=== PATIENT | female | born 1935 | race Caucasian/White ===

== ENCOUNTER 2018-07-05 09:38 | Inpatient (IN) | payer OTHER ==
--- NOTE | 2018-07-05 16:10 | R.PREADM ---
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 Caesar Tena M.D. [facility]# [id number] [id number] NAME YRN TIRADO ADDRESS [address] [facility] [address] [id number] [id number] DATE OF 1935 AGE 82 SSN# [id number] GENDER female MARITAL STATUS RACE white ADMIT FROM 02 - [facility] PRE-HOSPITAL LIVING SETTING 01 - Home (private home/apt. board/care, assisted living, senior living, transitional living) HOME TYPE AND DETAILS Type of home: single family house # of steps to enter the residence: 0 # of steps within the residence: 0 # of levels in the residence: 1 PRE-HOSPITAL LIVING WITH Family/Relatives FAMILY SUPPORT Yes PRIMARY FAMILY CONTACT NAME Ron Tirado PRIMARY FAMILY CONTACT PHONE PHONE PRIMARY FAMILY CONTACT ON ADM.? no IS PRIMARY FAMILY CONTACT AUTH. REP.? no 1ST EMERGENCY CONTACT Ron Tirado 1ST CONTACT PHONE PHONE 1ST CONTACT ON ADM. no IS 1ST CONTACT AUTH. REP.? no PHONE 2ND CONTACT ON ADM.? no PATIENT EMPLOYMENT STATUS Retired (for age) PATIENT EMPLOYER No Employer PAYOR INFORMATION: 1ST PAYOR NAME MEDICARE 1ST PAYOR PHONE 1ST PAYOR INJURY/ILLNESS DUE TO ACCIDENT? No ANOTHER [employer] RESPONSIBLE? No PRIMARY REHAB/ACUTE DIAGNOSIS: CHF exacerbation ONSET DATE 06/30/2018 REHAB IMPAIRMENT CATEGORY (SUSHANT): 14 Cardiac does NOT meet 60% rule PRIMARY DIAGNOSIS-RELATED SURGERIES: No surgeries related to the primary diagnosis were performed. COMORBID REHAB/ACUTE DIAGNOSES: - Non-Tiered Dyspnea (R06.0) bilateral pleural effusion chest pain - N/A hypertension diabetes weakness INTERVENTIONS: - Hypertension Fluid management Medications VS - Diabetes BS's Education Glycohemoglobin Medications Podiatry RISK FOR COMPLICATIONS: - Hypertension CVA Hypotension PR TIA - Diabetes DM ulcers Infection Ketoacidosis PVD neuropathy SUMMARY OF ACUTE HOSPITALIZATION: Pt. is a 82 yo Right-handed white female. On 06/30/2018 she was admitted to [facility] with diagnosis CHF exacerbation. Her impairment category is Cardiac 09 - Cardiac Disorders (09). Pre-morbidly, Pt. was independent/mod-I in Communication, Social Cognition, Self-Care, Sphincter Cont rol, Transfers Control, and Locomotion; and she had good Sphincter Control. Currently, she has deficits of Balance, Endurance, Safety Awareness, Transfers Control, Locomotion, S ocial Cognition, and Self-Care. Pt. is now referred to [facility] for acute in-patient rehabilitation in order to maximize patient's functional independence in activities of daily living, strength, ROM, and mobi lity. Patient has realistic goal of being discharged at assistance level 6-Adithya to reside at Home with Fam cesar/Relatives. PAST MEDICAL HISTORY Dyspnea (R06.0) bilateral pleural effusion chest pain diabetes hypertension weakness UTI MEDICATION ALLERGIES: No Known Drug Allergies (NKDA) ENVIRONMENTAL ALLERGIES: - Substance Allergies None Known - Other Allergies None Known CODE STATUS: Full code WEIGHT/HEIGHT/BMI: WEIGHT 180 lbs HEIGHT 5' 6" BMI 29 DIET: - Diet Type Regular - Diet - Solid Texture Regular - Diet - Liquid Texture Regular - Tube Feed N/A REVIEW OF SYSTEMS: - Gen Alert and awake Lying in bed No apparent distress Oriented to: person, time, and place - Vital Signs Vital signs stable, afebrile - CVS RRR VITAL SIGNS Temperature: 98 F SBP/DBP: 111/54 Pulse: 18 Resp: 62 Vital signs stable, afebrile CURRENT SPHINCTER CONTROL: Pre-hospital bladder status: continent # of bladder accidents in the last 7 days prior to screenin Pre-hospital bowel status: continent # of bowel accidents in the last 7 days prior to screenin Last Bowel Movement Date: 07/05/2018 DETAILED CURRENT FUNCTIONAL STATUS: - Bladder accident frequency: Ind - No accidents in the past 7 days - Bowel accident frequency: Ind - No accidents in the past 7 days - Walking score based on distance walked: 1(<=50ft) FUNCTIONAL STATUS: - Self-Care A. Eating Ind Ind B. Grooming Ind Ind C. Bathing Ind Ind D. Dressing - Upper Ind Ind E. Dressing - Lower Ind modA F. Toileting Adithya modA - Sphincter Control G: Bladder control Ind Ind H: Bowel control Ind Ind - Transfers Control I. Bed/Chair/Wheelchair Adithya modA J. Toilet Adithya modA K. Tub/Shower Adithya modA - Locomotion L. Walk/Wheelchair (B) Adithya Dep M. Stairs Ind ADNO - Communication N. Comprehension (B) Adithya Adithya O. Expression (B) Adithya Adithya - Social Cognition P. Social Interaction Adithya Adithya Q. Problem Solving Adithya sup R. Memory sup sup - Endurance Poor - Balance Poor - Safety Awareness Poor CURRENT FUNC. DEFICITS: Balance, Endurance, Safety Awareness, Transfers Control, Locomotion, Social Cognition, and Self-Care THERAPY NOTES FROM ACUTE CARE: Attached. SPECIAL NEEDS: - Safety Concerns Skin breakdown precautions needed due to skin breakdown risk PATIENT NEEDS ACTIVE AND ONGOING THERAPEUTIC INTERVENTION OF MULTIPLE THERAPY DISCIPLINES, INCLUDING: - Occupational Therapy Evaluate and Treat. - Physical Therapy Evaluate and Treat. PATIENT NEEDS CLOSE MEDICAL SUPERVISION BY A REHABILITATION PHYSICIAN FOR: Bowel and Bladder Management Coordination of Treatment Team Diabetes Management Medical and Co-Morbidity Management Pain Management PATIENT REQUIRES 24X7 REHAB NURSING FOR MEDICAL AND FUNCTIONAL MGT. OF THE FOLLOWING DEFICITS: ADL's Ambulation Bowel and Bladder Management Cognition Communication Disease Management Medication Management Pain Management Patient/Family Education Providing Safe Environment Transfers PATIENT REQUIRES INTENSIVE, COORDINATED INTERDISCIPLINARY APPROACH TO REHAB: Arranging Home Equipment/Services Discharge Planning Family Intervention/Training Supervisor [employer]/Case Management PATIENT REHAB POTENTIAL: Expected level of measurable improvement will be of a practical value to patient's functional capacit y or adaptations to impairments Has a viable Discharge Plan Medically appropriate; condition is sufficiently stable to participate in intensive rehab program Patient is able and expected to receive 3 hours of individualized therapy daily on at least 5 of ever y 7 days Patient's prognosis for significant practical improvement within a reasonable period of time appears Good DISCHARGE PLAN: - Estimated Length of Stay (days) 10. - Consensus on plan Discharge plan has been discussed with primary caregiver. Patient/Family is in agreement with the jeff n. Primary caregiver is in agreement with the plan. - Patient/Family Goals Return home with assistance. - Planned Living Setting Upon Discharge Home, to live with Family/Relatives. RECOMMENDED CARE LEVEL: IRF RECOMMENDATION DETAILS: Recommended Admission to Comprehensive Rehabilitation Program to Increase Functional [place] SCREENER'S COMPLETENESS CONFIRMATION: - Screening Confirmation The patient data collection on this preadmission screening form is finished PHYSICIANS REVIEW AND ADMISSION DETERMINATION Admit - Based on my review of the Pre-Admission Screening results, in my medical judgment and experie nce, I concur with the findings and recommend admission to [facility], as this patient requires an IRF level of care. SIGNATURE PANEL: Clinical Liaison - [electronically] signed by Starr Leiva on 07/05/2018 at 15:22 (DRILLING SUPERVISOR) Clinical Liaison - [electronically] signed by Ban Sumner on 07/05/2018 at 15:46 (DRILLING SUPERVISOR) Physician Reviewer - [electronically] signed by Dr. Caesar Tena M.D. on 07/05/2018 at 16:08 (DRILLING SUPERVISOR )
--- OUTSIDE RECORDS SUMMARY | 2018-07-05 20:01 | XMS REPORT | Clinical Summary ---
:1935 Author Organization [facility] Address [address] [place] [address] Care Team Providers Name Role Phone Unavailable Primary Care Provider Unavailable Allergies Active Allergy Reactions Severity Noted Date Comments Sulfamethoxazole-Trimethopr Diarrhea, Nausea And Vomiting 06/28/2016 im Codeine Anxiety Medium 06/28/2016 Latex, Natural Rubber Rash Low 07/03/2016 Medications Medication Sig Dispensed Refills Start Date End Date Status sucralfate (CARAFATE) Take 1 g by mouth 4 0 Active 1 gram tablet (four) times daily. sotalol AF (BETAPACE Take 80 mg by mouth 0 Active AF) 80 MG tablet 2 (two) times daily. lisinopril Take 20 mg by mouth 0 Active (PRINIVIL,ZESTRIL) 20 daily. MG tablet glimepiride (AMARYL) Take 4 mg by mouth 0 Active 4 MG tablet 2 (two) times daily with breakfast and dinner. metFORMIN Take 500 mg by 0 Active (GLUCOPHAGE) 500 MG mouth 2 (two) times tablet daily with breakfast and dinner. Active Problems Problem Noted Date Orthostatic hypotension 07/06/2016 History of stroke 07/03/2016 Atrial fibrillation 07/03/2016 Sick sinus syndrome 07/03/2016 Falls 07/03/2016 Controlled type 2 diabetes mellitus with complication, without long-term 07/03 current use of insulin Chest pain 07/03/2016 Acute right MCA stroke 06/26/2016 Hyponatremia 06/26/2016 Hypocalcemia 06/26/2016 Received intravenous tissue plasminogen activator (tPA) in emergency 2016 department Pacemaker 06/26/2016 Hypertension 06/26/2016 Family History Medical History Relation Name Comments Heart disease Brother Stroke Brother Heart disease Father Hyperlipidemia Father Diabetes Mother Relation Name Status Comments Brother Father Mother Social History Tobacco Use Types Packs/Day Years Used Date Unknown If Ever Smoked Alcohol Use Drinks/Week oz/Week Comments No Sex Assigned at Date Recorded Not on file Job Start Date Occupation Industry Not on file Not on file Not on file Travel History Travel Start Travel End No recent travel history available. Last Filed Vital Signs Not on file Plan of Treatment Not on file Results Not on fileafter 07/04/2017 Insurance Payer Benefit Plan / Group Subscriber ID Type Phone Address MEDICARE MEDICARE A B xxxxxxxxxx Medicare MCR GENERIC MEDICARE xxxxxxxxxx Medigap SUPPLEMENT/INDIVIDUAL SUPPLEMENT Advance Directives For more information, please contact:[address] [phone] Code Status Date Activated Date Inactivated Comments Full Code 07/03/2016 2:25 PM 07/07/2016 6:09 AM This code status was determined by: Patient Full Code 06/26/2016 3:34 PM 06/29/2016 4:19 PM This code status was determined by: Patient
--- OUTSIDE RECORDS SUMMARY | 2018-07-05 20:01 | XMS REPORT ---
:1935 [facility] [address] [place] [address] [address]. [address] [place] [address] Care Team Providers Name Role Phone KELLEE LUA Primary Care Provider Unavailable DR CHENCHO KUMARI I Unavailable Unavailable KELLEE LUA Unavailable Unavailable Problems This patient has no known problems. Allergies, Adverse Reactions, Alerts This patient has no known allergies or adverse reactions. Medications This patient has no known medications. Encounters Start End Encounter Admission Attending Care Care Encounter Date/Time Date/Time Type Type Clinicians Facility Department ID 2018-03-23 2018-03-26 Outpatient E MARLENY KUMARI TELE [id number] 19:35:00 19:18:00 CHENCHO Results Test Description Test Time Test Comments Text Results Atomic Results Result Comments GLUCOMETER GLUCOSE- LAB USE ONLY 2018-03-26 16:28:00 Test Item Value Reference Range Comments GLUCOMETER (test code=GMG) 140 mg/dL 70-100 CLEANED METERMeter ID: [id number]: [id number] MENG RAMIREZ GLUCOMETER GLUCOSE- LAB USE [id number] 11:07:00 Test Item Value Reference Range Comments GLUCOMETER (test code=GMG) 241 mg/dL 70-100 CLEANED METERMeter ID: [id number]: [id number] ALIX RAMIREZVEZ CBC WITH [id number] 06:39:00 Test Item Value Reference Range Comments WBC (test code=WBC) 8.3 10\S\3/uL 4.5-11.0 RBC (test code=RBC) 3.33 10\S\6/uL 3.80-5.80 HGB (test code=HBG) 7.9 g/dL 12.0-15.5 HCT (test code=HCT) 24.7 % 35.0-44.0 MCV (test code=MCV) 74.2 fL 81.0-99.0 MCH (test code=MCH) 23.7 pg 27.0-31.0 MCHC (test code=MCHC) 32.0 g/dL 32.0-36.0 RDW (test code=RDW) 20.8 % 11.5-14.5 PLT (test code=PLT) 209 10\S\3/uL 130-400 MPV (test code=MPV) 10.4 fL 9.4-12.4 NEUTROP # (test code=NE#) 5.4 10\S\3/uL 1.6-8.0 LYMPH # (test code=LY#) 1.6 10\S\3/uL 1.1-3.5 MONOCYTE # (test code=MO#) 1.0 10\S\3/uL 0.0-1.1 EOSINOPH # (test code=EO#) 0.2 10\S\3/uL 0.0-0.7 BASOPHIL # (test code=BA#) 0.0 10\S\3/uL 0.0-0.3 IG # (test code=IG#) 0.04 10\S\3/uL 0.00-0.06 NRBC # (test code=NRBC#) 0.00 10\S\3/uL 0.00-0.01 NEUTROPH % (test code=NE%) 65.5 % 35.0-73.0 LYMPH % (test code=LY%) 19.4 % 20.0-55.0 MONO % (test code=MO%) 11.5 % 2.5-10.0 EOSINOPH % (test code=EO%) 2.7 % 0.0-5.0 BASOPHIL % (test code=BA%) 0.4 % 0.0-2.0 IG % (test code=IG%) 0.5 % 0.0-0.8 NRBC% (test code=NRBC%) 0.0 % 0.0-0.2 PLT EST (test code=PLTEST) ADEQUATE ADEQUATE PLT MORPH (test code=PLTMOR) NORMAL (1.5-3 um) NORMAL ANISO (test code=ANISO) 1+ NONE HYPOCHROM (test code=HYPOC) 1+ NONE ACANTHO (test code=ACAN) 2+ NONE COMPREHENSIVE METABOLIC [id number] 05:53:00 Test Item Value Reference Range Comments GLUCOSE (test code=06D) 111 mg/dL 75-100 SODIUM (test code=01A) 131 mmol/L 136-145 POTASSIUM (test code=01B) 5.1 mmol/L 3.6-5.1 CHLORIDE (test code=04A) 99 mmol/L 98-107 CO2 (test code=02A) 26 mmol/L 22-32 ANION GAP (test code=ANG) 11.1 mmol/L BUN (test code=05D) 29 mg/dL 7-18 CREATININE (test code=03E) 1.9 mg/dL 0.4-1.1 BUN/CREA (test code=BCR) 15 12-20 CALCIUM (test code=09D) 8.3 mg/dL 8.3-9.5 BILI TOTAL (test code=11A) 0.7 mg/dL 0.2-1.0 PROTEIN (test code=07D) 5.7 g/dL 6.4-8.2 ALBUMIN (test code=08D) 2.9 g/dL 3.5-4.8 GLOBULIN (test code=GLB) 2.8 g/dL 1.5-3.8 ALB/GLOB (test code=AGRR) 1.0 1.0-2.6 ALK PHOS (test code=35A) 72 IU/L 42-121 AST (test code=30A) 19 IU/L <=42 ALT (test code=31A) 22 IU/L <=78 GLUCOMETER GLUCOSE- LAB USE [id number] 05:31:00 Test Item Value Reference Range Comments GLUCOMETER (test code=GMG) 117 mg/dL 70-100 Meter ID: [id number]: [id number] ADRIANA GORDILLO GLUCOMETER GLUCOSE- LAB USE [id number] 16:13:00 Test Item Value Reference Range Comments GLUCOMETER (test code=GMG) 253 mg/dL 70-100 CLEANED METERMeter ID: [id number]: 9559 ALIX VÁSQUEZ U/S KIDNEY (RENAL)2018-03-25 14:49:30EXAMINATION: U/S KIDNEY (RENAL).LOCATION: S17.HISTORY: Z87.448, hematuria, severe anemia.COMPARISON:None.FINDINGS: Sonographic evaluation of the kidneys and bladder was performed utilizing grayscale, pulse Doppler and color flow imaging.The right kidney measures 9.1 cm and the left kidney measures 9.5cm. Theparenchymal echogenicity is within normal limits on both sides. There is nohydronephrosis. Nocalculus is identified.Bilateral ureteral jets are noted. Urinary bladder is underdistended , otherwiseunremarkable.IMPRESSION:No hydronephrosis.GLUCOMETER GLUCOSE- LAB USE [id number] 11:24:00 Test Item Value Reference Range Comments GLUCOMETER (test code=GMG) 211 mg/dL 70-100 Meter ID: [id number]: [id number] TERRY CRUMP CBC WITH [id number] 06:01:00 Test Item Value Reference Range Comments WBC (test code=WBC) 8.7 10\S\3/uL 4.5-11.0 RBC (test code=RBC) 3.86 10\S\6/uL 3.80-5.80 HGB (test code=HBG) 8.9 g/dL 12.0-15.5 HCT (test code=HCT) 29.1 % 35.0-44.0 MCV (test code=MCV) 75.4 fL 81.0-99.0 MCH (test code=MCH) 23.1 pg 27.0-31.0 MCHC (test code=MCHC) 30.6 g/dL 32.0-36.0 RDW (test code=RDW) 20.5 % 11.5-14.5 PLT (test code=PLT) 218 10\S\3/uL 130-400 MPV (test code=MPV) 10.1 fL 9.4-12.4 NEUTROP # (test code=NE#) 5.8 10\S\3/uL 1.6-8.0 LYMPH # (test code=LY#) 1.7 10\S\3/uL 1.1-3.5 MONOCYTE # (test code=MO#) 0.8 10\S\3/uL 0.0-1.1 EOSINOPH # (test code=EO#) 0.4 10\S\3/uL 0.0-0.7 BASOPHIL # (test code=BA#) 0.0 10\S\3/uL 0.0-0.3 IG # (test code=IG#) 0.03 10\S\3/uL 0.00-0.06 NRBC # (test code=NRBC#) 0.00 10\S\3/uL 0.00-0.01 NEUTROPH % (test code=NE%) 66.1 % 35.0-73.0 LYMPH % (test code=LY%) 19.6 % 20.0-55.0 MONO % (test code=MO%) 9.3 % 2.5-10.0 EOSINOPH % (test code=EO%) 4.2 % 0.0-5.0 BASOPHIL % (test code=BA%) 0.5 % 0.0-2.0 IG % (test code=IG%) 0.3 % 0.0-0.8 NRBC% (test code=NRBC%) 0.0 % 0.0-0.2 PLT EST (test code=PLTEST) ADEQUATE ADEQUATE PLT MORPH (test code=PLTMOR) NORMAL (1.5-3 um) NORMAL ANISO (test code=ANISO) 2+ NONE HYPOCHROM (test code=HYPOC) 1+ NONE ACANTHO (test code=ACAN) 1+ NONE COMPREHENSIVE METABOLIC [id number] 05:37:00 Test Item Value Reference Range Comments GLUCOSE (test code=06D) 62 mg/dL 75-100 SODIUM (test code=01A) 132 mmol/L 136-145 POTASSIUM (test code=01B) 4.9 mmol/L 3.6-5.1 CHLORIDE (test code=04A) 98 mmol/L 98-107 CO2 (test code=02A) 27 mmol/L 22-32 ANION GAP (test code=ANG) 11.9 mmol/L BUN (test code=05D) 30 mg/dL 7-18 CREATININE (test code=03E) 1.9 mg/dL 0.4-1.1 BUN/CREA (test code=BCR) 16 12-20 CALCIUM (test code=09D) 8.6 mg/dL 8.3-9.5 BILI TOTAL (test code=11A) 0.5 mg/dL 0.2-1.0 PROTEIN (test code=07D) 5.8 g/dL 6.4-8.2 ALBUMIN (test code=08D) 3.2 g/dL 3.5-4.8 GLOBULIN (test code=GLB) 2.6 g/dL 1.5-3.8 ALB/GLOB (test code=AGRR) 1.2 1.0-2.6 ALK PHOS (test code=35A) 71 IU/L 42-121 AST (test code=30A) 20 IU/L <=42 ALT (test code=31A) 22 IU/L <=78 IRON/TIBC/IRON [id number] 05:37:00 Test Item Value Reference Range Comments IRON (test code=46B) 29 ug/dL 50-170 TIBC (test code=79B) 330 ug/dL 250-400 FE% SAT (test code=ISAT) 8.8 % 15.0-50.0 GLUCOMETER GLUCOSE- LAB USE [id number] 05:08:00 Test Item Value Reference Range Comments GLUCOMETER (test code=GMG) 67 mg/dL 70-100 CLEANED METERMeter ID: [id number]: [address] [place] GLUCOMETER GLUCOSE- LAB USE [id number] 19:39:00 Test Item Value Reference Range Comments GLUCOMETER (test code=GMG) 123 mg/dL 70-100 CLEANED METERMeter ID: [id number]: 9250 [employer] GLUCOMETER GLUCOSE- LAB USE [id number] 15:27:00 Test Item Value Reference Range Comments GLUCOMETER (test code=GMG) 176 mg/dL 70-100 CLEANED METERMeter ID: [id number]: 9197 MENG RAMIREZ GLUCOMETER GLUCOSE- LAB USE [id number] 11:54:00 Test Item Value Reference Range Comments GLUCOMETER (test code=GMG) 73 mg/dL 70-100 CLEANED METERMeter ID: [id number]: 9197 MENG RAMIREZ CBC WITH [id number] 09:00:00 Test Item Value Reference Range Comments WBC (test code=WBC) 7.4 10\S\3/uL 4.5-11.0 RBC (test code=RBC) 3.55 10\S\6/uL 3.80-5.80 HGB (test code=HBG) 8.5 g/dL 12.0-15.5 HCT (test code=HCT) 27.0 % 35.0-44.0 MCV (test code=MCV) 76.1 fL 81.0-99.0 MCH (test code=MCH) 23.9 pg 27.0-31.0 MCHC (test code=MCHC) 31.5 g/dL 32.0-36.0 RDW (test code=RDW) 20.5 % 11.5-14.5 PLT (test code=PLT) 199 10\S\3/uL 130-400 MPV (test code=MPV) 10.2 fL 9.4-12.4 NEUTROP # (test code=NE#) 4.3 10\S\3/uL 1.6-8.0 LYMPH # (test code=LY#) 1.9 10\S\3/uL 1.1-3.5 MONOCYTE # (test code=MO#) 0.8 10\S\3/uL 0.0-1.1 EOSINOPH # (test code=EO#) 0.3 10\S\3/uL 0.0-0.7 BASOPHIL # (test code=BA#) 0.1 10\S\3/uL 0.0-0.3 IG # (test code=IG#) 0.05 10\S\3/uL 0.00-0.06 NRBC # (test code=NRBC#) 0.00 10\S\3/uL 0.00-0.01 NEUTROPH % (test code=NE%) 57.7 % 35.0-73.0 LYMPH % (test code=LY%) 26.0 % 20.0-55.0 MONO % (test code=MO%) 10.6 % 2.5-10.0 EOSINOPH % (test code=EO%) 4.2 % 0.0-5.0 BASOPHIL % (test code=BA%) 0.8 % 0.0-2.0 IG % (test code=IG%) 0.7 % 0.0-0.8 NRBC% (test code=NRBC%) 0.0 % 0.0-0.2 PLT EST (test code=PLTEST) ADEQUATE ADEQUATE PLT MORPH (test code=PLTMOR) NORMAL (1.5-3 um) NORMAL ANISO (test code=ANISO) 2+ NONE HYPOCHROM (test code=HYPOC) 1+ NONE MICROCYTIC (test code=MICRO) 1+ NONE TARGET (test code=TARG) 1+ NONE OVALOCYTES (test code=OVA) 1+ NONE ACANTHO (test code=ACAN) 1+ NONE BASIC METABOLIC [id number] 07:44:00 Test Item Value Reference Range Comments GLUCOSE (test code=06D) 69 mg/dL 75-100 SODIUM (test code=01A) 134 mmol/L 136-145 POTASSIUM (test code=01B) 5.2 mmol/L 3.6-5.1 CHLORIDE (test code=04A) 102 mmol/L 98-107 CO2 (test code=02A) 26 mmol/L 22-32 ANION GAP (test code=ANG) 11.2 mmol/L BUN (test code=05D) 31 mg/dL 7-18 CREATININE (test code=03E) 2.0 mg/dL 0.4-1.1 BUN/CREA (test code=BCR) 16 12-20 CALCIUM (test code=09D) 8.3 mg/dL 8.3-9.5 GLUCOMETER GLUCOSE- LAB USE [id number] 05:56:00 Test Item Value Reference Range Comments GLUCOMETER (test code=GMG) 153 mg/dL 70-100 CLEANED METERMeter ID: [id number]: [id number] SOLIS FERRARA CARDIAC [id number] 19:13:00 Test Item Value Reference Range Comments TROPONIN I (test code=A84) 0.018 ng/mL 0.000-0.045 CKMB (test code=A49) 1.2 ng/mL <=3.6 CPK (test code=32A) 33 IU/L 26-192 OCCULT [id number] 19:04:00 Test Item Value Reference Range Comments Direct Exam (test code=DE1) NEGATIVE FOR OCCULT BLOOD CBC WITH [id number] 17:58:00 Test Item Value Reference Range Comments WBC (test code=WBC) 13.8 10\S\3/uL 4.5-11.0 RBC (test code=RBC) 3.31 10\S\6/uL 3.80-5.80 HGB (test code=HBG) 7.5 g/dL 12.0-15.5 HCT (test code=HCT) 24.9 % 35.0-44.0 MCV (test code=MCV) 75.2 fL 81.0-99.0 MCH (test code=MCH) 22.7 pg 27.0-31.0 MCHC (test code=MCHC) 30.1 g/dL 32.0-36.0 RDW (test code=RDW) 20.3 % 11.5-14.5 PLT (test code=PLT) 238 10\S\3/uL 130-400 MPV (test code=MPV) 10.3 fL 9.4-12.4 NEUTROP # (test code=NE#) 10.7 10\S\3/uL 1.6-8.0 LYMPH # (test code=LY#) 1.9 10\S\3/uL 1.1-3.5 MONOCYTE # (test code=MO#) 1.0 10\S\3/uL 0.0-1.1 EOSINOPH # (test code=EO#) 0.2 10\S\3/uL 0.0-0.7 BASOPHIL # (test code=BA#) 0.0 10\S\3/uL 0.0-0.3 IG # (test code=IG#) 0.09 10\S\3/uL 0.00-0.06 NRBC # (test code=NRBC#) 0.00 10\S\3/uL 0.00-0.01 NEUTROPH % (test code=NE%) 77.1 % 35.0-73.0 LYMPH % (test code=LY%) 13.5 % 20.0-55.0 MONO % (test code=MO%) 7.0 % 2.5-10.0 EOSINOPH % (test code=EO%) 1.4 % 0.0-5.0 BASOPHIL % (test code=BA%) 0.3 % 0.0-2.0 IG % (test code=IG%) 0.7 % 0.0-0.8 NRBC% (test code=NRBC%) 0.0 % 0.0-0.2 PLT EST (test code=PLTEST) ADEQUATE ADEQUATE PLT MORPH (test code=PLTMOR) NORMAL (1.5-3 um) NORMAL ANISO (test code=ANISO) 1+ NONE POIK (test code=POIK) 2+ NONE BRAYDON (test code=BRAYDON) 1+ NONE ACANTHO (test code=ACAN) 1+ NONE SCHISTO (test code=BALBIR) 1+ NONE COMPREHENSIVE METABOLIC [id number] 17:54:00 Test Item Value Reference Range Comments GLUCOSE (test code=06D) 144 mg/dL 75-100 SODIUM (test code=01A) 134 mmol/L 136-145 POTASSIUM (test code=01B) 5.2 mmol/L 3.6-5.1 CHLORIDE (test code=04A) 102 mmol/L 98-107 CO2 (test code=02A) 25 mmol/L 22-32 ANION GAP (test code=ANG) 12.2 mmol/L BUN (test code=05D) 29 mg/dL 7-18 CREATININE (test code=03E) 1.9 mg/dL 0.4-1.1 BUN/CREA (test code=BCR) 15 12-20 CALCIUM (test code=09D) 8.0 mg/dL 8.3-9.5 BILI TOTAL (test code=11A) 0.2 mg/dL 0.2-1.0 PROTEIN (test code=07D) 5.9 g/dL 6.4-8.2 ALBUMIN (test code=08D) 3.1 g/dL 3.5-4.8 GLOBULIN (test code=GLB) 2.8 g/dL 1.5-3.8 ALB/GLOB (test code=AGRR) 1.1 1.0-2.6 ALK PHOS (test code=35A) 65 IU/L 42-121 AST (test code=30A) 20 IU/L <=42 ALT (test code=31A) 26 IU/L <=78 PRO TIME AND [id number] 17:49:00 Test Item Value Reference Range Comments PT (test code=TT) 16.5 s 9.8-13.6 INR (test code=INR) 1.4 INRH (test code=INRH) SUGGESTED THERAPEUTIC RANGE FOR INR: 2.5 - 3.5 For Patients with Prosthetic Valves or Patients with recurrent Thromboembolic Events 2.0 - 3.0 For Most Other Applications PTT (test code=PTT) 26.2 s 20.2-38.0 PTTH (test code=PTTH) To monitor the effectiveness of heparin, we offer the Anti-Xa (Heparin Assay). It can be used for either unfractionated or LMW Heparin. Order Code is ANTI-XA XR CHEST 1 VIEW [id number] 17:21:48LOCATION: B25INUOLWJ: 82-year-old female, pulmonary symptoms not otherwise specified.COMMENT:A frontal chest radiograph was obtained at the bedside at 5:09 p.m.The lungs are clear. Borderline left ventricular cardiac enlargement is noted.Also noted is a mildly uncoiled thoracic aorta. The baltazar and mediastinum areunremarkable. The skeleton and soft tissues are unremarkable.A bipolar left-sided cardiacpacemaker is present.IMPRESSION:There is no radiographic evidence of acute cardiopulmonary disease.XR SPINE THORACIC W/SWIM [id number] 15:45:50Xray thoracic and lumbar spineLocation Code: Q01Kxlodhudlc: None availableCLINICAL HISTORY: Fall.Findings: .Exam findings limited by backboard. No evidence of acute lumbar spinecompression fracture is demonstrated. Nearly nondiagnostic evaluation of thethoracic spine secondary to positioning and qualitative osteopenia as well aslimited evaluation of the thoracic spine secondary to overlapping bone.Multilevel degenerative changes are notedIMPRESSION:Exam findings limited by backboard. No evidence of acute lumbar spinecompression fracture is demonstrated. Nearly nondiagnostic evaluation of thethoracic spine secondary to positioning and qualitative osteopenia as well aslimited evaluation of the thoracic spine secondary to overlapping bone.XR SPINE LUMBAR [id number] 15:45:50Xray thoracic and lumbar spineLocation Code: D32Zejztivvdb: None availableCLINICAL HISTORY: Fall.Findings: .Exam findings limited by backboard. No evidence of acute lumbar spinecompression fracture is demonstrated. Nearly nondiagnostic evaluation of thethoracic spine secondary to positioning and qualitative osteopenia as well aslimited evaluation of the thoracic spine secondary to overlapping bone.Multilevel degenerative changes are notedIMPRESSION:Exam findings limited by backboard. No evidence of acute lumbar spinecompression fracture is demonstrated. Nearly nondiagnostic evaluation of thethoracic spine secondary to positioning and qualitative osteopenia as well aslimited evaluation of the thoracic spine secondary to overlapping bone.XR PELVIS AP 1 [id number] 15:33:26Pelvis one viewLocation: G4Hcgzncitpe: Fall.Comparison: None.Findings:No evidence of fracture. Hip joints, symphysis pubis, and sacroiliac joints areintact. Degenerative changes of lower lumbar spine. Bone island in the leftacetabular roof. Soft tissues unremarkable.Impression: No evidence of trauma.CT CERVICAL SPINE W/O [id number] 14:32:09CT cervical spine without contrastLocation a 1HISTORY : Injury.Technique: Axial images were obtained with sagittal and coronal reconstruction.Radiation dose reduction technique was utilized.Findings:Thebony cervical canal is intact with no evidence of cervical spine fracture. There is normal vertebralbody alignment and vertebral body height. Moderate to severe narrowing of the C6/7 disc space, with moderate anterior andposterior spondylosis. Remaining disc spaces are preserved.No soft tissue swelling is present. C2-3: Left paracentral 3.5 mm disc protrusion indents the ventral spinal cord.C6: Unremarkable.Moderate posterior spondylosis C6-7.IMPRESSION: 1. No evidence of skeletal trauma.2. C2-3 disc herniation of 3.5 mm. No evidence of traumaCT HEAD W/O [id number] 14:14:25Location code: L11CT Brain Without ContrastIndication: TraumaComparison: noneTechnical factors: Axial images were obtained from the base of the skull to thevertex. Sagittal and coronal reconstruction.This exam was performed according to our departmental dose-optimizationprogram, which includes automated exposure control, adjustment of the mA and/orkV according to patient size and/or use of iterative reconstruction technique.Findings: Ventricles and sulci are of normal caliber for patient age. Chronic lacunarinfarct in right basal ganglia. Right temporal lobe encephalomalacia.No hemorrhage, mass-effect, or abnormal extra-axial fluid collection. Noevidence of acute infarct.No abnormal enhancing lesion is seen.The calvarium is unremarkable.No confluent otomastoid disease. The orbits are normal in appearance. Visualized paranasal sinuses are clear.Impression:No evidence of acute pathology.Chronic lacunar infarct in right basal ganglia.Right temporal lobe encephalomalacia.[id number] 23:14:00 Test Item Value Reference Range Comments NT ProBnp (test code=PBNP) 2207 pg/mL 0-449 Lipid [id number] 23:14:00 Test Item Value Reference Range Comments Cholesterol (test 99 mg/dL 0-200 code=CHOL) Triglycerides (test 89 mg/dL 9-200 code=TRIG) HDL (test code=HDL) 47 mg/dL 50-60 Chol/HDL (test 2.1 Ratio 0.0-4.4 code=CHOLPHDL) LDL, Calculated (test 34 mg/dL 0-130 (NOTE)RISK OF HEART code=LDLC) DISEASEPublished by Samoan Heart AssociationAnalyte Optimal Boderline Increased RiskCHOL <200 200-239 >240TRIG <150 150-199 >200HDL Male: >60 <40HDL Female: >60 <50LDL <100 130-159 >160LDL NEAR OPTIMAL IS 100-129 VLDL (test code=VLDL) 18 mg/dL 5-40 LDL/HDL (test code=LDLPHDL) 1 Comprehensive Metabolic [id number] 23:14:00 Test Item Value Reference Range Comments Sodium (test code=NA) 132 mmol/L 135-145 Potassium (test code=K) 4.3 mmol/L 3.5-5.1 Chloride (test code=CL) 96 mmol/L 98-105 Carbon Dioxide (test 24 mmol/L 22-29 code=CO2) Glucose (test code=GLU) 152 mg/dL 70-115 Blood Urea Nitrogen (test 27 mg/dL 8-23 code=BUN) Creatinine (test 1.7 mg/dL 0.5-0.9 code=CREAT) Calcium (test code=CA) 8.9 mg/dL 8.3-10.5 Prot Total (test code=TP) 6.0 g/dL 6.4-8.3 Albumin (test code=ALB) 4.2 g/dL 3.5-5.2 A/G Ratio (test 2.3 Ratio code=AGRATIO) Globulin (test code=GLOB) 1.8 2.9-3.1 Bili Total (test 0.5 mg/dL 0.1-0.9 code=TBIL) Alk Phos (test 128 U/L 35-104 code=APHOS) AST (test code=AST) 32 U/L 1-32 ALT (test code=ALT) 37 U/L 1-33 BUN/Creatinine Ratio 15.9 (test code=BCRATIO) Anion Gap (test 12 mmol/L 7-16 code=AGAP) Estimated GFR (test 31 mL/min/1.73m2 eGFR (estimated Glomerular code=GFR) Filtration Rate) is an estimated value,calculated from the patient's serum creatinine using the MDRD equation.It is NOT the patient's actual GFR. The eGFR provides a more clinicallyuseful measure of kidney disease than serum creatinine alone.This calculation takes sex and race into account, if the informationis provided. If the race is not provided, and the patient isAfrican-Samoan, multiply by 1.212. If sex is not provided, and thepatient is female, multiply by 0.742. Results for patients <18 years ofage have not been validated by the MDRD study and should be interpretedwith caution.eGFR Result Interpretation:eGFR > or=60 is in the Normal RangeeGFR < 60 may mean kidney diseaseeGFR < 15 may mean kidney failureRanges recommended by the National Kidney Foundation,http://nkdep.nih .gov CBC with [id number] 22:11:00 Test Item Value Reference Range Comments WBC (test code=WBC) 8.0 K/cumm 4.4-10.5 RBC (test code=RBC) 3.10 M/cumm 3.75-5.20 Hemoglobin (test code=HGB) 9.0 gm/dL 12.2-14.8 Hematocrit (test code=HCT) 28.9 % 36.5-44.4 MCV (test code=MCV) 93.3 fL 80-100 MCH (test code=MCH) 29.1 pg 27.0-32.5 MCHC (test code=MCHC) 31.2 g/dL 32.0-37.5 RDW (test code=RDW) 12.1 % 11.5-14.5 Platelet Count (test code=PLTCT) 248 K/cumm 140-440 MPV (test code=MPV) 8.7 fL Diff Method (test code=DIFFM) Auto Neutrophil (test code=NEUT) 64.4 % 36-70 Lymphocyte (test code=LYMPH) 25.8 % 12-44 Monocyte (test code=MONO) 8.6 % 0-11 Eosinophil (test code=EOS) 0.8 % 0-7 Basophil (test code=BASO) 0.4 % 0-2 Neutro Abs (test code=ANEUT) 5.1 K/cumm 1.6-7.4 Lymph Abs (test code=ALYMPH) 2.0 K/cumm 0.5-4.6 [place] Abs (test code=AMONO) 0.7 K/cumm 0.0-1.2 Eos Abs (test code=AEOS) 0.07 K/cumm 0.00-0.74 Baso Abs (test code=ABASO) 0.0 K/cumm 0.00-0.21 Hypochromic (test code=HYPO) Slight
--- OUTSIDE RECORDS SUMMARY | 2018-07-05 20:01 | XMS REPORT | Clinical Summary ---
:1935 [facility] Address [address] [place] [address] Care Team Providers Name Role Phone Donavan Blackwood MD Primary Care Provider Allergies Not on File Medications Not on file Active Problems Not on file Social History Tobacco Use Types Packs/Day Years Used Date Never Assessed Sex Assigned at Date Recorded Not on file Job Start Date Occupation Industry Not on file Not on file Not on file Travel History Travel Start Travel End No recent travel history available. Last Filed Vital Signs Not on file Plan of Treatment Health Maintenance Due Date Last Done Comments SHINGLES VACCINES (1 of 2) 1985 PNEUMOCOCCAL POLYSACCHARIDE VACCINE AGE 65 AND OVER 2000 PNEUMOCOCCAL-13 2000 INFLUENZA VACCINE 01/16/2018 Results Not on fileafter 07/04/2017 Insurance Payer Benefit Plan / Group Subscriber ID Type Phone Address MEDICARE MEDICARE PART A AND B xxxxxxxxxx Medicare [place], [place] [employer] OF xxxxxxxxxx [employer] [place] Advance Directives Patient has advance care planning documents on file. For more information, please contact:[facility] [place] [address]
[2018-07-05] MEDS ORDERED: CEFDINIR 300 MG CAP PO ONE (23:00)
[2018-07-05] MEDS: METFORMIN HCL 500 MG TAB PO ONE ×2 (23:00)
[2018-07-05] MEDS: APIXABAN 5 MG TABLET PO ONE ×2 (23:00)
[2018-07-05] MEDS: SOTALOL HCL 80 MG TAB PO ONE ×2 (23:00)
[2018-07-06 00:18] LABS: Urine Appearance CLEAR; Urine Bilirubin NEGATIVE (NEG); Urine Blood NEGATIVE (NEG); Urine Color YELLOW; Urine Glucose NEGATIVE (NEG); Urine Protein NEGATIVE (NEG); Urine Urobilinogen 0.2 mg/dL (0.2-1.0)
[2018-07-06 01:33] LABS: Urine Bacteria <20 /HPF (<20); Urine Culture Reflex Order NOT NEEDED; Urine RBC NONE SEEN /HPF (NONE SEEN)
[2018-07-06] MEDS: SOTALOL HCL 80 MG TAB PO ONE (05:12)
[2018-07-06] MEDS: SOTALOL HCL 80 MG TAB PO SCH ×2 (05:14→17:28)
[2018-07-06] MEDS ORDERED: GLUCAGON 1 MG/VIAL IM PRN (05:18)
[2018-07-06] MEDS ORDERED: D50W 25 GM/50 ML SYRINGE IV PRN (05:18)
[2018-07-06] MEDS: PANTOPRAZOLE 40MG TABLET PO SCH (06:32)
[2018-07-06 07:07] LABS: Absolute Lymphocytes (CBC) 2.2 K/uL (0.7-4.9); Absolute Monocytes 0.9 K/uL (0.1-1.3); Absolute Neutrophil 3.3 K/uL (1.8-8.0); Basophils % 0.8 % (0-1.3); Eosinophils % 3.9 % (0-4.4); Hematocrit 30.1 % (36.0-45.0); Lymphocytes % 32.7 % (15.3-44.8); MPV 8.1 fL (7.6-11.3); Monocytes % 13.4 % (3.3-12.3); RBC Red Blood Cell Count 3.76 M/uL (3.86-4.86)
[2018-07-06] MEDS: INSULIN -REGULAR HUMAN 50 UNIT/0.5 ML ML SQ SCH ×4 (07:30→20:04)
[2018-07-06] MEDS ORDERED: MAGNESIUM OXIDE 400 MG TAB PO SCH (08:00)
[2018-07-06] MEDS: ASPIRIN 325 MG TAB PO SCH ×2 (08:00→08:39)
[2018-07-06] MEDS ORDERED: APIXABAN 5 MG TABLET PO SCH (08:00)
[2018-07-06] MEDS ORDERED: METFORMIN HCL 500 MG TAB PO SCH ×2 (08:00)
[2018-07-06] MEDS ORDERED: VALSARTAN 40 MG TAB PO SCH (08:00)
[2018-07-06] MEDS: AMLODIPINE 10 MG TAB PO SCH (08:00)
[2018-07-06] MEDS ORDERED: AMLODIPINE PO SCH (08:00)
[2018-07-06 08:36] LABS: Albumin 2.9 g/dL (3.4-5.0); Magnesium 2.2 mg/dL (1.8-2.4); Potassium 4.2 mmol/L (3.5-5.1); Prealbumin 13.4 mg/dL (20-40)
[2018-07-06] MEDS: SUCRALFATE 1 GM TABLET PO SCH ×3 (08:39→16:25)
[2018-07-06] MEDS: FUROSEMIDE 20 MG TABLET PO SCH ×2 (08:40→17:28)
[2018-07-06] MEDS: CETIRIZINE HCL 5 MG TABLET PO SCH (08:41)
[2018-07-06] MEDS: CEFDINIR 300 MG CAP PO SCH ×2 (11:57→20:01)
--- NOTE | 2018-07-06 16:02 | FAST ---
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 Caesar Tena M.D. ADMISSION DIAGNOSIS: - Cardiac 09 - Cardiac Disorders () CHF exacerbation. EATING: EATING - STEP 1: Does the patient require the assistance of a person or device, or need extra time when eating? Yes. EATING - STEP 2: Does the patient require the assistance of a helper? Yes. EATING - STEP 3: Does the patient perform half or more of the eating tasks? Yes. EATING - STEP 4: Does the patient need only supervision, cuing, coaxing OR help to apply an orthosis OR help to cut fo od, open containers, pour liquids, or butter bread? Yes. EATING - SCORE: 5-SUP GROOMING: Comb/brush hair Wash, rinse, and dry face Wash, rinse, and dry hands GROOMING - STEP 1: Does the patient require the assistance of a person or device, or need extra time when grooming? Yes. GROOMING - STEP 2: Does the patient require the assistance of a helper? No. The patient only requires an assistive devic e, OR takes more than reasonable time to groom, OR there is a concern for safety as the patient groom s GROOMING - SCORE: 6-YOEL BATHING: Activity did not occur on this shift BATHING - SCORE: 0-UNK DRESSING - UPPER BODY: Activity did not occur on this shift ARTICLES SCORE Total number of steps: 0 DRESSING - UPPER BODY - SCORE: 0-UNK DRESSING - LOWER BODY: Activity did not occur on this shift ARTICLES SCORE Total number of steps: 0 DRESSING - LOWER BODY - SCORE: 0-UNK TOILETING: TOILETING - STEP 1: Does the patient require the assistance of a person or device, or need extra time with toileting? Yes . TOILETING - STEP 2: Does the patient require the assistance of a helper? Yes. TOILETING - STEP 3: How much assistance does the patient require from the helper? Only supervision TOILETING - SCORE: 5-SUP BLADDER MANAGEMENT: BLADDER MANAGEMENT - STEP 1: Does the patient control the bladder completely and intentionally without equipment or devices or med ications, and is always continent? No. BLADDER MANAGEMENT - STEP 2: Does the patient require the assistance of a helper? Yes. BLADDER MANAGEMENT - STEP 3: How much assistance does the patient require from the helper? Only supervision, stand-by, cuing, or c oaxing BLADDER MANAGEMENT - SCORE: 5-SUP BLADDER MANAGEMENT - FREQUENCY OF ACCIDENTS: BLADDER MANAGEMENT(FA) - STEP 1: How many accidents has the patient had during the current shift? 0 BOWEL MANAGEMENT: Activity did not occur on this shift BOWEL MANAGEMENT - SCORE: 7-IND BOWEL MANAGEMENT - FREQUENCY OF ACCIDENTS: BOWEL MANAGEMENT(FA) - STEP 1: How many accidents has the patient had during the current shift? 0 TRANSFERS: BED, CHAIR, WHEELCHAIR: TRANSFERS: BED, CHAIR, WHEELCHAIR - STEP 1: Does the patient require assistance of a person or device, or need extra time with bed, chair, or whe elchair transfers? Yes. TRANSFERS: BED, CHAIR, WHEELCHAIR - STEP 2: Does the patient require the assistance of a helper? Yes. TRANSFERS: BED, CHAIR, WHEELCHAIR - STEP 3: How much assistance does the patient require from the helper? Only supervision TRANSFERS: BED, CHAIR, WHEELCHAIR - SCORE: 5-SUP TRANSFERS: TOILET: TRANSFERS: TOILET - STEP 1: Does the patient require the assistance of a person or device, or need extra time with toilet transfe rs? Yes. TRANSFERS: TOILET - STEP 2: Does the patient require the assistance of a helper? Yes. TRANSFERS: TOILET - STEP 3: How much assistance does the patient require from the helper? Patient performs half or more of the tr ansferring tasks TRANSFERS: TOILET - STEP 4: Does the patient need only incidental help such as contact guard or steadying during toilet transfer? Yes. TRANSFERS: TOILET - SCORE: 4-MIN TRANSFERS: SHOWER: Activity did not occur on this shift TRANSFERS: SHOWER - SCORE: 0-UNK TRANSFERS: TUB: Activity did not occur on this shift TRANSFERS: TUB - SCORE: 0-UNK LOCOMOTION: WALK: Activity did not occur on this shift LOCOMOTION: WALK - SCORE: 0-UNK LOCOMOTION: WHEELCHAIR: Activity did not occur on this shift LOCOMOTION: WHEELCHAIR - SCORE: 0-UNK COMPREHENSION: COMPREHENSION: TYPE: Both COMPREHENSION - STEP 1: Does the patient require help from a person or device, or need extra time to understand complex and a bstract ideas (such as current events, finances, discharge planning, medical issues, relationships, e tc)? No. COMPREHENSION - STEP 2: Does the patient need extra time, require an assistive device (such as glasses for visual comprehensi on or a hearing aid for auditory comprehension) or does s/he have mild difficulty understanding compl ex and abstract information? Yes. COMPREHENSION - SCORE: 6-YOEL EXPRESSION EXPRESSION: TYPE: Both EXPRESSION - STEP 1: Does the patient require help from a person or device, or need extra time expressing complex and abst ract ideas (such as current events, finances, discharge planning, medical issues, relationships, etc) ? Yes. EXPRESSION - STEP 2: Does the patient require help to express basic necessities or ideas (such as hunger, thirst, sleep, s afety, daily schedule, room location, or discomfort) half or more of the time? No. EXPRESSION - STEP 3: How often does the patient need help to express directions and conversation about basic needs? Less t [place] 10% of the time EXPRESSION - SCORE: 5-SUP SOCIAL INTERACTION: SOCIAL INTERACTION - STEP 1: Does the patient require a helper to interact with others in social and therapeutic situations? No. SOCIAL INTERACTION - STEP 2: Does the patient need extra time in social situations, OR does s/he interact with staff, other patien ts, and family members ONLY in structured environments, OR does s/he require medication for social in teraction? Yes, patient needs extra time SOCIAL INTERACTION - SCORE: 6-YOEL PROBLEM SOLVING: PROBLEM SOLVING - STEP 1: Does the patient need help from a person or device, or need extra time to solve complex problems such as managing a checking account or confronting interpersonal problems? Yes. PROBLEM SOLVING - STEP 2: Does the patient solve basic routine problems half or more of the time? Yes. PROBLEM SOLVING - STEP 3: How often does the patient need help to solve basic routine problems? Less than 10% of the time PROBLEM SOLVING - SCORE: 5-SUP MEMORY: MEMORY - STEP 1: Does the patient need help from a person or device, or need extra time to remember frequently encount ered people, daily routines, and executing requests? Yes. MEMORY - STEP 2: How often does the patient need help to remember frequently encountered people, daily routines, and e xecuting requests? Less than 10% of the time MEMORY - SCORE: 5-SUP SIGNATURE PANEL: The following modified sections: Eating - Score, Grooming - Score, Bathing - Score, Dressing - Upper Body - Score, Dressing - Lower Body - Score, Toileting - Score, Bladder Management - Score, Bowel Man agement - Score, Transfers: Bed, Chair, Wheelchair - Score, Transfers: Toilet - Score, Transfers: Eugenia wer - Score, Transfers: Tub - Score, Locomotion: Walk - Score, Locomotion: Wheelchair - Score, Compre hension - Score, Expression - Score, Social Interaction - Score, Problem Solving - Score, Memory - Sc ore were [electronically] signed by Sammi Rodriguez C.N.A. on Sat Jul 06 2018 16:02:03 GMT-0600 (Centra [facility] Standard Time)
--- NOTE | 2018-07-06 16:26 | FAST ---
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 Caesar Tena M.D. ADMISSION DIAGNOSIS: - Cardiac 09 - Cardiac Disorders () CHF exacerbation. EATING: EATING - STEP 1: Does the patient require the assistance of a person or device, or need extra time when eating? Yes. EATING - STEP 2: Does the patient require the assistance of a helper? No, patient only requires an assistive device, O R s/he takes more than reasonable time to eat, OR there is a safety concern, OR s/he requires modifie d food consistency EATING - SCORE: 6-YOEL GROOMING: Comb/brush hair Wash, rinse, and dry face Wash, rinse, and dry hands GROOMING - STEP 1: Does the patient require the assistance of a person or device, or need extra time when grooming? Yes. GROOMING - STEP 2: Does the patient require the assistance of a helper? Yes. GROOMING - STEP 3: How much assistance does the patient require from the helper? Only prior equipment preparation/set up from the helper GROOMING - SCORE: 5-SUP BATHING: Abdomen Buttocks Chest Left arm Left lower leg and foot Left upper leg Perineal area Right arm Right lower leg and foot Right upper leg BATHING - STEP 1: Does the patient require the assistance of a person or device, or need extra time when bathing? Yes. BATHING - STEP 2: Does the patient require the assistance of a helper? Yes. BATHING - STEP 3: How much assistance does the patient require from the helper? More than just incidental help BATHING - STEP 4: What percent of the body parts did the patient bathe WITHOUT the helper? Half or more of the body par ts BATHING - SCORE: 3-MOD DRESSING - UPPER BODY: Bra (three steps) Button down shirt or blouse - NOT tucked in (four steps) T-shirt/pullover shirt (four steps) ARTICLES SCORE Total number of steps: 11 DRESSING - UPPER BODY - STEP 1: Does the patient require help from a person or device, or need extra time when dressing above the [address]? Yes. DRESSING - UPPER BODY - STEP 2: Does the patient require the assistance of a helper? Yes. DRESSING - UPPER BODY - STEP 3: Does the helper touch the patient while dressing? Yes. DRESSING - UPPER BODY - STEP 4: How many of the total steps does the patient complete on his/her own? 9 DRESSING - UPPER BODY - SCORE: 4-MIN DRESSING - LOWER BODY: Elastic waist pants (three steps) Sock - Left foot (one step) Sock - Right foot (one step) Underwear (three steps) ARTICLES SCORE Total number of steps: 8 DRESSING - LOWER BODY - STEP 1: Does the patient require help from a person or device, or need extra time when dressing below the [address] st? Yes. DRESSING - LOWER BODY - STEP 2: Does the patient require the assistance of a helper? Yes. DRESSING - LOWER BODY - STEP 3: Does the helper touch the patient while dressing? Yes. DRESSING - LOWER BODY - STEP 4: How many of the total steps does the patient complete on his/her own? 6 DRESSING - LOWER BODY - SCORE: 4-MIN TOILETING: TOILETING - STEP 1: Does the patient require the assistance of a person or device, or need extra time with toileting? Yes . TOILETING - STEP 2: Does the patient require the assistance of a helper? Yes. TOILETING - STEP 3: How much assistance does the patient require from the helper? Hands-on assistance from the helper TOILETING - STEP 4: Of the 3 tasks: 1) Adjusting clothing prior to use, 2) Cleansing of perineal area, 3) Adjusting clot erika after use; How many tasks does the patient perform WITHOUT assistance of the helper? Three tasks with steadying assistance from the helper TOILETING - SCORE: 4-MIN BLADDER MANAGEMENT: Activity did not occur on this shift BLADDER MANAGEMENT - SCORE: 7-IND BOWEL MANAGEMENT: Activity did not occur on this shift BOWEL MANAGEMENT - SCORE: 7-IND TRANSFERS: BED, CHAIR, WHEELCHAIR: Activity did not occur on this shift TRANSFERS: BED, CHAIR, WHEELCHAIR - SCORE: 0-UNK TRANSFERS: TOILET: TRANSFERS: TOILET - STEP 1: Does the patient require the assistance of a person or device, or need extra time with toilet transfe rs? Yes. TRANSFERS: TOILET - STEP 2: Does the patient require the assistance of a helper? Yes. TRANSFERS: TOILET - STEP 3: How much assistance does the patient require from the helper? Patient performs half or more of the tr ansferring tasks TRANSFERS: TOILET - STEP 4: Does the patient need only incidental help such as contact guard or steadying during toilet transfer? Yes. TRANSFERS: TOILET - SCORE: 4-MIN TRANSFERS: SHOWER: Activity did not occur on this shift TRANSFERS: SHOWER - SCORE: 0-UNK TRANSFERS: TUB: TRANSFERS: TUB - STEP 1: Does the patient require the assistance of a person or device, or need extra time with tub transfers? Yes. TRANSFERS: TUB - STEP 2: Does the patient require the assistance of a helper? Yes. TRANSFERS: TUB - STEP 3: How much assistance does the patient require from the helper? Incidental help such as contact guardin g or steadying, OR help to lift one leg into the tub TRANSFERS: TUB - SCORE: 4-MIN LOCOMOTION: WALK: Activity did not occur on this shift LOCOMOTION: WALK - SCORE: 0-UNK LOCOMOTION: WHEELCHAIR: Activity did not occur on this shift LOCOMOTION: WHEELCHAIR - SCORE: 0-UNK LOCOMOTION: STAIRS: Activity did not occur on this shift LOCOMOTION: STAIRS - SCORE: 0-UNK COMPREHENSION: COMPREHENSION: TYPE: Both COMPREHENSION - STEP 1: Does the patient require help from a person or device, or need extra time to understand complex and a bstract ideas (such as current events, finances, discharge planning, medical issues, relationships, e tc)? Yes. COMPREHENSION - STEP 2: Does the patient require help to understand questions or statements about basic needs or ideas (such as hunger, thirst, sleep, safety, daily schedule, room location, or discomfort) half or more of the t aguilar? No. COMPREHENSION - STEP 3: How often does the patient need help to understand directions and conversation about basic needs? Les s than 10% of the time COMPREHENSION - SCORE: 5-SUP EXPRESSION EXPRESSION: TYPE: Vocal EXPRESSION - STEP 1: Does the patient require help from a person or device, or need extra time expressing complex and abst ract ideas (such as current events, finances, discharge planning, medical issues, relationships, etc) ? Yes. EXPRESSION - STEP 2: Does the patient require help to express basic necessities or ideas (such as hunger, thirst, sleep, s afety, daily schedule, room location, or discomfort) half or more of the time? No. EXPRESSION - STEP 3: How often does the patient need help to express directions and conversation about basic needs? Less t [place] 10% of the time EXPRESSION - SCORE: 5-SUP SOCIAL INTERACTION: SOCIAL INTERACTION - STEP 1: Does the patient require a helper to interact with others in social and therapeutic situations? No. SOCIAL INTERACTION - STEP 2: Does the patient need extra time in social situations, OR does s/he interact with staff, other patien ts, and family members ONLY in structured environments, OR does s/he require medication for social in teraction? No. SOCIAL INTERACTION - SCORE: 7-IND PROBLEM SOLVING: PROBLEM SOLVING - STEP 1: Does the patient need help from a person or device, or need extra time to solve complex problems such as managing a checking account or confronting interpersonal problems? Yes. PROBLEM SOLVING - STEP 2: Does the patient solve basic routine problems half or more of the time? Yes. PROBLEM SOLVING - STEP 3: How often does the patient need help to solve basic routine problems? Less than 10% of the time PROBLEM SOLVING - SCORE: 5-SUP MEMORY: MEMORY - STEP 1: Does the patient need help from a person or device, or need extra time to remember frequently encount ered people, daily routines, and executing requests? Yes. MEMORY - STEP 2: How often does the patient need help to remember frequently encountered people, daily routines, and e xecuting requests? Less than 10% of the time MEMORY - SCORE: 5-SUP SIGNATURE PANEL: The following modified sections: Eating - Score, Grooming - Score, Bathing - Score, Dressing - Upper Body - Score, Dressing - Lower Body - Score, Toileting - Score, Transfers: Bed, Chair, Wheelchair - S core, Transfers: Toilet - Score, Transfers: Shower - Score, Transfers: Tub - Score, Comprehension - S core, Expression - Score, Social Interaction - Score, Problem Solving - Score, Memory - Score were [e lectronically] signed by Sybil Virgen OT on Sat Jul 06 2018 16:25:04 GMT-0600 (Central Standard [place] me)
[2018-07-06] MEDS: glipiZIDE 5 MG TAB PO SCH (16:30)
--- NOTE | 2018-07-06 18:36 | FAST ---
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 Caesar Tena M.D. ADMISSION DIAGNOSIS: - Cardiac 09 - Cardiac Disorders (09) CHF exacerbation. EATING: Activity did not occur on this shift EATING - SCORE: 0-UNK GROOMING: Activity did not occur on this shift GROOMING - SCORE: 0-UNK BATHING: Activity did not occur on this shift BATHING - SCORE: 0-UNK DRESSING - UPPER BODY: Activity did not occur on this shift Patient is not dressing in public clothing ARTICLES SCORE Total number of steps: 0 DRESSING - UPPER BODY - SCORE: 0-UNK DRESSING - LOWER BODY: Activity did not occur on this shift Patient is not dressing in public clothing ARTICLES SCORE Total number of steps: 0 DRESSING - LOWER BODY - SCORE: 0-UNK TOILETING: Activity did not occur on this shift TOILETING - SCORE: 0-UNK BLADDER MANAGEMENT: Activity did not occur on this shift BLADDER MANAGEMENT - SCORE: 7-IND BOWEL MANAGEMENT: Activity did not occur on this shift BOWEL MANAGEMENT - SCORE: 7-IND TRANSFERS: BED, CHAIR, WHEELCHAIR: TRANSFERS: BED, CHAIR, WHEELCHAIR - STEP 1: Does the patient require assistance of a person or device, or need extra time with bed, chair, or whe elchair transfers? Yes. TRANSFERS: BED, CHAIR, WHEELCHAIR - STEP 2: Does the patient require the assistance of a helper? Yes. TRANSFERS: BED, CHAIR, WHEELCHAIR - STEP 3: How much assistance does the patient require from the helper? Lifting of the legs TRANSFERS: BED, CHAIR, WHEELCHAIR - STEP 4: How many legs does the patient require the helper to lift? one leg TRANSFERS: BED, CHAIR, WHEELCHAIR - SCORE: 4-MIN TRANSFERS: BED, CHAIR, WHEELCHAIR - COMMENTS: Requires Min Verbal cues due to decreased safety techniques TRANSFERS: TOILET: TRANSFERS: TOILET - STEP 1: Does the patient require the assistance of a person or device, or need extra time with toilet transfe rs? Yes. TRANSFERS: TOILET - STEP 2: Does the patient require the assistance of a helper? Yes. TRANSFERS: TOILET - STEP 3: How much assistance does the patient require from the helper? Patient performs half or more of the tr ansferring tasks TRANSFERS: TOILET - STEP 4: Does the patient need only incidental help such as contact guard or steadying during toilet transfer? Yes. TRANSFERS: TOILET - SCORE: 4-MIN TRANSFERS: SHOWER: Activity did not occur on this shift TRANSFERS: SHOWER - SCORE: 0-UNK TRANSFERS: TUB: Activity did not occur on this shift TRANSFERS: TUB - SCORE: 0-UNK LOCOMOTION: WALK: LOCOMOTION: WALK - STEP 1: Does the patient need help from a person or device, or need extra time to walk 150 feet? Yes. LOCOMOTION: WALK - STEP 2: How much assistance does the patient require to walk a minimum of 150 feet? More than incidental help LOCOMOTION: WALK - SCORE: 3-MOD LOCOMOTION: WHEELCHAIR: LOCOMOTION: WHEELCHAIR - STEP 1: Does the patient need help to go 150 feet in a wheelchair? Yes. LOCOMOTION: WHEELCHAIR - STEP 2: How much assistance does the patient need from the helper? Only supervision, cuing, or coaxing LOCOMOTION: WHEELCHAIR - SCORE: 5-SUP LOCOMOTION: STAIRS: LOCOMOTION: STAIRS - STEP 1: Does the patient need help to go up and down 12 to 14 stairs? Yes. LOCOMOTION: STAIRS - STEP 2: How much assistance does the patient need from the helper to go a minimum of 12 to 14 stairs? More th an incidental help LOCOMOTION: STAIRS - SCORE: 3-MOD COMPREHENSION: COMPREHENSION - SCORE: 0-UNK EXPRESSION EXPRESSION - SCORE: 0-UNK SOCIAL INTERACTION: SOCIAL INTERACTION - SCORE: 0-UNK PROBLEM SOLVING: PROBLEM SOLVING - SCORE: 0-UNK MEMORY: MEMORY - SCORE: 0-UNK SIGNATURE PANEL: The following modified sections: Transfers: Bed, Chair, Wheelchair - Score, Transfers: Bed, Chair, Wh eelchair - Comments:, Transfers: Toilet - Score, Locomotion: Walk - Score, Locomotion: Wheelchair - S core, Locomotion: Stairs - Score were [electronically] signed by Rocio Harrell on Sat Jul 06 2018 1 8:26:37 GMT-0600 (Central Standard Time)
[2018-07-06] MEDS ORDERED: ACETAMINOPHEN 500 MG TAB PO PRN (19:37)
--- NOTE | 2018-07-06 19:47 | PAPE ---
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 Caesar Tena M.D. ADMISSION DIAGNOSIS: CHF exacerbation ONSET DATE 06/30/2018 SECONDARY/COMORBID DIAGNOSES TIERED: - Non-Tiered Dyspnea (R06.0) bilateral pleural effusion chest pain - N/A hypertension diabetes weakness POST-ADMISSION FUNCTIONAL/MEDICAL STATUS: - Bladder Same accident frequency: Ind - No accidents in the past 7 days - Bowel Same accident frequency: Ind - No accidents in the past 7 days - Walking Same score based on distance walked: 1(<=50ft) STATUS CHANGE EVALUATION: No change in Functional or Medical Status is identified compared with Pre-Admission screening. PATIENT NEEDS CLOSE MEDICAL SUPERVISION BY A REHABILITATION PHYSICIAN FOR: Bowel and Bladder Management Coordination of Treatment Team Diabetes Management Medical and Co-Morbidity Management Pain Management PATIENT REQUIRES 24X7 REHAB NURSING FOR MEDICAL AND FUNCTIONAL MGT. OF THE FOLLOWING DEFICITS: ADL's Ambulation Bowel and Bladder Management Cognition Communication Disease Management Medication Management Pain Management Patient/Family Education Providing Safe Environment Transfers PATIENT REQUIRES INTENSIVE, COORDINATED INTERDISCIPLINARY APPROACH TO REHAB: Arranging Home Equipment/Services Discharge Planning Family Intervention/Training Certified Pharmacy Tech/Case Management LIST OF IDENTIFIED AND POTENTIAL PROBLEMS: Alteration in leisure activities Bladder, Incontinence Blood Pressure, Hypertension/hypotension Issues Bowel, Incontinence Diabetes, Hyperglycemia/hypoglycemia Issues Infection, Actual or Potential Mobility Impaired Pain, Alteration in Comfort Self Care Deficit Skin Integrity, Actual or Potential Urinary Tract Infection (UTI), Actual or Potential RISK FOR COMPLICATIONS - Hypertension CVA. Hypotension. CO. TIA. - Diabetes DM ulcers. Infection. Ketoacidosis. PVD neuropathy. INTERVENTIONS - Hypertension - Diabetes BS's. Education. Glycohemoglobin. Medications. Podiatry. PATIENT COULD BE AT RISK FOR COMPLICATIONS FROM ADVERSE MEDICAL CONDITIONS DUE TO HIS/HER COMORBIDITI ES AND THE RIGORS OF THE INTENSIVE REHABILLITATION PROGRAM. METHODS OR INTERVENTIONS TO AVOID COMPLIC ATIONS INCLUDE: - Infection Clinical staff to assess and manage the signs and symptoms of infection including fever, redness, war mth, etc. - Urinary Tract Infection - Falls Patient will be evaluated for Fall Precautions and will be placed on Fall Precautions as indicated pe r protocol. - Skin Breakdown Nursing will assess skin daily using assessment tool and will place on Skin Breakdown Precautions as indicated per protocol. - Pain Clinical staff may employ non-medication methods such as massage, distraction, decrease stimulus, etc . as needed. Clinical staff will assess patient's pain level every shift per protocol to assess and e nsure pain management effectiveness. Medications will be given and the pain level re-assessed. PRELIMINARY PLAN OF CARE: - Physical Therapy Patient needs Physical Therapy for a daily minimum of 1.5 hours at least 5 out of 7 days, to improve: Mobility, Strengthening, Transfers, Stretching, ROM, Endurance, Ability to manage stairs, Gait, and Balance. - Rehabilitation Nursing Patient requires 24x7 Rehabilitation Nursing for: Pain Issues, Identifying and preventing risk factor s, Monitoring and reporting current medical conditions, Assisting with ambulation and transfer, Ezio ting with all ADL-s, Teaching patients about disease process and medications, Family teaching, Provid ing safe environment, Bowel and Bladder Issues, Skin Integrity, and Medication Management. Patient needs Certified Pharmacy Tech and/or Case Management for: Discharge Planning, Arranging Home Equipmen t or Services, and Family Interventions. - Dietary and Nutrition Services Patient needs Dietary and Nutrition Services for: Adequate Nutrition, Nutritional Supplements, and Nu tritional Education. - Occupational Therapy Patient needs Occupational Therapy for a daily minimum of 1.5 hours at least 5 out of 7 days, to impr ove Activities of Daily Living, including: Eating, Grooming, Bathing, Dressing, Toileting, Toilet Tra nsfers, Community Reintegration, Higher functional activities, Adaptive Equipment, Splinting, Househo ld Tasks, and Other activities as determined. POTENTIAL FUNCTIONAL GOALS FOR PATIENT TO ACHIEVE BY DISCHARGE: - Safety Precaution Patient will remain free from falls or injury at time of discharge. - Bed Mobility Patient will perform bed mobility at 4-Silvana level of assistance. - Transfers Patient will complete transfers from bed to chair at 4-Silvana level of assistance. - Mobility Patient will ambulate 150 ft with 4-Silvana level of assistance with RW. PATIENT REHAB POTENTIAL Expected level of measurable improvement will be of a practical value to patient's functional capacit y or adaptations to impairments Has a viable Discharge Plan Medically appropriate; condition is sufficiently stable to participate in intensive rehab program Patient is able and expected to receive 3 hours of individualized therapy daily on at least 5 of ever y 7 days Patient's prognosis for significant practical improvement within a reasonable period of time appears Good DISCHARGE PLAN: - Estimated Length of Stay (days) 10. - Consensus on plan Discharge plan has been discussed with primary caregiver. Patient/Family is in agreement with the jeff n. Primary caregiver is in agreement with the plan. - Patient/Family Goals Return home with assistance. - Planned Living Setting Upon Discharge Home, to live with Family/Relatives. CONCLUSION ON REHABILITATION NECESSITY: I have evaluated patient's pre-admission functional status and, comparing it to the patient's post-ad mission functional status now, I conclude that the pre-admission assessment was accurate. Patient's c ondition on admission supports the medical necessity of admission to IRF. It is safe to proceed with patient's therapy program. SIGNATURE PANEL: (DEAF INTERPRETER)
--- NOTE | 2018-07-06 19:47 | R.HP ---
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 board/care, assisted living, alf, transitional living) PRE-HOSPITAL LIVING WITH Family/Relatives ENCOUNTER PHYSICIAN: Dr. Caesar Tena M.D. 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 SECONDARY/COMORBID DIAGNOSES (TIERED): - Non-Tiered Dyspnea (R06.0) bilateral pleural effusion chest pain - N/A hypertension diabetes weakness HISTORY OF PRESENT ILLNESS (HPI): Pt. is a 82 yo Right-handed white female. On 06/30/2018 she was admitted to [facility] with diagnosis CHF exacerbation. Her impairment category is Cardiac 09 - Cardiac Disorders (09). Pre-morbidly, Pt. was independent/mod-I in Communication, Social Cognition, Self-Care, Sphincter Cont rol, Transfers Control, and Locomotion; and she had good Sphincter Control. Currently, she has deficits of Balance, Endurance, Safety Awareness, Transfers Control, Locomotion, S ocial Cognition, and Self-Care. Pt. is now referred to [facility] for acute in-patient rehabilitation in order to maximize patient's functional independence in activities of daily living, strength, ROM, and mobi lity. Patient has realistic goal of being discharged at assistance level 6-Adithya to reside at Home with Fam cesar/Relatives. MEDICATION ALLERGIES: No Known Drug Allergies (NKDA) ENVIRONMENTAL ALLERGIES: - Substance Allergies None Known - Other Allergies None Known PAST MEDICAL HISTORY: Dyspnea (R06.0) bilateral pleural effusion chest pain diabetes hypertension weakness UTI FAMILY HISTORY: Family history is not contributory. SOCIAL HISTORY: - Home Living Family/Relatives REVIEW OF SYSTEMS: - Gen No Chills Fatigue No Fever - Eyes No Double Vision No itchiness - ENMT No Difficulty Swallowing - CVS Chest Discomfort No Chest Pain Fatigue No Weight Gain - Resp No Cough No Shortness of Breath - GI Continent No Abdominal Pain Constipation No Diarrhea - Continent No Kidney Pain No Painful Urination No Urinary Urgency - MSK No Joint Pain No Muscle Cramps Stiffness - Skin No Itching No Rash No Suspicious Lesions - Neuro Coordination Difficulty No Difficulty with Concentration No Memory Loss No Seizures Weakness - Psych No Anxiety Depression No HIV Exposure No Persistent Infections No Seasonal Allergies - Endo No Cold/Heat Intolerance No Excessive Hunger No Excessive Thirst No Excessive Urination PHYSICAL EXAM - Gen Alert and awake Lying in bed No apparent distress Oriented to: person, time, and place - Skin No breakdown No abnormalities - Eyes No abnormalities - ENMT No abnormalities - Neck No abnormalities - CVS RRR - Chest Mildly decreased breath sounds bilaterally. - Abd +bowel sounds - GI nondistended Deferred - No abnormalities - Ext Trace edema in right and left leg and foot. - MSK 4+/5 weakness in both lower extremities. - Neuro No focal deficits - Psych Mild depression. VITAL SIGNS Temperature: 98 F SBP/DBP: 111/54 Pulse: 18 Resp: 62 NURSING: - Shower allowing shower - Lab Results blood Sugar Check ACHS ACTIVITIES OOB only with supervision FUNCTIONAL STATUS: - Self-Care A. Eating Ind Ind B. Grooming Ind Ind C. Bathing Ind Ind D. Dressing - Upper Ind Ind E. Dressing - Lower Ind modA F. Toileting Adithya modA - Sphincter Control G: Bladder control Ind Ind H: Bowel control Ind Ind - Transfers Control I. Bed/Chair/Wheelchair Adithya modA J. Toilet Adithya modA K. Tub/Shower Adithya modA - Locomotion L. Walk/Wheelchair (B) Adithya Dep M. Stairs Ind ADNO - Communication N. Comprehension (B) Adithya Adithya O. Expression (B) Adithya Adithya - Social Cognition P. Social Interaction Adithya Adithya Q. Problem Solving Adithya sup R. Memory sup sup - Endurance Poor - Balance Poor - Safety Awareness Poor CURRENT FUNC. DEFICITS: Balance, Endurance, Safety Awareness, Transfers Control, Locomotion, Social Cognition, and Self-Care ASSESSMENT: Pt. is a 82 yo Right-handed white female.On 06/30/2018 she was admitted to [facility] with diagnosis CHF exacerbation.Her impairment category is Cardiac 09 - Cardiac Disorders (09).Pre- morbidly, Pt. was independent/mod-I in Communication, Social Cognition, Self-Care, Sphincter Control, Transfers Control, and Locomotion; and she had good Sphincter Control.Currently, she has deficits of Balance, Endurance, Safety Awareness, Transfers Control, Locomotion, Social Cognition, and Self-Care .Pt. is now referred to [facility] for acute in-patient rehabilitation in [facility] to maximize patient's functional independence in activities of daily living, strength, ROM, and mob ility.- Rehab Goal Patient has realistic goal of being discharged at assistance level 6-Adithya to reside at Home with Fam cesar/Relatives. REHAB PLAN: - Physical Therapy Gait dysfunction - to improve, our physical therapists will perform initial evaluation of pt's status upon admission and devise an individualized program for Gait Training, and Wheel Chair mobility Inability to transfer - to improve, our physical therapists will perform initial evaluation of pt's s tatus upon admission and devise an individualized program for Bed mobility Need for home safety evaluation - to improve, our physical therapists will perform initial evaluation of pt's status upon admission and devise an individualized program for Home Evaluation Need in caregiver upon discharge - to improve, our physical therapists will perform initial evaluatio n of pt's status upon admission and devise an individualized program for Caregiver Training New precaution - to improve, our physical therapists will perform initial evaluation of pt's status u trudy admission and devise an individualized program for Patient precaution education Edema - to improve, our physical therapists will perform initial evaluation of pt's status upon admi ssion and devise an individualized program for Elevation Training, and Lymphedema Therapy Pain - to improve, our physical therapists will perform initial evaluation of pt's status upon admiss ion and devise an individualized program for Modalities Poor balance - to improve, our physical therapists will perform initial evaluation of pt's status upo n admission and devise an individualized program for Balance Training Poor endurance - to improve, our physical therapists will perform initial evaluation of pt's status u trudy admission and devise an individualized program for Endurance Training Weakness - to improve, our physical therapists will perform initial evaluation of pt's status upon ad mission and devise an individualized program for Aquatic Therapy, Neuromuscular Reeducation, and Stre ngthening Achieving independence - to improve, our physical therapists will perform initial evaluation of pt's status upon admission and devise an individualized program for Community Reintegration Activities - Occupational Therapy ADL deficits - to improve, our occupation therapists will perform initial evaluation of pt's status u trudy admission and devise an individualized program for Bathing, Bed mobility, Community Reintegration , Cooking, Dressing, Eating, Fine Motor Skills, Grooming, Homemaking, Kitchen Mobility, Laundry, Danika ent Education, Safety Awareness, Splinting - Positioning, Transfers(Toilet, Tub, Shower), and Wheel C hair Management Cognitive deficits - to improve, our occupation therapists will perform initial evaluation of pt's st atus upon admission and devise an individualized program for Cognition - orientation Need for home health caregiver - to improve, our occupation therapists will perform initial evaluation of pt's s tatus upon admission and devise an individualized program for Caregiver Training Weakness - to improve, our occupation therapists will perform initial evaluation of pt's status upon admission and devise an individualized program for Aquatic Therapy, Balance, Endurance, UE ROM, and U E strengthening MEDICAL PLAN: - Diet Type Start Regular - Diet - Liquid Texture Start Regular - Tube Feed Start N/A - Lab Results blood Sugar Check ACHS - Diet - Solid Texture Regular - Shower shower DISCHARGE PLAN: - Estimated Length of Stay (days) 10. - Consensus on plan Discharge plan has been discussed with primary caregiver. Patient/Family is in agreement with the jeff n. Primary caregiver is in agreement with the plan. - Patient/Family Goals Return home with assistance. - Planned Living Setting Upon Discharge Home, to live with Family/Relatives. 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
[2018-07-06] MEDS: MONTELUKAST 10 MG TAB PO SCH (20:00)
[2018-07-06] MEDS: ATORVASTATIN 80 MG TAB PO SCH (20:00)
[2018-07-06] MEDS: CRANBERRY FRUIT EXTRACT 200 MG CAP PO SCH (20:00)
[2018-07-06] MEDS: APIXABAN 5 MG TABLET PO SCH (20:00)
[2018-07-06] MEDS: MAGNESIUM OXIDE 400 MG TAB PO SCH (20:00)
[2018-07-06] MEDS ORDERED: APIXABAN 2.5 MG TABLET PO SCH (20:00)
[2018-07-06] MEDS: PROMOD 30 ML DOSE PO SCH (20:02)
--- NOTE | 2018-07-07 00:28 | FAST ---
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 Caesar Tena M.D. ADMISSION DIAGNOSIS: - Cardiac 09 - Cardiac Disorders () CHF exacerbation. EATING: Activity did not occur on this shift EATING - SCORE: 0-UNK GROOMING: Comb/brush hair Oral care Wash, rinse, and dry face Wash, rinse, and dry hands GROOMING - STEP 1: Does the patient require the assistance of a person or device, or need extra time when grooming? Yes. GROOMING - STEP 2: Does the patient require the assistance of a helper? Yes. GROOMING - STEP 3: How much assistance does the patient require from the helper? Only prior equipment preparation/set up from the helper GROOMING - SCORE: 5-SUP BATHING: Activity did not occur on this shift BATHING - SCORE: 0-UNK DRESSING - UPPER BODY: Patient is not dressing in public clothing ARTICLES SCORE Total number of steps: 0 DRESSING - UPPER BODY - SCORE: 0-UNK DRESSING - LOWER BODY: Patient is not dressing in public clothing ARTICLES SCORE Total number of steps: 0 DRESSING - LOWER BODY - SCORE: 0-UNK TOILETING: TOILETING - STEP 1: Does the patient require the assistance of a person or device, or need extra time with toileting? Yes . TOILETING - STEP 2: Does the patient require the assistance of a helper? Yes. TOILETING - STEP 3: How much assistance does the patient require from the helper? Only supervision TOILETING - SCORE: 5-SUP BLADDER MANAGEMENT: BLADDER MANAGEMENT - STEP 1: Does the patient control the bladder completely and intentionally without equipment or devices or med ications, and is always continent? No. BLADDER MANAGEMENT - STEP 2: Does the patient require the assistance of a helper? Yes. BLADDER MANAGEMENT - STEP 3: How much assistance does the patient require from the helper? Only supervision, stand-by, cuing, or c oaxing BLADDER MANAGEMENT - SCORE: 5-SUP BOWEL MANAGEMENT: Activity did not occur on this shift BOWEL MANAGEMENT - SCORE: 7-IND TRANSFERS: BED, CHAIR, WHEELCHAIR: TRANSFERS: BED, CHAIR, WHEELCHAIR - STEP 1: Does the patient require assistance of a person or device, or need extra time with bed, chair, or whe elchair transfers? Yes. TRANSFERS: BED, CHAIR, WHEELCHAIR - STEP 2: Does the patient require the assistance of a helper? Yes. TRANSFERS: BED, CHAIR, WHEELCHAIR - STEP 3: How much assistance does the patient require from the helper? Steadying/guiding assistance TRANSFERS: BED, CHAIR, WHEELCHAIR - SCORE: 4-MIN TRANSFERS: TOILET: TRANSFERS: TOILET - STEP 1: Does the patient require the assistance of a person or device, or need extra time with toilet transfe rs? Yes. TRANSFERS: TOILET - STEP 2: Does the patient require the assistance of a helper? Yes. TRANSFERS: TOILET - STEP 3: How much assistance does the patient require from the helper? Only supervision, cuing, coaxing, OR he lp to set out transfer equipment or to lock brakes and/or lift foot rests TRANSFERS: TOILET - SCORE: 5-SUP TRANSFERS: SHOWER: Activity did not occur on this shift TRANSFERS: SHOWER - SCORE: 0-UNK TRANSFERS: TUB: Activity did not occur on this shift TRANSFERS: TUB - SCORE: 0-UNK LOCOMOTION: WALK: Activity did not occur on this shift LOCOMOTION: WALK - SCORE: 0-UNK LOCOMOTION: WHEELCHAIR: Activity did not occur on this shift LOCOMOTION: WHEELCHAIR - SCORE: 0-UNK COMPREHENSION: COMPREHENSION: TYPE: Both COMPREHENSION - STEP 1: Does the patient require help from a person or device, or need extra time to understand complex and a bstract ideas (such as current events, finances, discharge planning, medical issues, relationships, e tc)? No. COMPREHENSION - STEP 2: Does the patient need extra time, require an assistive device (such as glasses for visual comprehensi on or a hearing aid for auditory comprehension) or does s/he have mild difficulty understanding compl ex and abstract information? Yes. COMPREHENSION - SCORE: 6-YOEL EXPRESSION EXPRESSION: TYPE: Both EXPRESSION - STEP 1: Does the patient require help from a person or device, or need extra time expressing complex and abst ract ideas (such as current events, finances, discharge planning, medical issues, relationships, etc) ? No. EXPRESSION - STEP 2: Does the patient need extra time, require an assistive device (such as augmentive communication syste m or a communication board), OR does s/he have mild difficulty expressing complex and abstract ideas (including mild dysarthria or mild word-find problems)? No. EXPRESSION - SCORE: 7-IND SOCIAL INTERACTION: SOCIAL INTERACTION - STEP 1: Does the patient require a helper to interact with others in social and therapeutic situations? No. SOCIAL INTERACTION - STEP 2: Does the patient need extra time in social situations, OR does s/he interact with staff, other patien ts, and family members ONLY in structured environments, OR does s/he require medication for social in teraction? Yes, patient needs extra time SOCIAL INTERACTION - SCORE: 6-YOEL PROBLEM SOLVING: PROBLEM SOLVING - STEP 1: Does the patient need help from a person or device, or need extra time to solve complex problems such as managing a checking account or confronting interpersonal problems? Yes. PROBLEM SOLVING - STEP 2: Does the patient solve basic routine problems half or more of the time? Yes. PROBLEM SOLVING - STEP 3: How often does the patient need help to solve basic routine problems? Less than 10% of the time PROBLEM SOLVING - SCORE: 5-SUP MEMORY: MEMORY - STEP 1: Does the patient need help from a person or device, or need extra time to remember frequently encount ered people, daily routines, and executing requests? No. MEMORY - STEP 2: Does the patient have slight difficulty recognizing frequently encountered people, daily routines, or executing requests without the need for repetition or using self-initiated or environmental cues to remember? Yes. MEMORY - SCORE: 6-YOEL SIGNATURE PANEL: The following modified sections: Eating - Score, Grooming - Score, Dressing - Upper Body - Score, Lui ssing - Lower Body - Score, Toileting - Score, Bladder Management - Score, Bowel Management - Score, Transfers: Bed, Chair, Wheelchair - Score, Transfers: Toilet - Score, Transfers: Shower - Score, Sorenson sfers: Tub - Score, Locomotion: Walk - Score, Locomotion: Wheelchair - Score, Comprehension - Score, Expression - Score, Social Interaction - Score, Problem Solving - Score, Memory - Score were [electro nically] signed by Celia Garcia CNA on SunJul 07 2018 00:19:20 T-0600 (Central Standard Time)
[2018-07-07] MEDS: SOTALOL HCL 80 MG TAB PO SCH ×2 (05:19→17:00)
[2018-07-07] MEDS: PANTOPRAZOLE 40MG TABLET PO SCH (05:19)
[2018-07-07] MEDS ORDERED: PSYLLIUM 1 PKT PO PRN (05:45)
[2018-07-07] MEDS: SUCRALFATE 1 GM TABLET PO SCH ×3 (07:30→16:30)
[2018-07-07] MEDS: INSULIN -REGULAR HUMAN 50 UNIT/0.5 ML ML SQ SCH ×4 (07:30→21:00)
[2018-07-07] MEDS: AMLODIPINE 10 MG TAB PO SCH ×2 (08:00→11:22)
[2018-07-07] MEDS ORDERED: ASPIRIN 81 MG CHEWABLE TABLET PO SCH (08:00)
[2018-07-07] MEDS: MAGNESIUM OXIDE 400 MG TAB PO SCH ×2 (08:55→20:55)
[2018-07-07] MEDS: APIXABAN 5 MG TABLET PO SCH ×2 (08:55→20:55)
[2018-07-07] MEDS: CETIRIZINE HCL 5 MG TABLET PO SCH (08:55)
[2018-07-07] MEDS: CRANBERRY FRUIT EXTRACT 200 MG CAP PO SCH ×2 (08:55→20:55)
[2018-07-07] MEDS: FE SULF/FA/VIT B COMP & C TAB PO SCH (08:55)
[2018-07-07] MEDS: glipiZIDE 5 MG TAB PO SCH ×2 (08:56→17:00)
[2018-07-07] MEDS: FUROSEMIDE 20 MG TABLET PO SCH ×2 (08:56→17:01)
[2018-07-07] MEDS: VALSARTAN 80 MG TAB PO SCH (08:57)
[2018-07-07] MEDS: FERROUS SULFATE 325 MG TAB PO SCH (08:58)
[2018-07-07] MEDS: CEFDINIR 300 MG CAP PO SCH (08:58)
[2018-07-07] MEDS: PROMOD 30 ML DOSE PO SCH ×2 (08:59→20:55)
--- NOTE | 2018-07-07 18:08 | FAST ---
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 Caesar Tena M.D. ADMISSION DIAGNOSIS: - Cardiac 09 - Cardiac Disorders () CHF exacerbation. EATING: EATING - STEP 1: Does the patient require the assistance of a person or device, or need extra time when eating? Yes. EATING - STEP 2: Does the patient require the assistance of a helper? Yes. EATING - STEP 3: Does the patient perform half or more of the eating tasks? Yes. EATING - STEP 4: Does the patient need only supervision, cuing, coaxing OR help to apply an orthosis OR help to cut fo od, open containers, pour liquids, or butter bread? Yes. EATING - SCORE: 5-SUP GROOMING: Comb/brush hair Oral care Wash, rinse, and dry face Wash, rinse, and dry hands GROOMING - STEP 1: Does the patient require the assistance of a person or device, or need extra time when grooming? Yes. GROOMING - STEP 2: Does the patient require the assistance of a helper? No. The patient only requires an assistive devic e, OR takes more than reasonable time to groom, OR there is a concern for safety as the patient groom s GROOMING - SCORE: 6-YOEL BATHING: Activity did not occur on this shift BATHING - SCORE: 0-UNK DRESSING - UPPER BODY: Bra (three steps) T-shirt/pullover shirt (four steps) ARTICLES SCORE Total number of steps: 7 DRESSING - UPPER BODY - STEP 1: Does the patient require help from a person or device, or need extra time when dressing above the [address]? Yes. DRESSING - UPPER BODY - STEP 2: Does the patient require the assistance of a helper? Yes. DRESSING - UPPER BODY - STEP 3: Does the helper touch the patient while dressing? No. DRESSING - UPPER BODY - SCORE: 5-SUP DRESSING - LOWER BODY: Elastic waist pants (three steps) Slip-on shoe - Left foot (one step) Slip-on shoe - Right foot (one step) Sock - Left foot (one step) Underwear (three steps) ARTICLES SCORE Total number of steps: 9 DRESSING - LOWER BODY - STEP 1: Does the patient require help from a person or device, or need extra time when dressing below the [address]? Yes. DRESSING - LOWER BODY - STEP 2: Does the patient require the assistance of a helper? Yes. DRESSING - LOWER BODY - STEP 3: Does the helper touch the patient while dressing? No. DRESSING - LOWER BODY - SCORE: 5-SUP TOILETING: TOILETING - STEP 1: Does the patient require the assistance of a person or device, or need extra time with toileting? Yes . TOILETING - STEP 2: Does the patient require the assistance of a helper? Yes. TOILETING - STEP 3: How much assistance does the patient require from the helper? Only supervision TOILETING - SCORE: 5-SUP BLADDER MANAGEMENT: BLADDER MANAGEMENT - STEP 1: Does the patient control the bladder completely and intentionally without equipment or devices or med ications, and is always continent? No. BLADDER MANAGEMENT - STEP 2: Does the patient require the assistance of a helper? Yes. BLADDER MANAGEMENT - STEP 3: How much assistance does the patient require from the helper? Only supervision, stand-by, cuing, or c oaxing BLADDER MANAGEMENT - SCORE: 5-SUP BLADDER MANAGEMENT - FREQUENCY OF ACCIDENTS: BLADDER MANAGEMENT(FA) - STEP 1: How many accidents has the patient had during the current shift? 0 BOWEL MANAGEMENT: BOWEL MANAGEMENT - STEP 1: Does the patient control bowels completely and intentionally without equipment devices or medications AND is always continent? No. BOWEL MANAGEMENT - STEP 2: Does the patient require the assistance of a helper? No, patient requires medication for control such as stool softeners, suppositories, laxatives, enemas, or OTC medications BOWEL MANAGEMENT - SCORE: 6-YOEL BOWEL MANAGEMENT - FREQUENCY OF ACCIDENTS: BOWEL MANAGEMENT(FA) - STEP 1: How many accidents has the patient had during the current shift? 0 TRANSFERS: BED, CHAIR, WHEELCHAIR: TRANSFERS: BED, CHAIR, WHEELCHAIR - STEP 1: Does the patient require assistance of a person or device, or need extra time with bed, chair, or whe elchair transfers? Yes. TRANSFERS: BED, CHAIR, WHEELCHAIR - STEP 2: Does the patient require the assistance of a helper? Yes. TRANSFERS: BED, CHAIR, WHEELCHAIR - STEP 3: How much assistance does the patient require from the helper? Only supervision TRANSFERS: BED, CHAIR, WHEELCHAIR - SCORE: 5-SUP TRANSFERS: TOILET: TRANSFERS: TOILET - STEP 1: Does the patient require the assistance of a person or device, or need extra time with toilet transfe rs? Yes. TRANSFERS: TOILET - STEP 2: Does the patient require the assistance of a helper? Yes. TRANSFERS: TOILET - STEP 3: How much assistance does the patient require from the helper? Patient performs half or more of the tr ansferring tasks TRANSFERS: TOILET - STEP 4: Does the patient need only incidental help such as contact guard or steadying during toilet transfer? No. Patient needs more than incidental help TRANSFERS: TOILET - SCORE: 3-MOD TRANSFERS: SHOWER: Activity did not occur on this shift TRANSFERS: SHOWER - SCORE: 0-UNK TRANSFERS: TUB: Activity did not occur on this shift TRANSFERS: TUB - SCORE: 0-UNK LOCOMOTION: WALK: Activity did not occur on this shift LOCOMOTION: WALK - SCORE: 0-UNK LOCOMOTION: WHEELCHAIR: Activity did not occur on this shift LOCOMOTION: WHEELCHAIR - SCORE: 0-UNK COMPREHENSION: COMPREHENSION: TYPE: Both COMPREHENSION - STEP 1: Does the patient require help from a person or device, or need extra time to understand complex and a bstract ideas (such as current events, finances, discharge planning, medical issues, relationships, e tc)? No. COMPREHENSION - STEP 2: Does the patient need extra time, require an assistive device (such as glasses for visual comprehensi on or a hearing aid for auditory comprehension) or does s/he have mild difficulty understanding compl ex and abstract information? Yes. COMPREHENSION - SCORE: 6-YOEL EXPRESSION EXPRESSION: TYPE: Both EXPRESSION - STEP 1: Does the patient require help from a person or device, or need extra time expressing complex and abst ract ideas (such as current events, finances, discharge planning, medical issues, relationships, etc) ? Yes. EXPRESSION - STEP 2: Does the patient require help to express basic necessities or ideas (such as hunger, thirst, sleep, s afety, daily schedule, room location, or discomfort) half or more of the time? No. EXPRESSION - STEP 3: How often does the patient need help to express directions and conversation about basic needs? Less t [place] 10% of the time EXPRESSION - SCORE: 5-SUP SOCIAL INTERACTION: SOCIAL INTERACTION - STEP 1: Does the patient require a helper to interact with others in social and therapeutic situations? No. SOCIAL INTERACTION - STEP 2: Does the patient need extra time in social situations, OR does s/he interact with staff, other patien ts, and family members ONLY in structured environments, OR does s/he require medication for social in teraction? Yes, patient needs extra time SOCIAL INTERACTION - SCORE: 6-YOEL PROBLEM SOLVING: PROBLEM SOLVING - STEP 1: Does the patient need help from a person or device, or need extra time to solve complex problems such as managing a checking account or confronting interpersonal problems? Yes. PROBLEM SOLVING - STEP 2: Does the patient solve basic routine problems half or more of the time? Yes. PROBLEM SOLVING - STEP 3: How often does the patient need help to solve basic routine problems? Less than 10% of the time PROBLEM SOLVING - SCORE: 5-SUP MEMORY: MEMORY - STEP 1: Does the patient need help from a person or device, or need extra time to remember frequently encount ered people, daily routines, and executing requests? Yes. MEMORY - STEP 2: How often does the patient need help to remember frequently encountered people, daily routines, and e xecuting requests? Less than 10% of the time MEMORY - SCORE: 5-SUP SIGNATURE PANEL: The following modified sections: Eating - Score, Grooming - Score, Bathing - Score, Dressing - Upper Body - Score, Dressing - Lower Body - Score, Toileting - Score, Bladder Management - Score, Bowel Man agement - Score, Transfers: Bed, Chair, Wheelchair - Score, Transfers: Toilet - Score, Transfers: Eugenia wer - Score, Transfers: Tub - Score, Locomotion: Walk - Score, Locomotion: Wheelchair - Score, Compre hension - Score, Expression - Score, Social Interaction - Score, Problem Solving - Score, Memory - Sc ore were [electronically] signed by Sammi Rodriguez C.N.A. on SunJul 07 2018 17:51:24 GMT-0600 (Centra l Standard Time)
[2018-07-07] MEDS: MONTELUKAST 10 MG TAB PO SCH (20:55)
[2018-07-07] MEDS: DOCUSATE NA/SENNA CONC 1 TAB PO PRN (20:55)
[2018-07-07] MEDS: ATORVASTATIN 80 MG TAB PO SCH (20:55)
[2018-07-07] MEDS: LORAZEPAM 0.5 MG TABLET PO PRN (22:30)
--- NOTE | 2018-07-08 02:00 | FAST ---
SHIFT START DATE/TIME: 07/07/2018 19:00 (AGENTS' RECORDS CLERK) SHIFT END DATE/TIME: 07/08/2018 07:00 (AGENTS' RECORDS CLERK) NAME YRN BARBOSA DATE OF : 1935 DATE OF ADMISSION: 07/05/2018 19:58 (AGENTS' RECORDS CLERK) PHONE: AGE: 82 SSN# [id number] GENDER: Female ENCOUNTER PHYSICIAN: Dr. Caesar Tena M.D. ADMISSION DIAGNOSIS: - Cardiac 09 - Cardiac Disorders () CHF exacerbation. EATING: Activity did not occur on this shift EATING - SCORE: 0-UNK GROOMING: Oral care Wash, rinse, and dry face Wash, rinse, and dry hands GROOMING - STEP 1: Does the patient require the assistance of a person or device, or need extra time when grooming? Yes. GROOMING - STEP 2: Does the patient require the assistance of a helper? Yes. GROOMING - STEP 3: How much assistance does the patient require from the helper? Only prior equipment preparation/set up from the helper GROOMING - SCORE: 5-SUP BATHING: Activity did not occur on this shift BATHING - SCORE: 0-UNK DRESSING - UPPER BODY: Patient is not dressing in public clothing ARTICLES SCORE Total number of steps: 0 DRESSING - UPPER BODY - SCORE: 0-UNK DRESSING - LOWER BODY: Patient is not dressing in public clothing ARTICLES SCORE Total number of steps: 0 DRESSING - LOWER BODY - SCORE: 0-UNK TOILETING: TOILETING - STEP 1: Does the patient require the assistance of a person or device, or need extra time with toileting? Yes . TOILETING - STEP 2: Does the patient require the assistance of a helper? Yes. TOILETING - STEP 3: How much assistance does the patient require from the helper? Only supervision TOILETING - SCORE: 5-SUP BLADDER MANAGEMENT: BLADDER MANAGEMENT - STEP 1: Does the patient control the bladder completely and intentionally without equipment or devices or med ications, and is always continent? No. BLADDER MANAGEMENT - STEP 2: Does the patient require the assistance of a helper? Yes. BLADDER MANAGEMENT - STEP 3: How much assistance does the patient require from the helper? Only supervision, stand-by, cuing, or c oaxing BLADDER MANAGEMENT - SCORE: 5-SUP BOWEL MANAGEMENT: Activity did not occur on this shift BOWEL MANAGEMENT - SCORE: 7-IND TRANSFERS: BED, CHAIR, WHEELCHAIR: TRANSFERS: BED, CHAIR, WHEELCHAIR - STEP 1: Does the patient require assistance of a person or device, or need extra time with bed, chair, or whe elchair transfers? Yes. TRANSFERS: BED, CHAIR, WHEELCHAIR - STEP 2: Does the patient require the assistance of a helper? Yes. TRANSFERS: BED, CHAIR, WHEELCHAIR - STEP 3: How much assistance does the patient require from the helper? Steadying/guiding assistance TRANSFERS: BED, CHAIR, WHEELCHAIR - SCORE: 4-MIN TRANSFERS: TOILET: TRANSFERS: TOILET - STEP 1: Does the patient require the assistance of a person or device, or need extra time with toilet transfe rs? Yes. TRANSFERS: TOILET - STEP 2: Does the patient require the assistance of a helper? Yes. TRANSFERS: TOILET - STEP 3: How much assistance does the patient require from the helper? Only supervision, cuing, coaxing, OR he lp to set out transfer equipment or to lock brakes and/or lift foot rests TRANSFERS: TOILET - SCORE: 5-SUP TRANSFERS: SHOWER: Activity did not occur on this shift TRANSFERS: SHOWER - SCORE: 0-UNK TRANSFERS: TUB: Activity did not occur on this shift TRANSFERS: TUB - SCORE: 0-UNK LOCOMOTION: WALK: Activity did not occur on this shift LOCOMOTION: WALK - SCORE: 0-UNK LOCOMOTION: WHEELCHAIR: Activity did not occur on this shift LOCOMOTION: WHEELCHAIR - SCORE: 0-UNK COMPREHENSION: COMPREHENSION: TYPE: Both COMPREHENSION - STEP 1: Does the patient require help from a person or device, or need extra time to understand complex and a bstract ideas (such as current events, finances, discharge planning, medical issues, relationships, e tc)? Yes. COMPREHENSION - STEP 2: Does the patient require help to understand questions or statements about basic needs or ideas (such as hunger, thirst, sleep, safety, daily schedule, room location, or discomfort) half or more of the t aguilar? No. COMPREHENSION - STEP 3: How often does the patient need help to understand directions and conversation about basic needs? Les s than 10% of the time COMPREHENSION - SCORE: 5-SUP EXPRESSION EXPRESSION: TYPE: Both EXPRESSION - STEP 1: Does the patient require help from a person or device, or need extra time expressing complex and abst ract ideas (such as current events, finances, discharge planning, medical issues, relationships, etc) ? No. EXPRESSION - STEP 2: Does the patient need extra time, require an assistive device (such as augmentive communication syste m or a communication board), OR does s/he have mild difficulty expressing complex and abstract ideas (including mild dysarthria or mild word-find problems)? No. EXPRESSION - SCORE: 7-IND SOCIAL INTERACTION: SOCIAL INTERACTION - STEP 1: Does the patient require a helper to interact with others in social and therapeutic situations? No. SOCIAL INTERACTION - STEP 2: Does the patient need extra time in social situations, OR does s/he interact with staff, other patien ts, and family members ONLY in structured environments, OR does s/he require medication for social in teraction? Yes, patient needs extra time SOCIAL INTERACTION - SCORE: 6-YOEL PROBLEM SOLVING: PROBLEM SOLVING - STEP 1: Does the patient need help from a person or device, or need extra time to solve complex problems such as managing a checking account or confronting interpersonal problems? Yes. PROBLEM SOLVING - STEP 2: Does the patient solve basic routine problems half or more of the time? Yes. PROBLEM SOLVING - STEP 3: How often does the patient need help to solve basic routine problems? 10%-24% of the time PROBLEM SOLVING - SCORE: 4-MIN MEMORY: MEMORY - STEP 1: Does the patient need help from a person or device, or need extra time to remember frequently encount ered people, daily routines, and executing requests? No. MEMORY - STEP 2: Does the patient have slight difficulty recognizing frequently encountered people, daily routines, or executing requests without the need for repetition or using self-initiated or environmental cues to remember? Yes. MEMORY - SCORE: 6-YOEL SIGNATURE PANEL: The following modified sections: Eating - Score, Grooming - Score, Dressing - Upper Body - Score, Lui ssing - Lower Body - Score, Toileting - Score, Bladder Management - Score, Bowel Management - Score, Transfers: Bed, Chair, Wheelchair - Score, Transfers: Toilet - Score, Transfers: Shower - Score, Sorenson sfers: Tub - Score, Locomotion: Walk - Score, Locomotion: Wheelchair - Score, Comprehension - Score, Expression - Score, Social Interaction - Score, Problem Solving - Score, Memory - Score were [electro nically] signed by Celia Garcia CNA on SunJul 08 2018 01:48:46 GMT-0600 (Central Standard Time)
[2018-07-08] MEDS: SOTALOL HCL 80 MG TAB PO SCH ×2 (05:21→17:43)
[2018-07-08] MEDS: PANTOPRAZOLE 40MG TABLET PO SCH (06:30)
[2018-07-08] MEDS: INSULIN -REGULAR HUMAN 50 UNIT/0.5 ML ML SQ SCH ×4 (07:24→21:00)
[2018-07-08] MEDS: AMLODIPINE 10 MG TAB PO SCH (08:00)
[2018-07-08] MEDS: SUCRALFATE 1 GM TABLET PO SCH ×4 (08:30→16:44)
[2018-07-08] MEDS: CETIRIZINE HCL 5 MG TABLET PO SCH (08:41)
[2018-07-08] MEDS: MAGNESIUM OXIDE 400 MG TAB PO SCH ×2 (08:41→19:49)
[2018-07-08] MEDS: FE SULF/FA/VIT B COMP & C TAB PO SCH (08:41)
[2018-07-08] MEDS: CRANBERRY FRUIT EXTRACT 200 MG CAP PO SCH ×2 (08:42→19:48)
[2018-07-08] MEDS: glipiZIDE 5 MG TAB PO SCH ×2 (08:42→16:45)
[2018-07-08] MEDS: VALSARTAN 80 MG TAB PO SCH (08:42)
[2018-07-08] MEDS: FERROUS SULFATE 325 MG TAB PO SCH (08:42)
[2018-07-08] MEDS: APIXABAN 5 MG TABLET PO SCH ×2 (08:42→19:48)
[2018-07-08] MEDS: FUROSEMIDE 20 MG TABLET PO SCH ×2 (08:43→16:45)
[2018-07-08] MEDS: PROMOD 30 ML DOSE PO SCH ×2 (08:45→19:50)
--- NOTE | 2018-07-08 11:48 | EKG ---
Test Date: 2018-07-07 Test Time: 11:39:16 Operations Section Manager: SELIN MEASUREMENT RESULTS: Intervals: Rate: 60 ID: QRSD: [id number] QT: 558 QTc: 558 [place]: P: ID: [id number] T: 85 INTERPRETIVE STATEMENTS: AV sequential or dual chamber electronic pacemaker No previous ECG available for comparison Electronically Signed On 07-08-18 11:43:14 VOICE COACH by Warner Mcdermott
[2018-07-08] MEDS ORDERED: TRAMADOL HCL 50 MG TAB PO PRN (14:56)
--- NOTE | 2018-07-08 15:35 | FAST ---
SHIFT START DATE/TIME: 07/08/2018 07:00 (EDGE STRIPPER) SHIFT END DATE/TIME: 07/08/2018 19:00 (EDGE STRIPPER) NAME YRN BARBOSA DATE OF : 1935 DATE OF ADMISSION: 07/05/2018 19:58 (EDGE STRIPPER) PHONE: AGE: 82 SSN# [id number] GENDER: Female ENCOUNTER PHYSICIAN: Dr. Caesar Tena M.D. ADMISSION DIAGNOSIS: - Cardiac 09 - Cardiac Disorders () CHF exacerbation. EATING: EATING - STEP 1: Does the patient require the assistance of a person or device, or need extra time when eating? Yes. EATING - STEP 2: Does the patient require the assistance of a helper? Yes. EATING - STEP 3: Does the patient perform half or more of the eating tasks? Yes. EATING - STEP 4: Does the patient need only supervision, cuing, coaxing OR help to apply an orthosis OR help to cut fo od, open containers, pour liquids, or butter bread? Yes. EATING - SCORE: 5-SUP GROOMING: Comb/brush hair Oral care Wash, rinse, and dry face Wash, rinse, and dry hands GROOMING - STEP 1: Does the patient require the assistance of a person or device, or need extra time when grooming? Yes. GROOMING - STEP 2: Does the patient require the assistance of a helper? Yes. GROOMING - STEP 3: How much assistance does the patient require from the helper? Only prior equipment preparation/set up from the helper GROOMING - SCORE: 5-SUP TOILETING: TOILETING - STEP 1: Does the patient require the assistance of a person or device, or need extra time with toileting? Yes . TOILETING - STEP 2: Does the patient require the assistance of a helper? Yes. TOILETING - STEP 3: How much assistance does the patient require from the helper? Hands-on assistance from the helper TOILETING - STEP 4: Of the 3 tasks: 1) Adjusting clothing prior to use, 2) Cleansing of perineal area, 3) Adjusting clot erika after use; How many tasks does the patient perform WITHOUT assistance of the helper? Three tasks with steadying assistance from the helper TOILETING - SCORE: 4-MIN BLADDER MANAGEMENT: BLADDER MANAGEMENT - STEP 1: Does the patient control the bladder completely and intentionally without equipment or devices or med ications, and is always continent? No. BLADDER MANAGEMENT - STEP 2: Does the patient require the assistance of a helper? No, patient requires and independently uses an a ssistive device, such as a urinal, bedpan, bedside commode, catheter, absorbent pad, or collecting de vice BLADDER MANAGEMENT - SCORE: 6-YOEL BOWEL MANAGEMENT: Activity did not occur on this shift BOWEL MANAGEMENT - SCORE: 7-IND TRANSFERS: BED, CHAIR, WHEELCHAIR: TRANSFERS: BED, CHAIR, WHEELCHAIR - STEP 1: Does the patient require assistance of a person or device, or need extra time with bed, chair, or whe elchair transfers? Yes. TRANSFERS: BED, CHAIR, WHEELCHAIR - STEP 2: Does the patient require the assistance of a helper? Yes. TRANSFERS: BED, CHAIR, WHEELCHAIR - STEP 3: How much assistance does the patient require from the helper? Steadying/guiding assistance TRANSFERS: BED, CHAIR, WHEELCHAIR - SCORE: 4-MIN TRANSFERS: TOILET: TRANSFERS: TOILET - STEP 1: Does the patient require the assistance of a person or device, or need extra time with toilet transfe rs? Yes. TRANSFERS: TOILET - STEP 2: Does the patient require the assistance of a helper? Yes. TRANSFERS: TOILET - STEP 3: How much assistance does the patient require from the helper? Patient performs half or more of the tr ansferring tasks TRANSFERS: TOILET - STEP 4: Does the patient need only incidental help such as contact guard or steadying during toilet transfer? Yes. TRANSFERS: TOILET - SCORE: 4-MIN TRANSFERS: SHOWER: Activity did not occur on this shift TRANSFERS: SHOWER - SCORE: 0-UNK LOCOMOTION: WALK: Activity did not occur on this shift LOCOMOTION: WALK - SCORE: 0-UNK COMPREHENSION: COMPREHENSION: TYPE: Both COMPREHENSION - STEP 1: Does the patient require help from a person or device, or need extra time to understand complex and a bstract ideas (such as current events, finances, discharge planning, medical issues, relationships, e tc)? No. COMPREHENSION - STEP 2: Does the patient need extra time, require an assistive device (such as glasses for visual comprehensi on or a hearing aid for auditory comprehension) or does s/he have mild difficulty understanding compl ex and abstract information? Yes. COMPREHENSION - SCORE: 6-YOEL EXPRESSION EXPRESSION: TYPE: Both EXPRESSION - STEP 1: Does the patient require help from a person or device, or need extra time expressing complex and abst ract ideas (such as current events, finances, discharge planning, medical issues, relationships, etc) ? No. EXPRESSION - STEP 2: Does the patient need extra time, require an assistive device (such as augmentive communication syste m or a communication board), OR does s/he have mild difficulty expressing complex and abstract ideas (including mild dysarthria or mild word-find problems)? Yes. EXPRESSION - SCORE: 6-YOEL SOCIAL INTERACTION: SOCIAL INTERACTION - STEP 1: Does the patient require a helper to interact with others in social and therapeutic situations? No. SOCIAL INTERACTION - STEP 2: Does the patient need extra time in social situations, OR does s/he interact with staff, other patien ts, and family members ONLY in structured environments, OR does s/he require medication for social in teraction? Yes, patient needs extra time SOCIAL INTERACTION - SCORE: 6-YOEL PROBLEM SOLVING: PROBLEM SOLVING - STEP 1: Does the patient need help from a person or device, or need extra time to solve complex problems such as managing a checking account or confronting interpersonal problems? No. PROBLEM SOLVING - STEP 2: Does the patient require extra time to make decisions or solve problems, OR does s/he have slight dif ficulty reading, initiating, or self-correcting in unfamiliar situations? Yes, patient needs extra ti me. PROBLEM SOLVING - SCORE: 6-YOEL MEMORY: MEMORY - STEP 1: Does the patient need help from a person or device, or need extra time to remember frequently encount ered people, daily routines, and executing requests? No. MEMORY - STEP 2: Does the patient have slight difficulty recognizing frequently encountered people, daily routines, or executing requests without the need for repetition or using self-initiated or environmental cues to remember? Yes. MEMORY - SCORE: 6-YOEL SIGNATURE PANEL: The following modified sections: Eating - Score, Grooming - Score, Toileting - Score, Bladder Managem ent - Score, Bowel Management - Score, Transfers: Bed, Chair, Wheelchair - Score, Transfers: Toilet - Score, Transfers: Shower - Score, Locomotion: Walk - Score, Comprehension - Score, Expression - Scor e, Social Interaction - Score, Problem Solving - Score, Memory - Score were [electronically] signed Genna Rajan on SunJul 08 2018 15:34:54 GMT-0600 (Central Standard Time)
--- NOTE | 2018-07-08 16:53 | FAST ---
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 Caesar Tena M.D. ADMISSION DIAGNOSIS: - Cardiac 09 - Cardiac Disorders () CHF exacerbation. EATING: Activity did not occur on this shift EATING - SCORE: 0-UNK GROOMING: Activity did not occur on this shift GROOMING - SCORE: 0-UNK BATHING: Activity did not occur on this shift BATHING - SCORE: 0-UNK DRESSING - UPPER BODY: Activity did not occur on this shift Patient is not dressing in public clothing ARTICLES SCORE Total number of steps: 0 DRESSING - UPPER BODY - SCORE: 0-UNK DRESSING - LOWER BODY: Activity did not occur on this shift Patient is not dressing in public clothing ARTICLES SCORE Total number of steps: 0 DRESSING - LOWER BODY - SCORE: 0-UNK TOILETING: Activity did not occur on this shift TOILETING - SCORE: 0-UNK BLADDER MANAGEMENT: Activity did not occur on this shift BLADDER MANAGEMENT - SCORE: 7-IND BOWEL MANAGEMENT: Activity did not occur on this shift BOWEL MANAGEMENT - SCORE: 7-IND TRANSFERS: BED, CHAIR, WHEELCHAIR: TRANSFERS: BED, CHAIR, WHEELCHAIR - STEP 1: Does the patient require assistance of a person or device, or need extra time with bed, chair, or whe elchair transfers? Yes. TRANSFERS: BED, CHAIR, WHEELCHAIR - STEP 2: Does the patient require the assistance of a helper? Yes. TRANSFERS: BED, CHAIR, WHEELCHAIR - STEP 3: How much assistance does the patient require from the helper? Only supervision TRANSFERS: BED, CHAIR, WHEELCHAIR - SCORE: 5-SUP TRANSFERS: TOILET: Activity did not occur on this shift TRANSFERS: TOILET - SCORE: 0-UNK TRANSFERS: SHOWER: Activity did not occur on this shift TRANSFERS: SHOWER - SCORE: 0-UNK TRANSFERS: TUB: Activity did not occur on this shift TRANSFERS: TUB - SCORE: 0-UNK LOCOMOTION: WALK: LOCOMOTION: WALK - STEP 1: Does the patient need help from a person or device, or need extra time to walk 150 feet? Yes. LOCOMOTION: WALK - STEP 2: How much assistance does the patient require to walk a minimum of 150 feet? Only supervision, cuing, or coaxing LOCOMOTION: WALK - SCORE: 5-SUP LOCOMOTION: WHEELCHAIR: Activity did not occur on this shift LOCOMOTION: WHEELCHAIR - SCORE: 0-UNK LOCOMOTION: STAIRS: Activity did not occur on this shift LOCOMOTION: STAIRS - SCORE: 0-UNK COMPREHENSION: COMPREHENSION - SCORE: 0-UNK EXPRESSION EXPRESSION - SCORE: 0-UNK SOCIAL INTERACTION: SOCIAL INTERACTION - SCORE: 0-UNK PROBLEM SOLVING: PROBLEM SOLVING - SCORE: 0-UNK MEMORY: MEMORY - SCORE: 0-UNK SIGNATURE PANEL: The following modified sections: Transfers: Bed, Chair, Wheelchair - Score, Transfers: Toilet - Score , Locomotion: Walk - Score, Locomotion: Wheelchair - Score, Locomotion: Stairs - Score were [[email or web address] [email or web address]] signed by Christopher Bansal PT on SunJul 08 2018 16:52:34 GMT-0600 (Central Standard Time)
--- NOTE | 2018-07-08 17:27 | R.PN ---
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 Pt denied any Shortness of Breath. Ambulated 750' with contact guard assistance using a rollator. Hgb 9.9, glucose 107 to 245. VITAL SIGNS Temperature: 98 F SBP/DBP: 135/66 Pulse: 62 Resp: 14 MEDICATION ALLERGIES: No Known Drug Allergies (NKDA) ENVIRONMENTAL ALLERGIES: - Substance Allergies None Known - Other Allergies None Known NURSING: - Shower allowing shower - Lab Results blood Sugar Check ACHS ACTIVITIES OOB only with supervision THERAPIES: - Occupational Therapy Evaluate and Treat. - Physical Therapy Evaluate and Treat. PHYSICAL EXAM - Gen Alert and awake Lying in bed No apparent distress Oriented to: person, time, and place - Skin No breakdown No abnormalities - Eyes No abnormalities - ENMT No abnormalities - Neck No abnormalities - CVS RRR - Chest Mildly decreased breath sounds bilaterally. - Abd +bowel sounds - GI nondistended Deferred - No abnormalities - Ext Trace edema in right and left leg and foot. - MSK 4+/5 weakness in both lower extremities. - Neuro No focal deficits - Psych Mild depression. ASSESSMENT: Pt. is a 82 yo Right-handed white female.On 06/30/2018 she was admitted to [facility] with diagnosis CHF exacerbation.Her impairment category is Cardiac 09 - Cardiac Disorders (09).Pre- morbidly, Pt. was independent/mod-I in Communication, Social Cognition, Self-Care, Sphincter Control, Transfers Control, and Locomotion; and she had good Sphincter Control.Currently, she has deficits of Balance, Endurance, Safety Awareness, Transfers Control, Locomotion, Social Cognition, and Self-Care .Pt. is now referred to [facility] for acute in-patient rehabilitation in [place] to maximize patient's functional independence in activities of daily living, strength, ROM, and mob ility.- Rehab Goal Patient has realistic goal of being discharged at assistance level 6-Adithya to reside at Home with Fam cesar/Relatives. MDM/PLAN: - Physical Therapy Gait dysfunction - to improve, our physical therapists will perform initial evaluation of pt's statu s upon admission and devise an individualized program for Gait Training, and Wheel Chair mobility Inability to transfer - to improve, our physical therapists will perform initial evaluation of pt's status upon admission and devise an individualized program for Bed mobility Need for home safety evaluation - to improve, our physical therapists will perform initial evaluatio n of pt's status upon admission and devise an individualized program for Home Evaluation Need in caregiver upon discharge - to improve, our physical therapists will perform initial evaluati on of pt's status upon admission and devise an individualized program for Caregiver Training New precaution - to improve, our physical therapists will perform initial evaluation of pt's status upon admission and devise an individualized program for Patient precaution education Edema - to improve, our physical therapists will perform initial evaluation of pt's status upon admis bhavin and devise an individualized program for Elevation Training, and Lymphedema Therapy Pain - to improve, our physical therapists will perform initial evaluation of pt's status upon admis bhavin and devise an individualized program for Modalities Poor balance - to improve, our physical therapists will perform initial evaluation of pt's status up on admission and devise an individualized program for Balance Training Poor endurance - to improve, our physical therapists will perform initial evaluation of pt's status upon admission and devise an individualized program for Endurance Training Weakness - to improve, our physical therapists will perform initial evaluation of pt's status upon a dmission and devise an individualized program for Aquatic Therapy, Neuromuscular Reeducation, and Str engthening Achieving independence - to improve, our physical therapists will perform initial evaluation of pt's status upon admission and devise an individualized program for Community Reintegration Activities - Occupational Therapy ADL deficits - to improve, our occupation therapists will perform initial evaluation of pt's status upon admission and devise an individualized program for Bathing, Bed mobility, Community Reintegratio n, Cooking, Dressing, Eating, Fine Motor Skills, Grooming, Homemaking, Kitchen Mobility, Laundry, Pat ient Education, Safety Awareness, Splinting - Positioning, Transfers(Toilet, Tub, Shower), and Wheel Chair Management Cognitive deficits - to improve, our occupation therapists will perform initial evaluation of pt's s tatus upon admission and devise an individualized program for Cognition - orientation Need for cardiac care unit nurse - to improve, our occupation therapists will perform initial evaluation of pt's status upon admission and devise an individualized program for Caregiver Training Weakness - to improve, our occupation therapists will perform initial evaluation of pt's status upon admission and devise an individualized program for Aquatic Therapy, Balance, Endurance, UE ROM, and UE strengthening - Diet Type Continue Regular - Diet - Liquid Texture Continue Regular - Tube Feed Continue N/A - Lab Results blood Sugar Check ACHS - Diet - Solid Texture Continue Regular - Shower allowing shower FUNCTIONAL STATUS: UPDATED AT WEEKLY TEAM CONFERENCE - Bladder Same accident frequency: 7-Ind - No accidents in the past 7 days - Bowel Same accident frequency: 7-Ind - No accidents in the past 7 days - Walking Same score based on distance walked: 1(<=50ft) FUNCTIONAL STATUS: - Self-Care A. Eating Ind B. Grooming Ind C. Bathing Ind D. Dressing - Upper Ind E. Dressing - Lower modA F. Toileting modA - Sphincter Control G: Bladder control Ind H: Bowel control Ind - Transfers Control I. Bed/Chair/Wheelchair modA J. Toilet modA K. Tub/Shower modA - Locomotion L. Walk/Wheelchair (B) Dep M. Stairs ADNO - Communication N. Comprehension (B) Adithya O. Expression (B) Adithya - Social Cognition P. Social Interaction Adithya Q. Problem Solving sup R. Memory sup - Endurance Poor - Balance Poor - Safety Awareness Poor CURRENT FUNC. 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
--- NOTE | 2018-07-08 18:40 | FAST ---
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 Caesar Tena M.D. ADMISSION DIAGNOSIS: - Cardiac 09 - Cardiac Disorders () CHF exacerbation. EATING: EATING - STEP 1: Does the patient require the assistance of a person or device, or need extra time when eating? No. EATING - SCORE: 7-IND GROOMING: Comb/brush hair Oral care Wash, rinse, and dry hands GROOMING - STEP 1: Does the patient require the assistance of a person or device, or need extra time when grooming? No. GROOMING - SCORE: 7-IND BATHING: Abdomen Buttocks Chest Left arm Left lower leg and foot Left upper leg Perineal area Right arm Right lower leg and foot Right upper leg BATHING - STEP 1: Does the patient require the assistance of a person or device, or need extra time when bathing? Yes. BATHING - STEP 2: Does the patient require the assistance of a helper? Yes. BATHING - STEP 3: How much assistance does the patient require from the helper? Only incidental help such as placement of a wash cloth in his/her hand a few times as s/he bathes OR help to bathe just one or two areas of the body BATHING - SCORE: 4-MIN DRESSING - UPPER BODY: Bra (three steps) T-shirt/pullover shirt (four steps) ARTICLES SCORE Total number of steps: 7 DRESSING - UPPER BODY - STEP 1: Does the patient require help from a person or device, or need extra time when dressing above the [address]? Yes. DRESSING - UPPER BODY - STEP 2: Does the patient require the assistance of a helper? Yes. DRESSING - UPPER BODY - STEP 3: Does the helper touch the patient while dressing? Yes. DRESSING - UPPER BODY - STEP 4: How many of the total steps does the patient complete on his/her own? 6 DRESSING - UPPER BODY - SCORE: 4-MIN DRESSING - LOWER BODY: Elastic waist pants (three steps) Slip-on shoe - Left foot (one step) Slip-on shoe - Right foot (one step) Sock - Left foot (one step) Sock - Right foot (one step) Underwear (three steps) ARTICLES SCORE Total number of steps: 10 DRESSING - LOWER BODY - STEP 1: Does the patient require help from a person or device, or need extra time when dressing below the [address] st? Yes. DRESSING - LOWER BODY - STEP 2: Does the patient require the assistance of a helper? Yes. DRESSING - LOWER BODY - STEP 3: Does the helper touch the patient while dressing? No. DRESSING - LOWER BODY - SCORE: 5-SUP TOILETING: Activity did not occur on this shift TOILETING - SCORE: 0-UNK BLADDER MANAGEMENT: Activity did not occur on this shift BLADDER MANAGEMENT - SCORE: 7-IND BOWEL MANAGEMENT: Activity did not occur on this shift BOWEL MANAGEMENT - SCORE: 7-IND TRANSFERS: BED, CHAIR, WHEELCHAIR: Activity did not occur on this shift TRANSFERS: BED, CHAIR, WHEELCHAIR - SCORE: 0-UNK TRANSFERS: TOILET: Activity did not occur on this shift TRANSFERS: TOILET - SCORE: 0-UNK TRANSFERS: SHOWER: TRANSFERS: SHOWER - STEP 1: Does the patient require the assistance of a person or device, or need extra time with shower transfe rs? Yes. TRANSFERS: SHOWER - STEP 2: Does the patient require the assistance of a helper? Yes. TRANSFERS: SHOWER - STEP 3: How much assistance does the patient require from the helper? Only supervision, cuing, coaxing, or he lp to set out transfer equipment or to lock brakes and/or lift foot rests TRANSFERS: SHOWER - SCORE: 5-SUP TRANSFERS: TUB: Activity did not occur on this shift TRANSFERS: TUB - SCORE: 0-UNK LOCOMOTION: WALK: Activity did not occur on this shift LOCOMOTION: WALK - SCORE: 0-UNK LOCOMOTION: WHEELCHAIR: Activity did not occur on this shift LOCOMOTION: WHEELCHAIR - SCORE: 0-UNK LOCOMOTION: STAIRS: Activity did not occur on this shift LOCOMOTION: STAIRS - SCORE: 0-UNK COMPREHENSION: COMPREHENSION: TYPE: Both COMPREHENSION - STEP 1: Does the patient require help from a person or device, or need extra time to understand complex and a bstract ideas (such as current events, finances, discharge planning, medical issues, relationships, e tc)? No. COMPREHENSION - STEP 2: Does the patient need extra time, require an assistive device (such as glasses for visual comprehensi on or a hearing aid for auditory comprehension) or does s/he have mild difficulty understanding compl ex and abstract information? No. COMPREHENSION - SCORE: 7-IND EXPRESSION EXPRESSION: TYPE: Both EXPRESSION - STEP 1: Does the patient require help from a person or device, or need extra time expressing complex and abst ract ideas (such as current events, finances, discharge planning, medical issues, relationships, etc) ? No. EXPRESSION - STEP 2: Does the patient need extra time, require an assistive device (such as augmentive communication syste m or a communication board), OR does s/he have mild difficulty expressing complex and abstract ideas (including mild dysarthria or mild word-find problems)? Yes. EXPRESSION - SCORE: 6-YOEL SOCIAL INTERACTION: SOCIAL INTERACTION - STEP 1: Does the patient require a helper to interact with others in social and therapeutic situations? No. SOCIAL INTERACTION - STEP 2: Does the patient need extra time in social situations, OR does s/he interact with staff, other patien ts, and family members ONLY in structured environments, OR does s/he require medication for social in teraction? Yes, patient requires medication for social interaction SOCIAL INTERACTION - SCORE: 6-YOEL PROBLEM SOLVING: PROBLEM SOLVING - STEP 1: Does the patient need help from a person or device, or need extra time to solve complex problems such as managing a checking account or confronting interpersonal problems? Yes. PROBLEM SOLVING - STEP 2: Does the patient solve basic routine problems half or more of the time? Yes. PROBLEM SOLVING - STEP 3: How often does the patient need help to solve basic routine problems? Less than 10% of the time PROBLEM SOLVING - SCORE: 5-SUP MEMORY: MEMORY - STEP 1: Does the patient need help from a person or device, or need extra time to remember frequently encount ered people, daily routines, and executing requests? Yes. MEMORY - STEP 2: How often does the patient need help to remember frequently encountered people, daily routines, and e xecuting requests? Less than 10% of the time MEMORY - SCORE: 5-SUP SIGNATURE PANEL: The following modified sections: Eating - Score, Grooming - Score, Bathing - Score, Dressing - Upper Body - Score, Dressing - Lower Body - Score, Toileting - Score, Transfers: Bed, Chair, Wheelchair - S core, Transfers: Toilet - Score, Transfers: Tub - Score, Transfers: Shower - Score, Comprehension - S core, Expression - Score, Social Interaction - Score, Problem Solving - Score, Memory - Score were [e lectronically] signed by Jesica Mayberry OT on SunJul 08 2018 18:38:58 GMT-0600 (Central Standard T aguilar)
[2018-07-08] MEDS: HYDROCORTISONE 1 % CREAM 30GM TOP PRN (19:33)
[2018-07-08] MEDS: GABAPENTIN 100 MG CAP PO SCH (19:50)
[2018-07-08] MEDS: DOCUSATE NA/SENNA CONC 1 TAB PO PRN (19:50)
[2018-07-08] MEDS: MONTELUKAST 10 MG TAB PO SCH (19:59)
[2018-07-08] MEDS: ATORVASTATIN 80 MG TAB PO SCH (19:59)
[2018-07-08] MEDS: LORAZEPAM 0.5 MG TABLET PO PRN (21:17)
--- NOTE | 2018-07-09 00:47 | FAST ---
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 Caesar Tena M.D. ADMISSION DIAGNOSIS: - Cardiac 09 - Cardiac Disorders () CHF exacerbation. EATING: Activity did not occur on this shift EATING - SCORE: 0-UNK GROOMING: Activity did not occur on this shift GROOMING - SCORE: 0-UNK BATHING: Activity did not occur on this shift BATHING - SCORE: 0-UNK DRESSING - UPPER BODY: Activity did not occur on this shift ARTICLES SCORE Total number of steps: 0 DRESSING - UPPER BODY - SCORE: 0-UNK DRESSING - LOWER BODY: Activity did not occur on this shift ARTICLES SCORE Total number of steps: 0 DRESSING - LOWER BODY - SCORE: 0-UNK TOILETING: TOILETING - STEP 1: Does the patient require the assistance of a person or device, or need extra time with toileting? Yes . TOILETING - STEP 2: Does the patient require the assistance of a helper? Yes. TOILETING - STEP 3: How much assistance does the patient require from the helper? Only supervision TOILETING - SCORE: 5-SUP BLADDER MANAGEMENT: BLADDER MANAGEMENT - STEP 1: Does the patient control the bladder completely and intentionally without equipment or devices or med ications, and is always continent? Yes. BLADDER MANAGEMENT - SCORE: 7-IND BOWEL MANAGEMENT: Activity did not occur on this shift BOWEL MANAGEMENT - SCORE: 7-IND TRANSFERS: BED, CHAIR, WHEELCHAIR: TRANSFERS: BED, CHAIR, WHEELCHAIR - STEP 1: Does the patient require assistance of a person or device, or need extra time with bed, chair, or whe elchair transfers? Yes. TRANSFERS: BED, CHAIR, WHEELCHAIR - STEP 2: Does the patient require the assistance of a helper? Yes. TRANSFERS: BED, CHAIR, WHEELCHAIR - STEP 3: How much assistance does the patient require from the helper? Steadying/guiding assistance TRANSFERS: BED, CHAIR, WHEELCHAIR - SCORE: 4-MIN TRANSFERS: TOILET: TRANSFERS: TOILET - STEP 1: Does the patient require the assistance of a person or device, or need extra time with toilet transfe rs? Yes. TRANSFERS: TOILET - STEP 2: Does the patient require the assistance of a helper? Yes. TRANSFERS: TOILET - STEP 3: How much assistance does the patient require from the helper? Patient performs half or more of the tr ansferring tasks TRANSFERS: TOILET - STEP 4: Does the patient need only incidental help such as contact guard or steadying during toilet transfer? Yes. TRANSFERS: TOILET - SCORE: 4-MIN TRANSFERS: SHOWER: Activity did not occur on this shift TRANSFERS: SHOWER - SCORE: 0-UNK TRANSFERS: TUB: Activity did not occur on this shift TRANSFERS: TUB - SCORE: 0-UNK LOCOMOTION: WALK: Activity did not occur on this shift LOCOMOTION: WALK - SCORE: 0-UNK LOCOMOTION: WHEELCHAIR: Activity did not occur on this shift LOCOMOTION: WHEELCHAIR - SCORE: 0-UNK COMPREHENSION: COMPREHENSION: TYPE: Both COMPREHENSION - STEP 1: Does the patient require help from a person or device, or need extra time to understand complex and a bstract ideas (such as current events, finances, discharge planning, medical issues, relationships, e tc)? No. COMPREHENSION - STEP 2: Does the patient need extra time, require an assistive device (such as glasses for visual comprehensi on or a hearing aid for auditory comprehension) or does s/he have mild difficulty understanding compl ex and abstract information? Yes. COMPREHENSION - SCORE: 6-YOEL EXPRESSION EXPRESSION: TYPE: Both EXPRESSION - STEP 1: Does the patient require help from a person or device, or need extra time expressing complex and abst ract ideas (such as current events, finances, discharge planning, medical issues, relationships, etc) ? Yes. EXPRESSION - STEP 2: Does the patient require help to express basic necessities or ideas (such as hunger, thirst, sleep, s afety, daily schedule, room location, or discomfort) half or more of the time? No. EXPRESSION - STEP 3: How often does the patient need help to express directions and conversation about basic needs? 10-24% of the time EXPRESSION - SCORE: 4-MIN SOCIAL INTERACTION: SOCIAL INTERACTION - STEP 1: Does the patient require a helper to interact with others in social and therapeutic situations? No. SOCIAL INTERACTION - STEP 2: Does the patient need extra time in social situations, OR does s/he interact with staff, other patien ts, and family members ONLY in structured environments, OR does s/he require medication for social in teraction? Yes, patient requires medication for social interaction SOCIAL INTERACTION - SCORE: 6-YOEL PROBLEM SOLVING: PROBLEM SOLVING - STEP 1: Does the patient need help from a person or device, or need extra time to solve complex problems such as managing a checking account or confronting interpersonal problems? Yes. PROBLEM SOLVING - STEP 2: Does the patient solve basic routine problems half or more of the time? Yes. PROBLEM SOLVING - STEP 3: How often does the patient need help to solve basic routine problems? 10%-24% of the time PROBLEM SOLVING - SCORE: 4-MIN MEMORY: MEMORY - STEP 1: Does the patient need help from a person or device, or need extra time to remember frequently encount ered people, daily routines, and executing requests? No. MEMORY - STEP 2: Does the patient have slight difficulty recognizing frequently encountered people, daily routines, or executing requests without the need for repetition or using self-initiated or environmental cues to remember? Yes. MEMORY - SCORE: 6-YOEL SIGNATURE PANEL: The following modified sections: Eating - Score, Grooming - Score, Bathing - Score, Dressing - Upper Body - Score, Dressing - Lower Body - Score, Toileting - Score, Bladder Management - Score, Bowel Man agement - Score, Transfers: Bed, Chair, Wheelchair - Score, Transfers: Toilet - Score, Transfers: Eugenia wer - Score, Transfers: Tub - Score, Locomotion: Walk - Score, Locomotion: Wheelchair - Score, Compre hension - Score, Expression - Score, Social Interaction - Score, Problem Solving - Score, Memory - Sc ore were [electronically] signed by Angie De Leon CNA on SunJul 09 2018 00:46:18 T-0600 ([facility])
[2018-07-09] MEDS: SOTALOL HCL 80 MG TAB PO SCH ×2 (05:13→17:00)
[2018-07-09] MEDS: PANTOPRAZOLE 40MG TABLET PO SCH (06:28)
[2018-07-09] MEDS: SUCRALFATE 1 GM TABLET PO SCH ×4 (06:29→16:22)
[2018-07-09] MEDS: INSULIN -REGULAR HUMAN 50 UNIT/0.5 ML ML SQ SCH ×4 (07:30→21:00)
[2018-07-09] MEDS: AMLODIPINE 10 MG TAB PO SCH (08:00)
[2018-07-09] MEDS: VALSARTAN 80 MG TAB PO SCH (08:00)
[2018-07-09] MEDS: CRANBERRY FRUIT EXTRACT 200 MG CAP PO SCH ×2 (08:45→20:19)
[2018-07-09] MEDS: POLYETHYL GLY 3350 17 GM/DOSE PO PRN (08:45)
[2018-07-09] MEDS: MAGNESIUM OXIDE 400 MG TAB PO SCH ×2 (08:46→20:19)
[2018-07-09] MEDS: GABAPENTIN 100 MG CAP PO SCH ×2 (08:47→20:20)
[2018-07-09] MEDS: glipiZIDE 5 MG TAB PO SCH ×3 (08:47→18:02)
[2018-07-09] MEDS: FERROUS SULFATE 325 MG TAB PO SCH (08:48)
[2018-07-09] MEDS: CETIRIZINE HCL 5 MG TABLET PO SCH (08:48)
[2018-07-09] MEDS: FE SULF/FA/VIT B COMP & C TAB PO SCH (08:48)
[2018-07-09] MEDS: PROMOD 30 ML DOSE PO SCH ×2 (08:49→20:00)
[2018-07-09] MEDS: APIXABAN 5 MG TABLET PO SCH ×2 (08:49→20:19)
[2018-07-09] MEDS: FUROSEMIDE 20 MG TABLET PO SCH ×2 (08:49→16:23)
--- NOTE | 2018-07-09 10:28 | FAST ---
SHIFT START DATE/TIME: 07/09/2018 07:00 (TIN FLIPPER) SHIFT END DATE/TIME: 07/09/2018 19:00 (TIN FLIPPER) NAME YRN BARBOSA DATE OF : 1935 DATE OF ADMISSION: 07/05/2018 19:58 (TIN FLIPPER) PHONE: AGE: 82 SSN# [id number] GENDER: Female ENCOUNTER PHYSICIAN: Dr. Caesar Tena M.D. ADMISSION DIAGNOSIS: - Cardiac 09 - Cardiac Disorders () CHF exacerbation. EATING: EATING - STEP 1: Does the patient require the assistance of a person or device, or need extra time when eating? Yes. EATING - STEP 2: Does the patient require the assistance of a helper? Yes. EATING - STEP 3: Does the patient perform half or more of the eating tasks? Yes. EATING - STEP 4: Does the patient need only supervision, cuing, coaxing OR help to apply an orthosis OR help to cut fo od, open containers, pour liquids, or butter bread? Yes. EATING - SCORE: 5-SUP GROOMING: Comb/brush hair Oral care Wash, rinse, and dry face Wash, rinse, and dry hands GROOMING - STEP 1: Does the patient require the assistance of a person or device, or need extra time when grooming? Yes. GROOMING - STEP 2: Does the patient require the assistance of a helper? No. The patient only requires an assistive devic e, OR takes more than reasonable time to groom, OR there is a concern for safety as the patient groom s GROOMING - SCORE: 6-YOEL BATHING: Activity did not occur on this shift BATHING - SCORE: 0-UNK DRESSING - UPPER BODY: Patient is not dressing in public clothing ARTICLES SCORE Total number of steps: 0 DRESSING - UPPER BODY - SCORE: 0-UNK DRESSING - LOWER BODY: Patient is not dressing in public clothing ARTICLES SCORE Total number of steps: 0 DRESSING - LOWER BODY - SCORE: 0-UNK TOILETING: TOILETING - STEP 1: Does the patient require the assistance of a person or device, or need extra time with toileting? Yes . TOILETING - STEP 2: Does the patient require the assistance of a helper? Yes. TOILETING - STEP 3: How much assistance does the patient require from the helper? Only supervision TOILETING - SCORE: 5-SUP BLADDER MANAGEMENT: BLADDER MANAGEMENT - STEP 1: Does the patient control the bladder completely and intentionally without equipment or devices or med ications, and is always continent? No. BLADDER MANAGEMENT - STEP 2: Does the patient require the assistance of a helper? No, patient requires and independently uses an a ssistive device, such as a urinal, bedpan, bedside commode, catheter, absorbent pad, or collecting de vice BLADDER MANAGEMENT - SCORE: 6-YOEL BOWEL MANAGEMENT: Activity did not occur on this shift BOWEL MANAGEMENT - SCORE: 7-IND TRANSFERS: BED, CHAIR, WHEELCHAIR: TRANSFERS: BED, CHAIR, WHEELCHAIR - STEP 1: Does the patient require assistance of a person or device, or need extra time with bed, chair, or whe elchair transfers? Yes. TRANSFERS: BED, CHAIR, WHEELCHAIR - STEP 2: Does the patient require the assistance of a helper? Yes. TRANSFERS: BED, CHAIR, WHEELCHAIR - STEP 3: How much assistance does the patient require from the helper? Steadying/guiding assistance TRANSFERS: BED, CHAIR, WHEELCHAIR - SCORE: 4-MIN TRANSFERS: TOILET: TRANSFERS: TOILET - STEP 1: Does the patient require the assistance of a person or device, or need extra time with toilet transfe rs? Yes. TRANSFERS: TOILET - STEP 2: Does the patient require the assistance of a helper? Yes. TRANSFERS: TOILET - STEP 3: How much assistance does the patient require from the helper? Patient performs half or more of the tr ansferring tasks TRANSFERS: TOILET - STEP 4: Does the patient need only incidental help such as contact guard or steadying during toilet transfer? Yes. TRANSFERS: TOILET - SCORE: 4-MIN TRANSFERS: SHOWER: Activity did not occur on this shift TRANSFERS: SHOWER - SCORE: 0-UNK TRANSFERS: TUB: Activity did not occur on this shift TRANSFERS: TUB - SCORE: 0-UNK LOCOMOTION: WALK: Activity did not occur on this shift LOCOMOTION: WALK - SCORE: 0-UNK LOCOMOTION: WHEELCHAIR: Activity did not occur on this shift LOCOMOTION: WHEELCHAIR - SCORE: 0-UNK COMPREHENSION: COMPREHENSION: TYPE: Both COMPREHENSION - STEP 1: Does the patient require help from a person or device, or need extra time to understand complex and a bstract ideas (such as current events, finances, discharge planning, medical issues, relationships, e tc)? No. COMPREHENSION - STEP 2: Does the patient need extra time, require an assistive device (such as glasses for visual comprehensi on or a hearing aid for auditory comprehension) or does s/he have mild difficulty understanding compl ex and abstract information? Yes. COMPREHENSION - SCORE: 6-YOEL EXPRESSION EXPRESSION: TYPE: Both EXPRESSION - STEP 1: Does the patient require help from a person or device, or need extra time expressing complex and abst ract ideas (such as current events, finances, discharge planning, medical issues, relationships, etc) ? No. EXPRESSION - STEP 2: Does the patient need extra time, require an assistive device (such as augmentive communication syste m or a communication board), OR does s/he have mild difficulty expressing complex and abstract ideas (including mild dysarthria or mild word-find problems)? Yes. EXPRESSION - SCORE: 6-YOEL SOCIAL INTERACTION: SOCIAL INTERACTION - STEP 1: Does the patient require a helper to interact with others in social and therapeutic situations? No. SOCIAL INTERACTION - STEP 2: Does the patient need extra time in social situations, OR does s/he interact with staff, other patien ts, and family members ONLY in structured environments, OR does s/he require medication for social in teraction? Yes, patient needs extra time SOCIAL INTERACTION - SCORE: 6-YOEL PROBLEM SOLVING: PROBLEM SOLVING - STEP 1: Does the patient need help from a person or device, or need extra time to solve complex problems such as managing a checking account or confronting interpersonal problems? No. PROBLEM SOLVING - STEP 2: Does the patient require extra time to make decisions or solve problems, OR does s/he have slight dif ficulty reading, initiating, or self-correcting in unfamiliar situations? Yes, patient needs extra ti me. PROBLEM SOLVING - SCORE: 6-YOEL MEMORY: MEMORY - STEP 1: Does the patient need help from a person or device, or need extra time to remember frequently encount ered people, daily routines, and executing requests? No. MEMORY - STEP 2: Does the patient have slight difficulty recognizing frequently encountered people, daily routines, or executing requests without the need for repetition or using self-initiated or environmental cues to remember? Yes. MEMORY - SCORE: 6-YOEL SIGNATURE PANEL: The following modified sections: Eating - Score, Grooming - Score, Bathing - Score, Dressing - Upper Body - Score, Dressing - Lower Body - Score, Toileting - Score, Bladder Management - Score, Bowel Man agement - Score, Transfers: Bed, Chair, Wheelchair - Score, Transfers: Toilet - Score, Transfers: Eugenia wer - Score, Transfers: Tub - Score, Locomotion: Walk - Score, Locomotion: Wheelchair - Score, Compre hension - Score, Expression - Score, Social Interaction - Score, Problem Solving - Score, Memory - Sc ore were [electronically] signed by Kilo Rajan on SunJul 09 2018 10:28:18 GMT-0600 (Central Standard Time)
--- NOTE | 2018-07-09 14:28 | FAST ---
ENCOUNTER DATE AND TIME: 07/09/2018 08:00 (FOAM DISPENSER) NAME YRN BARBOSA DATE OF : 1935 DATE OF ADMISSION: 07/05/2018 19:58 (FOAM DISPENSER) PHONE: AGE: 82 SSN# [id number] GENDER: Female ENCOUNTER PHYSICIAN: Dr. Caesar Tena M.D. ADMISSION DIAGNOSIS: - Cardiac 09 - Cardiac Disorders () CHF exacerbation. EATING: Activity did not occur on this shift EATING - SCORE: 0-UNK GROOMING: Activity did not occur on this shift GROOMING - SCORE: 0-UNK BATHING: Activity did not occur on this shift BATHING - SCORE: 0-UNK DRESSING - UPPER BODY: Activity did not occur on this shift Patient is not dressing in public clothing ARTICLES SCORE Total number of steps: 0 DRESSING - UPPER BODY - SCORE: 0-UNK DRESSING - LOWER BODY: Activity did not occur on this shift Patient is not dressing in public clothing ARTICLES SCORE Total number of steps: 0 DRESSING - LOWER BODY - SCORE: 0-UNK TOILETING: Activity did not occur on this shift TOILETING - SCORE: 0-UNK BLADDER MANAGEMENT: Activity did not occur on this shift BLADDER MANAGEMENT - SCORE: 7-IND BOWEL MANAGEMENT: Activity did not occur on this shift BOWEL MANAGEMENT - SCORE: 7-IND TRANSFERS: BED, CHAIR, WHEELCHAIR: TRANSFERS: BED, CHAIR, WHEELCHAIR - STEP 1: Does the patient require assistance of a person or device, or need extra time with bed, chair, or whe elchair transfers? Yes. TRANSFERS: BED, CHAIR, WHEELCHAIR - STEP 2: Does the patient require the assistance of a helper? Yes. TRANSFERS: BED, CHAIR, WHEELCHAIR - STEP 3: How much assistance does the patient require from the helper? Steadying/guiding assistance TRANSFERS: BED, CHAIR, WHEELCHAIR - SCORE: 4-MIN TRANSFERS: TOILET: Activity did not occur on this shift TRANSFERS: TOILET - SCORE: 0-UNK TRANSFERS: SHOWER: Activity did not occur on this shift TRANSFERS: SHOWER - SCORE: 0-UNK TRANSFERS: TUB: Activity did not occur on this shift TRANSFERS: TUB - SCORE: 0-UNK LOCOMOTION: WALK: LOCOMOTION: WALK - STEP 1: Does the patient need help from a person or device, or need extra time to walk 150 feet? Yes. LOCOMOTION: WALK - STEP 2: How much assistance does the patient require to walk a minimum of 150 feet? Only incidental help such as contact guarding or steadying LOCOMOTION: WALK - SCORE: 4-MIN LOCOMOTION: WHEELCHAIR: Activity did not occur on this shift LOCOMOTION: WHEELCHAIR - SCORE: 0-UNK LOCOMOTION: STAIRS: LOCOMOTION: STAIRS - STEP 1: Does the patient need help to go up and down 12 to 14 stairs? Yes. LOCOMOTION: STAIRS - STEP 2: How much assistance does the patient need from the helper to go a minimum of 12 to 14 stairs? Only umanzor pervision, cuing, or coaxing LOCOMOTION: STAIRS - SCORE: 5-SUP COMPREHENSION: COMPREHENSION - SCORE: 0-UNK EXPRESSION EXPRESSION - SCORE: 0-UNK SOCIAL INTERACTION: SOCIAL INTERACTION - SCORE: 0-UNK PROBLEM SOLVING: PROBLEM SOLVING - SCORE: 0-UNK MEMORY: MEMORY - SCORE: 0-UNK SIGNATURE PANEL: The following modified sections: Transfers: Bed, Chair, Wheelchair - Score, Transfers: Toilet - Score , Locomotion: Walk - Score, Locomotion: Wheelchair - Score, Locomotion: Stairs - Score were [electron john] signed by Christopher Bansal PT on SunJul 09 2018 14:27:30 GMT-0600 (Central Standard Time)
--- NOTE | 2018-07-09 17:38 | R.PN ---
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 Pt denied any Shortness of Breath. Ambulated 850' with contact guard assistance using a rollator. Hgb 9.9, glucose 107 to 321. She does not want insulin. Will increase glipizide to 10 mg bid. VITAL SIGNS Temperature: 98.6 F SBP/DBP: 110/58 Pulse: 60 Resp: 16 MEDICATION ALLERGIES: No Known Drug Allergies (NKDA) ENVIRONMENTAL ALLERGIES: - Substance Allergies None Known - Other Allergies None Known NURSING: - Shower allowing shower - Lab Results blood Sugar Check ACHS ACTIVITIES OOB only with supervision THERAPIES: - Occupational Therapy Evaluate and Treat. - Physical Therapy Evaluate and Treat. PHYSICAL EXAM - Gen Alert and awake Lying in bed No apparent distress Oriented to: person, time, and place - Skin No breakdown No abnormalities - Eyes No abnormalities - ENMT No abnormalities - Neck No abnormalities - CVS RRR - Chest Mildly decreased breath sounds bilaterally. - Abd +bowel sounds - GI nondistended Deferred - No abnormalities - Ext Trace edema in right and left leg and foot. - MSK 4+/5 weakness in both lower extremities. - Neuro No focal deficits - Psych Mild depression. ASSESSMENT: Pt. is a 82 yo Right-handed white female.On 06/30/2018 she was admitted to [facility] with diagnosis CHF exacerbation.Her impairment category is Cardiac 09 - Cardiac Disorders (09).Pre- morbidly, Pt. was independent/mod-I in Communication, Social Cognition, Self-Care, Sphincter Control, Transfers Control, and Locomotion; and she had good Sphincter Control.Currently, she has deficits of Balance, Endurance, Safety Awareness, Transfers Control, Locomotion, Social Cognition, and Self-Care .Pt. is now referred to [facility] for acute in-patient rehabilitation in [facility] to maximize patient's functional independence in activities of daily living, strength, ROM, and mob ility.- Rehab Goal Patient has realistic goal of being discharged at assistance level 6-Adithya to reside at Home with Fam cesar/Relatives. MDM/PLAN: - Physical Therapy Gait dysfunction - to improve, our physical therapists will perform initial evaluation of pt's statu s upon admission and devise an individualized program for Gait Training, and Wheel Chair mobility Inability to transfer - to improve, our physical therapists will perform initial evaluation of pt's status upon admission and devise an individualized program for Bed mobility Need for home safety evaluation - to improve, our physical therapists will perform initial evaluatio n of pt's status upon admission and devise an individualized program for Home Evaluation Need in caregiver upon discharge - to improve, our physical therapists will perform initial evaluati on of pt's status upon admission and devise an individualized program for Caregiver Training New precaution - to improve, our physical therapists will perform initial evaluation of pt's status upon admission and devise an individualized program for Patient precaution education Edema - to improve, our physical therapists will perform initial evaluation of pt's status upon admi ssion and devise an individualized program for Elevation Training, and Lymphedema Therapy Pain - to improve, our physical therapists will perform initial evaluation of pt's status upon admis bhavin and devise an individualized program for Modalities Poor balance - to improve, our physical therapists will perform initial evaluation of pt's status up on admission and devise an individualized program for Balance Training Poor endurance - to improve, our physical therapists will perform initial evaluation of pt's status upon admission and devise an individualized program for Endurance Training Weakness - to improve, our physical therapists will perform initial evaluation of pt's status upon a dmission and devise an individualized program for Aquatic Therapy, Neuromuscular Reeducation, and Str engthening Achieving independence - to improve, our physical therapists will perform initial evaluation of pt's status upon admission and devise an individualized program for Community Reintegration Activities - Occupational Therapy ADL deficits - to improve, our occupation therapists will perform initial evaluation of pt's status upon admission and devise an individualized program for Bathing, Bed mobility, Community Reintegratio n, Cooking, Dressing, Eating, Fine Motor Skills, Grooming, Homemaking, Kitchen Mobility, Laundry, Pat ient Education, Safety Awareness, Splinting - Positioning, Transfers(Toilet, Tub, Shower), and Wheel Chair Management Cognitive deficits - to improve, our occupation therapists will perform initial evaluation of pt's s tatus upon admission and devise an individualized program for Cognition - orientation Need for wound care center consultant - to improve, our occupation therapists will perform initial evaluation of pt's status upon admission and devise an individualized program for Caregiver Training Weakness - to improve, our occupation therapists will perform initial evaluation of pt's status upon admission and devise an individualized program for Aquatic Therapy, Balance, Endurance, UE ROM, and UE strengthening - Diet Type Continue Regular - Diet - Liquid Texture Continue Regular - Tube Feed Continue N/A - Lab Results blood Sugar Check ACHS - Diet - Solid Texture Continue Regular - Shower allowing shower FUNCTIONAL STATUS: UPDATED AT WEEKLY TEAM CONFERENCE - Bladder Same accident frequency: 7-Ind - No accidents in the past 7 days - Bowel Same accident frequency: 7-Ind - No accidents in the past 7 days - Walking Same score based on distance walked: 1(<=50ft) FUNCTIONAL STATUS: - Self-Care A. Eating Ind B. Grooming Ind C. Bathing Ind D. Dressing - Upper Ind E. Dressing - Lower modA F. Toileting modA - Sphincter Control G: Bladder control Ind H: Bowel control Ind - Transfers Control I. Bed/Chair/Wheelchair modA J. Toilet modA K. Tub/Shower modA - Locomotion L. Walk/Wheelchair (B) Dep M. Stairs ADNO - Communication N. Comprehension (B) Adithya O. Expression (B) Adithya - Social Cognition P. Social Interaction Adithya Q. Problem Solving sup R. Memory sup - Endurance Poor - Balance Poor - Safety Awareness Poor CURRENT FUNC. 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
[2018-07-09] MEDS: LORAZEPAM 0.5 MG TABLET PO PRN (20:19)
[2018-07-09] MEDS: ATORVASTATIN 80 MG TAB PO SCH (20:19)
[2018-07-09] MEDS: PSYLLIUM FIBER PO SCH (20:19)
[2018-07-09] MEDS: MONTELUKAST 10 MG TAB PO SCH (20:20)
--- NOTE | 2018-07-10 01:41 | FAST ---
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 Caesar Tena M.D. ADMISSION DIAGNOSIS: - Cardiac 09 - Cardiac Disorders () CHF exacerbation. EATING: Activity did not occur on this shift EATING - SCORE: 0-UNK GROOMING: Activity did not occur on this shift GROOMING - SCORE: 0-UNK BATHING: Activity did not occur on this shift BATHING - SCORE: 0-UNK DRESSING - UPPER BODY: Activity did not occur on this shift ARTICLES SCORE Total number of steps: 0 DRESSING - UPPER BODY - SCORE: 0-UNK DRESSING - LOWER BODY: Activity did not occur on this shift ARTICLES SCORE Total number of steps: 0 DRESSING - LOWER BODY - SCORE: 0-UNK TOILETING: TOILETING - STEP 1: Does the patient require the assistance of a person or device, or need extra time with toileting? Yes . TOILETING - STEP 2: Does the patient require the assistance of a helper? Yes. TOILETING - STEP 3: How much assistance does the patient require from the helper? Hands-on assistance from the helper TOILETING - STEP 4: Of the 3 tasks: 1) Adjusting clothing prior to use, 2) Cleansing of perineal area, 3) Adjusting clot erika after use; How many tasks does the patient perform WITHOUT assistance of the helper? Three tasks with steadying assistance from the helper TOILETING - SCORE: 4-MIN BLADDER MANAGEMENT: BLADDER MANAGEMENT - STEP 1: Does the patient control the bladder completely and intentionally without equipment or devices or med ications, and is always continent? No. BLADDER MANAGEMENT - STEP 2: Does the patient require the assistance of a helper? Yes. BLADDER MANAGEMENT - STEP 3: How much assistance does the patient require from the helper? Patient requires contact assistance fro m the helper BLADDER MANAGEMENT - STEP 4: How much contact assistance does the patient require from the helper? Patient requires minimal assist ance to maintain an external device - by positioning, and the patient performs 75% or more of bladder management tasks, while the helper provides less than 25% of the assistance to position patient on / off bedpan BLADDER MANAGEMENT - SCORE: 4-MIN BOWEL MANAGEMENT: Activity did not occur on this shift BOWEL MANAGEMENT - SCORE: 7-IND TRANSFERS: BED, CHAIR, WHEELCHAIR: TRANSFERS: BED, CHAIR, WHEELCHAIR - STEP 1: Does the patient require assistance of a person or device, or need extra time with bed, chair, or whe elchair transfers? Yes. TRANSFERS: BED, CHAIR, WHEELCHAIR - STEP 2: Does the patient require the assistance of a helper? Yes. TRANSFERS: BED, CHAIR, WHEELCHAIR - STEP 3: How much assistance does the patient require from the helper? Steadying/guiding assistance TRANSFERS: BED, CHAIR, WHEELCHAIR - SCORE: 4-MIN TRANSFERS: TOILET: TRANSFERS: TOILET - STEP 1: Does the patient require the assistance of a person or device, or need extra time with toilet transfe rs? Yes. TRANSFERS: TOILET - STEP 2: Does the patient require the assistance of a helper? Yes. TRANSFERS: TOILET - STEP 3: How much assistance does the patient require from the helper? Patient performs half or more of the tr ansferring tasks TRANSFERS: TOILET - STEP 4: Does the patient need only incidental help such as contact guard or steadying during toilet transfer? Yes. TRANSFERS: TOILET - SCORE: 4-MIN TRANSFERS: SHOWER: Activity did not occur on this shift TRANSFERS: SHOWER - SCORE: 0-UNK TRANSFERS: TUB: Activity did not occur on this shift TRANSFERS: TUB - SCORE: 0-UNK LOCOMOTION: WALK: Activity did not occur on this shift LOCOMOTION: WALK - SCORE: 0-UNK LOCOMOTION: WHEELCHAIR: Activity did not occur on this shift LOCOMOTION: WHEELCHAIR - SCORE: 0-UNK COMPREHENSION: COMPREHENSION: TYPE: Both COMPREHENSION - STEP 1: Does the patient require help from a person or device, or need extra time to understand complex and a bstract ideas (such as current events, finances, discharge planning, medical issues, relationships, e tc)? No. COMPREHENSION - STEP 2: Does the patient need extra time, require an assistive device (such as glasses for visual comprehensi on or a hearing aid for auditory comprehension) or does s/he have mild difficulty understanding compl ex and abstract information? Yes. COMPREHENSION - SCORE: 6-YOEL EXPRESSION EXPRESSION: TYPE: Both EXPRESSION - STEP 1: Does the patient require help from a person or device, or need extra time expressing complex and abst ract ideas (such as current events, finances, discharge planning, medical issues, relationships, etc) ? No. EXPRESSION - STEP 2: Does the patient need extra time, require an assistive device (such as augmentive communication syste m or a communication board), OR does s/he have mild difficulty expressing complex and abstract ideas (including mild dysarthria or mild word-find problems)? No. EXPRESSION - SCORE: 7-IND SOCIAL INTERACTION: SOCIAL INTERACTION - STEP 1: Does the patient require a helper to interact with others in social and therapeutic situations? No. SOCIAL INTERACTION - STEP 2: Does the patient need extra time in social situations, OR does s/he interact with staff, other patien ts, and family members ONLY in structured environments, OR does s/he require medication for social in teraction? Yes, patient requires medication for social interaction SOCIAL INTERACTION - SCORE: 6-YOEL PROBLEM SOLVING: PROBLEM SOLVING - STEP 1: Does the patient need help from a person or device, or need extra time to solve complex problems such as managing a checking account or confronting interpersonal problems? No. PROBLEM SOLVING - STEP 2: Does the patient require extra time to make decisions or solve problems, OR does s/he have slight dif ficulty reading, initiating, or self-correcting in unfamiliar situations? No. PROBLEM SOLVING - SCORE: 7-IND MEMORY: MEMORY - STEP 1: Does the patient need help from a person or device, or need extra time to remember frequently encount ered people, daily routines, and executing requests? No. MEMORY - STEP 2: Does the patient have slight difficulty recognizing frequently encountered people, daily routines, or executing requests without the need for repetition or using self-initiated or environmental cues to remember? No. MEMORY - SCORE: 7-IND SIGNATURE PANEL: The following modified sections: Eating - Score, Grooming - Score, Bathing - Score, Dressing - Upper Body - Score, Dressing - Lower Body - Score, Toileting - Score, Bladder Management - Score, Bowel Man agement - Score, Transfers: Bed, Chair, Wheelchair - Score, Transfers: Toilet - Score, Transfers: Eugenia wer - Score, Transfers: Tub - Score, Locomotion: Walk - Score, Locomotion: Wheelchair - Score, Compre hension - Score, Expression - Score, Problem Solving - Score, Memory - Score, Social Interaction - Sc ore were [electronically] signed by Angie De Leon CNA on SunJul 10 2018 01:40:24 T-0600 ([facility] [place])
[2018-07-10] MEDS: SOTALOL HCL 80 MG TAB PO SCH ×2 (05:20→17:14)
[2018-07-10] MEDS: SUCRALFATE 1 GM TABLET PO SCH ×3 (07:30→16:30)
[2018-07-10] MEDS: INSULIN -REGULAR HUMAN 50 UNIT/0.5 ML ML SQ SCH ×4 (07:30→21:00)
[2018-07-10] MEDS: VALSARTAN 80 MG TAB PO SCH (08:00)
[2018-07-10] MEDS: AMLODIPINE 10 MG TAB PO SCH (08:00)
[2018-07-10] MEDS: FE SULF/FA/VIT B COMP & C TAB PO SCH (08:34)
[2018-07-10] MEDS: CETIRIZINE HCL 5 MG TABLET PO SCH (08:34)
[2018-07-10] MEDS: FERROUS SULFATE 325 MG TAB PO SCH (08:34)
[2018-07-10] MEDS: CRANBERRY FRUIT EXTRACT 200 MG CAP PO SCH ×2 (08:34→21:12)
[2018-07-10] MEDS: MAGNESIUM OXIDE 400 MG TAB PO SCH ×2 (08:34→21:11)
[2018-07-10] MEDS: GABAPENTIN 100 MG CAP PO SCH ×2 (08:37→21:12)
[2018-07-10] MEDS: glipiZIDE 5 MG TAB PO SCH ×2 (08:37→17:14)
[2018-07-10] MEDS: APIXABAN 5 MG TABLET PO SCH ×2 (08:37→21:12)
[2018-07-10] MEDS: FUROSEMIDE 20 MG TABLET PO SCH ×2 (08:37→17:14)
[2018-07-10] MEDS: PSYLLIUM FIBER PO SCH ×2 (08:38→20:00)
[2018-07-10] MEDS: PROMOD 30 ML DOSE PO SCH ×2 (08:38→21:16)
[2018-07-10] MEDS: PANTOPRAZOLE 40MG TABLET PO SCH (08:41)
--- NOTE | 2018-07-10 15:58 | FAST ---
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 Caesar Tena M.D. ADMISSION DIAGNOSIS: - Cardiac 09 - Cardiac Disorders () CHF exacerbation. EATING: Activity did not occur on this shift EATING - SCORE: 0-UNK GROOMING: Comb/brush hair Wash, rinse, and dry face Wash, rinse, and dry hands GROOMING - STEP 1: Does the patient require the assistance of a person or device, or need extra time when grooming? No. GROOMING - SCORE: 7-IND BATHING: Abdomen Buttocks Chest Left arm Left lower leg and foot Left upper leg Perineal area Right arm Right lower leg and foot Right upper leg BATHING - STEP 1: Does the patient require the assistance of a person or device, or need extra time when bathing? Yes. BATHING - STEP 2: Does the patient require the assistance of a helper? Yes. BATHING - STEP 3: How much assistance does the patient require from the helper? Only incidental help such as placement of a wash cloth in his/her hand a few times as s/he bathes OR help to bathe just one or two areas of the body BATHING - SCORE: 4-MIN DRESSING - UPPER BODY: Bra (three steps) T-shirt/pullover shirt (four steps) ARTICLES SCORE Total number of steps: 7 DRESSING - UPPER BODY - STEP 1: Does the patient require help from a person or device, or need extra time when dressing above the [address]? Yes. DRESSING - UPPER BODY - STEP 2: Does the patient require the assistance of a helper? Yes. DRESSING - UPPER BODY - STEP 3: Does the helper touch the patient while dressing? Yes. DRESSING - UPPER BODY - STEP 4: How many of the total steps does the patient complete on his/her own? 6 DRESSING - UPPER BODY - SCORE: 4-MIN DRESSING - LOWER BODY: Elastic waist pants (three steps) Sock - Left foot (one step) Sock - Right foot (one step) Underwear (three steps) ARTICLES SCORE Total number of steps: 8 DRESSING - LOWER BODY - STEP 1: Does the patient require help from a person or device, or need extra time when dressing below the [address] st? Yes. DRESSING - LOWER BODY - STEP 2: Does the patient require the assistance of a helper? Yes. DRESSING - LOWER BODY - STEP 3: Does the helper touch the patient while dressing? Yes. DRESSING - LOWER BODY - STEP 4: How many of the total steps does the patient complete on his/her own? 8 DRESSING - LOWER BODY - SCORE: 4-MIN TOILETING: Activity did not occur on this shift TOILETING - SCORE: 0-UNK BLADDER MANAGEMENT: Activity did not occur on this shift BLADDER MANAGEMENT - SCORE: 7-IND BOWEL MANAGEMENT: Activity did not occur on this shift BOWEL MANAGEMENT - SCORE: 7-IND TRANSFERS: BED, CHAIR, WHEELCHAIR: Activity did not occur on this shift TRANSFERS: BED, CHAIR, WHEELCHAIR - SCORE: 0-UNK TRANSFERS: TOILET: Activity did not occur on this shift TRANSFERS: TOILET - SCORE: 0-UNK TRANSFERS: SHOWER: TRANSFERS: SHOWER - STEP 1: Does the patient require the assistance of a person or device, or need extra time with shower transfe rs? Yes. TRANSFERS: SHOWER - STEP 2: Does the patient require the assistance of a helper? Yes. TRANSFERS: SHOWER - STEP 3: How much assistance does the patient require from the helper? Only supervision, cuing, coaxing, or he lp to set out transfer equipment or to lock brakes and/or lift foot rests TRANSFERS: SHOWER - SCORE: 5-SUP TRANSFERS: TUB: Activity did not occur on this shift TRANSFERS: TUB - SCORE: 0-UNK LOCOMOTION: WALK: Activity did not occur on this shift LOCOMOTION: WALK - SCORE: 0-UNK LOCOMOTION: WHEELCHAIR: Activity did not occur on this shift LOCOMOTION: WHEELCHAIR - SCORE: 0-UNK LOCOMOTION: STAIRS: Activity did not occur on this shift LOCOMOTION: STAIRS - SCORE: 0-UNK COMPREHENSION: COMPREHENSION: TYPE: Visual COMPREHENSION - STEP 1: Does the patient require help from a person or device, or need extra time to understand complex and a bstract ideas (such as current events, finances, discharge planning, medical issues, relationships, e tc)? No. COMPREHENSION - STEP 2: Does the patient need extra time, require an assistive device (such as glasses for visual comprehensi on or a hearing aid for auditory comprehension) or does s/he have mild difficulty understanding compl ex and abstract information? Yes. COMPREHENSION - SCORE: 6-YOEL EXPRESSION EXPRESSION: TYPE: Non-Vocal EXPRESSION - STEP 1: Does the patient require help from a person or device, or need extra time expressing complex and abst ract ideas (such as current events, finances, discharge planning, medical issues, relationships, etc) ? No. EXPRESSION - STEP 2: Does the patient need extra time, require an assistive device (such as augmentive communication syste m or a communication board), OR does s/he have mild difficulty expressing complex and abstract ideas (including mild dysarthria or mild word-find problems)? No. EXPRESSION - SCORE: 7-IND SOCIAL INTERACTION: SOCIAL INTERACTION - STEP 1: Does the patient require a helper to interact with others in social and therapeutic situations? No. SOCIAL INTERACTION - STEP 2: Does the patient need extra time in social situations, OR does s/he interact with staff, other patien ts, and family members ONLY in structured environments, OR does s/he require medication for social in teraction? Yes, patient requires medication for social interaction SOCIAL INTERACTION - SCORE: 6-YOEL PROBLEM SOLVING: PROBLEM SOLVING - STEP 1: Does the patient need help from a person or device, or need extra time to solve complex problems such as managing a checking account or confronting interpersonal problems? No. PROBLEM SOLVING - STEP 2: Does the patient require extra time to make decisions or solve problems, OR does s/he have slight dif ficulty reading, initiating, or self-correcting in unfamiliar situations? No. PROBLEM SOLVING - SCORE: 7-IND MEMORY: MEMORY - STEP 1: Does the patient need help from a person or device, or need extra time to remember frequently encount ered people, daily routines, and executing requests? No. MEMORY - STEP 2: Does the patient have slight difficulty recognizing frequently encountered people, daily routines, or executing requests without the need for repetition or using self-initiated or environmental cues to remember? No. MEMORY - SCORE: 7-IND SIGNATURE PANEL: The following modified sections: Eating - Score, Grooming - Score, Bathing - Score, Dressing - Upper Body - Score, Dressing - Lower Body - Score, Toileting - Score, Transfers: Bed, Chair, Wheelchair - S core, Transfers: Toilet - Score, Transfers: Shower - Score, Transfers: Tub - Score, Comprehension - S core, Expression - Score, Social Interaction - Score, Problem Solving - Score, Memory - Score were [e lectronically] signed by GARCÍA Portillo on SunJul 10 2018 15:57:26 [facility]-0600 ([address] [facility])
--- NOTE | 2018-07-10 16:48 | FAST ---
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 Caesar Tena M.D. ADMISSION DIAGNOSIS: - Cardiac 09 - Cardiac Disorders () CHF exacerbation. EATING: EATING - STEP 1: Does the patient require the assistance of a person or device, or need extra time when eating? Yes. EATING - STEP 2: Does the patient require the assistance of a helper? Yes. EATING - STEP 3: Does the patient perform half or more of the eating tasks? Yes. EATING - STEP 4: Does the patient need only supervision, cuing, coaxing OR help to apply an orthosis OR help to cut fo od, open containers, pour liquids, or butter bread? Yes. EATING - SCORE: 5-SUP GROOMING: Comb/brush hair Wash, rinse, and dry face Wash, rinse, and dry hands GROOMING - STEP 1: Does the patient require the assistance of a person or device, or need extra time when grooming? Yes. GROOMING - STEP 2: Does the patient require the assistance of a helper? No. The patient only requires an assistive devic e, OR takes more than reasonable time to groom, OR there is a concern for safety as the patient groom s GROOMING - SCORE: 6-YOEL BATHING: Activity did not occur on this shift BATHING - SCORE: 0-UNK DRESSING - UPPER BODY: ARTICLES SCORE Total number of steps: 0 DRESSING - UPPER BODY - STEP 1: Does the patient require help from a person or device, or need extra time when dressing above the [address] st? Yes. DRESSING - UPPER BODY - STEP 2: Does the patient require the assistance of a helper? Yes. DRESSING - UPPER BODY - STEP 3: Does the helper touch the patient while dressing? No. DRESSING - UPPER BODY - SCORE: 5-SUP DRESSING - LOWER BODY: ARTICLES SCORE Total number of steps: 0 DRESSING - LOWER BODY - STEP 1: Does the patient require help from a person or device, or need extra time when dressing below the [address] st? Yes. DRESSING - LOWER BODY - STEP 2: Does the patient require the assistance of a helper? Yes. DRESSING - LOWER BODY - STEP 3: Does the helper touch the patient while dressing? No. DRESSING - LOWER BODY - SCORE: 5-SUP TOILETING: TOILETING - STEP 1: Does the patient require the assistance of a person or device, or need extra time with toileting? Yes . TOILETING - STEP 2: Does the patient require the assistance of a helper? Yes. TOILETING - STEP 3: How much assistance does the patient require from the helper? Only supervision TOILETING - SCORE: 5-SUP BLADDER MANAGEMENT: BLADDER MANAGEMENT - STEP 1: Does the patient control the bladder completely and intentionally without equipment or devices or med ications, and is always continent? No. BLADDER MANAGEMENT - STEP 2: Does the patient require the assistance of a helper? No, patient only requires extra time BLADDER MANAGEMENT - SCORE: 6-YOEL BLADDER MANAGEMENT - FREQUENCY OF ACCIDENTS: BLADDER MANAGEMENT(FA) - STEP 1: How many accidents has the patient had during the current shift? 0 BOWEL MANAGEMENT: Activity did not occur on this shift BOWEL MANAGEMENT - SCORE: 7-IND BOWEL MANAGEMENT - FREQUENCY OF ACCIDENTS: BOWEL MANAGEMENT(FA) - STEP 1: How many accidents has the patient had during the current shift? 0 TRANSFERS: BED, CHAIR, WHEELCHAIR: TRANSFERS: BED, CHAIR, WHEELCHAIR - STEP 1: Does the patient require assistance of a person or device, or need extra time with bed, chair, or whe elchair transfers? Yes. TRANSFERS: BED, CHAIR, WHEELCHAIR - STEP 2: Does the patient require the assistance of a helper? Yes. TRANSFERS: BED, CHAIR, WHEELCHAIR - STEP 3: How much assistance does the patient require from the helper? Only supervision TRANSFERS: BED, CHAIR, WHEELCHAIR - SCORE: 5-SUP TRANSFERS: TOILET: TRANSFERS: TOILET - STEP 1: Does the patient require the assistance of a person or device, or need extra time with toilet transfe rs? Yes. TRANSFERS: TOILET - STEP 2: Does the patient require the assistance of a helper? Yes. TRANSFERS: TOILET - STEP 3: How much assistance does the patient require from the helper? Patient performs half or more of the tr ansferring tasks TRANSFERS: TOILET - STEP 4: Does the patient need only incidental help such as contact guard or steadying during toilet transfer? Yes. TRANSFERS: TOILET - SCORE: 4-MIN TRANSFERS: SHOWER: Activity did not occur on this shift TRANSFERS: SHOWER - SCORE: 0-UNK TRANSFERS: TUB: Activity did not occur on this shift TRANSFERS: TUB - SCORE: 0-UNK LOCOMOTION: WALK: Activity did not occur on this shift LOCOMOTION: WALK - SCORE: 0-UNK LOCOMOTION: WHEELCHAIR: Activity did not occur on this shift LOCOMOTION: WHEELCHAIR - SCORE: 0-UNK COMPREHENSION: COMPREHENSION: TYPE: Both COMPREHENSION - STEP 1: Does the patient require help from a person or device, or need extra time to understand complex and a bstract ideas (such as current events, finances, discharge planning, medical issues, relationships, e tc)? No. COMPREHENSION - STEP 2: Does the patient need extra time, require an assistive device (such as glasses for visual comprehensi on or a hearing aid for auditory comprehension) or does s/he have mild difficulty understanding compl ex and abstract information? Yes. COMPREHENSION - SCORE: 6-YOEL EXPRESSION EXPRESSION: TYPE: Both EXPRESSION - STEP 1: Does the patient require help from a person or device, or need extra time expressing complex and abst ract ideas (such as current events, finances, discharge planning, medical issues, relationships, etc) ? Yes. EXPRESSION - STEP 2: Does the patient require help to express basic necessities or ideas (such as hunger, thirst, sleep, s afety, daily schedule, room location, or discomfort) half or more of the time? No. EXPRESSION - STEP 3: How often does the patient need help to express directions and conversation about basic needs? Less t [place] 10% of the time EXPRESSION - SCORE: 5-SUP SOCIAL INTERACTION: SOCIAL INTERACTION - STEP 1: Does the patient require a helper to interact with others in social and therapeutic situations? Yes. SOCIAL INTERACTION - STEP 2: Does the patient interact appropriately half or more of the time? Yes. SOCIAL INTERACTION - STEP 3: How often does the patient need help to interact appropriately? Less than 10% of the time SOCIAL INTERACTION - SCORE: 5-SUP PROBLEM SOLVING: PROBLEM SOLVING - STEP 1: Does the patient need help from a person or device, or need extra time to solve complex problems such as managing a checking account or confronting interpersonal problems? Yes. PROBLEM SOLVING - STEP 2: Does the patient solve basic routine problems half or more of the time? Yes. PROBLEM SOLVING - STEP 3: How often does the patient need help to solve basic routine problems? Less than 10% of the time PROBLEM SOLVING - SCORE: 5-SUP MEMORY: MEMORY - STEP 1: Does the patient need help from a person or device, or need extra time to remember frequently encount ered people, daily routines, and executing requests? Yes. MEMORY - STEP 2: How often does the patient need help to remember frequently encountered people, daily routines, and e xecuting requests? Less than 10% of the time MEMORY - SCORE: 5-SUP SIGNATURE PANEL: The following modified sections: Eating - Score, Grooming - Score, Bathing - Score, Dressing - Upper Body - Score, Dressing - Lower Body - Score, Toileting - Score, Bladder Management - Score, Bowel Man agement - Score, Transfers: Bed, Chair, Wheelchair - Score, Transfers: Toilet - Score, Transfers: Eugenia wer - Score, Transfers: Tub - Score, Locomotion: Walk - Score, Locomotion: Wheelchair - Score, Compre hension - Score, Expression - Score, Social Interaction - Score, Problem Solving - Score, Memory - Sc ore were [electronically] signed by Sammi Rodriguez C.N.A. on SunJul 10 2018 16:46:46 GMT-0600 ([facility] Standard Time)
--- NOTE | 2018-07-10 18:38 | R.PN ---
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 Pt denied any Shortness of Breath. Ambulated 1250' with standby assistance using a rollator. Up and down 15 steps with standby assistanc e. Glucose 105 to 225. She is taking glipizide 10 mg bid and now Januvia 225 mg daily. Her creatinine is 1.9 so metformin was discontinued. Hgb 9.9, glucose 107 to 321. She does not want insulin. Will increase glipizide to 10 mg bid. VITAL SIGNS Temperature: 98.6 F SBP/DBP: 119/61 Pulse: 60 Resp: 16 MEDICATION ALLERGIES: No Known Drug Allergies (NKDA) ENVIRONMENTAL ALLERGIES: - Substance Allergies None Known - Other Allergies None Known NURSING: - Shower allowing shower - Lab Results blood Sugar Check ACHS ACTIVITIES OOB only with supervision THERAPIES: - Occupational Therapy Evaluate and Treat. - Physical Therapy Evaluate and Treat. PHYSICAL EXAM - Gen Alert and awake Lying in bed No apparent distress Oriented to: person, time, and place - Skin No breakdown No abnormalities - Eyes No abnormalities - ENMT No abnormalities - Neck No abnormalities - CVS RRR - Chest Mildly decreased breath sounds bilaterally. - Abd +bowel sounds - GI nondistended Deferred - No abnormalities - Ext Trace edema in right and left leg and foot. - MSK 4+/5 weakness in both lower extremities. - Neuro No focal deficits - Psych Mild depression. ASSESSMENT: Pt. is a 82 yo Right-handed white female.On 06/30/2018 she was admitted to [facility] with diagnosis CHF exacerbation.Her impairment category is Cardiac 09 - Cardiac Disorders (09).Pre- morbidly, Pt. was independent/mod-I in Communication, Social Cognition, Self-Care, Sphincter Control, Transfers Control, and Locomotion; and she had good Sphincter Control.Currently, she has deficits of Balance, Endurance, Safety Awareness, Transfers Control, Locomotion, Social Cognition, and Self-Care .Pt. is now referred to [facility] for acute in-patient rehabilitation in [place] to maximize patient's functional independence in activities of daily living, strength, ROM, and mob ility.- Rehab Goal Patient has realistic goal of being discharged at assistance level 6-Aidthya to reside at Home with Fam cesar/Relatives. MDM/PLAN: - Physical Therapy Gait dysfunction - to improve, our physical therapists will perform initial evaluation of pt's statu s upon admission and devise an individualized program for Gait Training, and Wheel Chair mobility Inability to transfer - to improve, our physical therapists will perform initial evaluation of pt's status upon admission and devise an individualized program for Bed mobility Need for home safety evaluation - to improve, our physical therapists will perform initial evaluatio n of pt's status upon admission and devise an individualized program for Home Evaluation Need in caregiver upon discharge - to improve, our physical therapists will perform initial evaluati on of pt's status upon admission and devise an individualized program for Caregiver Training New precaution - to improve, our physical therapists will perform initial evaluation of pt's status upon admission and devise an individualized program for Patient precaution education Edema - to improve, our physical therapists will perform initial evaluation of pt's status upon admi ssion and devise an individualized program for Elevation Training, and Lymphedema Therapy Pain - to improve, our physical therapists will perform initial evaluation of pt's status upon admis bhavin and devise an individualized program for Modalities Poor balance - to improve, our physical therapists will perform initial evaluation of pt's status up on admission and devise an individualized program for Balance Training Poor endurance - to improve, our physical therapists will perform initial evaluation of pt's status upon admission and devise an individualized program for Endurance Training Weakness - to improve, our physical therapists will perform initial evaluation of pt's status upon a dmission and devise an individualized program for Aquatic Therapy, Neuromuscular Reeducation, and Str engthening Achieving independence - to improve, our physical therapists will perform initial evaluation of pt's status upon admission and devise an individualized program for Community Reintegration Activities - Occupational Therapy ADL deficits - to improve, our occupation therapists will perform initial evaluation of pt's status upon admission and devise an individualized program for Bathing, Bed mobility, Community Reintegratio n, Cooking, Dressing, Eating, Fine Motor Skills, Grooming, Homemaking, Kitchen Mobility, Laundry, Pat ient Education, Safety Awareness, Splinting - Positioning, Transfers(Toilet, Tub, Shower), and Wheel Chair Management Cognitive deficits - to improve, our occupation therapists will perform initial evaluation of pt's s tatus upon admission and devise an individualized program for Cognition - orientation Need for director critical care - to improve, our occupation therapists will perform initial evaluation of pt's status upon admission and devise an individualized program for Caregiver Training Weakness - to improve, our occupation therapists will perform initial evaluation of pt's status upon admission and devise an individualized program for Aquatic Therapy, Balance, Endurance, UE ROM, and UE strengthening - Diet Type Continue Regular - Diet - Liquid Texture Continue Regular - Tube Feed Continue N/A - Lab Results blood Sugar Check ACHS - Diet - Solid Texture Continue Regular - Shower allowing shower FUNCTIONAL STATUS: UPDATED AT WEEKLY TEAM CONFERENCE - Bladder Same accident frequency: 7-Ind - No accidents in the past 7 days - Bowel Same accident frequency: 7-Ind - No accidents in the past 7 days - Walking Same score based on distance walked: 1(<=50ft) FUNCTIONAL STATUS: - Self-Care A. Eating Ind B. Grooming Ind C. Bathing Ind D. Dressing - Upper Ind E. Dressing - Lower modA F. Toileting modA - Sphincter Control G: Bladder control Ind H: Bowel control Ind - Transfers Control I. Bed/Chair/Wheelchair modA J. Toilet modA K. Tub/Shower modA - Locomotion L. Walk/Wheelchair (B) Dep M. Stairs ADNO - Communication N. Comprehension (B) Adithya O. Expression (B) Adithya - Social Cognition P. Social Interaction Adithya Q. Problem Solving sup R. Memory sup - Endurance Poor - Balance Poor - Safety Awareness Poor CURRENT FUNC. DEFICITS: Balance, Endurance, Safety Awareness, Transfers Control, Locomotion, Social Cognition, and Self-Care SIGNATURE PANEL: (PALAEONTOLOGIST)
[2018-07-10] MEDS: POLYETHYL GLY 3350 17 GM/DOSE PO PRN (21:11)
[2018-07-10] MEDS: ATORVASTATIN 80 MG TAB PO SCH (21:11)
[2018-07-10] MEDS: HYDROCORTISONE 1 % CREAM 30GM TOP PRN (21:12)
[2018-07-10] MEDS: MONTELUKAST 10 MG TAB PO SCH (21:18)
--- NOTE | 2018-07-11 01:04 | FAST ---
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 Caesar Tena M.D. ADMISSION DIAGNOSIS: - Cardiac 09 - Cardiac Disorders () CHF exacerbation. EATING: Activity did not occur on this shift EATING - SCORE: 0-UNK GROOMING: Oral care Wash, rinse, and dry hands GROOMING - STEP 1: Does the patient require the assistance of a person or device, or need extra time when grooming? Yes. GROOMING - STEP 2: Does the patient require the assistance of a helper? Yes. GROOMING - STEP 3: How much assistance does the patient require from the helper? Only prior equipment preparation/set up from the helper GROOMING - SCORE: 5-SUP BATHING: Activity did not occur on this shift BATHING - SCORE: 0-UNK DRESSING - UPPER BODY: Patient is not dressing in public clothing ARTICLES SCORE Total number of steps: 0 DRESSING - UPPER BODY - SCORE: 0-UNK DRESSING - LOWER BODY: Patient is not dressing in public clothing ARTICLES SCORE Total number of steps: 0 DRESSING - LOWER BODY - SCORE: 0-UNK TOILETING: TOILETING - STEP 1: Does the patient require the assistance of a person or device, or need extra time with toileting? Yes . TOILETING - STEP 2: Does the patient require the assistance of a helper? Yes. TOILETING - STEP 3: How much assistance does the patient require from the helper? Only supervision TOILETING - SCORE: 5-SUP BLADDER MANAGEMENT: BLADDER MANAGEMENT - STEP 1: Does the patient control the bladder completely and intentionally without equipment or devices or med ications, and is always continent? No. BLADDER MANAGEMENT - STEP 2: Does the patient require the assistance of a helper? Yes. BLADDER MANAGEMENT - STEP 3: How much assistance does the patient require from the helper? Only supervision, stand-by, cuing, or c oaxing BLADDER MANAGEMENT - SCORE: 5-SUP BOWEL MANAGEMENT: Activity did not occur on this shift BOWEL MANAGEMENT - SCORE: 7-IND TRANSFERS: BED, CHAIR, WHEELCHAIR: TRANSFERS: BED, CHAIR, WHEELCHAIR - STEP 1: Does the patient require assistance of a person or device, or need extra time with bed, chair, or whe elchair transfers? Yes. TRANSFERS: BED, CHAIR, WHEELCHAIR - STEP 2: Does the patient require the assistance of a helper? Yes. TRANSFERS: BED, CHAIR, WHEELCHAIR - STEP 3: How much assistance does the patient require from the helper? Steadying/guiding assistance TRANSFERS: BED, CHAIR, WHEELCHAIR - SCORE: 4-MIN TRANSFERS: TOILET: TRANSFERS: TOILET - STEP 1: Does the patient require the assistance of a person or device, or need extra time with toilet transfe rs? Yes. TRANSFERS: TOILET - STEP 2: Does the patient require the assistance of a helper? Yes. TRANSFERS: TOILET - STEP 3: How much assistance does the patient require from the helper? Only supervision, cuing, coaxing, OR he lp to set out transfer equipment or to lock brakes and/or lift foot rests TRANSFERS: TOILET - SCORE: 5-SUP TRANSFERS: SHOWER: Activity did not occur on this shift TRANSFERS: SHOWER - SCORE: 0-UNK TRANSFERS: TUB: Activity did not occur on this shift TRANSFERS: TUB - SCORE: 0-UNK LOCOMOTION: WALK: Activity did not occur on this shift LOCOMOTION: WALK - SCORE: 0-UNK LOCOMOTION: WHEELCHAIR: Activity did not occur on this shift LOCOMOTION: WHEELCHAIR - SCORE: 0-UNK COMPREHENSION: COMPREHENSION: TYPE: Both COMPREHENSION - STEP 1: Does the patient require help from a person or device, or need extra time to understand complex and a bstract ideas (such as current events, finances, discharge planning, medical issues, relationships, e tc)? Yes. COMPREHENSION - STEP 2: Does the patient require help to understand questions or statements about basic needs or ideas (such as hunger, thirst, sleep, safety, daily schedule, room location, or discomfort) half or more of the t aguilar? No. COMPREHENSION - STEP 3: How often does the patient need help to understand directions and conversation about basic needs? Les s than 10% of the time COMPREHENSION - SCORE: 5-SUP EXPRESSION EXPRESSION: TYPE: Both EXPRESSION - STEP 1: Does the patient require help from a person or device, or need extra time expressing complex and abst ract ideas (such as current events, finances, discharge planning, medical issues, relationships, etc) ? No. EXPRESSION - STEP 2: Does the patient need extra time, require an assistive device (such as augmentive communication syste m or a communication board), OR does s/he have mild difficulty expressing complex and abstract ideas (including mild dysarthria or mild word-find problems)? Yes. EXPRESSION - SCORE: 6-YOEL SOCIAL INTERACTION: SOCIAL INTERACTION - STEP 1: Does the patient require a helper to interact with others in social and therapeutic situations? No. SOCIAL INTERACTION - STEP 2: Does the patient need extra time in social situations, OR does s/he interact with staff, other patien ts, and family members ONLY in structured environments, OR does s/he require medication for social in teraction? Yes, patient needs extra time SOCIAL INTERACTION - SCORE: 6-YOEL PROBLEM SOLVING: PROBLEM SOLVING - STEP 1: Does the patient need help from a person or device, or need extra time to solve complex problems such as managing a checking account or confronting interpersonal problems? Yes. PROBLEM SOLVING - STEP 2: Does the patient solve basic routine problems half or more of the time? Yes. PROBLEM SOLVING - STEP 3: How often does the patient need help to solve basic routine problems? 10%-24% of the time PROBLEM SOLVING - SCORE: 4-MIN MEMORY: MEMORY - STEP 1: Does the patient need help from a person or device, or need extra time to remember frequently encount ered people, daily routines, and executing requests? No. MEMORY - STEP 2: Does the patient have slight difficulty recognizing frequently encountered people, daily routines, or executing requests without the need for repetition or using self-initiated or environmental cues to remember? Yes. MEMORY - SCORE: 6-YOEL SIGNATURE PANEL: The following modified sections: Eating - Score, Grooming - Score, Dressing - Upper Body - Score, Lui ssing - Lower Body - Score, Toileting - Score, Bladder Management - Score, Bowel Management - Score, Transfers: Bed, Chair, Wheelchair - Score, Transfers: Toilet - Score, Transfers: Shower - Score, Sorenson sfers: Tub - Score, Locomotion: Walk - Score, Locomotion: Wheelchair - Score, Comprehension - Score, Expression - Score, Social Interaction - Score, Problem Solving - Score, Memory - Score were [electro nically] signed by Celia Garcia CNA on SunJul 11 2018 01:02:51 GMT-0600 (Central Standard Time)
[2018-07-11] MEDS: PANTOPRAZOLE 40MG TABLET PO SCH (05:11)
[2018-07-11] MEDS: SOTALOL HCL 80 MG TAB PO SCH ×2 (05:11→17:20)
[2018-07-11 06:15] LABS: Absolute Lymphocytes (CBC) 2.3 K/uL (0.7-4.9); Absolute Monocytes 0.9 K/uL (0.1-1.3); Absolute Neutrophil 2.1 K/uL (1.8-8.0); Eosinophils % 3.1 % (0-4.4); Lymphocytes % 41.6 % (15.3-44.8); MPV 8.3 fL (7.6-11.3); Monocytes % 16.3 % (3.3-12.3); RBC Red Blood Cell Count 3.31 M/uL (3.86-4.86)
[2018-07-11 06:38] LABS: Albumin 2.8 g/dL (3.4-5.0); Potassium 4.2 mmol/L (3.5-5.1); Prealbumin 15.5 mg/dL (20-40)
[2018-07-11] MEDS: INSULIN -REGULAR HUMAN 50 UNIT/0.5 ML ML SQ SCH ×4 (07:30→21:00)
[2018-07-11] MEDS: SUCRALFATE 1 GM TABLET PO SCH ×3 (07:30→16:30)
[2018-07-11 07:52] LABS: Anisocytosis 2+; Blood Morphology Comment NOTED (NOT SEEN); Burr Cells 2+; Elliptocytes 1+; Platelet Estimate ADEQ; Poikilocytosis 2+; Urine White Blood Cell Casts OK
[2018-07-11] MEDS: VALSARTAN 80 MG TAB PO SCH (08:00)
[2018-07-11] MEDS: AMLODIPINE 10 MG TAB PO SCH (08:00)
[2018-07-11] MEDS: FE SULF/FA/VIT B COMP & C TAB PO SCH (08:00)
[2018-07-11] MEDS: CRANBERRY FRUIT EXTRACT 200 MG CAP PO SCH ×2 (08:00→21:07)
[2018-07-11] MEDS: MAGNESIUM OXIDE 400 MG TAB PO SCH ×2 (08:51→21:07)
[2018-07-11] MEDS: CETIRIZINE HCL 5 MG TABLET PO SCH (08:51)
[2018-07-11] MEDS: SITAGLIPTIN PHOS 100 MG TAB PO SCH (08:52)
[2018-07-11] MEDS: FUROSEMIDE 20 MG TABLET PO SCH ×2 (08:52→17:20)
[2018-07-11] MEDS: APIXABAN 5 MG TABLET PO SCH ×2 (08:53→21:08)
[2018-07-11] MEDS: GABAPENTIN 100 MG CAP PO SCH ×2 (08:53→21:07)
[2018-07-11] MEDS: FERROUS SULFATE 325 MG TAB PO SCH (08:53)
[2018-07-11] MEDS: glipiZIDE 5 MG TAB PO SCH ×2 (08:53→17:20)
[2018-07-11] MEDS: PROMOD 30 ML DOSE PO SCH ×2 (08:54→20:00)
[2018-07-11] MEDS ORDERED: BISACODYL 10 MG RECTAL SUPP PR PRN (09:03)
[2018-07-11] MEDS: PSYLLIUM FIBER PO SCH ×2 (10:31→21:08)
--- NOTE | 2018-07-11 13:22 | FAST ---
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 Caesar Tena M.D. ADMISSION DIAGNOSIS: - Cardiac 09 - Cardiac Disorders () CHF exacerbation. EATING: Activity did not occur on this shift EATING - SCORE: 0-UNK GROOMING: Activity did not occur on this shift GROOMING - SCORE: 0-UNK BATHING: Activity did not occur on this shift BATHING - SCORE: 0-UNK DRESSING - UPPER BODY: Activity did not occur on this shift Patient is not dressing in public clothing ARTICLES SCORE Total number of steps: 0 DRESSING - UPPER BODY - SCORE: 0-UNK DRESSING - LOWER BODY: Activity did not occur on this shift Patient is not dressing in public clothing ARTICLES SCORE Total number of steps: 0 DRESSING - LOWER BODY - SCORE: 0-UNK TOILETING: Activity did not occur on this shift TOILETING - SCORE: 0-UNK BLADDER MANAGEMENT: Activity did not occur on this shift BLADDER MANAGEMENT - SCORE: 7-IND BOWEL MANAGEMENT: Activity did not occur on this shift BOWEL MANAGEMENT - SCORE: 7-IND TRANSFERS: BED, CHAIR, WHEELCHAIR: TRANSFERS: BED, CHAIR, WHEELCHAIR - STEP 1: Does the patient require assistance of a person or device, or need extra time with bed, chair, or whe elchair transfers? Yes. TRANSFERS: BED, CHAIR, WHEELCHAIR - STEP 2: Does the patient require the assistance of a helper? Yes. TRANSFERS: BED, CHAIR, WHEELCHAIR - STEP 3: How much assistance does the patient require from the helper? Only supervision TRANSFERS: BED, CHAIR, WHEELCHAIR - SCORE: 5-SUP TRANSFERS: TOILET: Activity did not occur on this shift TRANSFERS: TOILET - SCORE: 0-UNK TRANSFERS: SHOWER: Activity did not occur on this shift TRANSFERS: SHOWER - SCORE: 0-UNK TRANSFERS: TUB: Activity did not occur on this shift TRANSFERS: TUB - SCORE: 0-UNK LOCOMOTION: WALK: LOCOMOTION: WALK - STEP 1: Does the patient need help from a person or device, or need extra time to walk 150 feet? Yes. LOCOMOTION: WALK - STEP 2: How much assistance does the patient require to walk a minimum of 150 feet? Only supervision, cuing, or coaxing LOCOMOTION: WALK - SCORE: 5-SUP LOCOMOTION: WHEELCHAIR: Activity did not occur on this shift LOCOMOTION: WHEELCHAIR - SCORE: 0-UNK LOCOMOTION: STAIRS: LOCOMOTION: STAIRS - STEP 1: Does the patient need help to go up and down 12 to 14 stairs? Yes. LOCOMOTION: STAIRS - STEP 2: How much assistance does the patient need from the helper to go a minimum of 12 to 14 stairs? Only umanzor pervision, cuing, or coaxing LOCOMOTION: STAIRS - SCORE: 5-SUP COMPREHENSION: COMPREHENSION - SCORE: 0-UNK EXPRESSION EXPRESSION - SCORE: 0-UNK SOCIAL INTERACTION: SOCIAL INTERACTION - SCORE: 0-UNK PROBLEM SOLVING: PROBLEM SOLVING - SCORE: 0-UNK MEMORY: MEMORY - SCORE: 0-UNK SIGNATURE PANEL: The following modified sections: Transfers: Bed, Chair, Wheelchair - Score, Transfers: Toilet - Score , Locomotion: Walk - Score, Locomotion: Wheelchair - Score, Locomotion: Stairs - Score were [kenney [email or web address]] signed by Christopher Bansal PT on SunJul 11 2018 13:21:33 GMT-0600 (Central Standard Time)
--- NOTE | 2018-07-11 13:23 | FAST ---
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 Caesar Tena M.D. ADMISSION DIAGNOSIS: - Cardiac 09 - Cardiac Disorders () CHF exacerbation. EATING: Activity did not occur on this shift EATING - SCORE: 0-UNK GROOMING: Activity did not occur on this shift GROOMING - SCORE: 0-UNK BATHING: Activity did not occur on this shift BATHING - SCORE: 0-UNK DRESSING - UPPER BODY: Activity did not occur on this shift Patient is not dressing in public clothing ARTICLES SCORE Total number of steps: 0 DRESSING - UPPER BODY - SCORE: 0-UNK DRESSING - LOWER BODY: Activity did not occur on this shift Patient is not dressing in public clothing ARTICLES SCORE Total number of steps: 0 DRESSING - LOWER BODY - SCORE: 0-UNK TOILETING: Activity did not occur on this shift TOILETING - SCORE: 0-UNK BLADDER MANAGEMENT: Activity did not occur on this shift BLADDER MANAGEMENT - SCORE: 7-IND BOWEL MANAGEMENT: Activity did not occur on this shift BOWEL MANAGEMENT - SCORE: 7-IND TRANSFERS: BED, CHAIR, WHEELCHAIR: TRANSFERS: BED, CHAIR, WHEELCHAIR - STEP 1: Does the patient require assistance of a person or device, or need extra time with bed, chair, or whe elchair transfers? Yes. TRANSFERS: BED, CHAIR, WHEELCHAIR - STEP 2: Does the patient require the assistance of a helper? Yes. TRANSFERS: BED, CHAIR, WHEELCHAIR - STEP 3: How much assistance does the patient require from the helper? Only supervision TRANSFERS: BED, CHAIR, WHEELCHAIR - SCORE: 5-SUP TRANSFERS: TOILET: Activity did not occur on this shift TRANSFERS: TOILET - SCORE: 0-UNK TRANSFERS: SHOWER: Activity did not occur on this shift TRANSFERS: SHOWER - SCORE: 0-UNK TRANSFERS: TUB: Activity did not occur on this shift TRANSFERS: TUB - SCORE: 0-UNK LOCOMOTION: WALK: LOCOMOTION: WALK - STEP 1: Does the patient need help from a person or device, or need extra time to walk 150 feet? Yes. LOCOMOTION: WALK - STEP 2: How much assistance does the patient require to walk a minimum of 150 feet? Only supervision, cuing, or coaxing LOCOMOTION: WALK - SCORE: 5-SUP LOCOMOTION: WHEELCHAIR: Activity did not occur on this shift LOCOMOTION: WHEELCHAIR - SCORE: 0-UNK LOCOMOTION: STAIRS: Activity did not occur on this shift LOCOMOTION: STAIRS - SCORE: 0-UNK COMPREHENSION: COMPREHENSION - SCORE: 0-UNK EXPRESSION EXPRESSION - SCORE: 0-UNK SOCIAL INTERACTION: SOCIAL INTERACTION - SCORE: 0-UNK PROBLEM SOLVING: PROBLEM SOLVING - SCORE: 0-UNK MEMORY: MEMORY - SCORE: 0-UNK SIGNATURE PANEL: The following modified sections: Transfers: Bed, Chair, Wheelchair - Score, Transfers: Toilet - Score , Locomotion: Walk - Score, Locomotion: Wheelchair - Score, Locomotion: Stairs - Score were [electron john] signed by Christopher Bansal PT on SunJul 11 2018 13:22:46 GMT-0600 (Central Standard Time)
--- NOTE | 2018-07-11 15:51 | FAST ---
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 Caesar Tena M.D. ADMISSION DIAGNOSIS: - Cardiac 09 - Cardiac Disorders () CHF exacerbation. EATING: Activity did not occur on this shift EATING - SCORE: 0-UNK GROOMING: Wash, rinse, and dry hands GROOMING - STEP 1: Does the patient require the assistance of a person or device, or need extra time when grooming? No. GROOMING - SCORE: 7-IND BATHING: Activity did not occur on this shift BATHING - SCORE: 0-UNK DRESSING - UPPER BODY: Activity did not occur on this shift ARTICLES SCORE Total number of steps: 0 DRESSING - UPPER BODY - SCORE: 0-UNK DRESSING - LOWER BODY: Activity did not occur on this shift ARTICLES SCORE Total number of steps: 0 DRESSING - LOWER BODY - SCORE: 0-UNK TOILETING: TOILETING - STEP 1: Does the patient require the assistance of a person or device, or need extra time with toileting? Yes . TOILETING - STEP 2: Does the patient require the assistance of a helper? Yes. TOILETING - STEP 3: How much assistance does the patient require from the helper? Only supervision TOILETING - SCORE: 5-SUP BLADDER MANAGEMENT: Activity did not occur on this shift BLADDER MANAGEMENT - SCORE: 7-IND BOWEL MANAGEMENT: Activity did not occur on this shift BOWEL MANAGEMENT - SCORE: 7-IND TRANSFERS: BED, CHAIR, WHEELCHAIR: Activity did not occur on this shift TRANSFERS: BED, CHAIR, WHEELCHAIR - SCORE: 0-UNK TRANSFERS: TOILET: TRANSFERS: TOILET - STEP 1: Does the patient require the assistance of a person or device, or need extra time with toilet transfe rs? Yes. TRANSFERS: TOILET - STEP 2: Does the patient require the assistance of a helper? Yes. TRANSFERS: TOILET - STEP 3: How much assistance does the patient require from the helper? Only supervision, cuing, coaxing, OR he lp to set out transfer equipment or to lock brakes and/or lift foot rests TRANSFERS: TOILET - SCORE: 5-SUP TRANSFERS: SHOWER: Activity did not occur on this shift TRANSFERS: SHOWER - SCORE: 0-UNK TRANSFERS: TUB: Activity did not occur on this shift TRANSFERS: TUB - SCORE: 0-UNK LOCOMOTION: WALK: Activity did not occur on this shift LOCOMOTION: WALK - SCORE: 0-UNK LOCOMOTION: WHEELCHAIR: Activity did not occur on this shift LOCOMOTION: WHEELCHAIR - SCORE: 0-UNK LOCOMOTION: STAIRS: Activity did not occur on this shift LOCOMOTION: STAIRS - SCORE: 0-UNK COMPREHENSION: COMPREHENSION: TYPE: Visual COMPREHENSION - STEP 1: Does the patient require help from a person or device, or need extra time to understand complex and a bstract ideas (such as current events, finances, discharge planning, medical issues, relationships, e tc)? No. COMPREHENSION - STEP 2: Does the patient need extra time, require an assistive device (such as glasses for visual comprehensi on or a hearing aid for auditory comprehension) or does s/he have mild difficulty understanding compl ex and abstract information? Yes. COMPREHENSION - SCORE: 6-YOEL EXPRESSION EXPRESSION: TYPE: Non-Vocal EXPRESSION - STEP 1: Does the patient require help from a person or device, or need extra time expressing complex and abst ract ideas (such as current events, finances, discharge planning, medical issues, relationships, etc) ? No. EXPRESSION - STEP 2: Does the patient need extra time, require an assistive device (such as augmentive communication syste m or a communication board), OR does s/he have mild difficulty expressing complex and abstract ideas (including mild dysarthria or mild word-find problems)? No. EXPRESSION - SCORE: 7-IND SOCIAL INTERACTION: SOCIAL INTERACTION - STEP 1: Does the patient require a helper to interact with others in social and therapeutic situations? No. SOCIAL INTERACTION - STEP 2: Does the patient need extra time in social situations, OR does s/he interact with staff, other patien ts, and family members ONLY in structured environments, OR does s/he require medication for social in teraction? Yes, patient requires medication for social interaction SOCIAL INTERACTION - SCORE: 6-YOEL PROBLEM SOLVING: PROBLEM SOLVING - STEP 1: Does the patient need help from a person or device, or need extra time to solve complex problems such as managing a checking account or confronting interpersonal problems? No. PROBLEM SOLVING - STEP 2: Does the patient require extra time to make decisions or solve problems, OR does s/he have slight dif ficulty reading, initiating, or self-correcting in unfamiliar situations? No. PROBLEM SOLVING - SCORE: 7-IND MEMORY: MEMORY - STEP 1: Does the patient need help from a person or device, or need extra time to remember frequently encount ered people, daily routines, and executing requests? No. MEMORY - STEP 2: Does the patient have slight difficulty recognizing frequently encountered people, daily routines, or executing requests without the need for repetition or using self-initiated or environmental cues to remember? No. MEMORY - SCORE: 7-IND SIGNATURE PANEL: The following modified sections: Eating - Score, Grooming - Score, Bathing - Score, Dressing - Upper Body - Score, Dressing - Lower Body - Score, Toileting - Score, Transfers: Bed, Chair, Wheelchair - S core, Transfers: Toilet - Score, Transfers: Shower - Score, Transfers: Tub - Score, Comprehension - S core, Expression - Score, Social Interaction - Score, Problem Solving - Score, Memory - Score were [e lectronically] signed by GARCÍA Portillo on SunJul 11 2018 15:50:27 T-0600 ([place] Time)
--- NOTE | 2018-07-11 16:01 | FAST ---
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 Caesar Tena M.D. ADMISSION DIAGNOSIS: - Cardiac 09 - Cardiac Disorders () CHF exacerbation. EATING: EATING - STEP 1: Does the patient require the assistance of a person or device, or need extra time when eating? Yes. EATING - STEP 2: Does the patient require the assistance of a helper? Yes. EATING - STEP 3: Does the patient perform half or more of the eating tasks? Yes. EATING - STEP 4: Does the patient need only supervision, cuing, coaxing OR help to apply an orthosis OR help to cut fo od, open containers, pour liquids, or butter bread? Yes. EATING - SCORE: 5-SUP GROOMING: Comb/brush hair Oral care Wash, rinse, and dry face Wash, rinse, and dry hands GROOMING - STEP 1: Does the patient require the assistance of a person or device, or need extra time when grooming? Yes. GROOMING - STEP 2: Does the patient require the assistance of a helper? No. The patient only requires an assistive devic e, OR takes more than reasonable time to groom, OR there is a concern for safety as the patient groom s GROOMING - SCORE: 6-YOEL BATHING: Activity did not occur on this shift BATHING - SCORE: 0-UNK DRESSING - UPPER BODY: T-shirt/pullover shirt (four steps) ARTICLES SCORE Total number of steps: 4 DRESSING - UPPER BODY - STEP 1: Does the patient require help from a person or device, or need extra time when dressing above the [address]? Yes. DRESSING - UPPER BODY - STEP 2: Does the patient require the assistance of a helper? No. Patient only requires an assistive device, s uch as a button hook, velcro, or manager talent management. OR s/he takes more than reasonable time as s/he dresses the upper body. OR there is a concern for safety when s/he dresses the upper body DRESSING - UPPER BODY - SCORE: 6-YOEL DRESSING - LOWER BODY: ARTICLES SCORE Total number of steps: 0 DRESSING - LOWER BODY - STEP 1: Does the patient require help from a person or device, or need extra time when dressing below the [address]? Yes. DRESSING - LOWER BODY - STEP 2: Does the patient require the assistance of a helper? No. Patient requires an assistive device such as a manager talent management. OR s/he takes more than reasonable time as s/he dresses the lower body, OR there is a con cern for safety when s/he dresses the lower body DRESSING - LOWER BODY - SCORE: 6-YOEL TOILETING: TOILETING - STEP 1: Does the patient require the assistance of a person or device, or need extra time with toileting? Yes . TOILETING - STEP 2: Does the patient require the assistance of a helper? Yes. TOILETING - STEP 3: How much assistance does the patient require from the helper? Only supervision TOILETING - SCORE: 5-SUP BLADDER MANAGEMENT: BLADDER MANAGEMENT - STEP 1: Does the patient control the bladder completely and intentionally without equipment or devices or med ications, and is always continent? No. BLADDER MANAGEMENT - STEP 2: Does the patient require the assistance of a helper? Yes. BLADDER MANAGEMENT - STEP 3: How much assistance does the patient require from the helper? Only supervision, stand-by, cuing, or c oaxing BLADDER MANAGEMENT - SCORE: 5-SUP BLADDER MANAGEMENT - FREQUENCY OF ACCIDENTS: BLADDER MANAGEMENT(FA) - STEP 1: How many accidents has the patient had during the current shift? 0 BOWEL MANAGEMENT: BOWEL MANAGEMENT - STEP 1: Does the patient control bowels completely and intentionally without equipment devices or medications AND is always continent? No. BOWEL MANAGEMENT - STEP 2: Does the patient require the assistance of a helper? No, patient requires medication for control such as stool softeners, suppositories, laxatives, enemas, or OTC medications BOWEL MANAGEMENT - SCORE: 6-YOEL BOWEL MANAGEMENT - FREQUENCY OF ACCIDENTS: BOWEL MANAGEMENT(FA) - STEP 1: How many accidents has the patient had during the current shift? 0 TRANSFERS: BED, CHAIR, WHEELCHAIR: TRANSFERS: BED, CHAIR, WHEELCHAIR - STEP 1: Does the patient require assistance of a person or device, or need extra time with bed, chair, or whe elchair transfers? Yes. TRANSFERS: BED, CHAIR, WHEELCHAIR - STEP 2: Does the patient require the assistance of a helper? Yes. TRANSFERS: BED, CHAIR, WHEELCHAIR - STEP 3: How much assistance does the patient require from the helper? Only supervision TRANSFERS: BED, CHAIR, WHEELCHAIR - SCORE: 5-SUP TRANSFERS: TOILET: TRANSFERS: TOILET - STEP 1: Does the patient require the assistance of a person or device, or need extra time with toilet transfe rs? Yes. TRANSFERS: TOILET - STEP 2: Does the patient require the assistance of a helper? Yes. TRANSFERS: TOILET - STEP 3: How much assistance does the patient require from the helper? Patient performs half or more of the tr ansferring tasks TRANSFERS: TOILET - STEP 4: Does the patient need only incidental help such as contact guard or steadying during toilet transfer? Yes. TRANSFERS: TOILET - SCORE: 4-MIN TRANSFERS: SHOWER: Activity did not occur on this shift TRANSFERS: SHOWER - SCORE: 0-UNK TRANSFERS: TUB: Activity did not occur on this shift TRANSFERS: TUB - SCORE: 0-UNK LOCOMOTION: WALK: Activity did not occur on this shift LOCOMOTION: WALK - SCORE: 0-UNK LOCOMOTION: WHEELCHAIR: Activity did not occur on this shift LOCOMOTION: WHEELCHAIR - SCORE: 0-UNK COMPREHENSION: COMPREHENSION: TYPE: Both COMPREHENSION - STEP 1: Does the patient require help from a person or device, or need extra time to understand complex and a bstract ideas (such as current events, finances, discharge planning, medical issues, relationships, e tc)? No. COMPREHENSION - STEP 2: Does the patient need extra time, require an assistive device (such as glasses for visual comprehensi on or a hearing aid for auditory comprehension) or does s/he have mild difficulty understanding compl ex and abstract information? Yes. COMPREHENSION - SCORE: 6-YOEL EXPRESSION EXPRESSION: TYPE: Both EXPRESSION - STEP 1: Does the patient require help from a person or device, or need extra time expressing complex and abst ract ideas (such as current events, finances, discharge planning, medical issues, relationships, etc) ? Yes. EXPRESSION - STEP 2: Does the patient require help to express basic necessities or ideas (such as hunger, thirst, sleep, s afety, daily schedule, room location, or discomfort) half or more of the time? No. EXPRESSION - STEP 3: How often does the patient need help to express directions and conversation about basic needs? Less t [place] 10% of the time EXPRESSION - SCORE: 5-SUP SOCIAL INTERACTION: SOCIAL INTERACTION - STEP 1: Does the patient require a helper to interact with others in social and therapeutic situations? No. SOCIAL INTERACTION - STEP 2: Does the patient need extra time in social situations, OR does s/he interact with staff, other patien ts, and family members ONLY in structured environments, OR does s/he require medication for social in teraction? Yes, patient needs extra time SOCIAL INTERACTION - SCORE: 6-YOEL PROBLEM SOLVING: PROBLEM SOLVING - STEP 1: Does the patient need help from a person or device, or need extra time to solve complex problems such as managing a checking account or confronting interpersonal problems? Yes. PROBLEM SOLVING - STEP 2: Does the patient solve basic routine problems half or more of the time? Yes. PROBLEM SOLVING - STEP 3: How often does the patient need help to solve basic routine problems? Less than 10% of the time PROBLEM SOLVING - SCORE: 5-SUP MEMORY: MEMORY - STEP 1: Does the patient need help from a person or device, or need extra time to remember frequently encount ered people, daily routines, and executing requests? Yes. MEMORY - STEP 2: How often does the patient need help to remember frequently encountered people, daily routines, and e xecuting requests? Less than 10% of the time MEMORY - SCORE: 5-SUP SIGNATURE PANEL: The following modified sections: Eating - Score, Grooming - Score, Bathing - Score, Dressing - Upper Body - Score, Dressing - Lower Body - Score, Toileting - Score, Bladder Management - Score, Bowel Man agement - Score, Transfers: Bed, Chair, Wheelchair - Score, Transfers: Toilet - Score, Transfers: Eugenia wer - Score, Transfers: Tub - Score, Locomotion: Walk - Score, Locomotion: Wheelchair - Score, Compre hension - Score, Expression - Score, Social Interaction - Score, Problem Solving - Score, Memory - Sc ore were [electronically] signed by Ronald StackNNolan on SunJul 11 2018 16:00:46 GMT-0600 (Cent[place] Standard Time)
--- NOTE | 2018-07-11 18:58 | R.PN ---
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 Pt denied any Shortness of Breath. Ambulated 1250' with standby assistance using a rollator. Up and down 15 steps with standby assistanc e. Hgb 8.7, down one unit from 5 days ago, glucose 85 to 186. She does not want insulin. Glipizide 10 mg bid and januvia 25 mg daily. VITAL SIGNS Temperature: 98.6 F SBP/DBP: 112/68 Pulse: 60 Resp: 16 MEDICATION ALLERGIES: No Known Drug Allergies (NKDA) ENVIRONMENTAL ALLERGIES: - Substance Allergies None Known - Other Allergies None Known NURSING: - Shower allowing shower - Lab Results blood Sugar Check ACHS ACTIVITIES OOB only with supervision THERAPIES: - Occupational Therapy Evaluate and Treat. - Physical Therapy Evaluate and Treat. PHYSICAL EXAM - Gen Alert and awake Lying in bed No apparent distress Oriented to: person, time, and place - Skin No breakdown No abnormalities - Eyes No abnormalities - ENMT No abnormalities - Neck No abnormalities - CVS RRR - Chest Mildly decreased breath sounds bilaterally. - Abd +bowel sounds - GI nondistended Deferred - No abnormalities - Ext Trace edema in right and left leg and foot. - MSK 4+/5 weakness in both lower extremities. - Neuro No focal deficits - Psych Mild depression. ASSESSMENT: Pt. is a 82 yo Right-handed white female.On 06/30/2018 she was admitted to [facility] with diagnosis CHF exacerbation.Her impairment category is Cardiac 09 - Cardiac Disorders (09).Pre- morbidly, Pt. was independent/mod-I in Communication, Social Cognition, Self-Care, Sphincter Control, Transfers Control, and Locomotion; and she had good Sphincter Control.Currently, she has deficits of Balance, Endurance, Safety Awareness, Transfers Control, Locomotion, Social Cognition, and Self-Care .Pt. is now referred to [facility] for acute in-patient rehabilitation in [facility] to maximize patient's functional independence in activities of daily living, strength, ROM, and mob ility.- Rehab Goal Patient has realistic goal of being discharged at assistance level 6-Adithya to reside at Home with Fam cesar/Relatives. MDM/PLAN: - Physical Therapy Gait dysfunction - to improve, our physical therapists will perform initial evaluation of pt's statu s upon admission and devise an individualized program for Gait Training, and Wheel Chair mobility Inability to transfer - to improve, our physical therapists will perform initial evaluation of pt's status upon admission and devise an individualized program for Bed mobility Need for home safety evaluation - to improve, our physical therapists will perform initial evaluatio n of pt's status upon admission and devise an individualized program for Home Evaluation Need in caregiver upon discharge - to improve, our physical therapists will perform initial evaluati on of pt's status upon admission and devise an individualized program for Caregiver Training New precaution - to improve, our physical therapists will perform initial evaluation of pt's status upon admission and devise an individualized program for Patient precaution education Edema - to improve, our physical therapists will perform initial evaluation of pt's status upon admi ssion and devise an individualized program for Elevation Training, and Lymphedema Therapy Pain - to improve, our physical therapists will perform initial evaluation of pt's status upon admis bhavin and devise an individualized program for Modalities Poor balance - to improve, our physical therapists will perform initial evaluation of pt's status up on admission and devise an individualized program for Balance Training Poor endurance - to improve, our physical therapists will perform initial evaluation of pt's status upon admission and devise an individualized program for Endurance Training Weakness - to improve, our physical therapists will perform initial evaluation of pt's status upon a dmission and devise an individualized program for Aquatic Therapy, Neuromuscular Reeducation, and Str engthening Achieving independence - to improve, our physical therapists will perform initial evaluation of pt's status upon admission and devise an individualized program for Community Reintegration Activities - Occupational Therapy ADL deficits - to improve, our occupation therapists will perform initial evaluation of pt's status upon admission and devise an individualized program for Bathing, Bed mobility, Community Reintegratio n, Cooking, Dressing, Eating, Fine Motor Skills, Grooming, Homemaking, Kitchen Mobility, Laundry, Pat ient Education, Safety Awareness, Splinting - Positioning, Transfers(Toilet, Tub, Shower), and Wheel Chair Management Cognitive deficits - to improve, our occupation therapists will perform initial evaluation of pt's s tatus upon admission and devise an individualized program for Cognition - orientation Need for nurse wound care - to improve, our occupation therapists will perform initial evaluation of pt's status upon admission and devise an individualized program for Caregiver Training Weakness - to improve, our occupation therapists will perform initial evaluation of pt's status upon admission and devise an individualized program for Aquatic Therapy, Balance, Endurance, UE ROM, and UE strengthening - Diet Type Continue Regular - Diet - Liquid Texture Continue Regular - Tube Feed Continue N/A - Lab Results blood Sugar Check ACHS - Diet - Solid Texture Continue Regular - Shower allowing shower FUNCTIONAL STATUS: UPDATED AT WEEKLY TEAM CONFERENCE - Bladder Same accident frequency: 7-Ind - No accidents in the past 7 days - Bowel Same accident frequency: 7-Ind - No accidents in the past 7 days - Walking Same score based on distance walked: 1(<=50ft) FUNCTIONAL STATUS: - Self-Care A. Eating Ind B. Grooming Ind C. Bathing Ind D. Dressing - Upper Ind E. Dressing - Lower modA F. Toileting modA - Sphincter Control G: Bladder control Ind H: Bowel control Ind - Transfers Control I. Bed/Chair/Wheelchair modA J. Toilet modA K. Tub/Shower modA - Locomotion L. Walk/Wheelchair (B) Dep M. Stairs ADNO - Communication N. Comprehension (B) Adithya O. Expression (B) Adithya - Social Cognition P. Social Interaction Adithya Q. Problem Solving sup R. Memory sup - Endurance Poor - Balance Poor - Safety Awareness Poor CURRENT FUNC. 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
[2018-07-11] MEDS: ATORVASTATIN 80 MG TAB PO SCH (21:07)
[2018-07-11] MEDS: DOCUSATE NA/SENNA CONC 1 TAB PO SCH (21:07)
[2018-07-11] MEDS: MONTELUKAST 10 MG TAB PO SCH (21:08)
--- NOTE | 2018-07-12 01:07 | FAST ---
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 Caesar Tena M.D. ADMISSION DIAGNOSIS: - Cardiac 09 - Cardiac Disorders () CHF exacerbation. EATING: Activity did not occur on this shift EATING - SCORE: 0-UNK GROOMING: Oral care Wash, rinse, and dry hands GROOMING - STEP 1: Does the patient require the assistance of a person or device, or need extra time when grooming? Yes. GROOMING - STEP 2: Does the patient require the assistance of a helper? Yes. GROOMING - STEP 3: How much assistance does the patient require from the helper? Only prior equipment preparation/set up from the helper GROOMING - SCORE: 5-SUP BATHING: Activity did not occur on this shift BATHING - SCORE: 0-UNK DRESSING - UPPER BODY: Patient is not dressing in public clothing ARTICLES SCORE Total number of steps: 0 DRESSING - UPPER BODY - SCORE: 0-UNK DRESSING - LOWER BODY: Patient is not dressing in public clothing ARTICLES SCORE Total number of steps: 0 DRESSING - LOWER BODY - SCORE: 0-UNK TOILETING: TOILETING - STEP 1: Does the patient require the assistance of a person or device, or need extra time with toileting? Yes . TOILETING - STEP 2: Does the patient require the assistance of a helper? Yes. TOILETING - STEP 3: How much assistance does the patient require from the helper? Only supervision TOILETING - SCORE: 5-SUP BLADDER MANAGEMENT: BLADDER MANAGEMENT - STEP 1: Does the patient control the bladder completely and intentionally without equipment or devices or med ications, and is always continent? No. BLADDER MANAGEMENT - STEP 2: Does the patient require the assistance of a helper? No, patient only requires extra time BLADDER MANAGEMENT - SCORE: 6-YOEL BOWEL MANAGEMENT: Activity did not occur on this shift BOWEL MANAGEMENT - SCORE: 7-IND TRANSFERS: BED, CHAIR, WHEELCHAIR: TRANSFERS: BED, CHAIR, WHEELCHAIR - STEP 1: Does the patient require assistance of a person or device, or need extra time with bed, chair, or whe elchair transfers? Yes. TRANSFERS: BED, CHAIR, WHEELCHAIR - STEP 2: Does the patient require the assistance of a helper? Yes. TRANSFERS: BED, CHAIR, WHEELCHAIR - STEP 3: How much assistance does the patient require from the helper? Steadying/guiding assistance TRANSFERS: BED, CHAIR, WHEELCHAIR - SCORE: 4-MIN TRANSFERS: TOILET: TRANSFERS: TOILET - STEP 1: Does the patient require the assistance of a person or device, or need extra time with toilet transfe rs? Yes. TRANSFERS: TOILET - STEP 2: Does the patient require the assistance of a helper? Yes. TRANSFERS: TOILET - STEP 3: How much assistance does the patient require from the helper? Only supervision, cuing, coaxing, OR he lp to set out transfer equipment or to lock brakes and/or lift foot rests TRANSFERS: TOILET - SCORE: 5-SUP TRANSFERS: SHOWER: Activity did not occur on this shift TRANSFERS: SHOWER - SCORE: 0-UNK TRANSFERS: TUB: Activity did not occur on this shift TRANSFERS: TUB - SCORE: 0-UNK LOCOMOTION: WALK: Activity did not occur on this shift LOCOMOTION: WALK - SCORE: 0-UNK LOCOMOTION: WHEELCHAIR: Activity did not occur on this shift LOCOMOTION: WHEELCHAIR - SCORE: 0-UNK COMPREHENSION: COMPREHENSION: TYPE: Both COMPREHENSION - STEP 1: Does the patient require help from a person or device, or need extra time to understand complex and a bstract ideas (such as current events, finances, discharge planning, medical issues, relationships, e tc)? No. COMPREHENSION - STEP 2: Does the patient need extra time, require an assistive device (such as glasses for visual comprehensi on or a hearing aid for auditory comprehension) or does s/he have mild difficulty understanding compl ex and abstract information? Yes. COMPREHENSION - SCORE: 6-YOEL EXPRESSION EXPRESSION: TYPE: Both EXPRESSION - STEP 1: Does the patient require help from a person or device, or need extra time expressing complex and abst ract ideas (such as current events, finances, discharge planning, medical issues, relationships, etc) ? No. EXPRESSION - STEP 2: Does the patient need extra time, require an assistive device (such as augmentive communication syste m or a communication board), OR does s/he have mild difficulty expressing complex and abstract ideas (including mild dysarthria or mild word-find problems)? Yes. EXPRESSION - SCORE: 6-YOEL SOCIAL INTERACTION: SOCIAL INTERACTION - STEP 1: Does the patient require a helper to interact with others in social and therapeutic situations? No. SOCIAL INTERACTION - STEP 2: Does the patient need extra time in social situations, OR does s/he interact with staff, other patien ts, and family members ONLY in structured environments, OR does s/he require medication for social in teraction? Yes, patient needs extra time SOCIAL INTERACTION - SCORE: 6-YOEL PROBLEM SOLVING: PROBLEM SOLVING - STEP 1: Does the patient need help from a person or device, or need extra time to solve complex problems such as managing a checking account or confronting interpersonal problems? Yes. PROBLEM SOLVING - STEP 2: Does the patient solve basic routine problems half or more of the time? Yes. PROBLEM SOLVING - STEP 3: How often does the patient need help to solve basic routine problems? 10%-24% of the time PROBLEM SOLVING - SCORE: 4-MIN MEMORY: MEMORY - STEP 1: Does the patient need help from a person or device, or need extra time to remember frequently encount ered people, daily routines, and executing requests? No. MEMORY - STEP 2: Does the patient have slight difficulty recognizing frequently encountered people, daily routines, or executing requests without the need for repetition or using self-initiated or environmental cues to remember? Yes. MEMORY - SCORE: 6-YOEL SIGNATURE PANEL: The following modified sections: Eating - Score, Grooming - Score, Dressing - Upper Body - Score, Lui ssing - Lower Body - Score, Toileting - Score, Bladder Management - Score, Bowel Management - Score, Transfers: Bed, Chair, Wheelchair - Score, Transfers: Toilet - Score, Transfers: Shower - Score, Sorenson sfers: Tub - Score, Locomotion: Walk - Score, Locomotion: Wheelchair - Score, Comprehension - Score, Expression - Score, Social Interaction - Score, Problem Solving - Score, Memory - Score were [electro nically] signed by Celia Garcia CNA on SunJul 12 2018 01:06:54 GMT-0600 (Central Standard Time)
[2018-07-12] MEDS: PANTOPRAZOLE 40MG TABLET PO SCH (04:51)
[2018-07-12] MEDS: SOTALOL HCL 80 MG TAB PO SCH ×2 (04:51→17:21)
[2018-07-12] MEDS: INSULIN -REGULAR HUMAN 50 UNIT/0.5 ML ML SQ SCH ×4 (07:30→20:53)
[2018-07-12] MEDS: AMLODIPINE 10 MG TAB PO SCH (08:00)
[2018-07-12] MEDS: PSYLLIUM FIBER PO SCH ×2 (08:00→20:52)
[2018-07-12] MEDS: PROMOD 30 ML DOSE PO SCH ×2 (08:00→20:00)
[2018-07-12] MEDS: VALSARTAN 80 MG TAB PO SCH (08:00)
[2018-07-12] MEDS: CETIRIZINE HCL 5 MG TABLET PO SCH (08:09)
[2018-07-12] MEDS: SITAGLIPTIN PHOS 100 MG TAB PO SCH (08:09)
[2018-07-12] MEDS: GABAPENTIN 100 MG CAP PO SCH ×2 (08:10→20:52)
[2018-07-12] MEDS: APIXABAN 5 MG TABLET PO SCH ×2 (08:11→20:52)
[2018-07-12] MEDS: CRANBERRY FRUIT EXTRACT 200 MG CAP PO SCH ×2 (08:11→20:52)
[2018-07-12] MEDS: MAGNESIUM OXIDE 400 MG TAB PO SCH ×2 (08:11→20:51)
[2018-07-12] MEDS: FE SULF/FA/VIT B COMP & C TAB PO SCH (08:11)
[2018-07-12] MEDS: FERROUS SULFATE 325 MG TAB PO SCH (08:11)
[2018-07-12] MEDS: glipiZIDE 5 MG TAB PO SCH ×2 (08:11→17:21)
[2018-07-12] MEDS: SUCRALFATE 1 GM TABLET PO SCH ×3 (08:11→17:21)
[2018-07-12] MEDS: FUROSEMIDE 20 MG TABLET PO SCH ×2 (09:00→17:21)
--- NOTE | 2018-07-12 12:33 | FAST ---
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 Caesar Tena M.D. ADMISSION DIAGNOSIS: - Cardiac 09 - Cardiac Disorders () CHF exacerbation. EATING: Activity did not occur on this shift EATING - SCORE: 0-UNK GROOMING: Comb/brush hair Wash, rinse, and dry face Wash, rinse, and dry hands GROOMING - STEP 1: Does the patient require the assistance of a person or device, or need extra time when grooming? No. GROOMING - SCORE: 7-IND BATHING: Abdomen Buttocks Chest Left arm Left lower leg and foot Left upper leg Perineal area Right arm Right lower leg and foot Right upper leg BATHING - STEP 1: Does the patient require the assistance of a person or device, or need extra time when bathing? Yes. BATHING - STEP 2: Does the patient require the assistance of a helper? No. The patient only requires an assistive devic e such as a bath subhash, OR the patient takes more than reasonable time to bathe, OR there is a concern for safety such as regulating water temperature as the patient bathes. BATHING - SCORE: 6-YOEL DRESSING - UPPER BODY: T-shirt/pullover shirt (four steps) ARTICLES SCORE Total number of steps: 4 DRESSING - UPPER BODY - STEP 1: Does the patient require help from a person or device, or need extra time when dressing above the [address]? No. DRESSING - UPPER BODY - SCORE: 7-IND DRESSING - LOWER BODY: Elastic waist pants (three steps) Sock - Left foot (one step) Sock - Right foot (one step) Underwear (three steps) ARTICLES SCORE Total number of steps: 8 DRESSING - LOWER BODY - STEP 1: Does the patient require help from a person or device, or need extra time when dressing below the [address]? Yes. DRESSING - LOWER BODY - STEP 2: Does the patient require the assistance of a helper? No. Patient requires an assistive device such as a mixer operator. OR s/he takes more than reasonable time as s/he dresses the lower body, OR there is a con cern for safety when s/he dresses the lower body DRESSING - LOWER BODY - SCORE: 6-YOEL TOILETING: Activity did not occur on this shift TOILETING - SCORE: 0-UNK BLADDER MANAGEMENT: Activity did not occur on this shift BLADDER MANAGEMENT - SCORE: 7-IND BOWEL MANAGEMENT: Activity did not occur on this shift BOWEL MANAGEMENT - SCORE: 7-IND TRANSFERS: BED, CHAIR, WHEELCHAIR: Activity did not occur on this shift TRANSFERS: BED, CHAIR, WHEELCHAIR - SCORE: 0-UNK TRANSFERS: TOILET: Activity did not occur on this shift TRANSFERS: TOILET - SCORE: 0-UNK TRANSFERS: SHOWER: TRANSFERS: SHOWER - STEP 1: Does the patient require the assistance of a person or device, or need extra time with shower transfe rs? Yes. TRANSFERS: SHOWER - STEP 2: Does the patient require the assistance of a helper? No. The patient only uses an assistive device, t akes more than reasonable time, OR there is a concern for safety when s/he performs transfers. TRANSFERS: SHOWER - SCORE: 6-YOEL TRANSFERS: TUB: Activity did not occur on this shift TRANSFERS: TUB - SCORE: 0-UNK LOCOMOTION: WALK: Activity did not occur on this shift LOCOMOTION: WALK - SCORE: 0-UNK LOCOMOTION: WHEELCHAIR: Activity did not occur on this shift LOCOMOTION: WHEELCHAIR - SCORE: 0-UNK LOCOMOTION: STAIRS: Activity did not occur on this shift LOCOMOTION: STAIRS - SCORE: 0-UNK COMPREHENSION: COMPREHENSION: TYPE: Visual COMPREHENSION - STEP 1: Does the patient require help from a person or device, or need extra time to understand complex and a bstract ideas (such as current events, finances, discharge planning, medical issues, relationships, e tc)? No. COMPREHENSION - STEP 2: Does the patient need extra time, require an assistive device (such as glasses for visual comprehensi on or a hearing aid for auditory comprehension) or does s/he have mild difficulty understanding compl ex and abstract information? Yes. COMPREHENSION - SCORE: 6-YOEL EXPRESSION EXPRESSION: TYPE: Non-Vocal EXPRESSION - STEP 1: Does the patient require help from a person or device, or need extra time expressing complex and abst ract ideas (such as current events, finances, discharge planning, medical issues, relationships, etc) ? No. EXPRESSION - STEP 2: Does the patient need extra time, require an assistive device (such as augmentive communication syste m or a communication board), OR does s/he have mild difficulty expressing complex and abstract ideas (including mild dysarthria or mild word-find problems)? No. EXPRESSION - SCORE: 7-IND SOCIAL INTERACTION: SOCIAL INTERACTION - STEP 1: Does the patient require a helper to interact with others in social and therapeutic situations? No. SOCIAL INTERACTION - STEP 2: Does the patient need extra time in social situations, OR does s/he interact with staff, other patien ts, and family members ONLY in structured environments, OR does s/he require medication for social in teraction? Yes, patient requires medication for social interaction SOCIAL INTERACTION - SCORE: 6-YOEL PROBLEM SOLVING: PROBLEM SOLVING - STEP 1: Does the patient need help from a person or device, or need extra time to solve complex problems such as managing a checking account or confronting interpersonal problems? No. PROBLEM SOLVING - STEP 2: Does the patient require extra time to make decisions or solve problems, OR does s/he have slight dif ficulty reading, initiating, or self-correcting in unfamiliar situations? No. PROBLEM SOLVING - SCORE: 7-IND MEMORY: MEMORY - STEP 1: Does the patient need help from a person or device, or need extra time to remember frequently encount ered people, daily routines, and executing requests? No. MEMORY - STEP 2: Does the patient have slight difficulty recognizing frequently encountered people, daily routines, or executing requests without the need for repetition or using self-initiated or environmental cues to remember? No. MEMORY - SCORE: 7-IND SIGNATURE PANEL: The following modified sections: Eating - Score, Grooming - Score, Bathing - Score, Dressing - Upper Body - Score, Dressing - Lower Body - Score, Toileting - Score, Transfers: Bed, Chair, Wheelchair - S core, Transfers: Toilet - Score, Transfers: Shower - Score, Transfers: Tub - Score, Comprehension - S core, Expression - Score, Social Interaction - Score, Problem Solving - Score, Memory - Score were [e lectronically] signed by GARCÍA Portillo on SunJul 12 2018 12:32:40 T-0600 ([address] Time)
--- NOTE | 2018-07-12 13:53 | P.RH.PN ---
Estimated Length of Stay: 10 Expected Discharge Date: 07/14/18 Discharge Disposition Plan: Home Family Support: Yes Penitentiary Goal: Mobility, Transfers, Self Care Vital Signs: Last Vital Signs Temp 97.6 F 07/12/18 06:30 Pulse 60 07/12/18 09:00 Resp 16 07/12/18 06:30 BP 111/53 L 07/12/18 09:00 Pulse Ox 92 07/12/18 06:30 Laboratory: Laboratory Last Values WBC 5.6 K/uL (4.3-10.9) D 07/11/18 05:45 RBC 3.31 M/uL (3.86-4.86) L 07/11/18 05:45 Hgb 8.7 g/dL (12.0-15.0) L 07/11/18 05:45 Hct 27.0 % (36.0-45.0) L 07/11/18 05:45 MCV 81.6 fL (80-100) 07/11/18 05:45 MCH 26.3 pg (27.0-35.0) L 07/11/18 05:45 MCHC 32.3 g/dL (32.0-36.0) 07/11/18 05:45 RDW 16.5 % (12.1-15.2) H 07/11/18 05:45 Plt Count 232 K/uL (152-406) D 07/11/18 05:45 MPV 8.3 fL (7.6-11.3) 07/11/18 05:45 Neutrophils % 38.0 % (41.7-73.7) L 07/11/18 05:45 Lymphocytes % 41.6 % (15.3-44.8) 07/11/18 05:45 Monocytes % 16.3 % (3.3-12.3) H 07/11/18 05:45 Eosinophils % 3.1 % (0-4.4) 07/11/18 05:45 Basophils % 1.0 % (0-1.3) 07/11/18 05:45 Absolute Neutrophils 2.1 K/uL (1.8-8.0) 07/11/18 05:45 Absolute Lymphocytes 2.3 K/uL (0.7-4.9) 07/11/18 05:45 Absolute Monocytes 0.9 K/uL (0.1-1.3) 07/11/18 05:45 Absolute Eosinophils 0.2 K/uL (0-0.5) 07/11/18 05:45 Absolute Basophils 0.1 K/uL (0-0.5) 07/11/18 05:45 Poikilocytosis 2+ 07/11/18 05:45 Anisocytosis 2+ 07/11/18 05:45 [place] Cells 2+ 07/11/18 05:45 Elliptocytes 1+ 07/11/18 05:45 Morphology Comment Noted (NOT SEEN) 07/11/18 05:45 Sodium 139 mmol/L (136-145) 07/11/18 05:45 Potassium 4.2 mmol/L (3.5-5.1) 07/11/18 05:45 Chloride 102 mmol/L (98-107) 07/11/18 05:45 Carbon Dioxide 32 mmol/L (21-32) 07/11/18 05:45 BUN 26 mg/dL (7-18) H 07/11/18 05:45 Creatinine 1.37 mg/dL (0.55-1.3) H 07/11/18 05:45 Estimated GFR 37 mL/min (=/>90) L 07/11/18 05:45 Glucose 85 mg/dL (74-106) 07/11/18 05:45 POC Glucose 158 mg/dl (65-120) H 07/12/18 12:06 Calcium 8.2 mg/dL (8.5-10.1) L 07/11/18 05:45 Magnesium 2.2 mg/dL (1.8-2.4) 07/06/18 06:39 Albumin 2.8 g/dL (3.4-5.0) L 07/11/18 05:45 Prealbumin 15.5 mg/dL (20-40) L 07/11/18 05:45 Urine Color Yellow 07/05/18 22:00 Urine Appearance Clear 07/05/18 22:00 Urine pH 7.0 (5.0-7.0) 07/05/18 22:00 Ur Specific [place] 1.010 (1.005-1.030) 07/05/18 22:00 Urine Ketones Negative (NEG) 07/05/18 22:00 Urine Blood Negative (NEG) 07/05/18 22:00 Urine Nitrite Negative (NEG) 07/05/18 22:00 Urine Bilirubin Negative (NEG) 07/05/18 22:00 Urine Urobilinogen 0.2 mg/dL (0.2-1.0) 07/05/18 22:00 Ur Leukocyte Esterase 2+ (NEG) H 07/05/18 22:00 Urine RBC None seen /HPF (NONE SEEN) 07/05/18 22:00 Urine WBC 20-50 /HPF (<5) H 07/05/18 22:00 Ur Squamous Epith Cells <5 /HPF (NONE SEEN) 07/05/18 22:00 Urine Bacteria <20 /HPF (<20) 07/05/18 22:00 Urine Culture Reflexed Not needed 07/05/18 22:00 Urine Glucose Negative (NEG) 07/05/18 22:00 Urine Total Protein Negative (NEG) 07/05/18 22:00 Weight: 161 lb 2 oz Wound Present: No Closed Surgical Incision Present: No Negative Pressure Wound Therapy Present: No Physician Update: He blood sugars are mildly better. She is at modified independence with gait. She will be discharged home on the . Medical Issues: DVT Prophylaxis - Eliquis 5mg BID Pain Issues: Tramadol 50mg Q6H PRN Comment: Pt C/O of some rash on skin Functional Improvement: pt has demonstrated progress throughout the duration of therapy. pt is self limiting and at times, creates her own unsafe scenarios. pt is able to safely ambulate and transfer without the need for physical assist. If someone is near by, pt will at times pretend to experience difficulties or be lower level thatn she truly is. Functional Improvement Occupational Therapy: pt can benifit with further therapy to address pt's overall safety and weakness for adl tasks and for safety and energy conservation techniques for all adl tasks. cont with the POC and the goals by the supervising OTR.pt has a caregiver that assists her with bathing and dressing tasks. 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 Please see the Rehabilitation Signature page for all necessary signatures.
[2018-07-12] MEDS: DOCUSATE NA/SENNA CONC 1 TAB PO SCH (20:52)
[2018-07-12] MEDS: MONTELUKAST 10 MG TAB PO SCH (20:52)
[2018-07-12] MEDS: ATORVASTATIN 80 MG TAB PO SCH (20:52)
--- NOTE | 2018-07-13 02:13 | FAST ---
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 Caesar Tena M.D. ADMISSION DIAGNOSIS: - Cardiac 09 - Cardiac Disorders () CHF exacerbation. EATING: Activity did not occur on this shift EATING - SCORE: 0-UNK GROOMING: Oral care Wash, rinse, and dry face Wash, rinse, and dry hands GROOMING - STEP 1: Does the patient require the assistance of a person or device, or need extra time when grooming? Yes. GROOMING - STEP 2: Does the patient require the assistance of a helper? Yes. GROOMING - STEP 3: How much assistance does the patient require from the helper? Only prior equipment preparation/set up from the helper GROOMING - SCORE: 5-SUP BATHING: Activity did not occur on this shift BATHING - SCORE: 0-UNK DRESSING - UPPER BODY: Patient is not dressing in public clothing ARTICLES SCORE Total number of steps: 0 DRESSING - UPPER BODY - SCORE: 0-UNK DRESSING - LOWER BODY: Patient is not dressing in public clothing ARTICLES SCORE Total number of steps: 0 DRESSING - LOWER BODY - SCORE: 0-UNK TOILETING: TOILETING - STEP 1: Does the patient require the assistance of a person or device, or need extra time with toileting? Yes . TOILETING - STEP 2: Does the patient require the assistance of a helper? Yes. TOILETING - STEP 3: How much assistance does the patient require from the helper? Only supervision TOILETING - SCORE: 5-SUP BLADDER MANAGEMENT: BLADDER MANAGEMENT - STEP 1: Does the patient control the bladder completely and intentionally without equipment or devices or med ications, and is always continent? No. BLADDER MANAGEMENT - STEP 2: Does the patient require the assistance of a helper? Yes. BLADDER MANAGEMENT - STEP 3: How much assistance does the patient require from the helper? Only supervision, stand-by, cuing, or c oaxing BLADDER MANAGEMENT - SCORE: 5-SUP BOWEL MANAGEMENT: Activity did not occur on this shift BOWEL MANAGEMENT - SCORE: 7-IND TRANSFERS: BED, CHAIR, WHEELCHAIR: TRANSFERS: BED, CHAIR, WHEELCHAIR - STEP 1: Does the patient require assistance of a person or device, or need extra time with bed, chair, or whe elchair transfers? Yes. TRANSFERS: BED, CHAIR, WHEELCHAIR - STEP 2: Does the patient require the assistance of a helper? Yes. TRANSFERS: BED, CHAIR, WHEELCHAIR - STEP 3: How much assistance does the patient require from the helper? Only supervision TRANSFERS: BED, CHAIR, WHEELCHAIR - SCORE: 5-SUP TRANSFERS: TOILET: TRANSFERS: TOILET - STEP 1: Does the patient require the assistance of a person or device, or need extra time with toilet transfe rs? Yes. TRANSFERS: TOILET - STEP 2: Does the patient require the assistance of a helper? Yes. TRANSFERS: TOILET - STEP 3: How much assistance does the patient require from the helper? Only supervision, cuing, coaxing, OR he lp to set out transfer equipment or to lock brakes and/or lift foot rests TRANSFERS: TOILET - SCORE: 5-SUP TRANSFERS: SHOWER: Activity did not occur on this shift TRANSFERS: SHOWER - SCORE: 0-UNK TRANSFERS: TUB: Activity did not occur on this shift TRANSFERS: TUB - SCORE: 0-UNK LOCOMOTION: WALK: Activity did not occur on this shift LOCOMOTION: WALK - SCORE: 0-UNK LOCOMOTION: WHEELCHAIR: Activity did not occur on this shift LOCOMOTION: WHEELCHAIR - SCORE: 0-UNK COMPREHENSION: COMPREHENSION: TYPE: Both COMPREHENSION - STEP 1: Does the patient require help from a person or device, or need extra time to understand complex and a bstract ideas (such as current events, finances, discharge planning, medical issues, relationships, e tc)? No. COMPREHENSION - STEP 2: Does the patient need extra time, require an assistive device (such as glasses for visual comprehensi on or a hearing aid for auditory comprehension) or does s/he have mild difficulty understanding compl ex and abstract information? Yes. COMPREHENSION - SCORE: 6-YOEL EXPRESSION EXPRESSION: TYPE: Both EXPRESSION - STEP 1: Does the patient require help from a person or device, or need extra time expressing complex and abst ract ideas (such as current events, finances, discharge planning, medical issues, relationships, etc) ? No. EXPRESSION - STEP 2: Does the patient need extra time, require an assistive device (such as augmentive communication syste m or a communication board), OR does s/he have mild difficulty expressing complex and abstract ideas (including mild dysarthria or mild word-find problems)? Yes. EXPRESSION - SCORE: 6-YOEL SOCIAL INTERACTION: SOCIAL INTERACTION - STEP 1: Does the patient require a helper to interact with others in social and therapeutic situations? No. SOCIAL INTERACTION - STEP 2: Does the patient need extra time in social situations, OR does s/he interact with staff, other patien ts, and family members ONLY in structured environments, OR does s/he require medication for social in teraction? Yes, patient needs extra time SOCIAL INTERACTION - SCORE: 6-YOEL PROBLEM SOLVING: PROBLEM SOLVING - STEP 1: Does the patient need help from a person or device, or need extra time to solve complex problems such as managing a checking account or confronting interpersonal problems? No. PROBLEM SOLVING - STEP 2: Does the patient require extra time to make decisions or solve problems, OR does s/he have slight dif ficulty reading, initiating, or self-correcting in unfamiliar situations? Yes, patient needs extra ti me. PROBLEM SOLVING - SCORE: 6-YOEL MEMORY: MEMORY - STEP 1: Does the patient need help from a person or device, or need extra time to remember frequently encount ered people, daily routines, and executing requests? No. MEMORY - STEP 2: Does the patient have slight difficulty recognizing frequently encountered people, daily routines, or executing requests without the need for repetition or using self-initiated or environmental cues to remember? Yes. MEMORY - SCORE: 6-YOEL
[2018-07-13 05:39] VITALS: BMI 25.9
[2018-07-13] MEDS: PANTOPRAZOLE 40MG TABLET PO SCH (05:48)
[2018-07-13] MEDS: SOTALOL HCL 80 MG TAB PO SCH ×2 (05:49→17:27)
[2018-07-13] MEDS: SUCRALFATE 1 GM TABLET PO SCH ×3 (07:30→16:30)
[2018-07-13] MEDS: INSULIN -REGULAR HUMAN 50 UNIT/0.5 ML ML SQ SCH ×4 (07:30→20:08)
[2018-07-13] MEDS: PROMOD 30 ML DOSE PO SCH ×3 (08:00→20:01)
[2018-07-13] MEDS: VALSARTAN 80 MG TAB PO SCH (08:00)
[2018-07-13] MEDS: AMLODIPINE 10 MG TAB PO SCH (08:00)
[2018-07-13] MEDS: MAGNESIUM OXIDE 400 MG TAB PO SCH ×2 (08:30→20:00)
[2018-07-13] MEDS: CETIRIZINE HCL 5 MG TABLET PO SCH (08:30)
[2018-07-13] MEDS: glipiZIDE 5 MG TAB PO SCH ×2 (08:30→17:27)
[2018-07-13] MEDS: CRANBERRY FRUIT EXTRACT 200 MG CAP PO SCH ×2 (08:31→20:01)
[2018-07-13] MEDS: GABAPENTIN 100 MG CAP PO SCH ×2 (08:31→20:01)
[2018-07-13] MEDS: SITAGLIPTIN PHOS 100 MG TAB PO SCH (08:32)
[2018-07-13] MEDS: FUROSEMIDE 20 MG TABLET PO SCH ×2 (08:33→17:27)
[2018-07-13] MEDS: FERROUS SULFATE 325 MG TAB PO SCH (08:33)
[2018-07-13] MEDS: FE SULF/FA/VIT B COMP & C TAB PO SCH (08:34)
[2018-07-13] MEDS: APIXABAN 5 MG TABLET PO SCH ×2 (08:35→20:01)
[2018-07-13] MEDS: PSYLLIUM FIBER PO SCH ×2 (08:36→20:00)
[2018-07-13] MEDS: ATORVASTATIN 80 MG TAB PO SCH (20:00)
[2018-07-13] MEDS: MONTELUKAST 10 MG TAB PO SCH (20:00)
[2018-07-13] MEDS: LORAZEPAM 0.5 MG TABLET PO PRN (20:01)
[2018-07-13] MEDS: DOCUSATE NA/SENNA CONC 1 TAB PO SCH (20:01)
--- NOTE | 2018-07-14 00:30 | FAST ---
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 Caesar Tena M.D. ADMISSION DIAGNOSIS: - Cardiac 09 - Cardiac Disorders () CHF exacerbation. EATING: Activity did not occur on this shift EATING - SCORE: 0-UNK GROOMING: Activity did not occur on this shift GROOMING - SCORE: 0-UNK BATHING: Activity did not occur on this shift BATHING - SCORE: 0-UNK DRESSING - UPPER BODY: Activity did not occur on this shift ARTICLES SCORE Total number of steps: 0 DRESSING - UPPER BODY - SCORE: 0-UNK DRESSING - LOWER BODY: Activity did not occur on this shift ARTICLES SCORE Total number of steps: 0 DRESSING - LOWER BODY - SCORE: 0-UNK TOILETING: TOILETING - STEP 1: Does the patient require the assistance of a person or device, or need extra time with toileting? Yes . TOILETING - STEP 2: Does the patient require the assistance of a helper? Yes. TOILETING - STEP 3: How much assistance does the patient require from the helper? Only supervision TOILETING - SCORE: 5-SUP BLADDER MANAGEMENT: BLADDER MANAGEMENT - STEP 1: Does the patient control the bladder completely and intentionally without equipment or devices or med ications, and is always continent? Yes. BLADDER MANAGEMENT - SCORE: 7-IND BOWEL MANAGEMENT: Activity did not occur on this shift BOWEL MANAGEMENT - SCORE: 7-IND TRANSFERS: BED, CHAIR, WHEELCHAIR: TRANSFERS: BED, CHAIR, WHEELCHAIR - STEP 1: Does the patient require assistance of a person or device, or need extra time with bed, chair, or whe elchair transfers? Yes. TRANSFERS: BED, CHAIR, WHEELCHAIR - STEP 2: Does the patient require the assistance of a helper? Yes. TRANSFERS: BED, CHAIR, WHEELCHAIR - STEP 3: How much assistance does the patient require from the helper? Only supervision TRANSFERS: BED, CHAIR, WHEELCHAIR - SCORE: 5-SUP TRANSFERS: TOILET: TRANSFERS: TOILET - STEP 1: Does the patient require the assistance of a person or device, or need extra time with toilet transfe rs? Yes. TRANSFERS: TOILET - STEP 2: Does the patient require the assistance of a helper? Yes. TRANSFERS: TOILET - STEP 3: How much assistance does the patient require from the helper? Patient performs half or more of the tr ansferring tasks TRANSFERS: TOILET - STEP 4: Does the patient need only incidental help such as contact guard or steadying during toilet transfer? Yes. TRANSFERS: TOILET - SCORE: 4-MIN TRANSFERS: SHOWER: Activity did not occur on this shift TRANSFERS: SHOWER - SCORE: 0-UNK TRANSFERS: TUB: Activity did not occur on this shift TRANSFERS: TUB - SCORE: 0-UNK LOCOMOTION: WALK: Activity did not occur on this shift LOCOMOTION: WALK - SCORE: 0-UNK LOCOMOTION: WHEELCHAIR: Activity did not occur on this shift LOCOMOTION: WHEELCHAIR - SCORE: 0-UNK COMPREHENSION: COMPREHENSION: TYPE: Both COMPREHENSION - STEP 1: Does the patient require help from a person or device, or need extra time to understand complex and a bstract ideas (such as current events, finances, discharge planning, medical issues, relationships, e tc)? No. COMPREHENSION - STEP 2: Does the patient need extra time, require an assistive device (such as glasses for visual comprehensi on or a hearing aid for auditory comprehension) or does s/he have mild difficulty understanding compl ex and abstract information? Yes. COMPREHENSION - SCORE: 6-YOEL EXPRESSION EXPRESSION: TYPE: Both EXPRESSION - STEP 1: Does the patient require help from a person or device, or need extra time expressing complex and abst ract ideas (such as current events, finances, discharge planning, medical issues, relationships, etc) ? No. EXPRESSION - STEP 2: Does the patient need extra time, require an assistive device (such as augmentive communication syste m or a communication board), OR does s/he have mild difficulty expressing complex and abstract ideas (including mild dysarthria or mild word-find problems)? No. EXPRESSION - SCORE: 7-IND SOCIAL INTERACTION: SOCIAL INTERACTION - STEP 1: Does the patient require a helper to interact with others in social and therapeutic situations? No. SOCIAL INTERACTION - STEP 2: Does the patient need extra time in social situations, OR does s/he interact with staff, other patien ts, and family members ONLY in structured environments, OR does s/he require medication for social in teraction? Yes, patient requires medication for social interaction SOCIAL INTERACTION - SCORE: 6-YOEL PROBLEM SOLVING: PROBLEM SOLVING - STEP 1: Does the patient need help from a person or device, or need extra time to solve complex problems such as managing a checking account or confronting interpersonal problems? No. PROBLEM SOLVING - STEP 2: Does the patient require extra time to make decisions or solve problems, OR does s/he have slight dif ficulty reading, initiating, or self-correcting in unfamiliar situations? Yes, patient needs extra ti me. PROBLEM SOLVING - SCORE: 6-YOEL MEMORY: MEMORY - STEP 1: Does the patient need help from a person or device, or need extra time to remember frequently encount ered people, daily routines, and executing requests? No. MEMORY - STEP 2: Does the patient have slight difficulty recognizing frequently encountered people, daily routines, or executing requests without the need for repetition or using self-initiated or environmental cues to remember? No. MEMORY - SCORE: 7-IND SIGNATURE PANEL: The following modified sections: Eating - Score, Grooming - Score, Bathing - Score, Dressing - Upper Body - Score, Dressing - Lower Body - Score, Bowel Management - Score, Transfers: Bed, Chair, Wheelch air - Score, Transfers: Toilet - Score, Transfers: Shower - Score, Transfers: Tub - Score, Locomotion : Walk - Score, Locomotion: Wheelchair - Score, Social Interaction - Score, Toileting - Score, Bladde r Management - Score, Transfers: Bed, Chair, Wheelchair - Score, Memory - Score, Problem Solving - Sc ore, Expression - Score, Comprehension - Score were [electronically] signed by Angie De Leon CNA on Maldonado n Jul 14 2018 00:27:25 GMT-0600 (Central Standard Time)
[2018-07-14] MEDS: SOTALOL HCL 80 MG TAB PO SCH (05:08)
[2018-07-14] MEDS: PANTOPRAZOLE 40MG TABLET PO SCH (06:30)
[2018-07-14 07:15] VITALS: BP 103/51; TEMP 97.6
[2018-07-14] MEDS: INSULIN -REGULAR HUMAN 50 UNIT/0.5 ML ML SQ SCH ×2 (07:30→11:30)
[2018-07-14] MEDS: SUCRALFATE 1 GM TABLET PO SCH ×3 (07:30→11:35)
[2018-07-14] MEDS: VALSARTAN 80 MG TAB PO SCH (08:00)
[2018-07-14] MEDS: AMLODIPINE 10 MG TAB PO SCH (08:00)
[2018-07-14] MEDS: PROMOD 30 ML DOSE PO SCH (08:00)
[2018-07-14] MEDS: SITAGLIPTIN PHOS 100 MG TAB PO SCH (08:48)
[2018-07-14] MEDS: CRANBERRY FRUIT EXTRACT 200 MG CAP PO SCH (08:48)
[2018-07-14] MEDS: FERROUS SULFATE 325 MG TAB PO SCH (08:48)
[2018-07-14] MEDS: FE SULF/FA/VIT B COMP & C TAB PO SCH (08:48)
[2018-07-14] MEDS: glipiZIDE 5 MG TAB PO SCH (08:49)
[2018-07-14] MEDS: CETIRIZINE HCL 5 MG TABLET PO SCH (08:50)
[2018-07-14] MEDS: APIXABAN 5 MG TABLET PO SCH (08:50)
[2018-07-14] MEDS: MAGNESIUM OXIDE 400 MG TAB PO SCH (08:50)
[2018-07-14] MEDS: GABAPENTIN 100 MG CAP PO SCH (08:51)
[2018-07-14] MEDS: PSYLLIUM FIBER PO SCH (08:52)
[2018-07-14] MEDS: FUROSEMIDE 20 MG TABLET PO SCH (09:00)
--- NOTE | 2018-07-14 14:50 | FAST ---
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 Caesar Tena M.D. ADMISSION DIAGNOSIS: - Cardiac 09 - Cardiac Disorders () CHF exacerbation. EATING: EATING - STEP 1: Does the patient require the assistance of a person or device, or need extra time when eating? Yes. EATING - STEP 2: Does the patient require the assistance of a helper? No, patient only requires an assistive device, O R s/he takes more than reasonable time to eat, OR there is a safety concern, OR s/he requires modifie d food consistency EATING - SCORE: 6-YOEL GROOMING: Comb/brush hair Wash, rinse, and dry face Wash, rinse, and dry hands GROOMING - STEP 1: Does the patient require the assistance of a person or device, or need extra time when grooming? Yes. GROOMING - STEP 2: Does the patient require the assistance of a helper? No. The patient only requires an assistive devic e, OR takes more than reasonable time to groom, OR there is a concern for safety as the patient groom s GROOMING - SCORE: 6-YOEL BATHING: Activity did not occur on this shift BATHING - SCORE: 0-UNK DRESSING - UPPER BODY: Sweater (four steps) T-shirt/pullover shirt (four steps) ARTICLES SCORE Total number of steps: 8 DRESSING - UPPER BODY - STEP 1: Does the patient require help from a person or device, or need extra time when dressing above the [address]? Yes. DRESSING - UPPER BODY - STEP 2: Does the patient require the assistance of a helper? No. Patient only requires an assistive device, s uch as a button hook, velcro, or supervisor taping. OR s/he takes more than reasonable time as s/he dresses the upper body. OR there is a concern for safety when s/he dresses the upper body DRESSING - UPPER BODY - SCORE: 6-YOEL DRESSING - LOWER BODY: Elastic waist pants (three steps) Slip-on shoe - Left foot (one step) Slip-on shoe - Right foot (one step) Underwear (three steps) ARTICLES SCORE Total number of steps: 8 DRESSING - LOWER BODY - STEP 1: Does the patient require help from a person or device, or need extra time when dressing below the [address]? Yes. DRESSING - LOWER BODY - STEP 2: Does the patient require the assistance of a helper? No. Patient requires an assistive device such as a supervisor taping. OR s/he takes more than reasonable time as s/he dresses the lower body, OR there is a con cern for safety when s/he dresses the lower body DRESSING - LOWER BODY - SCORE: 6-YOEL TOILETING: TOILETING - STEP 1: Does the patient require the assistance of a person or device, or need extra time with toileting? No. TOILETING - SCORE: 7-IND BLADDER MANAGEMENT: BLADDER MANAGEMENT - STEP 1: Does the patient control the bladder completely and intentionally without equipment or devices or med ications, and is always continent? No. BLADDER MANAGEMENT - STEP 2: Does the patient require the assistance of a helper? No, patient only requires extra time BLADDER MANAGEMENT - SCORE: 6-YOEL BLADDER MANAGEMENT - FREQUENCY OF ACCIDENTS: BLADDER MANAGEMENT(FA) - STEP 1: How many accidents has the patient had during the current shift? 0 BOWEL MANAGEMENT: Activity did not occur on this shift BOWEL MANAGEMENT - SCORE: 7-IND BOWEL MANAGEMENT - FREQUENCY OF ACCIDENTS: BOWEL MANAGEMENT(FA) - STEP 1: How many accidents has the patient had during the current shift? 0 TRANSFERS: BED, CHAIR, WHEELCHAIR: TRANSFERS: BED, CHAIR, WHEELCHAIR - STEP 1: Does the patient require assistance of a person or device, or need extra time with bed, chair, or whe elchair transfers? No. TRANSFERS: BED, CHAIR, WHEELCHAIR - SCORE: 7-IND TRANSFERS: TOILET: TRANSFERS: TOILET - STEP 1: Does the patient require the assistance of a person or device, or need extra time with toilet transfe rs? No. TRANSFERS: TOILET - SCORE: 7-IND TRANSFERS: SHOWER: Activity did not occur on this shift TRANSFERS: SHOWER - SCORE: 0-UNK TRANSFERS: TUB: Activity did not occur on this shift TRANSFERS: TUB - SCORE: 0-UNK LOCOMOTION: WALK: Activity did not occur on this shift LOCOMOTION: WALK - SCORE: 0-UNK LOCOMOTION: WHEELCHAIR: Activity did not occur on this shift LOCOMOTION: WHEELCHAIR - SCORE: 0-UNK COMPREHENSION: COMPREHENSION: TYPE: Both COMPREHENSION - STEP 1: Does the patient require help from a person or device, or need extra time to understand complex and a bstract ideas (such as current events, finances, discharge planning, medical issues, relationships, e tc)? No. COMPREHENSION - STEP 2: Does the patient need extra time, require an assistive device (such as glasses for visual comprehensi on or a hearing aid for auditory comprehension) or does s/he have mild difficulty understanding compl ex and abstract information? Yes. COMPREHENSION - SCORE: 6-YOEL EXPRESSION EXPRESSION: TYPE: Both EXPRESSION - STEP 1: Does the patient require help from a person or device, or need extra time expressing complex and abst ract ideas (such as current events, finances, discharge planning, medical issues, relationships, etc) ? Yes. EXPRESSION - STEP 2: Does the patient require help to express basic necessities or ideas (such as hunger, thirst, sleep, s afety, daily schedule, room location, or discomfort) half or more of the time? No. EXPRESSION - STEP 3: How often does the patient need help to express directions and conversation about basic needs? Less t [place] 10% of the time EXPRESSION - SCORE: 5-SUP SOCIAL INTERACTION: SOCIAL INTERACTION - STEP 1: Does the patient require a helper to interact with others in social and therapeutic situations? No. SOCIAL INTERACTION - STEP 2: Does the patient need extra time in social situations, OR does s/he interact with staff, other patien ts, and family members ONLY in structured environments, OR does s/he require medication for social in teraction? No. SOCIAL INTERACTION - SCORE: 7-IND PROBLEM SOLVING: PROBLEM SOLVING - STEP 1: Does the patient need help from a person or device, or need extra time to solve complex problems such as managing a checking account or confronting interpersonal problems? Yes. PROBLEM SOLVING - STEP 2: Does the patient solve basic routine problems half or more of the time? Yes. PROBLEM SOLVING - STEP 3: How often does the patient need help to solve basic routine problems? Less than 10% of the time PROBLEM SOLVING - SCORE: 5-SUP MEMORY: MEMORY - STEP 1: Does the patient need help from a person or device, or need extra time to remember frequently encount ered people, daily routines, and executing requests? No. MEMORY - STEP 2: Does the patient have slight difficulty recognizing frequently encountered people, daily routines, or executing requests without the need for repetition or using self-initiated or environmental cues to remember? No. MEMORY - SCORE: 7-IND SIGNATURE PANEL: The following modified sections: Eating - Score, Grooming - Score, Bathing - Score, Dressing - Upper Body - Score, Dressing - Lower Body - Score, Toileting - Score, Bladder Management - Score, Bowel Man agement - Score, Transfers: Bed, Chair, Wheelchair - Score, Transfers: Toilet - Score, Transfers: Eugenia wer - Score, Transfers: Tub - Score, Locomotion: Walk - Score, Locomotion: Wheelchair - Score, Compre hension - Score, Expression - Score, Social Interaction - Score, Memory - Score, Problem Solving - Sc ore were [electronically] signed by Sammi Rodriguez C.N.A. on SunJul 14 2018 14:50:00 GMT-0600 (Centra [place] Standard Time)
--- NOTE | 2018-07-15 15:53 | FAST ---
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 Caesar Tena M.D. ADMISSION DIAGNOSIS: - Cardiac 09 - Cardiac Disorders () CHF exacerbation. EATING: Activity did not occur on this shift EATING - SCORE: 0-UNK GROOMING: Activity did not occur on this shift GROOMING - SCORE: 0-UNK BATHING: Activity did not occur on this shift BATHING - SCORE: 0-UNK DRESSING - UPPER BODY: Activity did not occur on this shift Patient is not dressing in public clothing ARTICLES SCORE Total number of steps: 0 DRESSING - UPPER BODY - SCORE: 0-UNK DRESSING - LOWER BODY: Activity did not occur on this shift Patient is not dressing in public clothing ARTICLES SCORE Total number of steps: 0 DRESSING - LOWER BODY - SCORE: 0-UNK TOILETING: Activity did not occur on this shift TOILETING - SCORE: 0-UNK BLADDER MANAGEMENT: Activity did not occur on this shift BLADDER MANAGEMENT - SCORE: 7-IND BOWEL MANAGEMENT: Activity did not occur on this shift BOWEL MANAGEMENT - SCORE: 7-IND TRANSFERS: BED, CHAIR, WHEELCHAIR: TRANSFERS: BED, CHAIR, WHEELCHAIR - STEP 1: Does the patient require assistance of a person or device, or need extra time with bed, chair, or whe elchair transfers? Yes. TRANSFERS: BED, CHAIR, WHEELCHAIR - STEP 2: Does the patient require the assistance of a helper? No. Patient only requires an assistive device fo r bed, chair, wheelchair transfers such as a sliding board, grab bar, or brace, OR s/he takes more th an reasonable time, OR there is a safety concern when s/he performs the transfers TRANSFERS: BED, CHAIR, WHEELCHAIR - SCORE: 6-YOEL TRANSFERS: TOILET: Activity did not occur on this shift TRANSFERS: TOILET - SCORE: 0-UNK TRANSFERS: SHOWER: Activity did not occur on this shift TRANSFERS: SHOWER - SCORE: 0-UNK TRANSFERS: TUB: Activity did not occur on this shift TRANSFERS: TUB - SCORE: 0-UNK LOCOMOTION: WALK: LOCOMOTION: WALK - STEP 1: Does the patient need help from a person or device, or need extra time to walk 150 feet? No. LOCOMOTION: WALK - STEP 2: Does the patient need an assistive device (such as an orthosis, prosthesis, crutches, or walker) to g o 150 feet, OR does s/he take more than reasonable time, OR is there a concern for safety? Yes, the p atient needs an assistive device LOCOMOTION: WALK - SCORE: 6-YOEL LOCOMOTION: WHEELCHAIR: Activity did not occur on this shift LOCOMOTION: WHEELCHAIR - SCORE: 0-UNK LOCOMOTION: STAIRS: LOCOMOTION: STAIRS - STEP 1: Does the patient need help to go up and down 12 to 14 stairs? No. LOCOMOTION: STAIRS - STEP 2: Does the patient require an assistive device - such as handrails or cane - to go up and down one flig ht of stairs, OR does s/he take more than reasonable time, OR is there a concern for safety? Yes, the patient requires an assistive device LOCOMOTION: STAIRS - SCORE: 6-YOEL COMPREHENSION: COMPREHENSION - SCORE: 0-UNK EXPRESSION EXPRESSION - SCORE: 0-UNK SOCIAL INTERACTION: SOCIAL INTERACTION - SCORE: 0-UNK PROBLEM SOLVING: PROBLEM SOLVING - SCORE: 0-UNK MEMORY: MEMORY - SCORE: 0-UNK SIGNATURE PANEL: The following modified sections: Transfers: Bed, Chair, Wheelchair - Score, Transfers: Toilet - Score , Locomotion: Walk - Score, Locomotion: Wheelchair - Score, Locomotion: Stairs - Score were [electron [email or web address]] signed by Bryce Hill PTA on SunJul 15 2018 15:53:11 GMT-0600 (Central Standard Time)
--- NOTE | 2018-07-16 16:52 | R.DS ---
FACILITY [facility] MR# [id number] NAME YRN BARBOSA ADDRESS [address] [place] [address] [address] [id number] PHONE DATE OF 1935 AGE 82 SSN# [id number] GENDER Female DEXTERITY Right-handed MARITAL STATUS RACE White ENCOUNTER PHYSICIAN Dr. Caesar Tena M.D. REFERRING DOCTOR Lior Gonzalez REFERRING FACILITY [facility] DISCHARGE DIAGNOSIS: - Cardiac 09 - Cardiac Disorders (09) CHF exacerbation. DISCHARGE COMORBIDITIES: - Non-Tiered Dyspnea (R06.0) bilateral pleural effusion chest pain - N/A hypertension diabetes weakness DATE OF ADMISSION 07/05/2018 19:58 ([employer]) MEDICATION ALLERGIES: No Known Drug Allergies (NKDA) ENVIRONMENTAL ALLERGIES: - Substance Allergies None Known - Other Allergies None Known NURSING: - Shower allowing shower - Lab Results blood Sugar Check ACHS ACTIVITIES OOB only with supervision THERAPIES: - Occupational Therapy Evaluate and Treat - Physical Therapy Evaluate and Treat HISTORY OF PRESENT ILLNESS: Pt. is a 82 yo Right-handed white female.On 06/30/2018 she was admitted to [facility] with diagnosis CHF exacerbation.Her impairment category is Cardiac 09 - Cardiac Disorders ().Pre- morbidly, Pt. was independent/mod-I in Communication, Social Cognition, Self-Care, Sphincter Control, Transfers Control, and Locomotion; and she had good Sphincter Control.Currently, she has deficits of Balance, Endurance, Safety Awareness, Transfers Control, Locomotion, Social Cognition, and Self-Care .Pt. is now referred to [facility] for acute in-patient rehabilitation in r to maximize patient's functional independence in activities of daily living, strength, ROM, and mob ility.- Rehab Goal Patient has realistic goal of being discharged at assistance level 6-Adithya to reside at Home with Fam cesar/Relatives. HOSPITAL COURSE: DIET TYPE: On 07/05/2018 Pt was upgraded to Regular Diet Type. DIET - LIQUID TEXTURE: On 07/05/2018 Pt was upgraded to Regular Diet - Liquid Texture. DIET - SOLID TEXTURE: On 07/05/2018 Pt was upgraded to Regular Diet - Solid Texture. TUBE FEED: On 07/05/2018 Pt was changed to N/A Tube Feed. DISCHARGE PHYSICAL EXAM - Gen Alert and awake Lying in bed No apparent distress Oriented to: person, time, and place - Skin No breakdown No abnormalities - Eyes No abnormalities - ENMT No abnormalities - Neck No abnormalities - CVS RRR - Chest Mildly decreased breath sounds bilaterally. - Abd +bowel sounds - GI nondistended Deferred - No abnormalities - Ext Trace edema in right and left leg and foot. - MSK 4+/5 weakness in both lower extremities. - Neuro No focal deficits - Psych Mild depression. FUNCTIONAL STATUS: - Self-Care A. Eating 7-Ind 7-Ind B. Grooming 7-Ind 7-Ind C. Bathing 7-Ind 7-Ind D. Dressing - Upper 7-Ind 7-Ind E. Dressing - Lower 3-modA 6-Adithya F. Toileting 3-modA 6-Adithya - Sphincter Control G: Bladder control 7-Ind 7-Ind H: Bowel control 7-Ind 7-Ind - Transfers Control I. Bed/Chair/Wheelchair 3-modA 6-Adithya J. Toilet 3-modA 6-Adithya K. Tub/Shower 3-modA 6-Adithya - Locomotion L. Walk/Wheelchair (B) 1-Dep 6-Adithya M. Stairs 0-ADNO 6-Adithya - Communication N. Comprehension (B) 6-Adithya 6-Adithya O. Expression (B) 6-Adithya 6-Adithya - Social Cognition P. Social Interaction 6-Adithya 6-Adithya Q. Problem Solving 5-sup 5-sup R. Memory 5-sup 5-sup - Endurance Poor - Balance Poor - Safety Awareness Poor DISCHARGE INSTRUCTIONS: - N/A Eliquis 5 mg twice daily. DISCHARGE PLAN, FOLLOW UP CARE PROVISIONS: - Estimated Length of Stay (days) 10. - Consensus on plan Discharge plan has been discussed with primary caregiver. Patient/Family is in agreement with the jeff n. Primary caregiver is in agreement with the plan. - Patient/Family Goals Return home with assistance. - Planned Living Setting Upon Discharge Home, to live with Family/Relatives. SIGNATURE PANEL: ([employer])
== END 2018-07-14 13:00 | disposition home health service (06) | DRG 948 ==
LOC: 5TH 19:58
PROVIDERS: ADMIT Psychiatry & Neurology Neurology with Special Qualifications in Child Neurology; ATTEND Psychiatry & Neurology Neurology with Special Qualifications in Child Neurology
DX: R53.81 Other malaise (principal); I50.9 Heart failure, unspecified; I10 Essential (primary) hypertension; E11.9 Type 2 diabetes mellitus without complications
CPT/HCPCS: 36415; 80048; 81001; 82040; 82962; 83735; 84134; 85025; 87086; 87088; 93005; 97110; 97112; 97116; 97150; 97163; 97167; 97530; 97535

== ENCOUNTER 2021-05-17 10:37 | Inpatient (IN) | payer OTHER ==
--- NOTE | 2021-05-18 13:10 | R.PREADM ---
PRE-ADMISSION SCREENING FORM SCREENING DATE AND TIME 05/16/2021 13:55 (SPECIALIZED LANGUAGE INSTRUCTOR) ANTICIPATED REHAB ADMISSION DATE 05/18/2021 REFERRING FACILITY [facility] REFERRAL DATE AND TIME 05/13/2021 13:55 (SPECIALIZED LANGUAGE INSTRUCTOR) REFERRAL OFFICE PHONE [phone] REFERRAL ROOM# [id number] ACUTE ADMIT DATE 05/18/2021 Previous Rehabilitation(s): No. ACUTE BUS PERSON/DC SPANISH LITERATURE PROFESSOR LIZ LEE ATTENDING PHYSICIAN REFERRING PHYSICIAN REHAB FACILITY [facility] CLINICAL LIAISON Lc Evans PHYSICIAN REVIEWER Dr. Caesar Tena M.D. MR# [id number] NAME CLARICE TIRADO ADDRESS [address] [place] [address] [address] [place] [address] PHONE [facility] [id number] DATE OF 1935 AGE 85 SSN# [id number] GENDER female MARITAL STATUS ADMIT FROM 02 - [facility] PRE-HOSPITAL LIVING SETTING 01 - Home (private home/apt. board/care, assisted living, half-way, transitional living) HOME TYPE AND DETAILS Type of home: single family house # of steps to enter the residence: 0 # of steps within the residence: 0 # of levels in the residence: 1 PRE-HOSPITAL LIVING WITH Family/Relatives FAMILY SUPPORT Yes PRIMARY FAMILY CONTACT NAME SIENNA TIRADO PRIMARY FAMILY CONTACT PHONE PRIMARY FAMILY CONTACT RELATIONSHIP Son PHONE PRIMARY FAMILY CONTACT ON ADM.? no IS PRIMARY FAMILY CONTACT AUTH. REP.? no 1ST EMERGENCY CONTACT SIENNA TIRADO 1ST CONTACT PHONE 1ST CONTACT RELATIONSHIP Son PHONE 1ST CONTACT ON ADM. no IS 1ST CONTACT AUTH. REP.? no PHONE 2ND CONTACT ON ADM.? no PATIENT EMPLOYMENT STATUS Retired (for age) PATIENT EMPLOYER No Employer PAYOR INFORMATION: 1ST PAYOR NAME MEDICARE 1ST PAYOR PHONE 1ST PAYOR INJURY/ILLNESS DUE TO ACCIDENT? No ANOTHER LIBERTARIAN RESPONSIBLE? No PRIMARY REHAB/ACUTE DIAGNOSIS: CHF exacerbation ONSET DATE 04/28/2021 REHAB IMPAIRMENT CATEGORY (SUSHANT): 14 Cardiac does NOT meet 60% rule PRIMARY DIAGNOSIS-RELATED SURGERIES: ultrasound-guided thoracentesis for left pleaural effusion 05/12/2021 COMORBID REHAB/ACUTE DIAGNOSES: - Tier 3 Pneumonia, unspecified organism (J18.9) Acute kidney failure, unspecified (N17.9) INTERVENTIONS: - PNA Continue antibiotics as ordered by MD, per MD note on 05/12/2021 - Poor p.o intake Encourage balanced diet and rehabilitative assistance - Volume overload Thoracentesis performed with 750 ml taken out. Continue to monitor for increased volume. Per MD note on 05/12/2021 - Low BP Continue to monitor and administer meds as ordered by MD. - Hyperkalemia Monitor diet to assist with keeping potassium in good range. Per MD note on 05/12/2021 - Hypercalcemia Replace vitamin D with ergocalciferol, per MD note on 05/12/2021 - Ischemic heart disease Monitor troponin levels, per MD note on 05/12/2021 - Impaired Fasting Glucose Monitor blood sugar Monitor diet as per POC RISK FOR COMPLICATIONS: - CARDIC AFIB CHF WEAKNESS - UTI Monitor for frequency, burning, discomfort, or incontinence Patient has been temporarily taken off of diuretics per MD note on 05/12/2021. Monitor for any signs and symptoms of UTI. - CVA Monitor signs and symptoms of stroke - DVT BERTHA hose; sequential compression device as needed/prescribed - Skin Breakdown Nursing will assess skin daily using assessment tool and will place on Skin Breakdown Precautions as Indicated per protocol - Pain Clinical staff will assess patient's pain level every shift per protocol to monitor for pain manageme nt effectiveness Medications will be given and the pain level reassessed. Clinical Staff may employ other methods such as: massage, distraction, decrease stimulus, etc. as needed Educate patient on pain management strategies - Falls Educated pt on fall prevention strategies to reduce/eliminate fall risk Patient will be evaluated for Fall Precautions and will be placed on Fall Precautions as indicated pe r protocol. - Impaired Safety Educate patient on safety hazards Educate patient on safety awareness strategies. - Limb Ischemia Assess circulation each shift Report any changes to MD - Respiratory Monitor O2 sats. Pt on 3L O2. SUMMARY OF ACUTE HOSPITALIZATION: Pt. is a 85 yo Right-handed WF. On 04/28/2021 she was admitted to [facility] with diagnosis CHF exacerbation. Her impairment category is Cardiac 09 - Cardiac Disorders (). Pre-morbidly, Pt. was independent/mod-I in Locomotion, Social Cognition, Safety Awareness, Balance, T ransfers Control, Sphincter Control, Self-Care, Communication, and Endurance; and she had good Locomo tion, Safety Awareness, Social Cognition, Balance, Transfers Control, Sphincter Control, Self-Care, C ommunication, and Endurance. Currently, she has deficits of Locomotion, Safety Awareness, Balance, Transfers Control, Self-Care, E ndurance, and Communication. Pt. is now referred to [facility] for acute in-patient rehabilitation in order to maximize patient's functional independence in activities of daily living, strength, ROM, and mobi lity. Patient has realistic goal of being discharged at assistance level mod assist to independent to resid e at Home with Family/Relatives. Ms. Clarice Tirado is an 85 yo white female that lives in a single level home with family - per PT eval. Ms. Tirado presented to [facility] by her son secondary to failure to thrive, dehydration, and SOB on 05/12/2021. Ms. Tirado is currently on 3L O2. Per Dr. Mcdonald's dicta tion note, Ms. Tirado was evaluated in the ER and was found to have congestive heart failure, in A Fib, and evidence of bilateral pleural effusions, worse on the right. In addition, Ms. Tirado has n ot been eating or drinking much and is very weak. Ms. Tirado's x-ray demonstrated potential infiltr ate consistent with pneumonia on the bibasilar areas, per dictation. Dr. Ventura's dictation note report s patient demonstrates some aphasia but is still able to answer questions. Ms. Tirado was found to have pneumonia and volume overload. An ultrasound-guided thoracentesis was performed on 05/14/2021 f or left pleural effusion. Ms. Bourne blood pressure has been running in the low 100 and mid [address] Ventura's dictation on 05/12/2021, Ms. Tirado is currently off of Lasix, diuretics. Ms. Warren reports having been independent with all task with use of RW prior to hospitalization with all tasks. Ms. Tirado requires intense acute inpatient rehab approach to wean off of O2, increase safe ty awareness, maximize independence with tasks, reduce caregiver burden, strengthen UB/LB, increase s afety/independence with functional mobility/transfers, increase cardiovascular endurance, and reduce fall risk. Ms. Tirado is currently working with PT. Per PT eval/note, Ms. Tirado demonstrates def icits in endurance, decreased strength, pain, poor balance, poor trunk control, decreased ambulation, and decreased functional mobility. Per PT, patient presents with significant weakness. Ms. Tirado requires acute inpatient rehab for a safe discharge and reduce the risk for complications at home as she recovers from her current chief complaints and acute diagnosis. With an interdisciplinary approac h by acute IRF, pt. demonstrates great potential and motivation to get stronger, safer, and more inde pendent to return to [facility]. Pt demonstrates a strong need for an intensive team: rehab doctor, nurse, social welfare research worker, and therapist to meet functional and medical goals. It is reasonable and necessary for the patient to come to acute IRF to safely dc. Pt is medically stable but in need of 24 hour nursing , doctor supervision, and oversight while receiving active and ongoing intensive (OT/PT/ST). The elena ent is reasonably expected to participate in 3 hours of therapy a day/15 hours a week. COVID-19 scree kiet performed. Patient denies a new onset of fever, cough, difficulty breathing, sore throat, body a ches and non-allergy nasal congestion in the past 24 hours. Patient denies travel outside of [place] in the past 14 days. Patient denies any contact with someone who has a confirmed diagnosis of or is und er investigation for COVID-19 in the past 14 days. Patient has been tested negative for COVID- 19. PAST MEDICAL HISTORY L pleural effusion per operation dictation on 05/12/2021 Acute Renal Failure Atrial Fibrillation Dehydration Pneumonia Hyperkalemia Atrial Flutter Diabetes Mellitus HTN CHF CAD Depression Stroke x 3 TIA UTI R foot fracture DVT thyroid nodules R foot stress fracture - date not provided non-malignant breast biopsy PMH gathered by MD notes and pt's chart PAST SURGICAL HISTORY: Appendectomy - date not provided Cholestectomy - date not provided Hysterectomy - date not provided Pacemaker - date not provided Thoracentesis - 05/12/2015 Information gathered by patient's chart MEDICATION ALLERGIES: CODEINE Sulfamethoxazole w/ trimethoprim ENVIRONMENTAL ALLERGIES: None Known - Substance Allergies None Known - Other Allergies Adhesives Latex CODE STATUS: Full code WEIGHT/HEIGHT/BMI: WEIGHT 178 HEIGHT 5' 11" BMI 24.8 DIET: - Diet Type Diet not specified in chart - Diet - Solid Texture Regular - Diet - Liquid Texture Regular - Tube Feed N/A pain reported in pt's chart, however, pain scale and location not provided REVIEW OF SYSTEMS: - Gen Alert and awake Lying in bed No apparent distress Oriented to: person, time, and place - Vital Signs Temperature: 98.6 F SBP/DBP: 120/64 Pulse: 94 Resp: 18 Vital signs stable, afebrile - CVS RRR VITAL SIGNS Temperature: 98.6 F location not specified in pt's chart SBP/DBP: 120/64 Pulse: 94 Resp: 18 Vital signs stable, afebrile Vitals recorded by nursing 05/13/2021 at 07:49 MEDICATIONS/TREATMENT: Other- See attached MAR (Medication Administration Record). CURRENT SPHINCTER CONTROL: Pre-hospital bladder status: unspecified # of bladder accidents in the last 7 days prior to screenin Pre-hospital bowel status: unspecified # of bowel accidents in the last 7 days prior to screenin Last Bowel Movement Date: 05/16/2021 CURRENT LOCOMOTION STATUS: distance walked 0 feet per PT eval 05/12/2021 and CARBURIZING FURNACE OPERATOR treatment note 05/15/2021 DETAILED CURRENT FUNCTIONAL STATUS: - Bladder accident frequency: 7-Ind - No accidents in the past 7 days - Bowel accident frequency: 7-Ind - No accidents in the past 7 days - Walking score based on distance walked: 0(N/A) - Wheelchair score based on distance traveled: 0(N/A) QI SCORES: - Self-Care A. Eating 05-Setup or clean-up assistance B. Oral hygiene 04-Supervision or touching assistance C. Toileting hygiene 03-Partial/moderate assistance E. Shower/bathe self 02-Substantial/maximal assistance F. Upper body dressing 03-Partial/moderate assistance G. Lower body dressing 03-Partial/moderate assistance H. Putting on/taking off footwear 02-Substantial/maximal assistance - Mobility A. Roll left and right 03-Partial/moderate assistance B. Sit to lying 03-Partial/moderate assistance C. Lying to sitting on side of bed 02-Substantial/maximal assistance D. Sit to stand 02-Substantial/maximal assistance E. Chair/fse-jn-huoci transfer 88-Not attempted due to medical condition or safety concerns F. Toilet transfer 88-Not attempted due to medical condition or safety concerns G. Car transfer 88-Not attempted due to medical condition or safety concerns I. Walk 10 feet 88-Not attempted due to medical condition or safety concerns J. Walk 50 feet with two turns 88-Not attempted due to medical condition or safety concerns K. Walk 150 feet 88-Not attempted due to medical condition or safety concerns L. Walking 10 feet on uneven surfaces 88-Not attempted due to medical condition or safety concerns M. 1 step (curb) 88-Not attempted due to medical condition or safety concerns N. 4 steps 88-Not attempted due to medical condition or safety concerns O. 12 steps 88-Not attempted due to medical condition or safety concerns P. Picking up object 88-Not attempted due to medical condition or safety concerns R. Wheel 50 feet with two turns S. Wheel 150 feet - Bladder and Bowel Bladder continence Bowel continence - Endurance Fair - Balance Fair - Safety Awareness Fair CURRENT FUNC. DEFICITS: Self-Care, Mobility, Endurance, Balance, and Safety Awareness CURRENT / PREVIOUS ASSISTIVE DEVICES: Oxygen Rolling Walker 3L O2 per patient's chart HISTORY OF FALLS. HAS THE PATIENT HAD TWO OR MORE FALLS IN THE PAST YEAR OR ANY FALL WITH INJURY IN T HE PAST YEAR?: Unknown PRIOR SURGERY. DID THE PATIENT HAVE MAJOR SURGERY DURING THE 100 DAYS PRIOR TO ADMISSION?: Unknown THERAPY NOTES FROM ACUTE CARE: Attached. SPECIAL NEEDS: - Safety Concerns Skin breakdown precautions needed due to skin breakdown risk PRECAUTIONS: - Safety Fall risk assist with xfers/STS PATIENT NEEDS ACTIVE AND ONGOING THERAPEUTIC INTERVENTION OF MULTIPLE THERAPY DISCIPLINES, INCLUDING: - Dietary and Nutrition Adequate Nutrition. Nutritional Education. Nutritional Supplements. - Occupational Therapy Cognitive Retraining. Visual Perceptual Training. Evaluate and Treat. Safety Awareness. UE Strengthen ing. Adaptive Equipment. ADL Training. Community Reintegration. Household Tasks. Transfer Training. P atient/Family Education. UE ROM. - Speech Therapy Cognitive Training. Expressive Language Skills. Memory Strategies. Receptive Language Skills. Speech Intelligibility Training. - Physical Therapy Balance Training. Gait Training. Evaluate and Treat. LE Strengthening. Mobility Training. Transfer Tr eligio. Patient/Family Education. LE ROM. Safety Awareness. Medical Equipment Assessment and Evaluati on. PATIENT NEEDS CLOSE MEDICAL SUPERVISION BY A REHABILITATION PHYSICIAN FOR: Coordination of Treatment Team Medical and Co-Morbidity Management Pain Management medication management Respiratory/Airway Management DVT Management Diabetes Management PATIENT REQUIRES 24X7 REHAB NURSING FOR MEDICAL AND FUNCTIONAL MGT. OF THE FOLLOWING DEFICITS: Patient/Family Education Providing Safe Environment Skin Integrity Transfers Ambulation Respiratory/Airway Management Disease Management Medication Management ADL's PATIENT REQUIRES INTENSIVE, COORDINATED INTERDISCIPLINARY APPROACH TO REHAB: Arranging Home Equipment/Services Discharge Planning Family Intervention/Training Manager User Experience/Case Management PATIENT REHAB POTENTIAL: Breanna TIRADO is able and expected to receive 3 hours of individualized therapy daily on at least 5 of every 7 days Breanna Benjamin prognosis for significant practical improvement within a reasonable period of time appe ars Good Expected level of measurable improvement will be of a practical value to Breanna Benjamin functional cap acity or adaptations to impairments Has a viable Discharge Plan Medically appropriate; condition is sufficiently stable to participate in intensive rehab program DISCHARGE PLAN: - Estimated Length of Stay (days) 10. - Consensus on plan Discharge plan has been discussed with primary caregiver. Patient/Family is in agreement with the jeff n. Primary caregiver is in agreement with the plan. - Patient/Family Goals Return home independently. - Planned Living Setting Upon Discharge Home, to live with Family/Relatives. Transitional Living. RECOMMENDED CARE LEVEL: IRF RECOMMENDATION DETAILS: Recommended Admission to Comprehensive Rehabilitation Program to Increase Functional [place] SCREENER'S COMPLETENESS CONFIRMATION: - Screening Confirmation The patient data collection on this preadmission screening form is finished PHYSICIANS REVIEW AND ADMISSION DETERMINATION Admit - Based on my review of the Pre-Admission Screening results, in my medical judgment and experie nce, I concur with the findings and recommend admission to [facility], as this patient requires an IRF level of care. SIGNATURE PANEL: Photographic Spotter - [electronically] signed by Lc Evans on 05/18/2021 at 11:32 (SPECIALIZED LANGUAGE INSTRUCTOR) Photographic Spotter - [electronically] signed by Christopher Bansal PT on 05/18/2021 at 12:22 (SPECIALIZED LANGUAGE INSTRUCTOR) Physician Reviewer - [electronically] signed by Dr. Caesar Tena M.D. on 05/18/2021 at 13:09 (SPECIALIZED LANGUAGE INSTRUCTOR )
--- OUTSIDE RECORDS SUMMARY | 2021-05-18 18:59 | XMS REPORT | Continuity of Care Document ---
:1935 Author Organization [facility] t Address [address] [place] [address] Care Team Providers Name Role Phone CHANELL Primary Care Physician Unavailable IHDE_G Attending Clinician Unavailable Marbin BERG, Mark Attending Clinician DR Avani KUMARI Attending Clinician Unavailable CHANELL Attending Clinician Unavailable IHDE_G Admitting Clinician Unavailable Marbin BERG, Mark Admitting Clinician DR Avani KUMARI Admitting Clinician Unavailable CHANELL Admitting Clinician Unavailable Payers Payer Name Policy Type Policy Number Effective Date Expiration Date S ource MEDICARE [place]: [id number] 2000 [employer] 00:00:00 [facility]LY [facility] [id number] INSURANCE CO (MEDICARE SUPPLEMENT) FORMERLY [facility] [id number] INSURANCE (MEDICARE SUPPLEMENT) Problems This patient has no known problems. Allergies, Adverse Reactions, Alerts Allergy Allergy Status Severity Reaction(s) Onset Inactive Treating Comm ents Source Name Type Date Date Clinician Codeine Propensi Active Hallucinatio U nivers ty to ns 24 ity of adverse 00:00: [place] reaction Medical s Branch Latex Propensi Active Rash 2018- Univers ty to 12-09 ity of adverse 00:00: [place] reaction Medical s Branch Penicill Propensi Active Unknown - Uni vers ins ty to See comments 12-09 ity of adverse 00:00: [place] reaction Medical s Branch Sulfamet Propensi Active Nausea Univer s hoxazole ty to and/or 06-28 ity of adverse Vomiting 00:00: [place] reaction 00 Medical s Branch Codeine Allergy Active [place] [facility] Latex Allergy Active [place] [facility] Social History Social Habit Start Date Stop Date Quantity Comments Source History [facility] [place] Alcohol Binge Medical Bra [facility] Sex Assigned At [facility] Medical Branch Alcohol intake [facility] Medical Branch [facility] [place] Alcohol Std Drinks Medica l Branch History [facility] 2018-12-09 2018-12-09 1 [facility] [place] Alcohol Frequency 00:00:00 00:00:00 Medical Branch Smoking Status Start Date Stop Date Source Never smoker [facility] Medical Branch Medications Ordered Filled Start Stop Current Ordering Indication Dosage Frequency Signature Comments Components Source Medication Medication Date Date Medication? Clinician (SIG) Name Name Magnesium Yes 500mg Take 500 Uni vers Oxide 500 7-30 mg by ity of mg Tab 18:14: mouth [place] 28 daily. Medical Branch Magnesium Yes 300mg Take 300 Uni vers Oxide-Mg AA 7-30 mg by ity of Chelate 18:14: mouth [place] (MAGNESIUM) 28 every Medical 300 mg Cap evening. Branc h ferrous Yes 325mg Take 325 Unive rs sulfate 325 7-30 mg by ity of mg (65 mg 18:14: mouth [place] iron) 28 every Medical tablet evening. Branch pantoprazol Yes 40mg Take 40 mg Univers e 40 mg EC 7-30 by mouth 2 ity of tablet 18:14: (two) [place] 28 times Medical daily. Branch levocetiriz Yes 5mg Take 5 mg U nivers ine (XYZAL) 7-30 by mouth 2 it y of 5 mg tablet 18:14: (two) [place] 28 times Medical daily. Branch LUTEIN ORAL Yes 1{tbl} Take 1 Un jennifer 7-30 tablet by ity of 18:14: mouth [place] 28 every Medical evening. Branch vitamin e Yes 100U Take 100 Univ ers 100 unit 7-30 Units by ity of capsule 18:14: mouth [place] 28 daily. Medical Branch Lactobacill 2018- Yes 1{tbl} Take 1 Un jennifer us 7-30 tablet by ity of acidophilus 18:14: mouth [place] (ACIDOPHILU 28 daily. Medica l S ORAL) Branch Biotin Yes 1{capsu Take 1 Univer s 2,500 mcg 7-30 le} capsule by ity of Cap 18:14: mouth [place] 28 daily. Medical Branch Amlodipine- Yes 1{tbl} Take 1 Un jennifer Olmesartan 7-30 tablet by ity of 10-40 mg 18:14: mouth [place] per tablet 28 daily. Medical Indication Branch s: PT TOOK 1/2 PILL THIS AM apixaban Yes 5mg Take 5 mg Univ ers (ELIQUIS) 5 7-30 by mouth 2 it y of mg tablet 18:14: (two) [place] 28 times Medical daily. Branch atorvastati Yes 80mg Take 80 mg Univers n 80 mg 7-30 by mouth ity of tablet 18:14: daily. [place] 28 Medical Branch sotalol 80 0 Yes 80mg Take 80 mg U nivers mg tablet 7-30 by mouth ity of 18:14: every 12 [place] 28 (twelve) Medical hours. Branch glipiZIDE Yes 20mg Take 20 mg Un jennifer 10 mg 7-30 by mouth 2 ity of tablet 18:14: (two) [place] 28 times Medical daily. Branch furosemide Yes 20mg Take 20 mg U nivers 20 mg 7-30 by mouth ity of tablet 18:14: every [place] 28 morning Medical and Branch evening. mydriatic 2019- No .5mL 0.5 mL, Univ ers #[id number] 01-01 Right Eye, ity of ophthalmic 14:00: 13:44 ONCE, 1 [place] as solution 00 :00 dose, Sun Medica l 0.5 mL 01/01/19 at [facility] syringe 0900, Routine, DSU Pre-op water for 2019-0 Yes PRN, Univers irrigation 01-01 Starting ity o f irrigation 13:59: [place] solution 01/01/19 at Medic al 0859, [place] Until Discontinu ed, Routine, Intra-op sodium 2019-0 Yes PRN, Univers chloride 01-01 Starting ity of (NS) 13:59: [facility] injection 01/01/19 at [facility] 0859, [place] Until Discontinu ed, Routine, Intra-op neomycin-po 0 Yes PRN, [facility] s lymyxin-dex 01-01 Starting ity of amethasone 13:59: Sun [place] (MAXITROL) 01/01/19 at [facility] ical 3.5 0859, [place] mg/g-10,000 Until unit/g-0.1 Discontinu % ed, ophthalmic Routine, ointment Intra-op lidocaine-e 0 Yes PRN, Univer s pinephrine 01-01 Starting ity o f (XYLOCAINE 13:58: [place] W/EPINEPHRI 01/01/19 at [place] [facility] [place]) 2 0858, [place] %-1:200,000 Until injection Discontinu ed, Routine, Intra-op Hyaluronida Yes [facility]N, [facility], Human 01-01 Starting ity of Recomb. 13:57: [place] (HYLENEX) 01/01/19 at [facility] injection 0857, [place] Until Discontinu ed, Routine, Intra-op gentamicin 2018-0 Yes PRN, Univers injection 01-01 Starting ity of 13:57: [facility] [place] 01/01/19 at Medical 0857, [place] Until Discontinu ed, DMITRI, Intra-op EPINEPHrine 2018-0 Yes PRN, [facility] s 1:1,000 (1 01-01 Starting ity o f mg/mL) 13:56: [place] (ADRENALIN) 01/01/19 at [place] [facility] injection 0856, [place] Until Discontinu ed, Routine, Intra-op DUOVISC 2018-0 Yes PRN, [facility] (DUOVISC 01-01 Starting ity of VISCO 13:56: Sun [place] ELASTIC) 3 00 01/01/19 at [facility] ica %-4 %(0.5 0856, Branch mL) 1 % Until (0.55 mL) Discontinu intraocular ed, injection Routine, Intra-op dexamethaso Yes PRN, Univer s ne 01-01 Starting ity of (DECADRON 13:56: [place] PHOSPHATE) 00 01/01/19 at [facility] ical injection 0856, [place] Until Discontinu ed, Routine, Intra-op ceFAZolin Yes PRN, Univers (ANCEF) 01-01 Starting ity of injection 13:56: [place] 00 01/01/19 at Medical 0856, [place] Until Discontinu ed, DMITRI, Intra-op carbachol Yes PRN, Univers (MIOSTAT) 01-01 Starting ity of 0.01 % 13:55: [place] intraocular 00 01/01/19 at [place] [facility] [place] 0855, Branch Until Discontinu ed, Routine, Intra-op bupivacaine Yes PRN, Univer s (preserv 01-01 Starting ity of free) 13:55: [place] (SENSORCAIN 01/01/19 at [place] d[facility] E MPF) 0.75 08, Branch % (7.5 Until mg/mL) Discontinu injection ed, Routine, Intra-op balanced Yes PRN, [facility] salt irrig 01-01 Starting ity o f soln comb1 13:54: [place] (BSS PLUS) 01/01/19 at [facility] ophthalmic 0854, Branch solution Until 500 mL bag Discontinu ed, Routine, Intra-op NaCl 0.9% Yes 500mL at 42 Univer s (NS) IV 7-17 mL/hr, IV ity of infusion 13:30: [place] 500 mL 00 [facility] Medical , Starting Branch Sun01/01/19 at 0830, Until Discontinu ed, Routine, DSU Pre-op montelukast Yes 10mg Take 10 mg Univers 10 mg 8-30 by mouth ity of tablet 00:00: daily. [address] Branch amlodipine amlodipine No amlodipine [place] 10 10 10 da mg-olmesart mg-olmesart mg-olmesar Medical an 40 mg an 40 mg rachel 40 mg Gr oup tablet tablet tablet atorvastati atorvastati No atorvastat [place] n 80 mg n 80 mg in 80 mg da tablet tablet tablet Medical Group biotin biotin No biotin [place] [facility] Eliquis 5 Eliquis 5 No 1 BID Eliquis 5 [place] mg tablet mg tablet mg tablet da Take 1 Take 1 Take 1 Medical tablet tablet tablet Group twice a day twice a day twice a by oral by oral day by route. route. oral route. ferrous ferrous No ferrous [place] sulfate 325 sulfate 325 sulfate da mg in the mg in the 325 mg in Medical evening evening the Group evening furosemide furosemide No furosemide [place] 20 mg 20 mg 20 mg da tablet tablet tablet Medical Group glipizide 5 glipizide 5 No glipizide [place] mg tablet mg tablet 5 mg da tablet Medical Group magnesium magnesium No magnesium [place] 500 mg 500 mg 500 mg da tablet Take tablet Take tablet Medical by oral by oral Take by Group route. route. oral route. montelukast montelukast No montelukas [place] 10 mg 10 mg t 10 mg da tablet tablet tablet Medical Group pantoprazol pantoprazol No pantoprazo [place] e 40 mg e 40 mg le 40 mg da tablet,aolnso tablet,alonso tablet,del Medical yed release yed release ayed G roup release sotalol 80 sotalol 80 No sotalol 80 [place] mg tablet mg tablet mg tablet da Medical Group sucralfate sucralfate No sucralfate [place] 1 gram 1 gram 1 gram da tablet tablet tablet Medical Group Vital Signs Vital Name Observation Time Observation Value Comments Source Systolic blood 2019-01-01 13:25:00 117 mm[Hg] [facility] Diastolic blood 2019-01-01 13:25:00 54 mm[Hg] [facility] of pressure [facility] Heart rate 2019-01-01 13:25:00 70 /min [facility] Body temperature 2019-01-01 13:25:00 36.67 Samantha [facility] Respiratory rate 2019-01-01 13:25:00 15 /min [facility] Oxygen saturation in 2019-01-01 13:25:00 97 /min [facility] blood by [facility] Pulse oximetry Branch Body height 2018-12-30 20:00:00 180.3 cm [facility] Body weight 2018-12-30 20:00:00 75.297 kg [facility] BMI 2018-12-30 20:00:00 23.15 kg/m2 [facility] BP Diastolic 2018-11-21 00:00:00 58 mm[Hg] [facility] Height 2018-11-21 00:00:00 71 [facility]in_i[facility] BMI (Body Mass 2018-11-21 00:00:00 22.7 kg/m2 [facility] Medical Index) Group BP Systolic 2018-11-21 00:00:00 128 mm[Hg] [facility] Body Weight 2018-11-21 00:00:00 163 [lb_av] [facility] Group Procedures Procedure Date / Time Performing Source Performed Clinician PHACOEMULSIFICATION OF 2019-01-01 Truong Zazueta [facility] CATARACT WITH INTRAOCULAR 14:43:00 Ally obrien [facility] LENS IMPLANT POCT GLUCOSE(AGE >30DAYS) 2019-01-01 Moises Hernandez [facility] 13:31:00 [facility] POCT GLUCOSE (AUTOMATED) 2019-01-01 Doctor Unassigned, [facility] 13:20:00 [place] [facility] Encounters Start End Encounter Admission Attending Care Care Encounter Source Date/Time Date/Time Type Type Clinicians Facility Department ID 2020-05-05 2020-05-05 [place] [id number] [place] 02:31:00 02:31:00 1118 da Medical Group 2019-01-01 2019-01-01 [facility] [id number] Univers 08:24:36 10:49:00 Encounter Truong Hall [id number] [facility] [id number] Jerome xavier Surgical [id number] Med [facility] 071 Branch 2018-11-21 2018-11-21 Jalil MMG [place] - [id number] M [place] 00:00:00 00:00:00 Javan Posey MD: Medical Medica [address], [place] [address] , Ph. [phone] 2018-09-12 2018-09-12 Mahesh FABIAN [place] - [id number] [facility] 00:00:00 00:00:00 Discovery anamika Barbosa MD: [address] [facility] [address], [place] [address] , Ph. 2018-03-23 2018-03-26 Outpatient Larisa KUMARI [facility] TELE [id number] 19:35:00 19:18:00 [facility] Results Test Description Test Time Test Comments Results Result Comments Source Lipid Panel 2019-03-12 21:11:09 Test Item Value Reference Range Interpretation Comme nts Cholesterol Total (test code = 116 mg/dL 0-200 RISK OF HEART DISEASEPublished by Cholesterol Total) [place] [employer] Analyte Optimal Border line Increased RiskCHOL <200 200-239 >240TRIG <150 150-199 >2 00HDL Male >60 <40HDL Female >60 <50LDL <100 130-159 >160LDL Near optimal is 100-129 Triglycerides (test code = 71 mg/dL 9-200 Triglycerides) HDL (test code = HDL) 46 mg/dL 50-60 L LDL (test code = LDL) 56 mg/dL 0-130 The eq uation being used in this calculation is LDL = (Chol - HDL) - (Trig / 5) VLDL (test code = VLDL) 14 mg/dL 5-40 The equation being used in this calculation is VLDL = Trig / 5 Chol/HDL (test code = Chol/HDL) 2.5 ratio 0.0-4.4 LDL/HDL Ratio (test code = 1 N T he equation being used in this LDL/HDL Ratio) calculation i s LDL/HDL Ratio=LDL Calc/HDL Chol Comprehensive Metabolic [id number] 21:11:08 Test Item Value Reference Range Interpretation Comments Sodium Level (test code = Sodium 141.0 mmol/L 135.0-145.0 Level) Potassium Level (test code = 4.4 mmol/L 3.5-5.1 Potassium Level) Chloride Level (test code = 100 mmol/L 98-105 Chloride Level) CO2 (test code = CO2) 31 mmol/L 22-29 H Anion Gap (test code = Anion 10 mmol/L 7-16 Gap) BUN (test code = BUN) 35.50 mg/dL 8.00-23.00 H Creatinine Level (test code = 1.70 mg/dL 0.50-0.90 H Creatinine Level) BUN/Creat Ratio (test code = 21 N BUN/Creat Ratio) Glucose Level (test code = 80 mg/dL 70-115 Glucose Level) Calcium Level (test code = 9.3 mg/dL 8.3-10.5 Calcium Level) Alk Phos (test code = Alk Phos) 132 U/L 35-104 H Bilirubin Total (test code = 0.4 mg/dL 0.1-0.9 Bilirubin Total) Albumin Level (test code = 3.9 g/dL 3.5-5.2 Albumin Level) Protein Total (test code = 6.7 g/dL 6.4-8.3 Protein Total) ALT (test code = ALT) 13 U/L 1-33 AST (test code = AST) 21 U/L 1-32 Globulin (test code = Globulin) 2.8 g/dL 2.9-3.1 L A/G Ratio (test code = A/G 1.4 ratio N Ratio) Comprehensive Metabolic [id number] 21:11:08 Test Item Value Reference Range Interpretation Comments Sodium Level (test 141.0 mmol/L 135.0-145.0 code = Sodium Level) Potassium Level 4.4 mmol/L 3.5-5.1 (test code = Potassium Level) Chloride Level (test 100 mmol/L 98-105 code = Chloride Level) CO2 (test code = 31 mmol/L 22-29 H CO2) Anion Gap (test code 10 mmol/L 7-16 = Anion Gap) BUN (test code = 35.50 mg/dL 8.00-23.00 H BUN) Creatinine Level 1.70 mg/dL 0.50-0.90 H (test code = Creatinine Level) BUN/Creat Ratio 21 N (test code = BUN/Creat Ratio) Glucose Level (test 80 mg/dL 70-115 code = Glucose Level) Calcium Level (test 9.3 mg/dL 8.3-10.5 code = Calcium Level) Alk Phos (test code 132 U/L 35-104 H = Alk Phos) Bilirubin Total 0.4 mg/dL 0.1-0.9 (test code = Bilirubin Total) Albumin Level (test 3.9 g/dL 3.5-5.2 code = Albumin Level) Protein Total (test 6.7 g/dL 6.4-8.3 code = Protein Total) ALT (test code = 13 U/L 1-33 ALT) AST (test code = 21 U/L 1-32 AST) Globulin (test code 2.8 g/dL 2.9-3.1 L = Globulin) A/G Ratio (test code 1.4 ratio N = A/G Ratio) eGFR AA (test code = 35 mL/min/1.73 N eGFR (estimated eGFR AA) m2 Glomerular Filtration Rate ) is an estimated va lue, calculated from the patient's serum creatinine usin g the MDRD equation. It is NOT the patient 's actual GFR. The eGFR provides a more clinically usef ul measure of kidn ey disease than se rum creatinine alone.This calculation sushila es sex and race in to account, if the information is provided. If th e race is not provided, and t he patient is -Ashley n, multiply by 1.2 12. If sex is not provided, and t he patient is fema le, multiply by 0.7 42. Results for pat ients <18 years of ag e have not been validated by e MDRD study and should be interpreted wit h caution. eGFR R esult Interpretation: eGFR > or = 60 is in the Normal RangeeGF R < 60 may mean kid yin diseaseeGFR < 1 5 may mean kidney failure Rang es recommended by the National Kidney Foundation, http://nkdep.ni h.gov Comprehensive Metabolic [id number] 21:11:08 Test Item Value Reference Range Interpretation Comments Sodium Level (test 141.0 mmol/L 135.0-145.0 code = Sodium Level) Potassium Level 4.4 mmol/L 3.5-5.1 (test code = Potassium Level) Chloride Level (test 100 mmol/L 98-105 code = Chloride Level) CO2 (test code = 31 mmol/L 22-29 H CO2) Anion Gap (test code 10 mmol/L 7-16 = Anion Gap) BUN (test code = 35.50 mg/dL 8.00-23.00 H BUN) Creatinine Level 1.70 mg/dL 0.50-0.90 H (test code = Creatinine Level) BUN/Creat Ratio 21 N (test code = BUN/Creat Ratio) Glucose Level (test 80 mg/dL 70-115 code = Glucose Level) Calcium Level (test 9.3 mg/dL 8.3-10.5 code = Calcium Level) Alk Phos (test code 132 U/L 35-104 H = Alk Phos) Bilirubin Total 0.4 mg/dL 0.1-0.9 (test code = Bilirubin Total) Albumin Level (test 3.9 g/dL 3.5-5.2 code = Albumin Level) Protein Total (test 6.7 g/dL 6.4-8.3 code = Protein Total) ALT (test code = 13 U/L 1-33 ALT) AST (test code = 21 U/L 1-32 AST) Globulin (test code 2.8 g/dL 2.9-3.1 L = Globulin) A/G Ratio (test code 1.4 ratio N = A/G Ratio) eGFR AA (test code = 35 mL/min/1.73 N eGFR (estimated eGFR AA) m2 Glomerular Filtration Rate ) is an estimated va lue, calculated from the patient's serum creatinine usin g the MDRD equation. It is NOT the patient 's actual GFR. The eGFR provides a more clinically usef ul measure of kidn ey disease than se rum creatinine alone.This calculation sushila es sex and race in to account, if the information is provided. If th e race is not provided, and t he patient is -Ashley n, multiply by 1.2 12. If sex is not provided, and t he patient is fema le, multiply by 0.7 42. Results for pat ients <18 years of ag e have not been validated by th e MDRD study and should be interpreted wit h caution. eGFR R esult Interpretation: eGFR > or = 60 is in the Normal RangeeGF R < 60 may mean kid yin diseaseeGFR < 1 5 may mean kidney failure Rang es recommended by the National Kidney Foundation, http://nkdep.ni h.gov eGFR Non-AA (test 28.70 N eGFR (katty mated code = eGFR Non-AA) mL/min/1.73 m2 Glomer ular Filtration Rate ) is an estimated va lue, calculated from the patient's serum creatinine usin g the MDRD equation. It is NOT the patient 's actual GFR. The eGFR provides a more clinically usef ul measure of kidn ey disease than se rum creatinine alone.This calculation sushila es sex and race in to account, if the information is provided. If th e race is not provided, and t he patient is -Ashley n, multiply by 1.2 12. If sex is not provided, and t he patient is fema le, multiply by 0.7 42. Results for pat ients <18 years of ag e have not been validated by th e MDRD study and should be interpreted wit h caution. eGFR R esult Interpretation: eGFR > or = 60 is in the Normal RangeeGF R < 60 may mean kid yin diseaseeGFR < 1 5 may mean kidney failure Rang es recommended by the National Kidney Foundation, http://nkdep.ni h.gov Pro B Natriuretic [id number] 21:08:06 Test Item Value Reference Range Interpretation Comments NT-proBNP (test code = NT-proBNP) 2935 pg/mL 0-449 H IG [id number] 21:04:53 Test Item Value Reference Range Interpretation Comments IG (test code = IG) 0.1 % 0.0-5.0 IG Abs (test code = IG Abs) 0 x10 N Complete Blood Count with [id number] 21:04:52 Test Item Value Reference Range Interpretation Comments WBC (test code = WBC) 7.5 x10 4.4-10.5 RBC (test code = RBC) 3.84 x10 3.75-5.20 Hgb (test code = Hgb) 12.5 g/dL 12.2-14.8 MCV (test code = MCV) 101.00 fL 80.00-100.00 H Hct (test code = Hct) 38.8 % 36.5-44.4 MCHC (test code = 32.20 g/dL 32.00-37.50 MCHC) RDW CV (test code = 13.6 % 11.5-14.5 RDW CV) MCH (test code = MCH) 32.6 pg 27.0-32.5 H Platelets (test code = 241.0 x10 140.0-440.0 Platelets) MPV (test code = MPV) 11.1 fL N Slide Review (test Auto Auto Result cr eated by code = Slide Review) GL_SJM_ SLIDE_REV_AUTO nRBC (test code = 0 N nRBC) NRBC Abs (test code = 0.00 x10 N NRBC Abs) IPF (test code = IPF) 0 % N Automated [id number] 21:04:52 Test Item Value Reference Range Interpretation Comments Neutro Auto (test code = Neutro 59.7 % 36.0-70.0 Auto) Lymph Auto (test code = Lymph Auto) 20.1 % 12.0-44.0 Edmunds Auto (test code = Edmunds Auto) 10.4 % 0.0-11.0 Eos, Auto (test code = Eos, Auto) 8.9 % 0.0-7.0 H Basophil Auto (test code = Basophil 0.8 % 0.0-2.0 Auto) Neutro Absolute (test code = Neutro 4.5 x10 1.6-7.4 Absolute) Lymph Absolute (test code = Lymph 1.51 x10 .50-4.60 Absolute) Edmunds Absolute (test code = Edmunds .78 x10 .00-1.20 Absolute) Eos Absolute (test code = Eos 0.67 x10 0.00-0.74 Absolute) Baso Absolute (test code = Baso 0.06 x10 0.00-0.21 Absolute) POCT GLUCOSE (AUTOMATED)2019-01-03 21:19:00 Test Item Value Reference Range Interpretation Comments POCT GLU (test code = 0408424097) 125 mg/dL 70-110 H Lab Interpretation (test code = Abnormal 32766-1) [facility] [place] [facility] [id number] 13:31:00 Test Item Value Reference Range Interpretation Comments POCT Glu (age>30days) (test code = 120 mg/dL 70-110 A 3342) Lab Interpretation (test code = Abnormal 08339-0) [facility] [place] [facility] LAB USE [id number] 16:28:00 Test Item Value Reference Range Interpretation Comments GLUCOMETER (test code 140 mg/dL 70-100 H CLEANE D METERMeter ID: = GMG) [id number] tor: [id number] MENG RAMIREZ GLUCOMETER GLUCOSE- LAB USE [id number] 11:07:00 Test Item Value Reference Range Interpretation Comments GLUCOMETER (test code 241 mg/dL 70-100 H CLEANE D METERMeter ID: = GMG) [id number] tor: 9559 ALIX LEYVA EZ CBC WITH [id number] 06:39:00 Test Item Value Reference Range Interpretation Comments WBC (test code = WBC) 8.3 10\S\3/uL 4.5-11.0 RBC (test code = RBC) 3.33 10\S\6/uL 3.80-5.80 L HGB (test code = HBG) 7.9 g/dL 12.0-15.5 L HCT (test code = HCT) 24.7 % 35.0-44.0 LL MCV (test code = MCV) 74.2 fL 81.0-99.0 L MCH (test code = MCH) 23.7 pg 27.0-31.0 L MCHC (test code = MCHC) 32.0 g/dL 32.0-36.0 RDW (test code = RDW) 20.8 % 11.5-14.5 H PLT (test code = PLT) 209 10\S\3/uL 130-400 MPV (test code = MPV) 10.4 fL 9.4-12.4 NEUTROP # (test code = NE#) 5.4 10\S\3/uL 1.6-8.0 LYMPH # (test code = LY#) 1.6 10\S\3/uL 1.1-3.5 MONOCYTE # (test code = 1.0 10\S\3/uL 0.0-1.1 MO#) EOSINOPH # (test code = 0.2 10\S\3/uL 0.0-0.7 EO#) BASOPHIL # (test code = 0.0 10\S\3/uL 0.0-0.3 BA#) IG # (test code = IG#) 0.04 10\S\3/uL 0.00-0.06 NRBC # (test code = NRBC#) 0.00 10\S\3/uL 0.00-0.01 NEUTROPH % (test code = 65.5 % 35.0-73.0 NE%) LYMPH % (test code = LY%) 19.4 % 20.0-55.0 L MONO % (test code = MO%) 11.5 % 2.5-10.0 H EOSINOPH % (test code = 2.7 % 0.0-5.0 EO%) BASOPHIL % (test code = 0.4 % 0.0-2.0 BA%) IG % (test code = IG%) 0.5 % 0.0-0.8 NRBC% (test code = NRBC%) 0.0 % 0.0-0.2 PLT EST (test code = ADEQUATE ADEQUATE PLTEST) PLT MORPH (test code = NORMAL (1.5-3 um) NORMAL PLTMOR) ANISO (test code = ANISO) 1+ NONE A HYPOCHROM (test code = 1+ NONE A HYPOC) ACANTHO (test code = ACAN) 2+ NONE A COMPREHENSIVE METABOLIC [id number] 05:53:00 Test Item Value Reference Range Interpretation Comments GLUCOSE (test code = 06D) 111 mg/dL 75-100 H SODIUM (test code = 01A) 131 mmol/L 136-145 L POTASSIUM (test code = 01B) 5.1 mmol/L 3.6-5.1 CHLORIDE (test code = 04A) 99 mmol/L 98-107 CO2 (test code = 02A) 26 mmol/L 22-32 ANION GAP (test code = ANG) 11.1 mmol/L BUN (test code = 05D) 29 mg/dL 7-18 H CREATININE (test code = 03E) 1.9 mg/dL 0.4-1.1 H BUN/CREA (test code = BCR) 15 12-20 CALCIUM (test code = 09D) 8.3 mg/dL 8.3-9.5 BILI TOTAL (test code = 11A) 0.7 mg/dL 0.2-1.0 PROTEIN (test code = 07D) 5.7 g/dL 6.4-8.2 L ALBUMIN (test code = 08D) 2.9 g/dL 3.5-4.8 L GLOBULIN (test code = GLB) 2.8 g/dL 1.5-3.8 ALB/GLOB (test code = AGRR) 1.0 1.0-2.6 ALK PHOS (test code = 35A) 72 IU/L 42-121 AST (test code = 30A) 19 IU/L <=42 ALT (test code = 31A) 22 IU/L <=78 GLUCOMETER GLUCOSE- LAB USE [id number] 05:31:00 Test Item Value Reference Range Interpretation Comments GLUCOMETER (test code = 117 mg/dL 70-100 H Mete r ID: GMG) [id number] tor: 9358 ADRIANA IBARRA GLUCOMETER GLUCOSE- LAB USE [id number] 16:13:00 Test Item Value Reference Range Interpretation Comments GLUCOMETER (test code 253 mg/dL 70-100 H CLEANE D METERMeter ID: = GMG) [id number] tor: 9559 ALIX LEYVA EZ U/S KIDNEY (RENAL)2018-03-25 14:49:30EXAMINATION: U/S KIDNEY (RENAL).LOCATION: S17.HISTORY: Z87.448, hematuria, severe anemia.COMPARISON: None.FINDINGS:Sonographic evaluation of the kidneys and bladder was performed utilizing grayscale, pulse Doppler and color flow imaging.The right kidney measures 9.1 cm and the left kidney measures 9.5cm. Theparenchymal echogenicity is within normal limits on both sides. There is nohydronephrosis. Nocalculus is identified.Bilateral ureteral jets are noted. Urinary bladder is underdistended, otherwiseunremarkable.IMPRESSION:No hydronephrosis.GLUCOMETER GLUCOSE- LAB USE [id number] 11:24:00 Test Item Value Reference Range Interpretation Comments GLUCOMETER (test code = 211 mg/dL 70-100 H Mete r ID: GMG) [id number] tor: 9208 TERRY CRUMP CBC WITH [id number] 06:01:00 Test Item Value Reference Range Interpretation Comments WBC (test code = WBC) 8.7 10\S\3/uL 4.5-11.0 RBC (test code = RBC) 3.86 10\S\6/uL 3.80-5.80 HGB (test code = HBG) 8.9 g/dL 12.0-15.5 L HCT (test code = HCT) 29.1 % 35.0-44.0 L MCV (test code = MCV) 75.4 fL 81.0-99.0 L MCH (test code = MCH) 23.1 pg 27.0-31.0 L MCHC (test code = MCHC) 30.6 g/dL 32.0-36.0 L RDW (test code = RDW) 20.5 % 11.5-14.5 H PLT (test code = PLT) 218 10\S\3/uL 130-400 MPV (test code = MPV) 10.1 fL 9.4-12.4 NEUTROP # (test code = NE#) 5.8 10\S\3/uL 1.6-8.0 LYMPH # (test code = LY#) 1.7 10\S\3/uL 1.1-3.5 MONOCYTE # (test code = 0.8 10\S\3/uL 0.0-1.1 MO#) EOSINOPH # (test code = 0.4 10\S\3/uL 0.0-0.7 EO#) BASOPHIL # (test code = 0.0 10\S\3/uL 0.0-0.3 BA#) IG # (test code = IG#) 0.03 10\S\3/uL 0.00-0.06 NRBC # (test code = NRBC#) 0.00 10\S\3/uL 0.00-0.01 NEUTROPH % (test code = 66.1 % 35.0-73.0 NE%) LYMPH % (test code = LY%) 19.6 % 20.0-55.0 L MONO % (test code = MO%) 9.3 % 2.5-10.0 EOSINOPH % (test code = 4.2 % 0.0-5.0 EO%) BASOPHIL % (test code = 0.5 % 0.0-2.0 BA%) IG % (test code = IG%) 0.3 % 0.0-0.8 NRBC% (test code = NRBC%) 0.0 % 0.0-0.2 PLT EST (test code = ADEQUATE ADEQUATE PLTEST) PLT MORPH (test code = NORMAL (1.5-3 um) NORMAL PLTMOR) ANISO (test code = ANISO) 2+ NONE A HYPOCHROM (test code = 1+ NONE A HYPOC) ACANTHO (test code = ACAN) 1+ NONE A COMPREHENSIVE METABOLIC [id number] 05:37:00 Test Item Value Reference Range Interpretation Comments GLUCOSE (test code = 06D) 62 mg/dL 75-100 L SODIUM (test code = 01A) 132 mmol/L 136-145 L POTASSIUM (test code = 01B) 4.9 mmol/L 3.6-5.1 CHLORIDE (test code = 04A) 98 mmol/L 98-107 CO2 (test code = 02A) 27 mmol/L 22-32 ANION GAP (test code = ANG) 11.9 mmol/L BUN (test code = 05D) 30 mg/dL 7-18 H CREATININE (test code = 03E) 1.9 mg/dL 0.4-1.1 H BUN/CREA (test code = BCR) 16 12-20 CALCIUM (test code = 09D) 8.6 mg/dL 8.3-9.5 BILI TOTAL (test code = 11A) 0.5 mg/dL 0.2-1.0 PROTEIN (test code = 07D) 5.8 g/dL 6.4-8.2 L ALBUMIN (test code = 08D) 3.2 g/dL 3.5-4.8 L GLOBULIN (test code = GLB) 2.6 g/dL 1.5-3.8 ALB/GLOB (test code = AGRR) 1.2 1.0-2.6 ALK PHOS (test code = 35A) 71 IU/L 42-121 AST (test code = 30A) 20 IU/L <=42 ALT (test code = 31A) 22 IU/L <=78 IRON/TIBC/IRON [id number] 05:37:00 Test Item Value Reference Range Interpretation Comments IRON (test code = 46B) 29 ug/dL 50-170 L TIBC (test code = 79B) 330 ug/dL 250-400 FE% SAT (test code = ISAT) 8.8 % 15.0-50.0 L GLUCOMETER GLUCOSE- LAB USE [id number] 05:08:00 Test Item Value Reference Range Interpretation Comments GLUCOMETER (test code = 67 mg/dL 70-100 L MIRIAN CASILLAS METERMeter ID: GMG) [id number] tor: 9250 TAYO BAU MICHAEL GLUCOMETER GLUCOSE- LAB USE [id number] 19:39:00 Test Item Value Reference Range Interpretation Comments GLUCOMETER (test code 123 mg/dL 70-100 H CLEANE D METERMeter ID: = GMG) [id number] tor: 9250 TAYO BAU MICHAEL GLUCOMETER GLUCOSE- LAB USE [id number] 15:27:00 Test Item Value Reference Range Interpretation Comments GLUCOMETER (test code 176 mg/dL 70-100 H CLEANE D METERMeter ID: = GMG) [id number] tor: 9197 MENG RAMIREZ GLUCOMETER GLUCOSE- LAB USE [id number] 11:54:00 Test Item Value Reference Range Interpretation Comments GLUCOMETER (test code = 73 mg/dL 70-100 MIRIAN SONJA METERMeter ID: GMG) [id number] tor: 9197 MENG RAMIREZ CBC WITH [id number] 09:00:00 Test Item Value Reference Range Interpretation Comments WBC (test code = WBC) 7.4 10\S\3/uL 4.5-11.0 RBC (test code = RBC) 3.55 10\S\6/uL 3.80-5.80 L HGB (test code = HBG) 8.5 g/dL 12.0-15.5 L HCT (test code = HCT) 27.0 % 35.0-44.0 L MCV (test code = MCV) 76.1 fL 81.0-99.0 L MCH (test code = MCH) 23.9 pg 27.0-31.0 L MCHC (test code = MCHC) 31.5 g/dL 32.0-36.0 L RDW (test code = RDW) 20.5 % 11.5-14.5 H PLT (test code = PLT) 199 10\S\3/uL 130-400 MPV (test code = MPV) 10.2 fL 9.4-12.4 NEUTROP # (test code = NE#) 4.3 10\S\3/uL 1.6-8.0 LYMPH # (test code = LY#) 1.9 10\S\3/uL 1.1-3.5 MONOCYTE # (test code = 0.8 10\S\3/uL 0.0-1.1 MO#) EOSINOPH # (test code = 0.3 10\S\3/uL 0.0-0.7 EO#) BASOPHIL # (test code = 0.1 10\S\3/uL 0.0-0.3 BA#) IG # (test code = IG#) 0.05 10\S\3/uL 0.00-0.06 NRBC # (test code = NRBC#) 0.00 10\S\3/uL 0.00-0.01 NEUTROPH % (test code = 57.7 % 35.0-73.0 NE%) LYMPH % (test code = LY%) 26.0 % 20.0-55.0 MONO % (test code = MO%) 10.6 % 2.5-10.0 H EOSINOPH % (test code = 4.2 % 0.0-5.0 EO%) BASOPHIL % (test code = 0.8 % 0.0-2.0 BA%) IG % (test code = IG%) 0.7 % 0.0-0.8 NRBC% (test code = NRBC%) 0.0 % 0.0-0.2 PLT EST (test code = ADEQUATE ADEQUATE PLTEST) PLT MORPH (test code = NORMAL (1.5-3 um) NORMAL PLTMOR) ANISO (test code = ANISO) 2+ NONE A HYPOCHROM (test code = 1+ NONE A HYPOC) MICROCYTIC (test code = 1+ NONE A MICRO) TARGET (test code = TARG) 1+ NONE A OVALOCYTES (test code = 1+ NONE A OVA) ACANTHO (test code = ACAN) 1+ NONE A BASIC METABOLIC [id number] 07:44:00 Test Item Value Reference Range Interpretation Comments GLUCOSE (test code = 06D) 69 mg/dL 75-100 L SODIUM (test code = 01A) 134 mmol/L 136-145 L POTASSIUM (test code = 01B) 5.2 mmol/L 3.6-5.1 H CHLORIDE (test code = 04A) 102 mmol/L 98-107 CO2 (test code = 02A) 26 mmol/L 22-32 ANION GAP (test code = ANG) 11.2 mmol/L BUN (test code = 05D) 31 mg/dL 7-18 H CREATININE (test code = 03E) 2.0 mg/dL 0.4-1.1 H BUN/CREA (test code = BCR) 16 12-20 CALCIUM (test code = 09D) 8.3 mg/dL 8.3-9.5 GLUCOMETER GLUCOSE- LAB USE [id number] 05:56:00 Test Item Value Reference Range Interpretation Comments GLUCOMETER (test code 153 mg/dL 70-100 H CLEANE D METERMeter ID: = GMG) [id number] tor: 5169 SOLIS IQBAL RAKESH CARDIAC [id number] 19:13:00 Test Item Value Reference Range Interpretation Comments TROPONIN I (test code = A84) 0.018 ng/mL 0.000-0.045 CKMB (test code = A49) 1.2 ng/mL <=3.6 CPK (test code = 32A) 33 IU/L 26-192 OCCULT [id number] 19:04:00 Test Item Value Reference Range Interpretation Comments Direct Exam (test code NEGATIVE FOR OCCULT = DE1) BLOOD CBC WITH [id number] 17:58:00 Test Item Value Reference Range Interpretation Comments WBC (test code = WBC) 13.8 10\S\3/uL 4.5-11.0 H RBC (test code = RBC) 3.31 10\S\6/uL 3.80-5.80 L HGB (test code = HBG) 7.5 g/dL 12.0-15.5 L HCT (test code = HCT) 24.9 % 35.0-44.0 LL MCV (test code = MCV) 75.2 fL 81.0-99.0 L MCH (test code = MCH) 22.7 pg 27.0-31.0 L MCHC (test code = MCHC) 30.1 g/dL 32.0-36.0 L RDW (test code = RDW) 20.3 % 11.5-14.5 H PLT (test code = PLT) 238 10\S\3/uL 130-400 MPV (test code = MPV) 10.3 fL 9.4-12.4 NEUTROP # (test code = NE#) 10.7 10\S\3/uL 1.6-8.0 H LYMPH # (test code = LY#) 1.9 10\S\3/uL 1.1-3.5 MONOCYTE # (test code = 1.0 10\S\3/uL 0.0-1.1 MO#) EOSINOPH # (test code = 0.2 10\S\3/uL 0.0-0.7 EO#) BASOPHIL # (test code = 0.0 10\S\3/uL 0.0-0.3 BA#) IG # (test code = IG#) 0.09 10\S\3/uL 0.00-0.06 H NRBC # (test code = NRBC#) 0.00 10\S\3/uL 0.00-0.01 NEUTROPH % (test code = 77.1 % 35.0-73.0 H NE%) LYMPH % (test code = LY%) 13.5 % 20.0-55.0 L MONO % (test code = MO%) 7.0 % 2.5-10.0 EOSINOPH % (test code = 1.4 % 0.0-5.0 EO%) BASOPHIL % (test code = 0.3 % 0.0-2.0 BA%) IG % (test code = IG%) 0.7 % 0.0-0.8 NRBC% (test code = NRBC%) 0.0 % 0.0-0.2 PLT EST (test code = ADEQUATE ADEQUATE PLTEST) PLT MORPH (test code = NORMAL (1.5-3 um) NORMAL PLTMOR) ANISO (test code = ANISO) 1+ NONE A POIK (test code = POIK) 2+ NONE A BRAYDON (test code = BRAYDON) 1+ NONE A ACANTHO (test code = ACAN) 1+ NONE A SCHISTO (test code = BALBIR) 1+ NONE A COMPREHENSIVE METABOLIC [id number] 17:54:00 Test Item Value Reference Range Interpretation Comments GLUCOSE (test code = 06D) 144 mg/dL 75-100 H SODIUM (test code = 01A) 134 mmol/L 136-145 L POTASSIUM (test code = 01B) 5.2 mmol/L 3.6-5.1 H CHLORIDE (test code = 04A) 102 mmol/L 98-107 CO2 (test code = 02A) 25 mmol/L 22-32 ANION GAP (test code = ANG) 12.2 mmol/L BUN (test code = 05D) 29 mg/dL 7-18 H CREATININE (test code = 03E) 1.9 mg/dL 0.4-1.1 H BUN/CREA (test code = BCR) 15 12-20 CALCIUM (test code = 09D) 8.0 mg/dL 8.3-9.5 L BILI TOTAL (test code = 11A) 0.2 mg/dL 0.2-1.0 PROTEIN (test code = 07D) 5.9 g/dL 6.4-8.2 L ALBUMIN (test code = 08D) 3.1 g/dL 3.5-4.8 L GLOBULIN (test code = GLB) 2.8 g/dL 1.5-3.8 ALB/GLOB (test code = AGRR) 1.1 1.0-2.6 ALK PHOS (test code = 35A) 65 IU/L 42-121 AST (test code = 30A) 20 IU/L <=42 ALT (test code = 31A) 26 IU/L <=78 PRO TIME AND [id number] 17:49:00 Test Item Value Reference Range Interpretation Comments PT (test code = 16.5 s 9.8-13.6 H TT) INR (test code = 1.4 INR) INRH (test code = SUGGESTED INRH) THERAPEUTIC RANGE FOR INR: 2.5 - 3.5 For Patients with Prosthetic Valves or Patients with recurrent Thromboembolic Events 2.0 - 3.0 For Most Other Applications PTT (test code = 26.2 s 20.2-38.0 PTT) PTTH (test code = To monitor the PTTH) effectiveness of heparin, we offer the Anti-Xa (Heparin Assay). It can be used for either unfractionated or LMW Heparin. Order Code is ANTI-XA XR CHEST 1 VIEW [id number] 17:21:48LOCATION: A38EFAFCLO: 82-year-old female, pulmonary symptoms not otherwise specified.COMMENT:A frontal chest radiograph was obtained at the bedside at 5:09 p.m.The lungs are clear. Borderline left ventricular cardiac enlargement is noted.Also noted is a mildly uncoiled thoracic aorta. The baltazar and mediastinum areunremarkable. The skeleton and soft tissues are unremarkable.A bipolar left-sided cardiacpacemaker is present.IMPRESSION:There is no radiographic evidence of acute cardiopulmonary disease.XR SPINE THORACIC W/SWIM [id number] 15:45:50Xray thoracic and lumbar spineLocation Code: L15Dyjgguxujr: None availableCLINICAL HISTORY: Fall.Find ings: .Exam findings limited by backboard. No evidence of acute lumbar spinecompression fracture is demonstrated. Nearly nondiagnostic evaluation of thethoracic spine secondary to positioning and qualitative osteopenia as well aslimited evaluation of the thoracic spine secondary to overlapping bone.Mul tilevel degenerative changes are notedIMPRESSION:Exam findings limited by backboard. No evidence of acute lumbar spinecompression fracture is demonstrated. Nearly nondiagnostic evaluation of thethoracic spine secondary to positioning and qualitative osteopenia as well aslimited evaluation of the thoracic spine secondary to overlapping bone.XR SPINE LUMBAR [id number] 15:45:50Xray thoracic and lumbar spineLocation Code: W45Bvarabkbbm: None availableCLINICAL HISTORY: Fall.Findings: .Exam findings limited [...] secondary to overlapping bone.XR PELVIS AP 1 [id number] 15:33:26Pelvis one viewLocation: A0Pdxavlcckr: Fall.Comparison: None.Findings:No evidence of fracture. Hip joints, symphysis pubis, and sacroiliac joints areintact. Degenerative changes of lower lumbar spine. Bone island in the leftacetabular roof. Soft tissues unremarkable.Impression: No evidence of trauma.CT CERVICAL SPINE W/O CONTRAST 2018-03-23 14:32:09CT cervical spine without contrastLocation a 1HISTORY: Injury.Technique: Axial images were obtained with sagittal [...] mm. No evidence of traumaCT HEAD W/O [id number] 14:14:25Location code: L11CT Brain Without ContrastIndication: TraumaComparison: noneTechnical factors: Axial images were obtained from the base of the skull to thevertex. 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.[id number] 23:14:00 Test Item Value Reference Range Interpretation Comments NT ProBnp (test code = PBNP) 2207 pg/mL 0-449 H Lipid [id number] 23:14:00 Test Item Value Reference Range Interpretation Comments Cholesterol (test 99 mg/dL 0-200 N code = CHOL) Triglycerides (test 89 mg/dL 9-200 N code = TRIG) HDL (test code = 47 mg/dL 50-60 L HDL) Chol/HDL (test code 2.1 Ratio 0.0-4.4 N = CHOLPHDL) LDL, Calculated 34 mg/dL 0-130 N (NOTE)RISK O F HEART (test code = LDLC) DISEASEPu blished by [place] Heart AssociationAnal yte Optim al Boderline Increased RiskC HOL <200 200-239 >240TRI G <150 150-199 >200HDL Male: >60 <40HDL Female: >60 <50 LDL < 100 130-15 9 >160 LDL NEAR OPTIMAL IS 100- 129 VLDL (test code = 18 mg/dL 5-40 N VLDL) LDL/HDL (test code = 1 LDLPHDL) Comprehensive Metabolic [id number] 23:14:00 Test Item Value Reference Range Interpretation Comments Sodium (test code = 132 mmol/L 135-145 L NA) Potassium (test 4.3 mmol/L 3.5-5.1 N code = K) Chloride (test code 96 mmol/L 98-105 L = CL) Carbon Dioxide 24 mmol/L 22-29 N (test code = CO2) Glucose (test code 152 mg/dL 70-115 H = GLU) Blood Urea Nitrogen 27 mg/dL 8-23 H (test code = BUN) Creatinine (test 1.7 mg/dL 0.5-0.9 H code = CREAT) Calcium (test code 8.9 mg/dL 8.3-10.5 N = CA) Prot Total (test 6.0 g/dL 6.4-8.3 L code = TP) Albumin (test code 4.2 g/dL 3.5-5.2 N = ALB) A/G Ratio (test 2.3 Ratio code = AGRATIO) Globulin (test code 1.8 2.9-3.1 L = GLOB) Bili Total (test 0.5 mg/dL 0.1-0.9 N code = TBIL) Alk Phos (test code 128 U/L 35-104 H = APHOS) AST (test code = 32 U/L 1-32 N AST) ALT (test code = 37 U/L 1-33 H ALT) BUN/Creatinine 15.9 Ratio (test code = BCRATIO) Anion Gap (test 12 mmol/L 7-16 N code = AGAP) Estimated GFR (test 31 eGFR (es timated code = GFR) mL/min/1.73m2 Glomerular Walter tration Rate) is an est imated value,calculate d from the patient's s murtaza creatinine usin g the MDRD equation.I t is NOT the patient 's actual GFR. The eGFR provides a more clinicallyusefu l measure of kidn ey disease than se rum creatinine alone.This calculation sushila es sex and race into account, if the informationis provided. If th e race is not provided , and the patient isAfrican-Ameri can, multiply by 1.2 12. If sex is not prov ided, and thepatient is female, multipl y by 0.742. Results for patients <18 ye ars ofage have not been validated by th e MDRD study and ab d be interpretedwith caution.eGFR Re sult Interpretation: eGFR > or = 60 is in t he Normal RangeeGF R < 60 may mean kidney diseaseeGFR < 1 5 may mean kidney failureRange s recommended by the National Kidney Foundation,http ://nkd ep.nih.gov CBC with [id number] 22:11:00 Test Item Value Reference Range Interpretation Comments WBC (test code = WBC) 8.0 K/cumm 4.4-10.5 N RBC (test code = RBC) 3.10 M/cumm 3.75-5.20 L Hemoglobin (test code = HGB) 9.0 gm/dL 12.2-14.8 L Hematocrit (test code = HCT) 28.9 % 36.5-44.4 L MCV (test code = MCV) 93.3 fL 80-100 N MCH (test code = MCH) 29.1 pg 27.0-32.5 N MCHC (test code = MCHC) 31.2 g/dL 32.0-37.5 L RDW (test code = RDW) 12.1 % 11.5-14.5 N Platelet Count (test code = 248 K/cumm 140-440 N PLTCT) MPV (test code = MPV) 8.7 fL Diff Method (test code = DIFFM) Auto Neutrophil (test code = NEUT) 64.4 % 36-70 N Lymphocyte (test code = LYMPH) 25.8 % 12-44 N Monocyte (test code = MONO) 8.6 % 0-11 N Eosinophil (test code = EOS) 0.8 % 0-7 N Basophil (test code = BASO) 0.4 % 0-2 N Neutro Abs (test code = ANEUT) 5.1 K/cumm 1.6-7.4 N Lymph Abs (test code = ALYMPH) 2.0 K/cumm 0.5-4.6 N Edmunds Abs (test code = AMONO) 0.7 K/cumm 0.0-1.2 N Eos Abs (test code = AEOS) 0.07 K/cumm 0.00-0.74 N Baso Abs (test code = ABASO) 0.0 K/cumm 0.00-0.21 N Hypochromic (test code = HYPO) Slight
[2021-05-18] MEDS ORDERED: DOCUSATE NA 100 MG CAP PO SCH (21:51)
[2021-05-18] MEDS: SOTALOL HCL 80 MG TAB PO SCH (21:57)
[2021-05-18] MEDS ORDERED: MELATONIN 3 MG TABLET PO PRN (22:14)
[2021-05-18] MEDS ORDERED: ACETAMINOPHEN 500 MG TAB PO PRN (22:17)
[2021-05-18] MEDS: LACTOBACILLUS/ACIDOPHILUS TAB PO SCH (22:53)
[2021-05-18] MEDS: AMOX/K CLAV 500 MG TAB PO SCH (22:53)
[2021-05-18] MEDS: ATORVASTATIN 80 MG TAB PO SCH (22:53)
[2021-05-18] MEDS: FERROUS SULFATE 325 MG TAB PO SCH (22:54)
[2021-05-18] MEDS: INSULIN -REGULAR HUMAN 50 UNIT/0.5 ML ML SQ SCH (22:54)
[2021-05-18] MEDS: APIXABAN 5 MG TABLET PO SCH (22:54)
[2021-05-18] MEDS: MONTELUKAST 10 MG TAB PO SCH (22:55)
[2021-05-19] MEDS: SOTALOL HCL 80 MG TAB PO SCH ×2 (05:01→17:08)
[2021-05-19 05:32] LABS: Albumin 1.9 g/dL (3.4-5.0); Potassium 3.6 mmol/L (3.5-5.1); Prealbumin 5.6 mg/dL (20-40)
[2021-05-19 05:37] LABS: Absolute Lymphocytes (CBC) 0.9 K/uL (0.7-4.9); Basophils % 0.5 % (0-1.3); Hematocrit 30.7 % (36.0-45.0); Lymphocytes % 11.1 % (15.3-44.8); MPV 8.4 fL (7.6-11.3); RBC Red Blood Cell Count 3.53 M/uL (3.86-4.86)
[2021-05-19] MEDS: INSULIN -REGULAR HUMAN 50 UNIT/0.5 ML ML SQ SCH ×4 (07:30→21:00)
[2021-05-19] MEDS: SUCRALFATE 1 GM TABLET PO SCH ×4 (08:43→20:59)
[2021-05-19] MEDS: PANTOPRAZOLE 40MG TABLET PO SCH ×2 (08:44→20:59)
[2021-05-19] MEDS: APIXABAN 5 MG TABLET PO SCH ×2 (08:44→20:58)
[2021-05-19] MEDS: MAGNESIUM OXIDE 400 MG TAB PO SCH (08:47)
[2021-05-19] MEDS: AMOX/K CLAV 500 MG TAB PO SCH ×2 (08:47→20:58)
--- NOTE | 2021-05-19 14:10 | R.HP ---
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 board/care, assisted living, residential, transitional living) PRE-HOSPITAL LIVING WITH Family/Relatives ENCOUNTER PHYSICIAN: Dr. Caesar Tena M.D. 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 is a 85 yo Right-handed WF. On 04/28/2021 she was admitted to [facility] with diagnosis CHF exacerbation. Her impairment category is Cardiac 09 - Cardiac Disorders (09). Pre-morbidly, Pt. was independent/mod-I in Locomotion, Social Cognition, Safety Awareness, Balance, T ransfers Control, Sphincter Control, Self-Care, Communication, and Endurance; and she had good Locomo tion, Safety Awareness, Social Cognition, Balance, Transfers Control, Sphincter Control, Self-Care, C ommunication, and Endurance. Currently, she has deficits of Locomotion, Safety Awareness, Balance, Transfers Control, Self-Care, E ndurance, and Communication. Pt. is now referred to [facility] for acute in-patient rehabilitation in order to maximize patient's functional independence in activities of daily living, strength, ROM, and mobi lity. Patient has realistic goal of being discharged at assistance level mod assist to independent to resid e at Home with Family/Relatives. Ms. Clarice Tirado is an 85 yo white female that lives in a single level home with family - per PT eval. Ms. Tirado presented to [facility] by her son secondary to failure to thrive, dehydration, and SOB on 05/12/2021. Ms. Tirado is currently on 3L O2. Per Dr. Mcdonald's dicta tion note, Ms. Tirado was evaluated in the ER and was found to have congestive heart failure, in A Fib, and evidence of bilateral pleural effusions, worse on the right. In addition, Ms. Tirado has n ot been eating or drinking much and is very weak. Ms. Tirado's x-ray demonstrated potential infiltr ate consistent with pneumonia on the bibasilar areas, per dictation. Dr. Ventura's dictation note report s patient demonstrates some aphasia but is still able to answer questions. Ms. Tirado was found to have pneumonia and volume overload. An ultrasound-guided thoracentesis was performed on 05/14/2021 f or left pleural effusion. Ms. Bourne blood pressure has been running in the low 100 and mid [address] Ventura's dictation on 05/12/2021, Ms. Tirado is currently off of Lasix, diuretics. Ms. Warren reports having been independent with all task with use of RW prior to hospitalization with all tasks. Ms. Tirado requires intense acute inpatient rehab approach to wean off of O2, increase safe ty awareness, maximize independence with tasks, reduce caregiver burden, strengthen UB/LB, increase s afety/independence with functional mobility/transfers, increase cardiovascular endurance, and reduce fall risk. Ms. Tirado is currently working with PT. Per PT eval/note, Ms. Tirado demonstrates def icits in endurance, decreased strength, pain, poor balance, poor trunk control, decreased ambulation, and decreased functional mobility. Per PT, patient presents with significant weakness. Ms. Tirado requires acute inpatient rehab for a safe discharge and reduce the risk for complications at home as she recovers from her current chief complaints and acute diagnosis. With an interdisciplinary approac h by acute IRF, pt. demonstrates great potential and motivation to get stronger, safer, and more inde pendent to return to [place]. Pt demonstrates a strong need for an intensive team: rehab doctor, nurse, geriatric social worker, and therapist to meet functional and medical goals. It is reasonable and necessary for the patient to come to acute IRF to safely dc. Pt is medically stable but in need of 24 hour nursing , doctor supervision, and oversight while receiving active and ongoing intensive (OT/PT/ST). The danika ent is reasonably expected to participate in 3 hours of therapy a day/15 hours a week. COVID-19 scree kiet performed. Patient denies a new onset of fever, cough, difficulty breathing, sore throat, body a ches and non-allergy nasal congestion in the past 24 hours. Patient denies travel outside of [place] in the past 14 days. Patient denies any contact with someone who has a confirmed diagnosis of or is und er investigation for COVID-19 in the past 14 days. Patient has been tested negative for COVID- 19. MEDICATION ALLERGIES: CODEINE Sulfamethoxazole w/ trimethoprim ENVIRONMENTAL ALLERGIES: None Known - Substance Allergies None Known - Other Allergies Adhesives Latex PAST MEDICAL HISTORY: L pleural effusion per operation dictation on 05/12/2021 Acute Renal Failure Atrial Fibrillation Dehydration Pneumonia Hyperkalemia Atrial Flutter Diabetes Mellitus HTN CHF CAD Depression Stroke x 3 TIA UTI R foot fracture DVT thyroid nodules R foot stress fracture - date not provided non-malignant breast biopsy PMH gathered by MD notes and pt's chart PAST SURGICAL HISTORY: Appendectomy - date not provided Cholestectomy - date not provided Hysterectomy - date not provided Pacemaker - date not provided Thoracentesis - 05/12/2015 Information gathered by patient's chart SOCIAL HISTORY: - Home Living Family/Relatives REVIEW OF SYSTEMS: - Gen No Chills Fatigue No Fever - Eyes No Double Vision No itchiness - ENMT Difficulty Swallowing - CVS No Chest Discomfort No Chest Pain Fatigue No Weight Gain - Resp No Cough Shortness of Breath - GI Continent No Abdominal Pain Constipation No Diarrhea - Continent No Kidney Pain No Painful Urination No Urinary Urgency - MSK Joint Pain Muscle Cramps Stiffness - Skin No Itching No Rash No Suspicious Lesions - Neuro Coordination Difficulty No Difficulty with Concentration No Memory Loss No Seizures No Weakness - Psych No Anxiety No Depression No HIV Exposure No Persistent Infections No Seasonal Allergies - Endo No Cold/Heat Intolerance No Excessive Hunger No Excessive Thirst No Excessive Urination PHYSICAL EXAM - Gen Alert and awake Lying in bed No apparent distress Oriented to: person, time, and place - Skin Stage 2 sacral ulcer No abnormalities - Eyes No abnormalities - ENMT No abnormalities - Neck No abnormalities - CVS RRR - Chest Mildly decreased breath sounds bilaterally. - Resp No wheezing - Abd Soft - GI Non distended Deferred - No abnormalities - Ext Mild bilateral lower extremity edema. - MSK 4+/5 weakness in both lower extremities. - Neuro No focal deficits - Psych No abnormalities VITAL SIGNS Temperature: 97.9 F SBP/DBP: 114/62 Pulse: 814 Resp: 16 NURSING: - Shower allowing shower PRECAUTIONS: - Safety Fall risk assist with xfers/STS ACTIVITIES OOB only with supervision QI SCORES: - Self-Care A. Eating 05-Setup or clean-up assistance B. Oral hygiene 04-Supervision or touching assistance C. Toileting hygiene 03-Partial/moderate assistance E. Shower/bathe self 02-Substantial/maximal assistance F. Upper body dressing 03-Partial/moderate assistance G. Lower body dressing 03-Partial/moderate assistance H. Putting on/taking off footwear 02-Substantial/maximal assistance - Mobility A. Roll left and right 03-Partial/moderate assistance B. Sit to lying 03-Partial/moderate assistance C. Lying to sitting on side of bed 02-Substantial/maximal assistance D. Sit to stand 02-Substantial/maximal assistance E. Chair/[id number] transfer 88-Not attempted due to medical condition or safety concerns F. Toilet transfer 88-Not attempted due to medical condition or safety concerns G. Car transfer 88-Not attempted due to medical condition or safety concerns I. Walk 10 feet 88-Not attempted due to medical condition or safety concerns J. Walk 50 feet with two turns 88-Not attempted due to medical condition or safety concerns K. Walk 150 feet 88-Not attempted due to medical condition or safety concerns L. Walking 10 feet on uneven surfaces 88-Not attempted due to medical condition or safety concerns M. 1 step (curb) 88-Not attempted due to medical condition or safety concerns N. 4 steps 88-Not attempted due to medical condition or safety concerns O. 12 steps 88-Not attempted due to medical condition or safety concerns P. Picking up object 88-Not attempted due to medical condition or safety concerns R. Wheel 50 feet with two turns S. Wheel 150 feet - Bladder and Bowel Bladder continence Bowel continence - Endurance Fair - Balance Fair - Safety Awareness Fair CURRENT FUNC. DEFICITS: Self-Care, Mobility, Endurance, Balance, and Safety Awareness MEDICATIONS: - Other See attached MAR (Medication Administration Record) ASSESSMENT: Pt. is a 85 yo Right-handed WF.On 04/28/2021 she was admitted to [facility] with diagnosis CH F exacerbation.Her impairment category is Cardiac 09 - Cardiac Disorders (09).Pre-morbidly, Pt. was independent/mod-I in Locomotion, Social Cognition, Safety Awareness, Balance, Transfers Control, Sphi ncter Control, Self-Care, Communication, and Endurance; and she had good Locomotion, Safety Awareness , Social Cognition, Balance, Transfers Control, Sphincter Control, Self-Care, Communication, and Endu stevie.Currently, she has deficits of Locomotion, Safety Awareness, Balance, Transfers Control, Self-C are, Endurance, and Communication.Pt. is now referred to [facility] for acute in-patient rehabilitation in order to maximize patient's functional independence in activities of lynette ly living, strength, ROM, and mobility.- Rehab Goal Patient has realistic goal of being discharged at assistance level mod assist to independent to resid e at Home with Family/Relatives. Ms. Clarice Tirado is an 85 yo white female that lives in a single level home with family - per PT eval. Ms. Tirado presented to [facility] by her son secondary to failure to thrive, dehydration, and SOB on 05/12/2021. Ms. Tirado is currently on 3L O2. Per Dr. Mcdonald's dicta tion note, Ms. Tirado was evaluated in the ER and was found to have congestive heart failure, in A Fib, and evidence of bilateral pleural effusions, worse on the right. In addition, Ms. Tirado has n ot been eating or drinking much and is very weak. Ms. Tirado's x-ray demonstrated potential infiltr ate consistent with pneumonia on the bibasilar areas, per dictation. Dr. Ventura's dictation note report s patient demonstrates some aphasia but is still able to answer questions. Ms. Tirado was found to have pneumonia and volume overload. An ultrasound-guided thoracentesis was performed on 05/14/2021 f or left pleural effusion. Ms. Bourne blood pressure has been running in the low 100 and mid [address] Ventura's dictation on 05/12/2021, Ms. Tirado is currently off of Lasix, diuretics. Ms. Warren reports having been independent with all task with use of RW prior to hospitalization with all tasks. Ms. Tirado requires intense acute inpatient rehab approach to wean off of O2, increase safe ty awareness, maximize independence with tasks, reduce caregiver burden, strengthen UB/LB, increase s afety/independence with functional mobility/transfers, increase cardiovascular endurance, and reduce fall risk. Ms. Tirado is currently working with PT. Per PT eval/note, Ms. Tirado demonstrates def icits in endurance, decreased strength, pain, poor balance, poor trunk control, decreased ambulation, and decreased functional mobility. Per PT, patient presents with significant weakness. Ms. Tirado requires acute inpatient rehab for a safe discharge and reduce the risk for complications at home as she recovers from her current chief complaints and acute diagnosis. With an interdisciplinary approac h by acute IRF, pt. demonstrates great potential and motivation to get stronger, safer, and more inde pendent to return to [place]. Pt demonstrates a strong need for an intensive team: rehab doctor, nurse, geriatric social worker, and therapist to meet functional and medical goals. It is reasonable and necessary for the patient to come to acute IRF to safely dc. Pt is medically stable but in need of 24 hour nursing , doctor supervision, and oversight while receiving active and ongoing intensive (OT/PT/ST). The danika ent is reasonably expected to participate in 3 hours of therapy a day/15 hours a week. COVID-19 scree kiet performed. Patient denies a new onset of fever, cough, difficulty breathing, sore throat, body a ches and non-allergy nasal congestion in the past 24 hours. Patient denies travel outside of [place] in the past 14 days. Patient denies any contact with someone who has a confirmed diagnosis of or is und er investigation for COVID-19 in the past 14 days. Patient has been tested negative for COVID- 19.VICKEY AB PLAN: - Physical Therapy Gait dysfunction - to improve, our physical therapists will perform initial evaluation of pt's status upon admission and devise an individualized program for Gait Training, and Wheel Chair mobility Inability to transfer - to improve, our physical therapists will perform initial evaluation of pt's s tatus upon admission and devise an individualized program for Bed mobility Need for home safety evaluation - to improve, our physical therapists will perform initial evaluation of pt's status upon admission and devise an individualized program for Home Evaluation Need in caregiver upon discharge - to improve, our physical therapists will perform initial evaluatio n of pt's status upon admission and devise an individualized program for Caregiver Training New precaution - to improve, our physical therapists will perform initial evaluation of pt's status u trudy admission and devise an individualized program for Patient precaution education Edema - to improve, our physical therapists will perform initial evaluation of pt's status upon admi ssion and devise an individualized program for Elevation Training, and Lymphedema Therapy Poor balance - to improve, our physical therapists will perform initial evaluation of pt's status upo n admission and devise an individualized program for Balance Training Poor endurance - to improve, our physical therapists will perform initial evaluation of pt's status u trudy admission and devise an individualized program for Endurance Training Weakness - to improve, our physical therapists will perform initial evaluation of pt's status upon ad mission and devise an individualized program for Aquatic Therapy, Neuromuscular Reeducation, and Stre ngthening Achieving independence - to improve, our physical therapists will perform initial evaluation of pt's status upon admission and devise an individualized program for Community Reintegration Activities - Occupational Therapy ADL deficits - to improve, our occupation therapists will perform initial evaluation of pt's status u trudy admission and devise an individualized program for Bathing, Bed mobility, Community Reintegration , Cooking, Dressing, Eating, Fine Motor Skills, Grooming, Homemaking, Kitchen Mobility, Laundry, Danika ent Education, Safety Awareness, Splinting - Positioning, Transfers(Toilet, Tub, Shower), and Wheel C hair Management Need for palliative care coordinator - to improve, our occupation therapists will perform initial evaluation of pt's s tatus upon admission and devise an individualized program for Caregiver Training Weakness - to improve, our occupation therapists will perform initial evaluation of pt's status upon admission and devise an individualized program for Aquatic Therapy, Balance, Endurance, UE ROM, and U E strengthening MEDICAL PLAN: - Diet Type Start Diet not specified in chart - Diet - Liquid Texture Start Regular - Tube Feed Start N/A - Other See attached MAR (Medication Administration Record) - Diet - Solid Texture Regular - Shower shower - Safety Fall risk assist with xfers/STS DISCHARGE PLAN: - Estimated Length of Stay (days) 10. - Consensus on plan Discharge plan has been discussed with primary caregiver. Patient/Family is in agreement with the jeff n. Primary caregiver is in agreement with the plan. - Patient/Family Goals Return home independently. - Planned Living Setting Upon Discharge Home, to live with Family/Relatives. Transitional Living. 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
--- NOTE | 2021-05-19 14:11 | PAPE ---
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 Caesar Tena M.D. ADMISSION DIAGNOSIS: CHF exacerbation ONSET DATE 04/28/2021 SECONDARY/COMORBID DIAGNOSES TIERED: - Tier 3 Pneumonia, unspecified organism (J18.9) Acute kidney failure, unspecified (N17.9) POST-ADMISSION FUNCTIONAL/MEDICAL STATUS: - Bladder Same accident frequency: 7-Ind - No accidents in the past 7 days - Bowel Same accident frequency: 7-Ind - No accidents in the past 7 days - Walking Same score based on distance walked: 0(N/A) - Wheelchair Same score based on distance traveled: 0(N/A) STATUS CHANGE EVALUATION: No change in Functional or Medical Status is identified compared with Pre-Admission screening. PATIENT NEEDS CLOSE MEDICAL SUPERVISION BY A REHABILITATION PHYSICIAN FOR: Coordination of Treatment Team Medical and Co-Morbidity Management Pain Management medication management Respiratory/Airway Management DVT Management Diabetes Management PATIENT REQUIRES 24X7 REHAB NURSING FOR MEDICAL AND FUNCTIONAL MGT. OF THE FOLLOWING DEFICITS: Patient/Family Education Providing Safe Environment Skin Integrity Transfers Ambulation Respiratory/Airway Management Disease Management Medication Management ADL's PATIENT REQUIRES INTENSIVE, COORDINATED INTERDISCIPLINARY APPROACH TO REHAB: Arranging Home Equipment/Services Discharge Planning Family Intervention/Training Hand Ironer/Case Management LIST OF IDENTIFIED AND POTENTIAL PROBLEMS: Alteration in leisure activities Bladder, Incontinence Bowel, Incontinence Infection, Actual or Potential Mobility Impaired Pain, Alteration in Comfort Self Care Deficit Skin Integrity, Actual or Potential Urinary Tract Infection (UTI), Actual or Potential RISK FOR COMPLICATIONS - CARDIC AFIB. CHF. WEAKNESS. - UTI Monitor for frequency, burning, discomfort, or incontinence. Patient has been temporarily taken off o f diuretics per MD note on 05/12/2021. Monitor for any signs and symptoms of UTI. - CVA Monitor signs and symptoms of stroke. - DVT BERTHA hose; sequential compression device as needed/prescribed. - Skin Breakdown Nursing will assess skin daily using assessment tool and will place on Skin Breakdown Precautions as Indicated per protocol. - Pain Clinical staff will assess patient's pain level every shift per protocol to monitor for pain manageme nt effectiveness. Medications will be given and the pain level reassessed. Clinical Staff may employ other methods such as: massage, distraction, decrease stimulus, etc. as needed. Educate patient on pa in management strategies. - Falls Educated pt on fall prevention strategies to reduce/eliminate fall risk. Patient will be evaluated fo r Fall Precautions and will be placed on Fall Precautions as indicated per protocol. - Impaired Safety Educate patient on safety hazards. Educate patient on safety awareness strategies. - Limb Ischemia Assess circulation each shift. Report any changes to MD. - Respiratory Monitor O2 sats. Pt on 3L O2. INTERVENTIONS - PNA Continue antibiotics as ordered by MD, per MD note on 05/12/2021. - Poor p.o intake Encourage balanced diet and rehabilitative assistance. - Volume overload Thoracentesis performed with 750 ml taken out. Continue to monitor for increased volume. Per MD note on 05/12/2021. - Low BP Continue to monitor and administer meds as ordered by MD. - Hyperkalemia Monitor diet to assist with keeping potassium in good range. Per MD note on 05/12/2021. - Hypercalcemia Replace vitamin D with ergocalciferol, per MD note on 05/12/2021. - Ischemic heart disease Monitor troponin levels, per MD note on 05/12/2021. - Impaired Fasting Glucose Monitor blood sugar. Monitor diet as per POC. PATIENT COULD BE AT RISK FOR COMPLICATIONS FROM ADVERSE MEDICAL CONDITIONS DUE TO HIS/HER COMORBIDITI ES AND THE RIGORS OF THE INTENSIVE REHABILLITATION PROGRAM. METHODS OR INTERVENTIONS TO AVOID COMPLIC ATIONS INCLUDE: - Deep Vein Thrombosis (DVT) Prophylaxis therapy for prevention . Sequential Compression Device (SCD). JAMILAH Barajas. - Infection Clinical staff to assess and manage the signs and symptoms of infection including fever, redness, war mth, etc. - Urinary Tract Infection - Falls Patient will be evaluated for Fall Precautions and will be placed on Fall Precautions as indicated pe r protocol. - Skin Breakdown Nursing will assess skin daily using assessment tool and will place on Skin Breakdown Precautions as indicated per protocol. - Pain Clinical staff may employ non-medication methods such as massage, distraction, decrease stimulus, etc . as needed. Clinical staff will assess patient's pain level every shift per protocol to assess and e nsure pain management effectiveness. Medications will be given and the pain level re-assessed. PRELIMINARY PLAN OF CARE: - Physical Therapy Patient needs Physical Therapy for a daily minimum of 1.5 hours at least 5 out of 7 days, to improve: Mobility, Strengthening, Transfers, Stretching, ROM, Endurance, Ability to manage stairs, Gait, and Balance. - Speech Therapy Patient needs Speech Therapy for a daily minimum of 0.5 hours at least 5 out of 7 days, to improve: S wallowing, Cognition, Language Skills, and Compensatory Strategies. - Rehabilitation Nursing Patient requires 24x7 Rehabilitation Nursing for: Pain Issues, Identifying and preventing risk factor s, Monitoring and reporting current medical conditions, Assisting with ambulation and transfer, Ezio ting with all ADL-s, Teaching patients about disease process and medications, Family teaching, Provid ing safe environment, Bowel and Bladder Issues, Skin Integrity, and Medication Management. Patient needs Hand Ironer and/or Case Management for: Discharge Planning, Arranging Home Equipmen t or Services, and Family Interventions. - Dietary and Nutrition Services Patient needs Dietary and Nutrition Services for: Adequate Nutrition, Nutritional Supplements, and Nu tritional Education. - Occupational Therapy Patient needs Occupational Therapy for a daily minimum of 1.5 hours at least 5 out of 7 days, to impr ove Activities of Daily Living, including: Eating, Grooming, Bathing, Dressing, Toileting, Toilet Tra nsfers, Community Reintegration, Higher functional activities, Adaptive Equipment, Splinting, Househo ld Tasks, and Other activities as determined. QI SCORES: - Self-Care A. Eating 05-Setup or clean-up assistance B. Oral hygiene 04-Supervision or touching assistance C. Toileting hygiene 03-Partial/moderate assistance E. Shower/bathe self 02-Substantial/maximal assistance F. Upper body dressing 03-Partial/moderate assistance G. Lower body dressing 03-Partial/moderate assistance H. Putting on/taking off footwear 02-Substantial/maximal assistance - Mobility A. Roll left and right 03-Partial/moderate assistance B. Sit to lying 03-Partial/moderate assistance C. Lying to sitting on side of bed 02-Substantial/maximal assistance D. Sit to stand 02-Substantial/maximal assistance E. Chair/hbq-tp-[id number] transfer 88-Not attempted due to medical condition or safety concerns F. Toilet transfer 88-Not attempted due to medical condition or safety concerns G. Car transfer 88-Not attempted due to medical condition or safety concerns I. Walk 10 feet 88-Not attempted due to medical condition or safety concerns J. Walk 50 feet with two turns 88-Not attempted due to medical condition or safety concerns K. Walk 150 feet 88-Not attempted due to medical condition or safety concerns L. Walking 10 feet on uneven surfaces 88-Not attempted due to medical condition or safety concerns M. 1 step (curb) 88-Not attempted due to medical condition or safety concerns N. 4 steps 88-Not attempted due to medical condition or safety concerns O. 12 steps 88-Not attempted due to medical condition or safety concerns P. Picking up object 88-Not attempted due to medical condition or safety concerns R. Wheel 50 feet with two turns S. Wheel 150 feet - Bladder and Bowel Bladder continence Bowel continence - Endurance Fair - Balance Fair - Safety Awareness Fair POTENTIAL FUNCTIONAL GOALS FOR PATIENT TO ACHIEVE BY DISCHARGE: - Safety Precaution Patient will remain free from falls or injury at time of discharge. - Bed Mobility Patient will perform bed mobility at 4-Silvana level of assistance. - Transfers Patient will complete transfers from bed to chair at 4-Silvana level of assistance. - Mobility Patient will ambulate 150 ft with 4-Silvana level of assistance with RW. PATIENT REHAB POTENTIAL Breanna BARBOSA is able and expected to receive 3 hours of individualized therapy daily on at least 5 of every 7 days Breanna BARBOSA's prognosis for significant practical improvement within a reasonable period of time appe ars Good Expected level of measurable improvement will be of a practical value to Breanna BARBOSA's functional cap acity or adaptations to impairments Has a viable Discharge Plan Medically appropriate; condition is sufficiently stable to participate in intensive rehab program DISCHARGE PLAN: - Estimated Length of Stay (days) 10. - Consensus on plan Discharge plan has been discussed with primary caregiver. Patient/Family is in agreement with the jeff n. Primary caregiver is in agreement with the plan. - Patient/Family Goals Return home independently. - Planned Living Setting Upon Discharge Home, to live with Family/Relatives. Transitional Living. CONCLUSION ON REHABILITATION NECESSITY: I have evaluated patient's pre-admission functional status and, comparing it to the patient's post-ad mission functional status now, I conclude that the pre-admission assessment was accurate. Patient's c ondition on admission supports the medical necessity of admission to IR[facility]. It is safe to proceed with patient's therapy program. SIGNATURE PANEL: (CLAIM CLERK)
[2021-05-19] MEDS ORDERED: DOCUSATE NA 100 MG CAP PO PRN (16:28)
[2021-05-19] MEDS: JUVEN PACKET PO SCH (20:59)
[2021-05-19] MEDS: ATORVASTATIN 80 MG TAB PO SCH (20:59)
[2021-05-19] MEDS: LACTOBACILLUS/ACIDOPHILUS TAB PO SCH (20:59)
[2021-05-19] MEDS: MONTELUKAST 10 MG TAB PO SCH (20:59)
[2021-05-19] MEDS: DOCUSATE NA/SENNA CONC 1 TAB PO SCH ×2 (21:00)
[2021-05-19] MEDS: LUTEIN 10 MG PO SCH (21:00)
[2021-05-19] MEDS: FERROUS SULFATE 325 MG TAB PO SCH (21:00)
[2021-05-19] MEDS ORDERED: VITAMIN E 400 IU CAP PO SCH (21:00)
[2021-05-20] MEDS: SOTALOL HCL 80 MG TAB PO SCH ×2 (05:06→17:08)
[2021-05-20] MEDS: SUCRALFATE 1 GM TABLET PO SCH ×5 (07:13→20:28)
[2021-05-20] MEDS: INSULIN -REGULAR HUMAN 50 UNIT/0.5 ML ML SQ SCH ×4 (07:18→20:18)
[2021-05-20] MEDS: JUVEN PACKET PO SCH ×2 (07:23→19:49)
[2021-05-20] MEDS: PANTOPRAZOLE 40MG TABLET PO SCH ×3 (07:57→20:16)
[2021-05-20] MEDS: APIXABAN 5 MG TABLET PO SCH ×2 (07:57→20:17)
[2021-05-20] MEDS: MAGNESIUM OXIDE 400 MG TAB PO SCH (07:57)
[2021-05-20] MEDS: AMOX/K CLAV 500 MG TAB PO SCH ×2 (07:57→20:17)
[2021-05-20] MEDS: FE SULF/FA/VIT B COMP & C TAB PO SCH (07:58)
--- NOTE | 2021-05-20 10:03 | P.RH.PN ---
Estimated Length of Stay: 15 Expected Discharge Date: 06/02/21 Discharge Disposition Plan: Home Family Support: Yes Fpc Goal: Mobility, Transfers, Self Care Vital Signs: Last Vital Signs Temp 97.1 F 05/20/21 07:32 Pulse 119 H 05/20/21 07:32 Resp 18 05/20/21 07:32 BP 93/46 L 05/20/21 07:32 Pulse Ox 90 L 05/20/21 07:32 Laboratory: Laboratory Last Values WBC 7.80 K/uL (4.3-10.9) 05/19/21 04:44 RBC 3.53 M/uL (3.86-4.86) L 05/19/21 04:44 Hgb 9.9 g/dL (12.0-15.0) L 05/19/21 04:44 Hct 30.7 % (36.0-45.0) L 05/19/21 04:44 MCV 87.0 fL (80-100) D 05/19/21 04:44 MCH 28.2 pg (27.0-35.0) 05/19/21 04:44 MCHC 32.4 g/dL (32.0-36.0) 05/19/21 04:44 RDW 17.7 % (12.1-15.2) H 05/19/21 04:44 Plt Count 180 K/uL (152-406) 05/19/21 04:44 MPV 8.4 fL (7.6-11.3) 05/19/21 04:44 Neutrophils % 73.9 % (41.7-73.7) H 05/19/21 04:44 Lymphocytes % 11.1 % (15.3-44.8) L 05/19/21 04:44 Monocytes % 13.0 % (3.3-12.3) H 05/19/21 04:44 Eosinophils % 1.5 % (0-4.4) 05/19/21 04:44 Basophils % 0.5 % (0-1.3) 05/19/21 04:44 Absolute Neutrophils 5.7 K/uL (1.8-8.0) 05/19/21 04:44 Absolute Lymphocytes 0.9 K/uL (0.7-4.9) 05/19/21 04:44 Absolute Monocytes 1.0 K/uL (0.1-1.3) 05/19/21 04:44 Absolute Eosinophils 0.1 K/uL (0-0.5) 05/19/21 04:44 Absolute Basophils 0.0 K/uL (0-0.5) 05/19/21 04:44 Sodium 137 mmol/L (136-145) 05/19/21 04:44 Potassium 3.6 mmol/L (3.5-5.1) 05/19/21 04:44 Chloride 94 mmol/L (98-107) L 05/19/21 04:44 Carbon Dioxide 38 mmol/L (21-32) H 05/19/21 04:44 BUN 22 mg/dL (7-18) H 05/19/21 04:44 Creatinine 1.06 mg/dL (0.55-1.3) 05/19/21 04:44 Estimated GFR 49 mL/min (=/>90) L 05/19/21 04:44 Glucose 125 mg/dL (74-106) H 05/19/21 04:44 POC Glucose 150 mg/dL (65-120) H 05/20/21 07:12 Calcium 8.2 mg/dL (8.5-10.1) L 05/19/21 04:44 Magnesium 2.0 mg/dL (1.8-2.4) 05/19/21 04:44 Albumin 1.9 g/dL (3.4-5.0) L 05/19/21 04:44 Prealbumin 5.6 mg/dL (20-40) L 05/19/21 04:44 SARS-CoV-2 Rap RNA(RT-PCR) Negative (NEGATIVE) 05/18/21 20:37 Weight: 169 lb 4.8 oz Wound Present: Yes Closed Surgical Incision Present: No Negative Pressure Wound Therapy Present: No Physician Update: She is not participating with therapy. She is refusing to get out of bed after 30 minutes of trying by the occupational therapist. She is telling therapist she does not want to be touched. She may have to be discharged to a SNF due to lack of participation. Summary: Patient's care plan and mcc goals have been reviewed and revised as necessary. Please see the Rehabilitation Signature page for all necessary signatures.
[2021-05-20] MEDS ORDERED: FLEET ENEMA ADULT PR PRN (12:30)
[2021-05-20] MEDS ORDERED: BISACODYL 10 MG RECTAL SUPP PR PRN (12:30)
[2021-05-20] MEDS: DOCUSATE NA/SENNA CONC 1 TAB PO SCH ×2 (20:16→20:29)
[2021-05-20] MEDS: MONTELUKAST 10 MG TAB PO SCH ×2 (20:16→20:30)
[2021-05-20] MEDS: ATORVASTATIN 80 MG TAB PO SCH (20:17)
[2021-05-20] MEDS: LACTOBACILLUS/ACIDOPHILUS TAB PO SCH ×2 (20:17→20:29)
[2021-05-20] MEDS: FERROUS SULFATE 325 MG TAB PO SCH ×2 (20:17→20:28)
[2021-05-20] MEDS: VITAMIN E 200 UNIT CAPSULE PO SCH (20:18)
[2021-05-20] MEDS: LUTEIN 10 MG PO SCH (20:18)
[2021-05-21] MEDS: SOTALOL HCL 80 MG TAB PO SCH ×2 (05:04→16:52)
[2021-05-21] MEDS: SUCRALFATE 1 GM TABLET PO SCH ×4 (06:50→19:11)
[2021-05-21] MEDS: INSULIN -REGULAR HUMAN 50 UNIT/0.5 ML ML SQ SCH ×4 (07:00→19:45)
[2021-05-21] MEDS: JUVEN PACKET PO SCH ×2 (08:00→19:22)
[2021-05-21] MEDS: MAGNESIUM OXIDE 400 MG TAB PO SCH (08:23)
[2021-05-21] MEDS: APIXABAN 5 MG TABLET PO SCH ×2 (08:24→19:10)
[2021-05-21] MEDS: FE SULF/FA/VIT B COMP & C TAB PO SCH (08:24)
[2021-05-21] MEDS: AMOX/K CLAV 500 MG TAB PO SCH ×2 (08:24→19:10)
[2021-05-21] MEDS: PANTOPRAZOLE 40MG TABLET PO SCH ×2 (08:24→19:10)
[2021-05-21] MEDS: FERROUS SULFATE 325 MG TAB PO SCH (19:10)
[2021-05-21] MEDS: LACTOBACILLUS/ACIDOPHILUS TAB PO SCH (19:10)
[2021-05-21] MEDS: LUTEIN 10 MG PO SCH (19:11)
[2021-05-21] MEDS: ATORVASTATIN 80 MG TAB PO SCH (19:11)
[2021-05-21] MEDS: MONTELUKAST 10 MG TAB PO SCH (19:11)
[2021-05-21] MEDS: DOCUSATE NA/SENNA CONC 1 TAB PO SCH (19:11)
[2021-05-21] MEDS: VITAMIN E 200 UNIT CAPSULE PO SCH (19:11)
[2021-05-22] MEDS: SOTALOL HCL 80 MG TAB PO SCH ×2 (05:02→17:01)
[2021-05-22] MEDS: SUCRALFATE 1 GM TABLET PO SCH ×4 (07:16→21:00)
[2021-05-22] MEDS: INSULIN -REGULAR HUMAN 50 UNIT/0.5 ML ML SQ SCH ×4 (07:30→19:50)
[2021-05-22] MEDS: JUVEN PACKET PO SCH ×2 (08:00→19:49)
[2021-05-22] MEDS: APIXABAN 5 MG TABLET PO SCH ×2 (08:01→20:00)
[2021-05-22] MEDS: PANTOPRAZOLE 40MG TABLET PO SCH ×2 (08:01→20:00)
[2021-05-22] MEDS: AMOX/K CLAV 500 MG TAB PO SCH ×2 (08:01→20:00)
[2021-05-22] MEDS: FE SULF/FA/VIT B COMP & C TAB PO SCH (08:01)
[2021-05-22] MEDS: MAGNESIUM OXIDE 400 MG TAB PO SCH (08:01)
[2021-05-22] MEDS: VITAMIN E 200 UNIT CAPSULE PO SCH (19:49)
[2021-05-22] MEDS: LUTEIN 10 MG PO SCH (19:50)
[2021-05-22] MEDS: FERROUS SULFATE 325 MG TAB PO SCH (21:00)
[2021-05-22] MEDS: DOCUSATE NA/SENNA CONC 1 TAB PO SCH (21:00)
[2021-05-22] MEDS: MONTELUKAST 10 MG TAB PO SCH (21:00)
[2021-05-22] MEDS: LACTOBACILLUS/ACIDOPHILUS TAB PO SCH (21:00)
[2021-05-22] MEDS: ATORVASTATIN 80 MG TAB PO SCH (21:00)
[2021-05-23] MEDS: SOTALOL HCL 80 MG TAB PO SCH ×2 (05:01→17:19)
[2021-05-23] MEDS: AMOX/K CLAV 500 MG TAB PO SCH ×2 (07:21→19:31)
[2021-05-23] MEDS: PANTOPRAZOLE 40MG TABLET PO SCH ×2 (07:21→19:30)
[2021-05-23] MEDS: SUCRALFATE 1 GM TABLET PO SCH ×4 (07:21→19:31)
[2021-05-23] MEDS: APIXABAN 5 MG TABLET PO SCH ×2 (07:21→19:31)
[2021-05-23] MEDS: FE SULF/FA/VIT B COMP & C TAB PO SCH (07:21)
[2021-05-23] MEDS: JUVEN PACKET PO SCH ×2 (07:21→19:32)
[2021-05-23] MEDS: MAGNESIUM OXIDE 400 MG TAB PO SCH (07:21)
[2021-05-23] MEDS: INSULIN -REGULAR HUMAN 50 UNIT/0.5 ML ML SQ SCH ×4 (07:30→19:30)
--- NOTE | 2021-05-23 18:05 | R.PN ---
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 SUBJECTIVE: Pt denied any depression. Pt denied any Shortness of Breath. Hgb 9.9, wbc 7.8, glucose 146 to 282, prealbumin very low at 5.6, [place]ollyman 1.06. Ambulated 250' with standby assistance using a rolling walker and 2.5 L of O2. VITAL SIGNS Temperature: 97.9 F SBP/DBP: 116/67 Pulse: 93 Resp: 16 MEDICATION ALLERGIES: CODEINE Sulfamethoxazole w/ trimethoprim ENVIRONMENTAL ALLERGIES: None Known - Substance Allergies None Known - Other Allergies Adhesives Latex NURSING: - Shower allowing shower PRECAUTIONS: - Safety Fall risk assist with xfers/STS ACTIVITIES OOB only with supervision THERAPIES: - Dietary and Nutrition Adequate Nutrition. Nutritional Education. Nutritional Supplements. - Occupational Therapy Cognitive Retraining. Visual Perceptual Training. Evaluate and Treat. Safety Awareness. UE Strengthen ing. Adaptive Equipment. ADL Training. Community Reintegration. Household Tasks. Transfer Training. P atient/Family Education. UE ROM. - Speech Therapy Cognitive Training. Expressive Language Skills. Memory Strategies. Receptive Language Skills. Speech Intelligibility Training. - Physical Therapy Balance Training. Gait Training. Evaluate and Treat. LE Strengthening. Mobility Training. Transfer Tr aining. Patient/Family Education. LE ROM. Safety Awareness. Medical Equipment Assessment and Evaluati on. PHYSICAL EXAM - Gen Alert and awake Lying in bed No apparent distress Oriented to: person, time, and place - Skin Stage 2 sacral ulcer No abnormalities - Eyes No abnormalities - ENMT No abnormalities - Neck No abnormalities - CVS RRR - Chest Mildly decreased breath sounds bilaterally. - Resp No wheezing - Abd Soft - GI Non distended Deferred - No abnormalities - Ext Mild bilateral lower extremity edema. - MSK 4+/5 weakness in both lower extremities. - Neuro No focal deficits - Psych No abnormalities ASSESSMENT: Pt. is a 85 yo Right-handed WF.On 04/28/2021 she was admitted to [facility] with diagnosis CH F exacerbation.Her impairment category is Cardiac 09 - Cardiac Disorders ().Pre-morbidly, Pt. was independent/mod-I in Locomotion, Social Cognition, Safety Awareness, Balance, Transfers Control, Sphi ncter Control, Self-Care, Communication, and Endurance; and she had good Locomotion, Safety Awareness , Social Cognition, Balance, Transfers Control, Sphincter Control, Self-Care, Communication, and Endu stevie.Currently, she has deficits of Locomotion, Safety Awareness, Balance, Transfers Control, Self-C are, Endurance, and Communication.Pt. is now referred to [facility] for acute in-patient rehabilitation in order to maximize patient's functional independence in activities of lynette ly living, strength, ROM, and mobility.- Rehab Goal Patient has realistic goal of being discharged at assistance level mod assist to independent to resid e at Home with Family/Relatives. MDM/PLAN: - Physical Therapy Gait dysfunction - to improve, our physical therapists will perform initial evaluation of pt's statu s upon admission and devise an individualized program for Gait Training, and Wheel Chair mobility Inability to transfer - to improve, our physical therapists will perform initial evaluation of pt's status upon admission and devise an individualized program for Bed mobility Need for home safety evaluation - to improve, our physical therapists will perform initial evaluatio n of pt's status upon admission and devise an individualized program for Home Evaluation Need in caregiver upon discharge - to improve, our physical therapists will perform initial evaluati on of pt's status upon admission and devise an individualized program for Caregiver Training New precaution - to improve, our physical therapists will perform initial evaluation of pt's status upon admission and devise an individualized program for Patient precaution education Edema - to improve, our physical therapists will perform initial evaluation of pt's status upon admis bhavin and devise an individualized program for Elevation Training, and Lymphedema Therapy Poor balance - to improve, our physical therapists will perform initial evaluation of pt's status up on admission and devise an individualized program for Balance Training Poor endurance - to improve, our physical therapists will perform initial evaluation of pt's status upon admission and devise an individualized program for Endurance Training Weakness - to improve, our physical therapists will perform initial evaluation of pt's status upon a dmission and devise an individualized program for Aquatic Therapy, Neuromuscular Reeducation, and Str engthening Achieving independence - to improve, our physical therapists will perform initial evaluation of pt's status upon admission and devise an individualized program for Community Reintegration Activities - Occupational Therapy ADL deficits - to improve, our occupation therapists will perform initial evaluation of pt's status upon admission and devise an individualized program for Bathing, Bed mobility, Community Reintegratio n, Cooking, Dressing, Eating, Fine Motor Skills, Grooming, Homemaking, Kitchen Mobility, Laundry, Pat ient Education, Safety Awareness, Splinting - Positioning, Transfers(Toilet, Tub, Shower), and Wheel Chair Management Need for career technology teacher - to improve, our occupation therapists will perform initial evaluation of pt's status upon admission and devise an individualized program for Caregiver Training Weakness - to improve, our occupation therapists will perform initial evaluation of pt's status upon admission and devise an individualized program for Aquatic Therapy, Balance, Endurance, UE ROM, and UE strengthening - Other See attached MAR (Medication Administration Record) - Diet Type Continue Diet not specified in chart - Diet - Liquid Texture Continue Regular - Tube Feed Continue N/A - Diet - Solid Texture Continue Regular - Shower allowing shower - Safety Fall risk assist with xfers/STS FUNCTIONAL STATUS: UPDATED AT WEEKLY TEAM CONFERENCE - Bladder Same accident frequency: 7-Ind - No accidents in the past 7 days - Bowel Same accident frequency: 7-Ind - No accidents in the past 7 days - Walking Same score based on distance walked: 0(N/A) - Wheelchair Same score based on distance traveled: 0(N/A) FUNCTIONAL STATUS: - Self-Care A. Eating Ind B. Grooming Ind C. Bathing sup D. Dressing - Upper sup E. Dressing - Lower Silvana F. Toileting Silavna - Sphincter Control G. Bladder control Silvana H. Bowel control sup - Transfers Control I. Bed/Chair/Wheelchair sup J. Toilet sup K. Tub/Shower Silvana - Locomotion L. Walk/Wheelchair (W) sup M. Stairs Silvana - Communication N. Comprehension (B) Adithya O. Expression (B) Adithya - Social Cognition P. Social Interaction Adithya Q. Problem Solving Adithya R. Memory Ind - Endurance Good - Balance Good - Safety Awareness Good QI SCORES: - Self-Care A. Eating 05-Setup or clean-up assistance B. Oral hygiene 04-Supervision or touching assistance C. Toileting hygiene 03-Partial/moderate assistance E. Shower/bathe self 02-Substantial/maximal assistance F. Upper body dressing 03-Partial/moderate assistance G. Lower body dressing 03-Partial/moderate assistance H. Putting on/taking off footwear 02-Substantial/maximal assistance - Mobility A. Roll left and right 03-Partial/moderate assistance B. Sit to lying 03-Partial/moderate assistance C. Lying to sitting on side of bed 02-Substantial/maximal assistance D. Sit to stand 02-Substantial/maximal assistance E. Chair/[id number]-[id number] transfer 88-Not attempted due to medical condition or safety concerns F. Toilet transfer 88-Not attempted due to medical condition or safety concerns G. Car transfer 88-Not attempted due to medical condition or safety concerns I. Walk 10 feet 88-Not attempted due to medical condition or safety concerns J. Walk 50 feet with two turns 88-Not attempted due to medical condition or safety concerns K. Walk 150 feet 88-Not attempted due to medical condition or safety concerns L. Walking 10 feet on uneven surfaces 88-Not attempted due to medical condition or safety concerns M. 1 step (curb) 88-Not attempted due to medical condition or safety concerns N. 4 steps 88-Not attempted due to medical condition or safety concerns O. 12 steps 88-Not attempted due to medical condition or safety concerns P. Picking up object 88-Not attempted due to medical condition or safety concerns R. Wheel 50 feet with two turns S. Wheel 150 feet - Bladder and Bowel Bladder continence Bowel continence - Endurance Fair - Balance Fair - Safety Awareness Fair [facility]IC[facility]: Self-Care, Mobility, Endurance, Balance, and Safety Awareness SIGNATURE PANEL: (BOW MAKER CUSTOM)
[2021-05-23] MEDS: DOCUSATE NA/SENNA CONC 1 TAB PO SCH (19:29)
[2021-05-23] MEDS: ATORVASTATIN 80 MG TAB PO SCH (19:31)
[2021-05-23] MEDS: LACTOBACILLUS/ACIDOPHILUS TAB PO SCH (19:31)
[2021-05-23] MEDS: MONTELUKAST 10 MG TAB PO SCH (19:31)
[2021-05-23] MEDS: FERROUS SULFATE 325 MG TAB PO SCH (19:31)
[2021-05-23] MEDS: VITAMIN E 200 UNIT CAPSULE PO SCH (19:32)
[2021-05-23] MEDS: GLUCERNA SHAKE 237 ML CAN PO SCH (19:32)
[2021-05-23] MEDS: LUTEIN 10 MG PO SCH (19:33)
[2021-05-24] MEDS: SOTALOL HCL 80 MG TAB PO SCH ×2 (05:18→17:17)
[2021-05-24] MEDS: SUCRALFATE 1 GM TABLET PO SCH ×5 (07:00→21:00)
[2021-05-24] MEDS: INSULIN -REGULAR HUMAN 50 UNIT/0.5 ML ML SQ SCH ×4 (07:30→20:45)
[2021-05-24] MEDS: JUVEN PACKET PO SCH ×2 (08:00→20:00)
[2021-05-24] MEDS: GLUCERNA SHAKE 237 ML CAN PO SCH ×2 (08:00→20:00)
[2021-05-24] MEDS: AMOX/K CLAV 500 MG TAB PO SCH ×2 (08:25→20:37)
[2021-05-24] MEDS: MAGNESIUM OXIDE 400 MG TAB PO SCH (08:25)
[2021-05-24] MEDS: PANTOPRAZOLE 40MG TABLET PO SCH ×3 (08:25→20:39)
[2021-05-24] MEDS: APIXABAN 5 MG TABLET PO SCH ×2 (08:25→20:38)
[2021-05-24] MEDS: FE SULF/FA/VIT B COMP & C TAB PO SCH (08:26)
[2021-05-24] MEDS: DULOXETINE 20 MG CAP PO SCH (14:02)
[2021-05-24] MEDS: MEGESTROL 40 MG TAB PO SCH ×2 (14:02→20:38)
--- NOTE | 2021-05-24 17:29 | R.PN ---
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 SUBJECTIVE: Pt denied any depression. Pt denied any Shortness of Breath. Hgb 9.9, wbc 7.8, glucose 167 to 225, prealbumin very low at 5.6, Pan Operator 1.06. Ambulated 250' with standby assistance using a rolling walker and 2.5 L of O2. VITAL SIGNS Temperature: 97.6 F SBP/DBP: 112/66 Pulse: 86 Resp: 16 MEDICATION ALLERGIES: CODEINE Sulfamethoxazole w/ trimethoprim ENVIRONMENTAL ALLERGIES: None Known - Substance Allergies None Known - Other Allergies Adhesives Latex NURSING: - Shower allowing shower PRECAUTIONS: - Safety Fall risk assist with xfers/STS ACTIVITIES OOB only with supervision THERAPIES: - Dietary and Nutrition Adequate Nutrition. Nutritional Education. Nutritional Supplements. - Occupational Therapy Cognitive Retraining. Visual Perceptual Training. Evaluate and Treat. Safety Awareness. UE Strengthen ing. Adaptive Equipment. ADL Training. Community Reintegration. Household Tasks. Transfer Training. P atient/Family Education. UE ROM. - Speech Therapy Cognitive Training. Expressive Language Skills. Memory Strategies. Receptive Language Skills. Speech Intelligibility Training. - Physical Therapy Balance Training. Gait Training. Evaluate and Treat. LE Strengthening. Mobility Training. Transfer Tr aining. Patient/Family Education. LE ROM. Safety Awareness. Medical Equipment Assessment and Evaluati on. PHYSICAL EXAM - Gen Alert and awake Lying in bed No apparent distress Oriented to: person, time, and place - Skin Stage 2 sacral ulcer No abnormalities - Eyes No abnormalities - ENMT No abnormalities - Neck No abnormalities - CVS RRR - Chest Mildly decreased breath sounds bilaterally. - Resp No wheezing - Abd Soft - GI Non distended Deferred - No abnormalities - Ext Mild bilateral lower extremity edema. - MSK 4+/5 weakness in both lower extremities. - Neuro No focal deficits - Psych No abnormalities ASSESSMENT: Pt. is a 85 yo Right-handed WF.On 04/28/2021 she was admitted to [facility] with diagnosis CH F exacerbation.Her impairment category is Cardiac 09 - Cardiac Disorders ().Pre-morbidly, Pt. was independent/mod-I in Locomotion, Social Cognition, Safety Awareness, Balance, Transfers Control, Sphi ncter Control, Self-Care, Communication, and Endurance; and she had good Locomotion, Safety Awareness , Social Cognition, Balance, Transfers Control, Sphincter Control, Self-Care, Communication, and Endu stevie.Currently, she has deficits of Locomotion, Safety Awareness, Balance, Transfers Control, Self-C are, Endurance, and Communication.Pt. is now referred to [facility] for acute in-patient rehabilitation in order to maximize patient's functional independence in activities of lynette ly living, strength, ROM, and mobility.- Rehab Goal Patient has realistic goal of being discharged at assistance level mod assist to independent to resid e at Home with Family/Relatives. MDM/PLAN: - Physical Therapy Gait dysfunction - to improve, our physical therapists will perform initial evaluation of pt's statu s upon admission and devise an individualized program for Gait Training, and Wheel Chair mobility Inability to transfer - to improve, our physical therapists will perform initial evaluation of pt's status upon admission and devise an individualized program for Bed mobility Need for home safety evaluation - to improve, our physical therapists will perform initial evaluatio n of pt's status upon admission and devise an individualized program for Home Evaluation Need in caregiver upon discharge - to improve, our physical therapists will perform initial evaluati on of pt's status upon admission and devise an individualized program for Caregiver Training New precaution - to improve, our physical therapists will perform initial evaluation of pt's status upon admission and devise an individualized program for Patient precaution education Edema - to improve, our physical therapists will perform initial evaluation of pt's status upon admi ssion and devise an individualized program for Elevation Training, and Lymphedema Therapy Poor balance - to improve, our physical therapists will perform initial evaluation of pt's status up on admission and devise an individualized program for Balance Training Poor endurance - to improve, our physical therapists will perform initial evaluation of pt's status upon admission and devise an individualized program for Endurance Training Weakness - to improve, our physical therapists will perform initial evaluation of pt's status upon a dmission and devise an individualized program for Aquatic Therapy, Neuromuscular Reeducation, and Str engthening Achieving independence - to improve, our physical therapists will perform initial evaluation of pt's status upon admission and devise an individualized program for Community Reintegration Activities - Occupational Therapy ADL deficits - to improve, our occupation therapists will perform initial evaluation of pt's status upon admission and devise an individualized program for Bathing, Bed mobility, Community Reintegratio n, Cooking, Dressing, Eating, Fine Motor Skills, Grooming, Homemaking, Kitchen Mobility, Laundry, Pat ient Education, Safety Awareness, Splinting - Positioning, Transfers(Toilet, Tub, Shower), and Wheel Chair Management Need for pet care assistant - to improve, our occupation therapists will perform initial evaluation of pt's status upon admission and devise an individualized program for Caregiver Training Weakness - to improve, our occupation therapists will perform initial evaluation of pt's status upon admission and devise an individualized program for Aquatic Therapy, Balance, Endurance, UE ROM, and UE strengthening - Other See attached MAR (Medication Administration Record) - Diet Type Continue Diet not specified in chart - Diet - Liquid Texture Continue Regular - Tube Feed Continue N/A - Diet - Solid Texture Continue Regular - Shower allowing shower - Safety Fall risk assist with xfers/STS FUNCTIONAL STATUS: UPDATED AT WEEKLY TEAM CONFERENCE - Bladder Same accident frequency: 7-Ind - No accidents in the past 7 days - Bowel Same accident frequency: 7-Ind - No accidents in the past 7 days - Walking Same score based on distance walked: 0(N/A) - Wheelchair Same score based on distance traveled: 0(N/A) FUNCTIONAL STATUS: - Self-Care A. Eating Ind B. Grooming Ind C. Bathing sup D. Dressing - Upper sup E. Dressing - Lower Silvana F. Toileting Silvana - Sphincter Control G. Bladder control Silvana H. Bowel control sup - Transfers Control I. Bed/Chair/Wheelchair sup J. Toilet sup K. Tub/Shower Silvana - Locomotion L. Walk/Wheelchair (W) sup M. Stairs Silvana - Communication N. Comprehension (B) Adithya O. Expression (B) Adithya - Social Cognition P. Social Interaction Adithya Q. Problem Solving Adithya R. Memory Ind - Endurance Good - Balance Good - Safety Awareness Good QI SCORES: - Self-Care A. Eating 05-Setup or clean-up assistance B. Oral hygiene 04-Supervision or touching assistance C. Toileting hygiene 03-Partial/moderate assistance E. Shower/bathe self 02-Substantial/maximal assistance F. Upper body dressing 03-Partial/moderate assistance G. Lower body dressing 03-Partial/moderate assistance H. Putting on/taking off footwear 02-Substantial/maximal assistance - Mobility A. Roll left and right 03-Partial/moderate assistance B. Sit to lying 03-Partial/moderate assistance C. Lying to sitting on side of bed 02-Substantial/maximal assistance D. Sit to stand 02-Substantial/maximal assistance E. Chair/[id number] transfer 88-Not attempted due to medical condition or safety concerns F. Toilet transfer 88-Not attempted due to medical condition or safety concerns G. Car transfer 88-Not attempted due to medical condition or safety concerns I. Walk 10 feet 88-Not attempted due to medical condition or safety concerns J. Walk 50 feet with two turns 88-Not attempted due to medical condition or safety concerns K. Walk 150 feet 88-Not attempted due to medical condition or safety concerns L. Walking 10 feet on uneven surfaces 88-Not attempted due to medical condition or safety concerns M. 1 step (curb) 88-Not attempted due to medical condition or safety concerns N. 4 steps 88-Not attempted due to medical condition or safety concerns O. 12 steps 88-Not attempted due to medical condition or safety concerns P. Picking up object 88-Not attempted due to medical condition or safety concerns R. Wheel 50 feet with two turns S. Wheel 150 feet - Bladder and Bowel Bladder continence Bowel continence - Endurance Fair - Balance Fair - Safety Awareness Fair [facility] DEFICITS: Self-Care, Mobility, Endurance, Balance, and Safety Awareness SIGNATURE PANEL: (DIRECTOR TELEHEALTH)
[2021-05-24] MEDS: FERROUS SULFATE 325 MG TAB PO SCH ×2 (20:39→21:00)
[2021-05-24] MEDS: LACTOBACILLUS/ACIDOPHILUS TAB PO SCH ×2 (20:42→21:00)
[2021-05-24] MEDS: VITAMIN E 200 UNIT CAPSULE PO SCH (20:42)
[2021-05-24] MEDS: ATORVASTATIN 80 MG TAB PO SCH (20:42)
[2021-05-24] MEDS: DOCUSATE NA/SENNA CONC 1 TAB PO SCH ×2 (20:43→21:00)
[2021-05-24] MEDS: LUTEIN 10 MG PO SCH (20:43)
[2021-05-24] MEDS: MONTELUKAST 10 MG TAB PO SCH ×2 (20:47→21:00)
[2021-05-25] MEDS: SOTALOL HCL 80 MG TAB PO SCH ×2 (05:14→17:38)
[2021-05-25] MEDS: SUCRALFATE 1 GM TABLET PO SCH ×4 (06:51→19:54)
[2021-05-25] MEDS: INSULIN -REGULAR HUMAN 50 UNIT/0.5 ML ML SQ SCH ×4 (07:30→19:08)
[2021-05-25] MEDS: GLUCERNA SHAKE 237 ML CAN PO SCH ×2 (08:00→19:54)
[2021-05-25] MEDS: JUVEN PACKET PO SCH ×2 (08:00→19:09)
[2021-05-25] MEDS: APIXABAN 5 MG TABLET PO SCH ×2 (08:53→19:54)
[2021-05-25] MEDS: DULOXETINE 20 MG CAP PO SCH (08:53)
[2021-05-25] MEDS: MAGNESIUM OXIDE 400 MG TAB PO SCH (08:54)
[2021-05-25] MEDS: PANTOPRAZOLE 40MG TABLET PO SCH ×2 (08:54→19:54)
[2021-05-25] MEDS: AMOX/K CLAV 500 MG TAB PO SCH ×2 (09:01→19:54)
[2021-05-25] MEDS: MEGESTROL 40 MG TAB PO SCH ×2 (09:01→19:54)
[2021-05-25] MEDS: FE SULF/FA/VIT B COMP & C TAB PO SCH (12:42)
[2021-05-25 16:37] LABS: Absolute Lymphocytes (CBC) 0.5 K/uL (0.7-4.9); Basophils % 0.3 % (0-1.3); Hematocrit 33.4 % (36.0-45.0); Lymphocytes % 5.1 % (15.3-44.8); MPV 9.1 fL (7.6-11.3)
[2021-05-25 17:07] LABS: Albumin 2.1 g/dL (3.4-5.0); Prealbumin 4.6 mg/dL (20-40)
[2021-05-25 17:08] LABS: Potassium 4.4 mmol/L (3.5-5.1)
--- NOTE | 2021-05-25 18:30 | RAD REPORT ---
EXAM DESCRIPTION: RAD - Chest Single View - 05/25/2021 6:16 pm CLINICAL HISTORY: has history of pleural effussion COMPARISON: No comparisons FINDINGS: Lines: Waiting approach paste Lungs: Diffuse bilateral pulmonary opacities. Pleural: Moderate right and small to moderate left pleural effusion. Cardiac: Probable cardiomegaly though partially obscured Bones: No acute fractures. Other: IMPRESSION: Findings most consistent with pulmonary edema with moderate right and small to moderate left pleural effusion.
[2021-05-25] MEDS: LUTEIN 10 MG PO SCH (19:08)
[2021-05-25] MEDS: DOCUSATE NA/SENNA CONC 1 TAB PO SCH (19:53)
[2021-05-25] MEDS: VITAMIN E 200 UNIT CAPSULE PO SCH (19:55)
[2021-05-25] MEDS: FERROUS SULFATE 325 MG TAB PO SCH (19:55)
[2021-05-25] MEDS: LACTOBACILLUS/ACIDOPHILUS TAB PO SCH (19:55)
[2021-05-25] MEDS: MONTELUKAST 10 MG TAB PO SCH (19:55)
[2021-05-25] MEDS: ATORVASTATIN 80 MG TAB PO SCH (19:55)
[2021-05-25 21:26] LABS: Blood Morphology Comment NOT SEEN (NOT SEEN); Platelet Estimate ADEQ; White Blood Cell Scan OK (OK)
[2021-05-26] MEDS: SOTALOL HCL 80 MG TAB PO SCH ×2 (05:02→17:01)
[2021-05-26] MEDS: SUCRALFATE 1 GM TABLET PO SCH ×4 (06:42→19:56)
[2021-05-26] MEDS: INSULIN -REGULAR HUMAN 50 UNIT/0.5 ML ML SQ SCH ×4 (07:30→20:05)
[2021-05-26] MEDS: JUVEN PACKET PO SCH ×3 (08:00→19:55)
[2021-05-26] MEDS: GLUCERNA SHAKE 237 ML CAN PO SCH ×2 (08:00→19:55)
[2021-05-26] MEDS: MEGESTROL 40 MG TAB PO SCH ×2 (08:45→19:55)
[2021-05-26] MEDS: AMOX/K CLAV 500 MG TAB PO SCH (08:46)
[2021-05-26] MEDS: APIXABAN 5 MG TABLET PO SCH ×2 (08:46→19:55)
[2021-05-26] MEDS: PANTOPRAZOLE 40MG TABLET PO SCH ×2 (08:46→19:56)
[2021-05-26] MEDS: FE SULF/FA/VIT B COMP & C TAB PO SCH (08:47)
[2021-05-26] MEDS: DULOXETINE 20 MG CAP PO SCH ×2 (08:47→19:56)
[2021-05-26] MEDS: MAGNESIUM OXIDE 400 MG TAB PO SCH (08:49)
[2021-05-26] MEDS ORDERED: FUROSEMIDE 20 MG TABLET PO ONE (13:00)
--- NOTE | 2021-05-26 18:24 | R.PN ---
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 SUBJECTIVE: Pt denied any depression. Pt denied any Shortness of Breath. Hgb 10.6, wbc 9.5, glucose 176 to 268, prealbumin very low at 4.6, Public Speaking Instructor 1.08. Ambulated 250' with contact guard assistance using a rolling walker and 2.0 L of O2. VITAL SIGNS Temperature: 98.9 F SBP/DBP: 123/78 Pulse: 110 Resp: 16 MEDICATION ALLERGIES: CODEINE Sulfamethoxazole w/ trimethoprim ENVIRONMENTAL ALLERGIES: None Known - Substance Allergies None Known - Other Allergies Adhesives Latex NURSING: - Shower allowing shower PRECAUTIONS: - Safety Fall risk assist with xfers/STS ACTIVITIES OOB only with supervision THERAPIES: - Dietary and Nutrition Adequate Nutrition. Nutritional Education. Nutritional Supplements. - Occupational Therapy Cognitive Retraining. Visual Perceptual Training. Evaluate and Treat. Safety Awareness. UE Strengthen ing. Adaptive Equipment. ADL Training. Community Reintegration. Household Tasks. Transfer Training. P atient/Family Education. UE ROM. - Speech Therapy Cognitive Training. Expressive Language Skills. Memory Strategies. Receptive Language Skills. Speech Intelligibility Training. - Physical Therapy Balance Training. Gait Training. Evaluate and Treat. LE Strengthening. Mobility Training. Transfer Tr aining. Patient/Family Education. LE ROM. Safety Awareness. Medical Equipment Assessment and Evaluati on. PHYSICAL EXAM - Gen Alert and awake Lying in bed No apparent distress Oriented to: person, time, and place - Skin Stage 2 sacral ulcer No abnormalities - Eyes No abnormalities - ENMT No abnormalities - Neck No abnormalities - CVS RRR - Chest Mildly decreased breath sounds bilaterally. - Resp No wheezing - Abd Soft - GI Non distended Deferred - No abnormalities - Ext Mild bilateral lower extremity edema. - MSK 4+/5 weakness in both lower extremities. - Neuro No focal deficits - Psych No abnormalities ASSESSMENT: Pt. is a 85 yo Right-handed WF.On 04/28/2021 she was admitted to [facility] with diagnosis CH F exacerbation.Her impairment category is Cardiac 09 - Cardiac Disorders ().Pre-morbidly, Pt. was independent/mod-I in Locomotion, Social Cognition, Safety Awareness, Balance, Transfers Control, Sphi ncter Control, Self-Care, Communication, and Endurance; and she had good Locomotion, Safety Awareness , Social Cognition, Balance, Transfers Control, Sphincter Control, Self-Care, Communication, and Endu stevie.Currently, she has deficits of Locomotion, Safety Awareness, Balance, Transfers Control, Self-C are, Endurance, and Communication.Pt. is now referred to [facility] for acute in-patient rehabilitation in order to maximize patient's functional independence in activities of lynette ly living, strength, ROM, and mobility.- Rehab Goal Patient has realistic goal of being discharged at assistance level mod assist to independent to resid e at Home with Family/Relatives. MDM/PLAN: - Physical Therapy Gait dysfunction - to improve, our physical therapists will perform initial evaluation of pt's statu s upon admission and devise an individualized program for Gait Training, and Wheel Chair mobility Inability to transfer - to improve, our physical therapists will perform initial evaluation of pt's status upon admission and devise an individualized program for Bed mobility Need for home safety evaluation - to improve, our physical therapists will perform initial evaluatio n of pt's status upon admission and devise an individualized program for Home Evaluation Need in caregiver upon discharge - to improve, our physical therapists will perform initial evaluati on of pt's status upon admission and devise an individualized program for Caregiver Training New precaution - to improve, our physical therapists will perform initial evaluation of pt's status upon admission and devise an individualized program for Patient precaution education Edema - to improve, our physical therapists will perform initial evaluation of pt's status upon admi ssion and devise an individualized program for Elevation Training, and Lymphedema Therapy Poor balance - to improve, our physical therapists will perform initial evaluation of pt's status up on admission and devise an individualized program for Balance Training Poor endurance - to improve, our physical therapists will perform initial evaluation of pt's status upon admission and devise an individualized program for Endurance Training Weakness - to improve, our physical therapists will perform initial evaluation of pt's status upon a dmission and devise an individualized program for Aquatic Therapy, Neuromuscular Reeducation, and Str engthening Achieving independence - to improve, our physical therapists will perform initial evaluation of pt's status upon admission and devise an individualized program for Community Reintegration Activities - Occupational Therapy ADL deficits - to improve, our occupation therapists will perform initial evaluation of pt's status upon admission and devise an individualized program for Bathing, Bed mobility, Community Reintegratio n, Cooking, Dressing, Eating, Fine Motor Skills, Grooming, Homemaking, Kitchen Mobility, Laundry, Pat ient Education, Safety Awareness, Splinting - Positioning, Transfers(Toilet, Tub, Shower), and Wheel Chair Management Need for child day care provider - to improve, our occupation therapists will perform initial evaluation of pt's status upon admission and devise an individualized program for Caregiver Training Weakness - to improve, our occupation therapists will perform initial evaluation of pt's status upon admission and devise an individualized program for Aquatic Therapy, Balance, Endurance, UE ROM, and UE strengthening - Other See attached MAR (Medication Administration Record) - Diet Type Continue Diet not specified in chart - Diet - Liquid Texture Continue Regular - Tube Feed Continue N/A - Diet - Solid Texture Continue Regular - Shower allowing shower - Safety Fall risk assist with xfers/STS FUNCTIONAL STATUS: UPDATED AT WEEKLY TEAM CONFERENCE - Bladder Same accident frequency: 7-Ind - No accidents in the past 7 days - Bowel Same accident frequency: 7-Ind - No accidents in the past 7 days - Walking Same score based on distance walked: 0(N/A) - Wheelchair Same score based on distance traveled: 0(N/A) FUNCTIONAL STATUS: - Self-Care A. Eating Ind B. Grooming Ind C. Bathing sup D. Dressing - Upper sup E. Dressing - Lower Silvana F. Toileting Silvana - Sphincter Control G. Bladder control Silvana H. Bowel control sup - Transfers Control I. Bed/Chair/Wheelchair sup J. Toilet sup K. Tub/Shower Silvana - Locomotion L. Walk/Wheelchair (W) sup M. Stairs Silvana - Communication N. Comprehension (B) Adithya O. Expression (B) Adithya - Social Cognition P. Social Interaction Adithya Q. Problem Solving Adithya R. Memory Ind - Endurance Good - Balance Good - Safety Awareness Good QI SCORES: - Self-Care A. Eating 05-Setup or clean-up assistance B. Oral hygiene 04-Supervision or touching assistance C. Toileting hygiene 03-Partial/moderate assistance E. Shower/bathe self 02-Substantial/maximal assistance F. Upper body dressing 03-Partial/moderate assistance G. Lower body dressing 03-Partial/moderate assistance H. Putting on/taking off footwear 02-Substantial/maximal assistance - Mobility A. Roll left and right 03-Partial/moderate assistance B. Sit to lying 03-Partial/moderate assistance C. Lying to sitting on side of bed 02-Substantial/maximal assistance D. Sit to stand 02-Substantial/maximal assistance E. Chair/[id number] transfer 88-Not attempted due to medical condition or safety concerns F. Toilet transfer 88-Not attempted due to medical condition or safety concerns G. Car transfer 88-Not attempted due to medical condition or safety concerns I. Walk 10 feet 88-Not attempted due to medical condition or safety concerns J. Walk 50 feet with two turns 88-Not attempted due to medical condition or safety concerns K. Walk 150 feet 88-Not attempted due to medical condition or safety concerns L. Walking 10 feet on uneven surfaces 88-Not attempted due to medical condition or safety concerns M. 1 step (curb) 88-Not attempted due to medical condition or safety concerns N. 4 steps 88-Not attempted due to medical condition or safety concerns O. 12 steps 88-Not attempted due to medical condition or safety concerns P. Picking up object 88-Not attempted due to medical condition or safety concerns R. Wheel 50 feet with two turns S. Wheel 150 feet - Bladder and Bowel Bladder continence Bowel continence - Endurance Fair - Balance Fair - Safety Awareness Fair [facility] 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
[2021-05-26] MEDS: NYSTATIN PWDR 100000 UNIT/GM TOP SCH (19:54)
[2021-05-26] MEDS: LACTOBACILLUS/ACIDOPHILUS TAB PO SCH (19:55)
[2021-05-26] MEDS: DOCUSATE NA/SENNA CONC 1 TAB PO SCH (19:56)
[2021-05-26] MEDS: MONTELUKAST 10 MG TAB PO SCH (19:56)
[2021-05-26] MEDS: ATORVASTATIN 80 MG TAB PO SCH (19:56)
[2021-05-26] MEDS: FERROUS SULFATE 325 MG TAB PO SCH (19:57)
[2021-05-26] MEDS: LUTEIN 10 MG PO SCH (19:57)
[2021-05-26] MEDS: VITAMIN E 200 UNIT CAPSULE PO SCH (19:57)
[2021-05-27] MEDS: SOTALOL HCL 80 MG TAB PO SCH ×2 (05:07→17:17)
[2021-05-27] MEDS: INSULIN -REGULAR HUMAN 50 UNIT/0.5 ML ML SQ SCH ×4 (07:30→20:47)
--- NOTE | 2021-05-27 07:52 | RAD REPORT ---
EXAM DESCRIPTION: RAD - Chest Single View - 05/27/2021 6:42 am CLINICAL HISTORY: compare w/ previous xray, pleural effusions, shortness of breath COMPARISON: May 25 TECHNIQUE: AP portable chest image was obtained 05/27/2021 6:42 am . FINDINGS: Right greater than left pleural effusions are present similar or fractionally improved. Di fferential is minimal. Interstitial lung and patchy alveolar opacities are fractionally improved. Car diac silhouette is stable. Pacemaker remains in place. No pneumothorax. IMPRESSION: Moderate right-side and small left-sided pleural effusion not substantially different. T here may be some minimal improvement. Lung markings and central vasculature are slightly improved.
[2021-05-27] MEDS: PANTOPRAZOLE 40MG TABLET PO SCH ×2 (08:18→20:45)
[2021-05-27] MEDS: MEGESTROL 40 MG TAB PO SCH ×2 (08:18→20:45)
[2021-05-27] MEDS: APIXABAN 5 MG TABLET PO SCH ×2 (08:18→20:45)
[2021-05-27] MEDS: FE SULF/FA/VIT B COMP & C TAB PO SCH (08:18)
[2021-05-27] MEDS: MAGNESIUM OXIDE 400 MG TAB PO SCH (08:18)
[2021-05-27] MEDS: SUCRALFATE 1 GM TABLET PO SCH ×5 (08:18→20:45)
[2021-05-27] MEDS: NYSTATIN PWDR 100000 UNIT/GM TOP SCH ×2 (08:19→20:00)
[2021-05-27] MEDS: JUVEN PACKET PO SCH ×2 (08:19→20:46)
[2021-05-27] MEDS: DULOXETINE 20 MG CAP PO SCH ×2 (08:19→20:46)
[2021-05-27] MEDS: GLUCERNA SHAKE 237 ML CAN PO SCH ×2 (08:20→20:46)
[2021-05-27] MEDS ORDERED: FUROSEMIDE 20 MG TABLET PO ONE (10:02)
--- NOTE | 2021-05-27 10:04 | P.RH.PN ---
Estimated Length of Stay: 15 Expected Discharge Date: 05/27/21 Discharge Disposition Plan: Jail Facility Family Support: Yes Frame Stripper And Crusher Goal: Mobility, Transfers, Self Care Vital Signs: Last Vital Signs Temp 97.0 F 05/27/21 07:41 Pulse 116 H 05/27/21 07:41 Resp 16 05/27/21 07:41 BP 113/70 05/27/21 07:41 Pulse Ox 98 05/27/21 07:41 Laboratory: Laboratory Last Values WBC 9.50 K/uL (4.3-10.9) D 05/25/21 15:55 RBC 3.80 M/uL (3.86-4.86) L 05/25/21 15:55 Hgb 10.6 g/dL (12.0-15.0) L 05/25/21 15:55 Hct 33.4 % (36.0-45.0) L 05/25/21 15:55 MCV 87.9 fL (80-100) 05/25/21 15:55 MCH 27.8 pg (27.0-35.0) 05/25/21 15:55 MCHC 31.6 g/dL (32.0-36.0) L 05/25/21 15:55 RDW 18.0 % (12.1-15.2) H 05/25/21 15:55 Plt Count 250 K/uL (152-406) D 05/25/21 15:55 MPV 9.1 fL (7.6-11.3) 05/25/21 15:55 Neutrophils % 87.2 % (41.7-73.7) H 05/25/21 15:55 Lymphocytes % 5.1 % (15.3-44.8) L 05/25/21 15:55 Monocytes % 7.3 % (3.3-12.3) 05/25/21 15:55 Eosinophils % 0.1 % (0-4.4) 05/25/21 15:55 Basophils % 0.3 % (0-1.3) 05/25/21 15:55 Absolute Neutrophils 8.3 K/uL (1.8-8.0) H 05/25/21 15:55 Absolute Lymphocytes 0.5 K/uL (0.7-4.9) L 05/25/21 15:55 Absolute Monocytes 0.7 K/uL (0.1-1.3) 05/25/21 15:55 Absolute Eosinophils 0.0 K/uL (0-0.5) 05/25/21 15:55 Absolute Basophils 0.0 K/uL (0-0.5) 05/25/21 15:55 Platelet Estimate Adeq 05/25/21 15:55 Morphology Comment Not seen (NOT SEEN) 05/25/21 15:55 Sodium 135 mmol/L (136-145) L 05/25/21 15:55 Potassium 4.4 mmol/L (3.5-5.1) 05/25/21 15:55 Chloride 94 mmol/L (98-107) L 05/25/21 15:55 Carbon Dioxide 38 mmol/L (21-32) H 05/25/21 15:55 BUN 23 mg/dL (7-18) H 05/25/21 15:55 Creatinine 1.08 mg/dL (0.55-1.3) 05/25/21 15:55 Estimated GFR 48 mL/min (=/>90) L 05/25/21 15:55 Glucose 194 mg/dL (74-106) H 05/25/21 15:55 POC Glucose 174 mg/dL (65-120) H 05/27/21 07:11 Calcium 8.9 mg/dL (8.5-10.1) 05/25/21 15:55 Magnesium 2.0 mg/dL (1.8-2.4) 05/19/21 04:44 Albumin 2.1 g/dL (3.4-5.0) L 05/25/21 15:55 Prealbumin 4.6 mg/dL (20-40) L 05/25/21 15:55 SARS-CoV-2 Rap RNA(RT-PCR) Negative (NEGATIVE) 05/25/21 05:00 Smear Scan Ok (OK) 05/25/21 15:55 Weight: 164 lb 4.8 oz Wound Present: Yes Closed Surgical Incision Present: No Negative Pressure Wound Therapy Present: No Physician Update: Chest x-ray show minimal improvement in pleural effusion. Will give 20 mg of Lasix x 1 today and repeat chest x-ray in the AM. May d/c in AM if chest x-ray shows good improvement. She does not want to get out of bed to participate in therapy. This is on going for at least admission. Otherwise, her labs are doing OK. Functional Improvement: Patient continues to be completely non-compliant w/ therapy, eating, etc. Therapist has been able to achieve patient meeting 2 short-term goals, however is severely limited w/ patient progress, due to non- compliance. Summary: Patient's care plan and usp goals have been reviewed and revised as necessary. Please see the Rehabilitation Signature page for all necessary signatures.
[2021-05-27] MEDS: ATORVASTATIN 80 MG TAB PO SCH (20:45)
[2021-05-27] MEDS: FERROUS SULFATE 325 MG TAB PO SCH (20:45)
[2021-05-27] MEDS: LACTOBACILLUS/ACIDOPHILUS TAB PO SCH (20:45)
[2021-05-27] MEDS: DOCUSATE NA/SENNA CONC 1 TAB PO SCH (20:46)
[2021-05-27] MEDS: MONTELUKAST 10 MG TAB PO SCH (20:46)
[2021-05-27] MEDS: LUTEIN 10 MG PO SCH (20:47)
[2021-05-27] MEDS: VITAMIN E 200 UNIT CAPSULE PO SCH (20:47)
[2021-05-28] MEDS: SOTALOL HCL 80 MG TAB PO SCH ×2 (05:07→17:46)
[2021-05-28 05:37] VITALS: BMI 23.2
[2021-05-28] MEDS: SUCRALFATE 1 GM TABLET PO SCH ×5 (06:59→20:48)
[2021-05-28] MEDS: INSULIN -REGULAR HUMAN 50 UNIT/0.5 ML ML SQ SCH ×4 (07:24→20:49)
[2021-05-28 07:56] LABS: Absolute Lymphocytes (CBC) 0.7 K/uL (0.7-4.9); Basophils % 0.2 % (0-1.3); Hematocrit 33.3 % (36.0-45.0); Lymphocytes % 5.1 % (15.3-44.8); MPV 8.6 fL (7.6-11.3); RBC Red Blood Cell Count 3.84 M/uL (3.86-4.86)
[2021-05-28] MEDS: FE SULF/FA/VIT B COMP & C TAB PO SCH ×2 (08:00→09:23)
[2021-05-28] MEDS: MAGNESIUM OXIDE 400 MG TAB PO SCH ×2 (08:00→09:23)
[2021-05-28] MEDS: NYSTATIN PWDR 100000 UNIT/GM TOP SCH ×2 (08:00→20:00)
[2021-05-28 08:07] LABS: Potassium 4.1 mmol/L (3.5-5.1)
[2021-05-28] MEDS: APIXABAN 5 MG TABLET PO SCH ×2 (08:41→19:26)
[2021-05-28] MEDS: DULOXETINE 20 MG CAP PO SCH ×2 (08:41→19:26)
[2021-05-28] MEDS: GLUCERNA SHAKE 237 ML CAN PO SCH ×2 (09:00→19:30)
[2021-05-28] MEDS: JUVEN PACKET PO SCH ×2 (09:00→19:31)
[2021-05-28] MEDS: MEGESTROL 40 MG TAB PO SCH ×2 (09:22→19:26)
[2021-05-28] MEDS: PANTOPRAZOLE 40MG TABLET PO SCH ×2 (09:24→19:31)
--- NOTE | 2021-05-28 09:30 | RAD REPORT ---
EXAM DESCRIPTION: RAD - Chest Single View - 05/28/2021 8:35 am CLINICAL HISTORY: Pleural effusion COMPARISON: <Comparisons> FINDINGS: Lines: Pacemaker. Lungs: Pulmonary edema within Pleural: Moderate to large right-sided pleural effusion which has increased in size. Moderate left ef fusion which is probably increased as well. Cardiac: Cardiomegaly. Bones: No acute fractures. Other: IMPRESSION: Mild increase in size of both a moderate to large right pleural effusion and moderate le ft effusion. This is likely secondary to congestive heart failure.
--- NOTE | 2021-05-28 13:54 | P.CNS ---
Date of Consult: 05/28/21 Reason for Consult: Hypoxia, CHF Requesting Physician: Caesar Tena Chief Complaint: shortness of breath, failure to thrive History of Present Illness: 85yo F, PMH: Atrial fibrillation/flutter, diabetes mellitus type 2, HTN, CHF, CAD, depression, CVA x3, failure to thrive, recent pneumonia Was consulted to evaluate patient for possible transfer/admission to inpatient medical service from inpatient rehab. Patient was recently admitted to inpatient rehab after a recent hospitalization for CHF exacerbation, failure to thrive, and pneumonia. Throughout her stay in inpatient rehab, patient has been refusing to participate with physical therapy, refusing to take medications, refusing to eat and drink. She states she has only been wanting to sleep and just wants to be left alone. She has been having slowly progressive shortness of breath. Chest x-ray reveals worsening bilateral effusions. Patient is awake and at a minimum she is oriented x2, however she at times refuses to answer questions, and only keeping her eyes closed. She has been given p.o. Lasix, blood work done today. When asked if she would want to be transferred to the hospital inpatient service to attempt some relief and treatment, she stated now, and asked me to let her sleep. Allergies codeine Allergy (Verified 05/19/21 01:20) anxiety latex Allergy (Verified 05/19/21 01:20) Rash sulfamethoxazole [From Bactrim] Allergy (Verified 05/19/21 01:20) Nausea/Vomiting trimethoprim [From Bactrim] Allergy (Verified 05/19/21 01:20) Nausea/Vomiting Home Medications: Acetaminophen [Tylenol Extra Strength] 500 mg PO Q6HP PRN 05/19/21 Amoxicillin/Potassium Clav [Augmentin 500-125 Tablet] 1 each PO BID 05/19/21 Apixaban [Eliquis] 5 mg PO BID 05/19/21 Atorvastatin Calcium [Lipitor] 80 mg PO BEDTIME 05/19/21 Docusate [Colace Cap] 100 mg PO BEDTIME 05/19/21 Ferrous Sulfate 325 mg PO BEDTIME 05/19/21 Insulin -Regular Human [Novolin -R*] See Protocol SQ ACHS 05/19/21 Lactobacillus Acidophilus [Probiotic Acidophilus] 1 each PO BEDTIME 05/19/21 Lutein 10 mg PO BEDTIME 05/19/21 Magnesium Oxide [Mag 0X Tab] 400 mg PO DAILY 05/19/21 Melatonin 3 mg PO BEDTIME PRN 05/19/21 Montelukast [Singulair] 10 mg PO BEDTIME 05/19/21 Pantoprazole Sodium [Protonix] 40 mg PO BID 05/19/21 Sotalol HCl [Betapace] 40 mg PO BID 05/19/21 Sucralfate [Carafate -Tab] 1 gm PO ACHS 05/19/21 Vitamin E 200 unit PO BEDTIME 05/19/21 - Past Medical/Surgical History Diabetic: Yes -: HTN -: Stroke -: Afib -: dyspnea -: Hyperlipidemia -: bilateral pleural effusion -: cp -: diabetes -: weakness -: uti -: pacemaker placement -: Hysterectomy -: cholecystectomy -: Foor surgery - Family History Father Medical History: Heart disease, Stroke Brother Medical History: Heart disease, Lung disease, Diabetes, Stroke, Blood disorders, Kidney disease Mother Medical History: Diabetes - Social History Smoking Status: Unknown if ever smoked Alcohol use: No CD- Drugs: No Caffeine use: No Place of Residence: Home Review of Systems is unable to be obtained Physical Examination Temp Pulse Resp BP Pulse Ox 97.2 F 125 H 20 127/71 91 05/28/21 07:00 05/28/21 07:00 05/28/21 07:00 05/28/21 07:00 05/28/21 07:00 General: Alert, Oriented x2, Mild distress HEENT: PERRLA, EOMI, Sclerae nonicteric Respiratory: Diminished (At bases bilaterally), Crackles/rales Cardiovascular: Edema (Trace bilateral lower extremity), Irregular heart rate/rhythm Gastrointestinal: Soft and benign, Non-distended, No tenderness Musculoskeletal: No tenderness Integumentary: No rashes, No significant lesion Neurological: Other (Moves all 4 extremities, normal speech, noncooperative) Laboratory Data (last 24 hrs) 05/28/21 07:42: Sodium 137, Potassium 4.1, BUN 39 H, Creatinine 0.94, Glucose 194 H 05/28/21 07:42: WBC 14.60 H D, Hgb 10.7 L, Hct 33.3 L, Plt Count 306 D Physician Review Additional Text: Problem list Chronic hypoxemia secondary to acute on chronic CHF exacerbation Failure to thrive, with refusal to eat/drink atrial fibrillation/flutter HTN Depression History of CVA x3 Diabetes mellitus type 2 CAD Had long discussion with patient's son (POA), and attempted to have conversations with patient. From what I gather, patient has been refusing to eat/drink, participate with therapy/ADLs Family stated she seems to have given up She was hospitalized a week ago with some mild improvement, but she has continued to say that she does not want to continue with all of this Patient continues to accumulate fluid/bilateral effusions Disinclination with poor nutrition, not wanting to eat/drink, patient would likely require PEG tube placement, and frequent diuretic usage and/or thoracentesis Family state they have tried this recent hospitalization, patient has expressed she would not want a PEG tube or any further "big" treatment such as that. Family states the patient has been seen for "some time now" that she has done with everything. They state that patient has slowly declined over the last 4 years since her , and even more so in the last few weeks. Family understand further medical/procedural treatment would be futile when the patient does not want to eat/drink, and has been asking to be left alone. At the conclusion of our discussion, family have decided to respect patient's wishes and proceed with home hospice. Patient is DNR per son (POA). Time Spent Managing Pts care (In Minutes): 60
--- NOTE | 2021-05-28 18:28 | R.PN ---
PROGRESS NOTES ENCOUNTER DATE AND TIME: 05/28/2021 18:18 (PRISON LIBRARIAN) NAME YRN BARBOSA DATE OF : 1935 DATE OF ADMISSION: 05/18/2021 18:00 (PRISON LIBRARIAN) CHF exacerbationCHIEF COMPLAINT: CHF exacerbation. SUBJECTIVE: Pt denied any depression. Pt denied any Shortness of Breath. Hgb 10.7, WBC increased to 14.6, glucose 194 to 277, prealbumin very low at 4.6, Band Teacher 1.08. She refused to get out of bed or do any bed mobility exercises. She refuses to eat and only takes sip s of liquids. Repeat chest x-ray show increase in moderate to large right pleural effusion and moderate left effusi on. She requires IV diuretics, ventilatory support and PEG tube placement but the patient does not wa nt more aggressive therapy. Her son has medical power of mergers and acquisitions attorney and he reports she is DNR and decid ed on hospice care with [facility]. VITAL SIGNS Temperature: 97.2 F SBP/DBP: 127/71 Pulse: 125 Resp: 18 MEDICATION ALLERGIES: CODEINE Sulfamethoxazole w/ trimethoprim ENVIRONMENTAL ALLERGIES: None Known - Substance Allergies None Known - Other Allergies Adhesives Latex NURSING: - Shower allowing shower PRECAUTIONS: - Safety Fall risk assist with xfers/STS ACTIVITIES OOB only with supervision THERAPIES: - Dietary and Nutrition Adequate Nutrition. Nutritional Education. Nutritional Supplements. - Occupational Therapy Cognitive Retraining. Visual Perceptual Training. Evaluate and Treat. Safety Awareness. UE Strengthen ing. Adaptive Equipment. ADL Training. Community Reintegration. Household Tasks. Transfer Training. P atient/Family Education. UE ROM. - Speech Therapy Cognitive Training. Expressive Language Skills. Memory Strategies. Receptive Language Skills. Speech Intelligibility Training. - Physical Therapy Balance Training. Gait Training. Evaluate and Treat. LE Strengthening. Mobility Training. Transfer Tr aining. Patient/Family Education. LE ROM. Safety Awareness. Medical Equipment Assessment and Evaluati on. PHYSICAL EXAM - Gen Alert and awake Lying in bed No apparent distress Oriented to: person, time, and place - Skin Stage 2 sacral ulcer No abnormalities - Eyes No abnormalities - ENMT No abnormalities - Neck No abnormalities - CVS RRR - Chest Mildly decreased breath sounds bilaterally. - Resp No wheezing - Abd Soft - GI Non distended Deferred - No abnormalities - Ext Mild bilateral lower extremity edema. - MSK 4+/5 weakness in both lower extremities. - Neuro No focal deficits - Psych No abnormalities ASSESSMENT: Pt. is a 85 yo Right-handed WF.On 04/28/2021 she was admitted to [facility] with diagnosis CH F exacerbation.Her impairment category is Cardiac 09 - Cardiac Disorders ().Pre-morbidly, Pt. was independent/mod-I in Locomotion, Social Cognition, Safety Awareness, Balance, Transfers Control, Sphi ncter Control, Self-Care, Communication, and Endurance; and she had good Locomotion, Safety Awareness , Social Cognition, Balance, Transfers Control, Sphincter Control, Self-Care, Communication, and Endu stevie.Currently, she has deficits of Locomotion, Safety Awareness, Balance, Transfers Control, Self-C are, Endurance, and Communication.Pt. is now referred to [facility] for acute in-patient rehabilitation in order to maximize patient's functional independence in activities of lynette ly living, strength, ROM, and mobility.- Rehab Goal Patient has realistic goal of being discharged at assistance level mod assist to independent to resid e at Home with Family/Relatives. MDM/PLAN: - Physical Therapy Gait dysfunction - to improve, our physical therapists will perform initial evaluation of pt's statu s upon admission and devise an individualized program for Gait Training, and Wheel Chair mobility Inability to transfer - to improve, our physical therapists will perform initial evaluation of pt's status upon admission and devise an individualized program for Bed mobility Need for home safety evaluation - to improve, our physical therapists will perform initial evaluatio n of pt's status upon admission and devise an individualized program for Home Evaluation Need in caregiver upon discharge - to improve, our physical therapists will perform initial evaluati on of pt's status upon admission and devise an individualized program for Caregiver Training New precaution - to improve, our physical therapists will perform initial evaluation of pt's status upon admission and devise an individualized program for Patient precaution education Edema - to improve, our physical therapists will perform initial evaluation of pt's status upon admi ssion and devise an individualized program for Elevation Training, and Lymphedema Therapy Poor balance - to improve, our physical therapists will perform initial evaluation of pt's status up on admission and devise an individualized program for Balance Training Poor endurance - to improve, our physical therapists will perform initial evaluation of pt's status upon admission and devise an individualized program for Endurance Training Weakness - to improve, our physical therapists will perform initial evaluation of pt's status upon a dmission and devise an individualized program for Aquatic Therapy, Neuromuscular Reeducation, and Str engthening Achieving independence - to improve, our physical therapists will perform initial evaluation of pt's status upon admission and devise an individualized program for Community Reintegration Activities - Occupational Therapy ADL deficits - to improve, our occupation therapists will perform initial evaluation of pt's status upon admission and devise an individualized program for Bathing, Bed mobility, Community Reintegratio n, Cooking, Dressing, Eating, Fine Motor Skills, Grooming, Homemaking, Kitchen Mobility, Laundry, Pat ient Education, Safety Awareness, Splinting - Positioning, Transfers(Toilet, Tub, Shower), and Wheel Chair Management Need for healthcare educator - to improve, our occupation therapists will perform initial evaluation of pt's status upon admission and devise an individualized program for Caregiver Training Weakness - to improve, our occupation therapists will perform initial evaluation of pt's status upon admission and devise an individualized program for Aquatic Therapy, Balance, Endurance, UE ROM, and UE strengthening - Other See attached MAR (Medication Administration Record) - Diet Type Continue Diet not specified in chart - Diet - Liquid Texture Continue Regular - Tube Feed Continue N/A - Diet - Solid Texture Continue Regular - Shower allowing shower - Safety Fall risk assist with xfers/STS FUNCTIONAL STATUS: UPDATED AT WEEKLY TEAM CONFERENCE - Bladder Same accident frequency: 7-Ind - No accidents in the past 7 days - Bowel Same accident frequency: 7-Ind - No accidents in the past 7 days - Walking Same score based on distance walked: 0(N/A) - Wheelchair Same score based on distance traveled: 0(N/A) FUNCTIONAL STATUS: - Self-Care A. Eating Ind B. Grooming Ind C. Bathing sup D. Dressing - Upper sup E. Dressing - Lower Silvana F. Toileting Silvana - Sphincter Control G. Bladder control Silvana H. Bowel control sup - Transfers Control I. Bed/Chair/Wheelchair sup J. Toilet sup K. Tub/Shower Silvana - Locomotion L. Walk/Wheelchair (W) sup M. Stairs Silvana - Communication N. Comprehension (B) Adithya O. Expression (B) Adithya - Social Cognition P. Social Interaction Adithya Q. Problem Solving Adithya R. Memory Ind - Endurance Good - Balance Good - Safety Awareness Good QI SCORES: - Self-Care A. Eating 05-Setup or clean-up assistance B. Oral hygiene 04-Supervision or touching assistance C. Toileting hygiene 03-Partial/moderate assistance E. Shower/bathe self 02-Substantial/maximal assistance F. Upper body dressing 03-Partial/moderate assistance G. Lower body dressing 03-Partial/moderate assistance H. Putting on/taking off footwear 02-Substantial/maximal assistance - Mobility A. Roll left and right 03-Partial/moderate assistance B. Sit to lying 03-Partial/moderate assistance C. Lying to sitting on side of bed 02-Substantial/maximal assistance D. Sit to stand 02-Substantial/maximal assistance E. Chair/[id number] transfer 88-Not attempted due to medical condition or safety concerns F. Toilet transfer 88-Not attempted due to medical condition or safety concerns G. Car transfer 88-Not attempted due to medical condition or safety concerns I. Walk 10 feet 88-Not attempted due to medical condition or safety concerns J. Walk 50 feet with two turns 88-Not attempted due to medical condition or safety concerns K. Walk 150 feet 88-Not attempted due to medical condition or safety concerns L. Walking 10 feet on uneven surfaces 88-Not attempted due to medical condition or safety concerns M. 1 step (curb) 88-Not attempted due to medical condition or safety concerns N. 4 steps 88-Not attempted due to medical condition or safety concerns O. 12 steps 88-Not attempted due to medical condition or safety concerns P. Picking up object 88-Not attempted due to medical condition or safety concerns R. Wheel 50 feet with two turns S. Wheel 150 feet - Bladder and Bowel Bladder continence Bowel continence - Endurance Fair - Balance Fair - Safety Awareness Fair CURRENT FUNC. DEFICITS: Self-Care, Mobility, Endurance, Balance, and Safety Awareness SIGNATURE PANEL: (PRISON LIBRARIAN)
[2021-05-28] MEDS: AMOX/K CLAV 500 MG TAB PO SCH (19:27)
[2021-05-28] MEDS: ATORVASTATIN 80 MG TAB PO SCH (20:47)
[2021-05-28] MEDS: MONTELUKAST 10 MG TAB PO SCH (20:47)
[2021-05-28] MEDS: LACTOBACILLUS/ACIDOPHILUS TAB PO SCH (20:48)
[2021-05-28] MEDS: FERROUS SULFATE 325 MG TAB PO SCH (20:48)
[2021-05-28] MEDS: DOCUSATE NA/SENNA CONC 1 TAB PO SCH (20:48)
[2021-05-28] MEDS: LUTEIN 10 MG PO SCH (20:49)
[2021-05-28] MEDS: VITAMIN E 200 UNIT CAPSULE PO SCH (20:50)
[2021-05-29] MEDS: SOTALOL HCL 80 MG TAB PO SCH ×2 (05:12→17:18)
[2021-05-29 06:13] LABS: Potassium 4.3 mmol/L (3.5-5.1)
--- NOTE | 2021-05-29 06:16 | P.PN ---
Date of Service: 05/29/21 Subjective: No acute events overnight. Patient continues to refuse medications, minimally sipping on liquids Wants to be left alone/continue sleeping ROS: 10 point ROS as noted above, otherwise negative Physical exam General: fatigued appearing, not wanting to talk further HEENT: PERRL, Sclerae nonicteric Respiratory: Diminished (At bases bilaterally), Crackles/rales at bases Cardiovascular: Edema (Trace bilateral lower extremity), Irregular heart rat e/rhythm Gastrointestinal: Soft and benign, Non-distended, No tenderness Integumentary: No rashes, No significant lesion Neurological: Moves all 4 extremities, noncooperative Problem list Chronic hypoxemia secondary to acute on chronic CHF exacerbation Failure to thrive, with refusal to eat/drink atrial fibrillation/flutter HTN Depression History of CVA x3 Diabetes mellitus type 2 CAD Had long discussion with patient's son (JONAS) yesterday, and attempted to have conversations with patient yesterday and today Patient has been refusing to eat/drink, participate with therapy/ADLs for >1 week, and refusing to eat/drink even before that Family stated she seems to have given up, and patient had expressed not wanting to go on previously She was hospitalized a week ago with some mild improvement, but she has continued to say that she does not want to continue with all of this Patient continues to accumulate fluid/bilateral effusions poor nutrition, not wanting to eat/drink, patient would likely require PEG tube placement, and frequent diuretic usage and/or thoracentesis Family state they have tried this recent hospitalization, patient has expressed she would not want a PEG tube or any further "big" treatment such as that. Family states the patient has been seen for "some time now" that she has done with everything. They state that patient has slowly declined over the last 4 years since her , and even more so in the last few weeks. Family understand further medical/procedural treatment would be futile when the patient does not want to eat/drink, and has been asking to be left alone. Dispo: continue symptomatic treatment / comfort measures that patient will allow. hospice consulted, plan for home hospice once set up. long term care social worker consulted Time Spent Managing Pts Care (In Minutes): 25
[2021-05-29 06:18] LABS: Absolute Lymphocytes (CBC) 0.7 K/uL (0.7-4.9); Basophils % 0.3 % (0-1.3); Hematocrit 35.1 % (36.0-45.0); Lymphocytes % 5.2 % (15.3-44.8); MPV 8.9 fL (7.6-11.3); RBC Red Blood Cell Count 4.03 M/uL (3.86-4.86)
[2021-05-29] MEDS: SUCRALFATE 1 GM TABLET PO SCH ×5 (07:06→20:34)
[2021-05-29] MEDS: INSULIN -REGULAR HUMAN 50 UNIT/0.5 ML ML SQ SCH ×4 (07:30→20:36)
[2021-05-29] MEDS: MAGNESIUM OXIDE 400 MG TAB PO SCH (07:51)
[2021-05-29] MEDS: APIXABAN 5 MG TABLET PO SCH ×3 (07:51→20:00)
[2021-05-29] MEDS: AMOX/K CLAV 500 MG TAB PO SCH ×3 (07:51→20:00)
[2021-05-29] MEDS: DULOXETINE 20 MG CAP PO SCH ×3 (07:51→20:00)
[2021-05-29] MEDS: PANTOPRAZOLE 40MG TABLET PO SCH ×3 (07:51→20:00)
[2021-05-29] MEDS: FE SULF/FA/VIT B COMP & C TAB PO SCH (07:51)
[2021-05-29] MEDS: MEGESTROL 40 MG TAB PO SCH ×3 (07:52→20:00)
[2021-05-29] MEDS: JUVEN PACKET PO SCH ×3 (07:52→20:00)
[2021-05-29] MEDS: GLUCERNA SHAKE 237 ML CAN PO SCH ×3 (07:52→20:00)
[2021-05-29] MEDS: NYSTATIN PWDR 100000 UNIT/GM TOP SCH ×2 (07:53→20:00)
[2021-05-29 08:09] LABS: Platelet Estimate ADEQ; White Blood Cell Scan OK (OK)
[2021-05-29 08:14] LABS: Anisocytosis 2+; Blood Morphology Comment NOTED (NOT SEEN); Burr Cells 2+; Polychromasia 1+
[2021-05-29] MEDS: FERROUS SULFATE 325 MG TAB PO SCH (20:34)
[2021-05-29] MEDS: LACTOBACILLUS/ACIDOPHILUS TAB PO SCH (20:35)
[2021-05-29] MEDS: LUTEIN 10 MG PO SCH (20:35)
[2021-05-29] MEDS: ATORVASTATIN 80 MG TAB PO SCH (20:35)
[2021-05-29] MEDS: VITAMIN E 200 UNIT CAPSULE PO SCH (20:36)
[2021-05-29] MEDS: MONTELUKAST 10 MG TAB PO SCH (20:36)
[2021-05-29] MEDS: DOCUSATE NA/SENNA CONC 1 TAB PO SCH (20:36)
[2021-05-30] MEDS: SOTALOL HCL 80 MG TAB PO SCH ×2 (06:00→07:35)
--- NOTE | 2021-05-30 06:14 | P.PN ---
Date of Service: 05/30/21 Subjective: No acute events overnight per nursing staff Patient awake this morning, reports some shortness of breath Still refusing to eat/drink and medications Asks to be left alone so she can sleep ROS: 10 point ROS as noted above, otherwise negative Physical exam General: fatigued appearing, awake, oriented x2 HEENT: PERRL, Sclerae nonicteric Respiratory: Diminished (At bases bilaterally), Crackles/rales at bases Cardiovascular: Edema (Trace bilateral lower extremity), Irregular heart rate/rhythm Gastrointestinal: Soft and benign, Non-distended, No tenderness Integumentary: No rashes, No significant lesion Neurological: Moves all 4 extremities, noncooperative Problem list Chronic hypoxemia secondary to acute on chronic CHF exacerbation Failure to thrive, with refusal to eat/drink atrial fibrillation/flutter HTN Depression History of CVA x3 Diabetes mellitus type 2 CAD Had long discussion with patient's son (POMark) on 05/28 Patient has been refusing to eat/drink, participate with therapy/ADLs for >1 week while at rehab, and refusing to eat/drink even before that Family stated she seems to have given up, and patient had expressed not wanting to go on previously She was hospitalized a week ago with some mild improvement, but she has continued to say that she does not want to continue with all of this Patient continues to accumulate fluid/bilateral effusions poor nutrition, not wanting to eat/drink, patient would likely require PEG tube placement, and frequent diuretic usage and/or thoracentesis Family state they have tried this recent hospitalization, patient has expressed she would not want a PEG tube or any further "big" treatment such as that. Family states the patient has been seen for "some time now" that she has done with everything. They state that patient has slowly declined over the last 4 years since her , and even more so in the last few weeks. Family understand further medical/procedural treatment would be futile when the patient does not want to eat/drink, and has been asking to be left alone. Dispo: continue symptomatic treatment / comfort measures that patient will allow. hospice consulted, plan for home hospice once set up. community mental health social worker consulted This may possibly be set up as early as today Time Spent Managing Pts Care (In Minutes): 25
[2021-05-30] MEDS: INSULIN -REGULAR HUMAN 50 UNIT/0.5 ML ML SQ SCH ×2 (07:30→11:30)
[2021-05-30] MEDS: SUCRALFATE 1 GM TABLET PO SCH ×3 (07:30→11:30)
[2021-05-30] MEDS: MEGESTROL 40 MG TAB PO SCH (08:00)
[2021-05-30] MEDS: DULOXETINE 20 MG CAP PO SCH (08:00)
[2021-05-30] MEDS: GLUCERNA SHAKE 237 ML CAN PO SCH (08:00)
[2021-05-30] MEDS: PANTOPRAZOLE 40MG TABLET PO SCH (08:00)
[2021-05-30] MEDS: JUVEN PACKET PO SCH (08:00)
[2021-05-30] MEDS: AMOX/K CLAV 500 MG TAB PO SCH (08:00)
[2021-05-30] MEDS: MAGNESIUM OXIDE 400 MG TAB PO SCH (08:00)
[2021-05-30] MEDS: FE SULF/FA/VIT B COMP & C TAB PO SCH (08:00)
[2021-05-30] MEDS: APIXABAN 5 MG TABLET PO SCH (08:00)
[2021-05-30 09:00] VITALS: O2SAT 79
[2021-05-30] MEDS: NYSTATIN PWDR 100000 UNIT/GM TOP SCH (10:04)
[2021-05-30 11:29] VITALS: BP 136/80; TEMP 97.2
== END 2021-05-30 14:50 | disposition home or self-care (01) | DRG 293 ==
LOC: 5TH 05-18 18:56
PROVIDERS: ADMIT Psychiatry & Neurology Neurology with Special Qualifications in Child Neurology; ATTEND Psychiatry & Neurology Neurology with Special Qualifications in Child Neurology
DX: I11.0 Hypertensive heart disease with heart failure (principal); I50.9 Heart failure, unspecified; R09.02 Hypoxemia; R62.7 Adult failure to thrive; I48.91 Unspecified atrial fibrillation; Z68.23 Body mass index [BMI] 23.0-23.9, adult; L89.152 Pressure ulcer of sacral region, stage 2; F32.A Depression, unspecified; Z86.73 Personal history of transient ischemic attack (TIA), and cerebral infarction without residual deficits; E11.9 Type 2 diabetes mellitus without complications; I25.10 Atherosclerotic heart disease of native coronary artery without angina pectoris; Z91.19 Patient's noncompliance with other medical treatment and regimen; Z66 Do not resuscitate; Z20.822 Contact with and (suspected) exposure to COVID-19
CPT/HCPCS: 36415; 71045; 80048; 82040; 82947; 83735; 84134; 85025; 92507; 92523; 94010; 97110; 97116; 97127; 97161; 97530; U0003